=== PATIENT | female | born 1955 | race Caucasian/White ===

== ENCOUNTER 2018-03-23 06:20 | Inpatient (IN) | payer MEDICAID, SELFPAY ==
[2016-10-23 10:17] VITALS: BMI 33.8
--- NOTE | 2018-03-23 06:25 | RAD_ITS ---
STUDY: X-RAY CHEST REASON FOR EXAM: Female, 62 years old. Respiratory arrest. Endotracheal and orogastric tube placement. TECHNIQUE: Single AP portable view of the chest. COMPARISON: 10/20/2016 FINDINGS: Endotracheal tube is placed with the tip about 4.3 cm proximal to the jessie. Orogastric tube is seen extending below the diaphragm and off the [id number]. There is hyperinflation of the lungs consistent with chronic obstructive lung disease (COPD). There is perihilar mild chronic interstitial thickening/edema or infiltrates demonstrated. There is no demonstrated pleural abnormality. There is borderline cardiomegaly. Normal mediastinum and emily. Normal visualized pulmonary arteries. There is atherosclerotic calcification of the aortic arch. There is demineralization of the osseous structures. There is no acute abnormality of the visualized ribs, clavicles, and shoulders. There is no demonstrated abnormality of the visualized soft tissue structures of the upper abdomen. RAD/Chest 1 View IMPRESSION: Borderline cardiomegaly. Bilateral mild chronic interstitial thickening consistent with mild edema versus infiltrates. COPD changes. Endotracheal tube and OG tube appear in place. Electronically Signed: Tom Guardado MD at 7:04 EDT Tel , Service support ,
--- NOTE | 2018-03-23 08:10 | ECHOD_ITS ---
Reason For Study: AFIB/FLUTTER Procedure This was a 2D Doppler, Color Flow transthoracic echocardiogram. The study was technically difficult. The study was technically limited. PT was unable to lie still for exam due to difficulty breathing with venti mask and anxiety. Exam performed portable in ICU/CCU. Left Ventricle Normal LV size. Mild to moderate global left ventricular systolic dysfunction. The estimated ejection fraction is 40 %. Unable to assess diastolic dysfunction due to arrhythmia. No regional wall motion abnormalities noted. Right Ventricle Normal RV size. Normal systolic function. Atria The left atrium is mildly enlarged. Normal right atrium. Mitral Valve There is mild to moderate mitral annular calcification. Mild (1+) eccentric mitral valve insufficiency. Tricuspid Valve The tricuspid valve is not well visualized. Aortic Valve The aortic valve is not well visualized. Pulmonic Valve The pulmonic valve is not well visualized. Great Vessels Normal aortic root. The pulmonary artery is normal size. No collapse of the inferior vena cava. Pericardium/Pleural No pericardial effusion. MMode/2D Measurements & Calculations LVIDd: 5.3 cm IVSd: 0.93 cm Ao root diam: 2.3 cm LVIDs: 4.4 cm LVPWd: 0.97 cm RVDd: 2.8 cm FS: 17.3 % LAV(MOD-bp): 74.1 ml LA A4 area: 22.1 cm2 RA A4 area: 12.9 cm2 LAV(MOD-bp) Indexed: 37.5 ml/m2 LAV(MOD-sp2): 62.4 ml LAV(MOD-sp4): 77.1 ml Doppler Measurements & Calculations MV E max kadi: 111.8 cm/sec Ao V2 max: 115.8 cm/sec LV V1 max: 75.3 cm/sec Ao max P.4 mmHg LV V1 max P.3 mmHg PA V2 max: 67.8 cm/sec Interpretation Summary Normal LV size. Mild to moderate global left ventricular systolic dysfunction. The estimated ejection fraction is 40 %. Unable to assess diastolic dysfunction due to arrhythmia. There is mild to moderate mitral annular calcification. Mild (1+) eccentric mitral valve insufficiency. Ordering Physician: DO Suri Casey Referring Physician: Anastasiia Cordoba Performed By: Anaya Rayo, ABBY, RVT
--- NOTE | 2018-03-23 09:00 | DT_ITS ---
This patient was seen during an EMR downtime March 17, 2018 - March 24, 2018. This patient may have a combination of paper and electronic documentation or all paper documentation. All documentation is viewable within the e-chart portion of [facility] for each patient visit.
--- NOTE | 2018-03-23 09:15 | CT_ITS ---
STUDY: CTA CHEST REASON FOR EXAM: Female, 62 years old. Respiratory arrest RADIATION DOSAGE (If Supplied By Facility): CTDIvol = ( 19.47 ) mGy, DLP = ( 704.04 ) mGycm TECHNIQUE: The examination was performed with the intravenous administration of 100 ml of Isovue 370 contrast material. Post-processing of the angiographic images was performed, with multiplanar reformation and 3D reconstruction. Individualized dose optimization techniques were used for this CT. COMPARISON: None. FINDINGS: Endotracheal tube is visualized. Nasogastric tube is also seen traversing into the stomach. Cardiac size mildly enlarged. Coronary vascular calcifications. Pulmonary artery and its branches demonstrate no definite evidence for filling defects to suggest pulmonary embolus. Vascular calcifications of the thoracic aorta. Bibasilar consolidation seen. Intralobular septal thickening also seen. Patchy areas of nodular densities are also identified bilaterally. No pneumothorax. Degenerative changes in the thoracic spine. Pneumobilia seen not well characterized on this exam. CT/CTA Chest W/WO Contrast IMPRESSION: No evidence for pulmonary embolus. Bibasilar lung consolidation.. No pneumothorax. No pleural effusions Scattered nodular densities with intralobular septal thickening. Short-term follow-up imaging in 3-6 months is suggested. Pneumobilia is partially visualized Electronically Signed: Surinder Vargas, at 10:16 EDT Tel , Service support ,
[2018-03-23 11:24] LABS: Bacteria 0 SEEN /hpf (None Seen); Mucous, Urine 0 SEEN /hpf (<or=2+); Red Blood Cells-Urine 0 SEEN /hpf (0-5); Squamous Epithelial Cells - UA 0 SEEN /hpf (5-10); White Blood Cells 0 SEEN /hpf (0-5)
[2018-03-23 12:00] LABS: Color, Urine Straw (Yellow); Glucose, Dipstick 1000 mg/dl (Normal); Ketone-Dipstick Negative (Negative); Leukocyte Esterase-Dipstick Negative /ul (Negative); Nitrite-Dipstick Negative (Negative); Occult Blood-Urine Negative /ul (Negative); Protein-Dipstick Negative (Negative); Urine Bilirubin Dipstick Negative (Negative); Urine Clarity Clear (Clear); Urine Urobilinogen Normal (Normal)
[2018-03-23 12:20] LABS: M R Staph aureus DNA By PCR Negative (Negative); Probe Check PASS; Specimen Processing Control PASS
[2018-03-24] VITALS (26 sets, daily range): BP systolic 135–170; BP diastolic 65–88; PULSE 90–141; RESP 12–31; TEMP 37–37.6; O2SAT 87–96
[2018-03-24] MEDS: Insulin Lispro 100 UNIT/ML INSULN.PEN SC ×4 (00:15→18:31)
[2018-03-24] MEDS: Propofol 10MG/Ml 1,000 MG/100 ML Bottle 2.64 MG CONT INF (00:30)
[2018-03-24] MEDS: Ipratropium/Albuterol Sulfate 3 ML AMPUL.NEB INHALATION ×6 (02:15→23:05)
[2018-03-24 03:59] LABS: Hematocrit 43.2 % (37-47); Hemoglobin 14.7 g/dl (12.0-15.0); Mean Corpuscular Hgb 28.9 pg (27.0-32.0); Mean Corpuscular Volume 84.9 fL (81-99); Mean Platelet Vol. 10.7 fl (6.2-12.0); Platelet Count 157 K/mm3 (150-450); RBC Distribution Width CV 14.2 % (11.6-14.6); Red Blood Count 5.09 M/mm3 (4.2-5.4); White Blood Count 12.6 K/mm3 (4.4-11.0)
[2018-03-24 04:00] LABS: Scan Indicated on CBC? Y/N NO
--- NOTE | 2018-03-24 05:00 | EKG12_ITS ---
Test Reason : AM EKG Blood Pressure : / mmHG Vent. Rate : 078 BPM Atrial Rate : 078 BPM P-R Int : 142 ms QRS Dur : 084 ms QT Int : 364 ms P-R-T Axes : 074 -20 125 degrees QTc Int : 414 ms Normal sinus rhythm with sinus arrhythmia Low voltage QRS Borderline ECG When compared with ECG of 23-MAR-2018 17:00, MANUAL COMPARISON REQUIRED, DATA IS UNCONFIRMED Confirmed by SCOTTIE ROSE, LOLIS ([id number]), news editor JESS OCAMPO ([id number]) on 03/27/2018 4:42:44 PM Referred By: CEASAR Confirmed By:LOLIS RUBIN MD
[2018-03-24 06:09] LABS: ALB/GLOB Ratio 0.9 RATIO (0.9-2.4); AST(SGOT) 129 U/L (15-37); Alanine Aminotransfer ALT/SGPT 42 U/L (13-56); Albumin, Serum 2.8 g/dL (3.2-5.0); Alkaline Phosphatase 112 U/L (45-117); Anion Gap 10 (5-15); BUN 16 mg/dL (7-18); BUN/Creat Ratio 17.8 RATIO (10-20); Chloride 110 mmol/L (98-107); Cholesterol 130 mg/dL (200); EST Glomerular Filtration Rate 68 mL/min (>60); Est Glom Filt Rate - Afr Amer 82 mL/min (>60); Estimated Creatinine Clearance 61.45 ml/min; Glucose 321 mg/dL (74-106); High Density Lipoprotein 31 mg/dL; Magnesium 1.3 mg/dL (1.6-2.6); Phosphorus 3.6 mg/dL (2.5-4.9); Potassium 4.1 mmol/L (3.5-5.1); Protein, Total 5.8 g/dL (6.4-8.2); Sodium Level 143 mmol/L (136-145); Triglycerides 227 mg/dL; Very Low Density Lipoprotein 45 mg/dL (5-40)
[2018-03-24] MEDS: 0.9% Normal Saline 1,000 ML 100 ML IV ×2 (08:00→16:00)
--- NOTE | 2018-03-24 10:15 | CASEMGMT ---
SW on bi-pap after being extubated this morning. Pt able to respond to SW questions by nodding and shaking head, so conversation kept brief. Pt confirms she lives home alone, was independent with ADL's prior to this admission. Pt does not use any DME, and is not on home oxygen. SW explained to pt that SW will be following along for any needs at discharge, and we will talk further when pt is able to speak and off the bi-pap. Pt nodded in understanding. SW will continue to follow. JACQUE Kebede, [employer]
--- NOTE | 2018-03-24 10:47 | PCM.PN.HOSP ---
Patient Problems: Active and Suspected Problems Acute respiratory failure with hypoxia and hypercapnia (Acute) Pneumococcal pneumonia (Acute) Acute exacerbation of COPD with asthma (Acute) NSTEMI (non-ST elevated myocardial infarction) (Acute) Subjective: extubated this AM. Tolerating BiPAP. Vitals/I&O's: Vital Signs Pulse Resp Pulse Ox 97 16 95 03/24/18 10:35 03/24/18 10:35 03/24/18 10:35 Oxygen Flow Rate (L/min) 12 Oxygen Delivery Method Venturi Mask Weight: 88 kg General: Alert, Cooperative, No apparent distress, - - on BiPAP. HEENT: Atraumatic Neck: No Nodes, Thyroid Normal Size and Texture Lungs: Diminished, - - coarse breath sounds bilaterally. Cardiovascular: Regular rate, Regular Rhythm, Normal S1, Normal S2, No murmurs Abdomen: Bowel Sounds Present, Soft, Non Tender, Non-Distended, No Hepato-splenomegaly Extremities: No edema, No Calf Tenderness Skin: No rashes, No breakdown Musculoskeletal: No Tenderness to Palpation of Joints or Extremities, No Muscle Wasting Neurological: Neuro grossly intact, Sensory exam intact to light touch and pain Psych/Mental Status: Normal Affect, Appropriate Microbiology Past 72 Hours 03/23/18 11:18 Urine, Clean Catch Urine Culture - Preliminary Culture exhibits no growth. 03/23/18 11:18 Urine, Clean Catch Legionella Antigen - Final 03/23/18 11:18 Urine, Clean Catch Streptococcus pneumoniae Antigen (M - Final 03/23/18 11:18 Sputum, Induced/Lukens Gram Stain - Final 03/23/18 09:52 Mucosa - Nasopharyngeal Respiratory Panel (PCR) - Final Laboratory Results 03/23/18 10:30: Urine Color Straw, Urine Clarity Clear, Urine pH 6.0, Ur Specific [place] 1.010, Urine Protein Negative, Urine Glucose (UA) 1000 H, Urine Ketones Negative, Urine Occult Blood Negative, Urine Nitrite Negative, Urine Bilirubin Negative, Urine Urobilinogen Normal, Ur Leukocyte Esterase Negative, Urine RBC 0 SEEN, Urine WBC 0 SEEN, Ur Squamous Epith Cells 0 SEEN, Urine Bacteria 0 SEEN, Urine Mucus 0 SEEN 03/23/18 11:18: MRSA (PCR) Negative 03/24/18 03:45: WBC 12.6 H, RBC 5.09, Hgb 14.7, Hct 43.2, MCV 84.9, MCH 28.9, MCHC 34.0, RDW 14.2, RDW Differential 44.0 H, Plt Count 157, MPV 10.7 03/24/18 03:45: Sodium 143, Potassium 4.1, Chloride 110 H, Carbon Dioxide 23.0, Anion Gap 10, BUN 16, Creatinine 0.90, Estim Creat Clear Calc 61.45, Est GFR (MDRD) Af Amer 82, Est GFR (MDRD) Non-Af 68, BUN/Creatinine Ratio 17.8, Glucose 321 H, Calcium 7.0 L, Phosphorus 3.6, Magnesium 1.3 L, Total Bilirubin 0.40, AST 129 H, ALT 42, Alkaline Phosphatase 112, Total Protein 5.8 L, Albumin 2.8 L, Globulin 3.0, Albumin/Globulin Ratio 0.9, Triglycerides 227 H, Cholesterol 130, LDL Cholesterol 54, VLDL Cholesterol 45 H, HDL Cholesterol 31 L Current Medications Albuterol Sulfate (Ventolin Aerosols) 2.5 mg INHALATION Q2H PRN PRN PRN Reason: DYSPNEA Albuterol/Ipratropium (Duoneb) 3 ml INHALATION Q4H.RT OMARI Last Admin: 03/24/18 10:34 Dose: 3 ml Aspirin (Aspirin, Baby) 81 mg PO DAILY@0800 [facility] Chlorhexidine Gluconate () 1 each TOPICAL DAILY [facility] Enoxaparin Sodium (Lovenox) 90 mg SC BID [facility] Famotidine (Pepcid) 20 mg GT DAILY [facility] Sodium Chloride () 1,000 mls @ 100 mls/hr IV .Q10H [facility] Vancomycin HCl 750 mg/ Sodium (Chloride) 265 mls @ 265 mls/hr IV Q12H [facility] Meropenem 500 mg/ Sodium (Chloride) 60 mls @ 100 mls/hr IV Q6 [facility] Diltiazem HCl 125 mg/ Dextrose 125 mls @ 5 mls/hr CONT INF .Q25H [facility] PRN Reason: 5 MG/HR Insulin Human Lispro (Humalog Kwikpen (Bkc)) 0 unit SC Q6 [facility] PRN Reason: Protocol Methylprednisolone (Solu-Medrol) 40 mg IV Q8 [facility] Sodium Chloride () 5 - 30 ml IV UD PRN PRN Reason: SALINE FLUSH Medical Necessity - Tobacco Use Smoking Status: Current every day smoker Assessment/Plan All Active Problems Acute respiratory failure with hypoxia and hypercapnia (Acute) Pneumococcal pneumonia (Acute) Acute exacerbation of COPD with asthma (Acute) NSTEMI, initial episode of care (Acute) NSTEMI (non-ST elevated myocardial infarction) (Acute) Acute non-ST elevation myocardial infarction (NSTEMI) (Acute) SVT (supraventricular tachycardia) (Acute) CAD (coronary artery disease) (Acute) 1. Acute hypoxic and hypercapnic respiratory failure Secondary to COPD exacerbation as well as pneumonia Extubated this morning and currently tolerating BiPAP. Wean BiPAP as tolerated. Critical care medicine following. 2. Suspicion of COPD Improving Continue with bronchodilators as well as Solu-Medrol 3. Suspected pneumococcal pneumonia No recent hospitalizations since 2017 Will de-escalate antibiotics to Rocephin and azithromycin and discontinue meropenem and vancomycin. Pulmonary toilet Urinary antigens for Streptococcus and Legionella are negative Respiratory panel negative 4. Non-STEMI Troponin went as high as 6.43. That lab work is not currently in the computer system but is in the paper chart. May be a type II event but will have cardiology evaluate and provide further assistance. Resume Plavix and metoprolol Patient has been started on weight-based dosing of Lovenox Cardiology consult 5. Atrial fibrillation with RVR Currently a low-grade sinus tachycardia of around 104 bpm. On a diltiazem drip 6. Diabetes mellitus type II uncontrolled Metformin on hold in light of the patient's CT angiogram that she had on the . That could be resumed on the Glimepiride currently on hold until patient is able to take an oral. Just continue with sliding scale insulin for now. 7. DVT prophylaxis with anticoagulation. Code Visit Inpatient E&M: [id number] [place] [id number]
--- NOTE | 2018-03-24 10:57 | PN_ITS ---
Patient Problems: Active and Suspected Problems Acute respiratory failure with hypoxia and hypercapnia (Acute) Pneumococcal pneumonia (Acute) Acute exacerbation of COPD with asthma (Acute) NSTEMI (non-ST elevated myocardial infarction) (Acute) Subjective: extubated this AM. Tolerating BiPAP. Vitals/I&O's: Vital Signs Pulse Resp Pulse Ox 97 16 95 03/24/18 10:35 03/24/18 10:35 03/24/18 10:35 Oxygen Flow Rate (L/min) 12 Oxygen Delivery Method Venturi Mask Weight: 88 kg General: Alert, Cooperative, No apparent distress, - - on BiPAP. HEENT: Atraumatic Neck: No Nodes, Thyroid Normal Size and Texture Lungs: Diminished, - - coarse breath sounds bilaterally. Cardiovascular: Regular rate, Regular Rhythm, Normal S1, Normal S2, No murmurs Abdomen: Bowel Sounds Present, Soft, Non Tender, Non-Distended, No Hepato- splenomegaly Extremities: No edema, No Calf Tenderness Skin: No rashes, No breakdown Musculoskeletal: No Tenderness to Palpation of Joints or Extremities, No Muscle Wasting Neurological: Neuro grossly intact, Sensory exam intact to light touch and pain Psych/Mental Status: Normal Affect, Appropriate Microbiology Past 72 Hours 03/23/18 11:18 Urine, Clean Catch Urine Culture - Preliminary Culture exhibits no growth. 03/23/18 11:18 Urine, Clean Catch Legionella Antigen - Final 03/23/18 11:18 Urine, Clean Catch Streptococcus pneumoniae Antigen (M - Final 03/23/18 11:18 Sputum, Induced/Lukens Gram Stain - Final 03/23/18 09:52 Mucosa - Nasopharyngeal Respiratory Panel (PCR) - Final Laboratory Results 03/23/18 10:30: Urine Color Straw, Urine Clarity Clear, Urine pH 6.0, Ur Specific [place] 1.010, Urine Protein Negative, Urine Glucose (UA) 1000 H, Urine Ketones Negative, Urine Occult Blood Negative, Urine Nitrite Negative, Urine Bilirubin Negative, Urine Urobilinogen Normal, Ur Leukocyte Esterase Negative, Urine RBC 0 SEEN, Urine WBC 0 SEEN, Ur Squamous Epith Cells 0 SEEN, Urine Bacteria 0 SEEN, Urine Mucus 0 SEEN 03/23/18 11:18: MRSA (PCR) Negative 03/24/18 03:45: WBC 12.6 H, RBC 5.09, Hgb 14.7, Hct 43.2, MCV 84.9, MCH 28.9, MCHC 34.0, RDW 14.2, RDW Differential 44.0 H, Plt Count 157, MPV 10.7 03/24/18 03:45: Sodium 143, Potassium 4.1, Chloride 110 H, Carbon Dioxide 23.0, Anion Gap 10, BUN 16, Creatinine 0.90, Estim Creat Clear Calc 61.45, Est GFR ( MDRD) Af Amer 82, Est GFR (MDRD) Non-Af 68, BUN/Creatinine Ratio 17.8, Glucose 321 H, Calcium 7.0 L, Phosphorus 3.6, Magnesium 1.3 L, Total Bilirubin 0.40, AST 129 H, ALT 42, Alkaline Phosphatase 112, Total Protein 5.8 L, Albumin 2.8 L , Globulin 3.0, Albumin/Globulin Ratio 0.9, Triglycerides 227 H, Cholesterol 130 , LDL Cholesterol 54, VLDL Cholesterol 45 H, HDL Cholesterol 31 L Current Medications Albuterol Sulfate (Ventolin Aerosols) 2.5 mg INHALATION Q2H PRN PRN PRN Reason: DYSPNEA Albuterol/Ipratropium (Duoneb) 3 ml INHALATION Q4H.RT OMARI Last Admin: 03/24/18 10:34 Dose: 3 ml Aspirin (Aspirin, Baby) 81 mg PO DAILY@0800 [facility] Chlorhexidine Gluconate () 1 each TOPICAL DAILY [facility] Enoxaparin Sodium (Lovenox) 90 mg SC BID [facility] Famotidine (Pepcid) 20 mg GT DAILY [facility] Sodium Chloride () 1,000 mls @ 100 mls/hr IV .Q10H [facility] Vancomycin HCl 750 mg/ Sodium (Chloride) 265 mls @ 265 mls/hr IV Q12H [facility] Meropenem 500 mg/ Sodium (Chloride) 60 mls @ 100 mls/hr IV Q6 [facility] Diltiazem HCl 125 mg/ Dextrose 125 mls @ 5 mls/hr CONT INF .Q25H [facility] PRN Reason: 5 MG/HR Insulin Human Lispro (Humalog Kwikpen (Bkc)) 0 unit SC Q6 [facility] PRN Reason: Protocol Methylprednisolone (Solu-Medrol) 40 mg IV Q8 [facility] Sodium Chloride () 5 - 30 ml IV UD PRN PRN Reason: SALINE FLUSH Medical Necessity - Tobacco Use Smoking Status: Current every day smoker Assessment/Plan All Active Problems Acute respiratory failure with hypoxia and hypercapnia (Acute) Pneumococcal pneumonia (Acute) Acute exacerbation of COPD with asthma (Acute) NSTEMI, initial episode of care (Acute) NSTEMI (non-ST elevated myocardial infarction) (Acute) Acute non-ST elevation myocardial infarction (NSTEMI) (Acute) SVT (supraventricular tachycardia) (Acute) CAD (coronary artery disease) (Acute) 1. Acute hypoxic and hypercapnic respiratory failure * Secondary to COPD exacerbation as well as pneumonia * Extubated this morning and currently tolerating BiPAP. Wean BiPAP as tolerated. * Critical care medicine following. 2. Suspicion of COPD * Improving * Continue with bronchodilators as well as Solu-Medrol 3. Suspected pneumococcal pneumonia * No recent hospitalizations since 2017 * Will de-escalate antibiotics to Rocephin and azithromycin and discontinue meropenem and vancomycin. * Pulmonary toilet * Urinary antigens for Streptococcus and Legionella are negative * Respiratory panel negative 4. Non-STEMI * Troponin went as high as 6.43. That lab work is not currently in the computer system but is in the paper chart. * May be a type II event but will have cardiology evaluate and provide further assistance. * Resume Plavix and metoprolol * Patient has been started on weight-based dosing of Lovenox * Cardiology consult 5. Atrial fibrillation with RVR * Currently a low-grade sinus tachycardia of around 104 bpm. * On a diltiazem drip 6. Diabetes mellitus type II * uncontrolled * Metformin on hold in light of the patient's CT angiogram that she had on the . That could be resumed on the * Glimepiride currently on hold until patient is able to take an oral. * Just continue with sliding scale insulin for now. 7. DVT prophylaxis with anticoagulation. Code Visit Inpatient E&M: [id number] [facility] L3
[2018-03-24] MEDS: Enoxaparin 100 MG/ML Syringe 90 MG SC ×2 (10:59→21:01)
[2018-03-24] MEDS: 0.9% NaCl Peripheral Flush Adult/Peds IV ×3 (11:05→22:37)
[2018-03-24] MEDS: Ceftriaxone 1 GM/50 ML BAG IV (12:27)
[2018-03-24 12:46] LABS: Bedside Glucose 375 mg/dL (70-110)
[2018-03-24] MEDS: Haloperidol Lactate 5 MG/ML Vial 2 MG IV ×3 (13:30→22:36)
--- NOTE | 2018-03-24 13:50 | NURSING ---
Addendum entered by Susan Mazariegos 03/24/18 15:17: @1500: tolerated 8 minute break off Bipap with 50% Venti mask. Friends at bedside. Pt reporting mild anxiety. Original Note: 1000: 2-3 minute break off Bipap. Titrated Oxygen up to 6L nasal canula. Pt hypoxic at 88%. Bipap reapplied. Dr Velazquez informed. 1200: Break off Bipap for oral care. Pt became hypoxic on 6L again. Bipap reapplied. 1300: Break off Bipap to change mask to a larger size per RT. Venti mask 50% applied. Total break approximately 3 minutes. 1320 Pt anxious, pull off bipap, trying to get out of bed. Alternative strategies attempted to help pt deal with anxious feelings which were not effective. Dr. Velazquez informed. Haldol given ( see mar for details).
[2018-03-24] MEDS: Metoprolol Tartrate 5 MG/5 ML Vial IV ×2 (15:00→19:32)
[2018-03-24 16:30] LABS: Base Excess -8 mmol/L (-2 to +2); Bicarbonate 20.3 mmol/L (22-26); Blood Gas Specimen Type ART; FI02 70; Mode A-C; O2 Delivery Device Vent; PEEP 10; PO2 60 mmHG (75-100); RR 16; SITE L Radial; SO2 84 % (95-99); Time Given 1040; Total Carbon Dioxide 22 mmol/L; Vt 450; pCO2 53.1 mmHg (35-45); pH 7.19 (7.35-7.45)
[2018-03-24 16:30] LABS: Allen Test POS; Base Excess -7 mmol/L (-2 to +2); Blood Gas Specimen Type ART; FI02 40; Mode CPAP PS; O2 Delivery Device Vent; PEEP 5; PO2 57 mmHG (75-100); PS 5; SITE L Radial; SO2 88 % (95-99); Time Given 555; Total Carbon Dioxide 20 mmol/L; pCO2 34.7 mmHg (35-45); pH 7.35 (7.35-7.45)
[2018-03-24 17:11] LABS: Allen Test POS; Base Excess -7 mmol/L (-2 to +2); Bicarbonate 20.7 mmol/L (22-26); Blood Gas Specimen Type ART; FI02 100; Mode A-C; O2 Delivery Device Vent; PEEP 5; PO2 86 mmHG (75-100); RR 16; SITE R Radial; SO2 94 % (95-99); Time Given 656; Total Carbon Dioxide 22 mmol/L; Vt 450; pCO2 50.4 mmHg (35-45); pH 7.22 (7.35-7.45)
[2018-03-24] MEDS: CLARIFY ORDER NOTE (18:38)
--- NOTE | 2018-03-24 18:58 | PCM.CONS.C ---
Reason for Consult Date of Consultation: 03/24/18 Reason for Consultation: Abnormal cardiac enzymes History of Present Illness: The patient is a 62 year old F who presented to the emergency room after calling the emergency medical squad because she was getting progressively short of breath. She does have a history of obstructive lung disease and also previous coronary artery stents. She denied any chest pain no paroxysmal nocturnal dyspnea no pedal edema no neck arm or jaw discomfort suggest angina no dizziness no diaphoresis no near syncope or syncope. She was brought to the emergency room was immediately intubated due to a very marginal oxygen saturation and was extubated today. Cardiac enzymes were noted to be abnormal and an echocardiogram also demonstrated globally reduced left ventricular systolic function. She has just been extubated and at this time appears to be doing well though she is tachycardic. [] Past Medical History Allergies/Adverse Reactions: Allergies ampicillin Allergy (Verified 10/20/16 10:31) Hives doxycycline Allergy (Verified 03/24/18 12:43) Unknown hydrochlorothiazide Allergy (Verified 03/24/18 12:43) Unknown iodine Allergy (Verified 10/20/16 10:31) Unknown Penicillins [PCN] Allergy (Verified 03/24/18 12:43) Unknown shellfish derived Allergy (Verified 10/20/16 10:31) Hives venom-honey bee [bee venom (honey bee)] Allergy (Verified 10/20/16 10:31) Hives diphenhydramine [From Benadryl] Adverse Reaction (Verified 10/20/16 20:48) Hives Home Medications: Ambulatory Orders Medication Instructions Recorded Amlodipine [Norvasc] 10 mg PO DAILY 10/20/16 Cholecalciferol (Vitamin D3) 50,000 unit PO QWEEK 10/20/16 [Vitamin D3] Clopidogrel Bisulfate [Clopidogrel] 1 tab PO DAILY 10/20/16 Diazepam 1 tab PO BID PRN PRN 10/20/16 Folic Acid 1 tab PO DAILY 10/20/16 Glimepiride 2 tab PO DAILY 10/20/16 Hydrocodone/Acetaminophen 1 tab PO BID PRN 10/20/16 [Hydrocodone-Acetamin 7.5-325] Levothyroxine [Synthroid] 25 mcg PO MOWEFR 10/20/16 Levothyroxine [Synthroid] 175 mcg PO DAILY 10/20/16 Lisinopril 1 tab PO DAILY 10/20/16 Metformin HCl [Glucophage] 1,000 mg PO DAILY 10/20/16 Montelukast [Singulair] 1 tab PO DAILY 10/20/16 Potassium Chloride [K-Dur] 1 tab PO DAILY 10/20/16 Metoprolol Tartrate [Lopressor 50 mg PO BID #30 tablet 10/23/16 (beta jackie)] Atorvastatin Calcium 1 tab PO DAILY 03/24/18 Past Medical History (Chronic Problems): Chronic Problems Diabetes mellitus (Chronic) HLD (hyperlipidemia) (Chronic) S/P PTCA (percutaneous transluminal coronary angioplasty) (Chronic) Essential hypertension (Chronic) Surgical History: no surgical history - *Family History Paternal History Items: No pertinent history Smoking Status: Current every day smoker Alcohol: None Drugs: None Review of Systems - Review of Systems General: Denies: Fever, Night Sweats, Fatigue Cardiovascular: Denies: Chest Discomfort, Shortness of Breath, Orthopnea, PND, Peripheral Edema, Palpitations, Lightheadedness, Dizziness, Near Syncope, Syncope Respiratory: Denies: Cough, Sputum Production, Hemoptysis Gastrointestinal: Denies: Hematemesis, Hematochezia, Melena Genitourinary: Denies: Dysuria, Hematuria Skin: Denies: Rash Objective: Vital Signs Temp Pulse Resp BP Pulse Ox 99.5 F H 123 H 24 H 149/76 H 94 03/24/18 18:00 03/24/18 18:00 03/24/18 18:00 03/24/18 18:00 03/24/18 18:00 Oxygen Flow Rate (L/min) 55 Oxygen Delivery Method Bi-pap Weight: 194 lb 0.108 oz Intake and Output for Last 24 Hours 03/22/18 03/23/18 03/24/18 23:59 23:59 23:59 Intake Total 2774.3 / 2774.3 Output Total 500 / 500 Balance 2274.3 / 2274.3 General: Awake, Alert, Oriented x 3, Ill Appearing HEENT: PERRL, EOMI, Sclera Non Icteric Neck: Supple, Good ROM, No Lymph Node Enlargement Lungs: Clear to auscultation Cardiovascular: Regular Rhythm, Normal S1, Normal S2, No Murmurs, No Rubs, No Gallops Vascular: No Carotid Bruits, Normal Femoral Pulses, Normal Radial Pulses, Normal Dorsalis Pedal Pulse, Normal Posterior Tibial Pulses Abdomen: Bowel Sounds Present, Soft, Non Tender, No HSM, No Organomegaly Extremities: No Cyanosis, No Clubbing, No edema Neurological: No Focal Motor or Sensory Deficit 03/23/18 10:40: pH 7.19 L*, Bicarbonate Actual 20.3 L, POC Total CO2 22, Base Excess -8 L, O2 Saturation 84 L, ABG pCO2 53.1 H, ABG pO2 60 L, Tamir Test NA 03/24/18 03:45: WBC 12.6 H, RBC 5.09, Hgb 14.7, Hct 43.2, MCV 84.9, MCH 28.9, MCHC 34.0, RDW 14.2, RDW Differential 44.0 H, Plt Count 157, MPV 10.7 03/24/18 03:45: Sodium 143, Potassium 4.1, Chloride 110 H, Carbon Dioxide 23.0, Anion Gap 10, BUN 16, Creatinine 0.90, Est GFR (MDRD) Af Amer 82, Est GFR (MDRD) Non-Af 68, BUN/Creatinine Ratio 17.8, Glucose 321 H, Calcium 7.0 L, Phosphorus 3.6, Magnesium 1.3 L, Total Bilirubin 0.40, Triglycerides 227 H, Cholesterol 130, LDL Cholesterol 54, VLDL Cholesterol 45 H, HDL Cholesterol 31 L 03/24/18 06:21: pH 7.35, Bicarbonate Actual 19.0 L, POC Total CO2 20, Base Excess -7 L, O2 Saturation 88 L, ABG pCO2 34.7 L, ABG pO2 57 L, Tamir Test POS Rhythm: EKG: Normal sinus rhythm with no acute changes ECHO: Globally reduced left ventricular ejection fraction estimated at 40% Assessment/Plan 1. Non-STEMI Troponin went as high as 6.43. That lab work is not currently in the computer system but is in the paper chart. May be a type II event but will have cardiology evaluate and provide further assistance. Resume Plavix and metoprolol Patient has been started on weight-based dosing of Lovenox After the patient has been stabilized from the pulmonary standpoint she would need to undergo a left heart catheterization. This has been discussed with her and she agrees to proceed. 2. Atrial fibrillation with RVR Currently a low-grade sinus tachycardia of around 104 bpm. I do not see any evidence of atrial fibrillation previously. EKG was noted to be in sinus rhythm. We will continue to monitor. No need for anticoagulation at this particular time. 3. Cardiomyopathy. Unclear the duration of the cardiomyopathy and whether this is related to previous coronary artery disease or secondary to nonischemic causes. This will be further evaluated with the cardiac catheterization. Thank you for allowing me to participate in the care of your patient. Please don't hesitate to call if any issues arise
--- NOTE | 2018-03-24 19:05 | CON.PCM_ITS ---
Reason for Consult Date of Consultation: 03/24/18 Reason for Consultation: Abnormal cardiac enzymes History of Present Illness: The patient is a 62 year old F who presented to the emergency room after calling the emergency medical squad because she was getting progressively short of breath. She does have a history of obstructive lung disease and also previous coronary artery stents. She denied any chest pain no paroxysmal nocturnal dyspnea no pedal edema no neck arm or jaw discomfort suggest angina no dizziness no diaphoresis no near syncope or syncope. She was brought to the emergency room was immediately intubated due to a very marginal oxygen saturation and was extubated today. Cardiac enzymes were noted to be abnormal and an echocardiogram also demonstrated globally reduced left ventricular systolic function. She has just been extubated and at this time appears to be doing well though she is tachycardic. [] Past Medical History Allergies/Adverse Reactions: Allergies ampicillin Allergy (Verified 10/20/16 10:31) Hives doxycycline Allergy (Verified 03/24/18 12:43) Unknown hydrochlorothiazide Allergy (Verified 03/24/18 12:43) Unknown iodine Allergy (Verified 10/20/16 10:31) Unknown Penicillins [PCN] Allergy (Verified 03/24/18 12:43) Unknown shellfish derived Allergy (Verified 10/20/16 10:31) Hives venom-honey bee [bee venom (honey bee)] Allergy (Verified 10/20/16 10:31) Hives diphenhydramine [From Benadryl] Adverse Reaction (Verified 10/20/16 20:48) Hives Home Medications: Ambulatory Orders Medication Instructions Recorded Amlodipine [Norvasc] 10 mg PO DAILY 10/20/16 Cholecalciferol (Vitamin D3) 50,000 unit PO QWEEK 10/20/16 [Vitamin D3] Clopidogrel Bisulfate [Clopidogrel] 1 tab PO DAILY 10/20/16 Diazepam 1 tab PO BID PRN PRN 10/20/16 Folic Acid 1 tab PO DAILY 10/20/16 Glimepiride 2 tab PO DAILY 10/20/16 Hydrocodone/Acetaminophen 1 tab PO BID PRN 10/20/16 [Hydrocodone-Acetamin 7.5-325] Levothyroxine [Synthroid] 25 mcg PO MOWEFR 10/20/16 Levothyroxine [Synthroid] 175 mcg PO DAILY 10/20/16 Lisinopril 1 tab PO DAILY 10/20/16 Metformin HCl [Glucophage] 1,000 mg PO DAILY 10/20/16 Montelukast [Singulair] 1 tab PO DAILY 10/20/16 Potassium Chloride [K-Dur] 1 tab PO DAILY 10/20/16 Metoprolol Tartrate [Lopressor 50 mg PO BID #30 tablet 10/23/16 (beta jackie)] Atorvastatin Calcium 1 tab PO DAILY 03/24/18 Past Medical History (Chronic Problems): Chronic Problems Diabetes mellitus (Chronic) HLD (hyperlipidemia) (Chronic) S/P PTCA (percutaneous transluminal coronary angioplasty) (Chronic) Essential hypertension (Chronic) Surgical History: no surgical history - *Family History Paternal History Items: No pertinent history Smoking Status: Current every day smoker Alcohol: None Drugs: None Review of Systems - Review of Systems General: Denies: Fever, Night Sweats, Fatigue Cardiovascular: Denies: Chest Discomfort, Shortness of Breath, Orthopnea, PND, Peripheral Edema, Palpitations, Lightheadedness, Dizziness, Near Syncope, Syncope Respiratory: Denies: Cough, Sputum Production, Hemoptysis Gastrointestinal: Denies: Hematemesis, Hematochezia, Melena Genitourinary: Denies: Dysuria, Hematuria Skin: Denies: Rash Objective: Vital Signs Temp Pulse Resp BP Pulse Ox 99.5 F H 123 H 24 H 149/76 H 94 03/24/18 18:00 03/24/18 18:00 03/24/18 18:00 03/24/18 18:00 03/24/18 18:00 Oxygen Flow Rate (L/min) 55 Oxygen Delivery Method Bi-pap Weight: 194 lb 0.108 oz Intake and Output for Last 24 Hours 03/22/18 03/23/18 03/24/18 23:59 23:59 23:59 Intake Total 2774.3 / 2774.3 Output Total 500 / 500 Balance 2274.3 / 2274.3 General: Awake, Alert, Oriented x 3, Ill Appearing HEENT: PERRL, EOMI, Sclera Non Icteric Neck: Supple, Good ROM, No Lymph Node Enlargement Lungs: Clear to auscultation Cardiovascular: Regular Rhythm, Normal S1, Normal S2, No Murmurs, No Rubs, No Gallops Vascular: No Carotid Bruits, Normal Femoral Pulses, Normal Radial Pulses, Normal Dorsalis Pedal Pulse, Normal Posterior Tibial Pulses Abdomen: Bowel Sounds Present, Soft, Non Tender, No HSM, No Organomegaly Extremities: No Cyanosis, No Clubbing, No edema Neurological: No Focal Motor or Sensory Deficit 03/23/18 10:40: pH 7.19 L*, Bicarbonate Actual 20.3 L, POC Total CO2 22, Base Excess -8 L, O2 Saturation 84 L, ABG pCO2 53.1 H, ABG pO2 60 L, Tamir Test NA 03/24/18 03:45: WBC 12.6 H, RBC 5.09, Hgb 14.7, Hct 43.2, MCV 84.9, MCH 28.9, MCHC 34.0, RDW 14.2, RDW Differential 44.0 H, Plt Count 157, MPV 10.7 03/24/18 03:45: Sodium 143, Potassium 4.1, Chloride 110 H, Carbon Dioxide 23.0, Anion Gap 10, BUN 16, Creatinine 0.90, Est GFR (MDRD) Af Amer 82, Est GFR (MDRD ) Non-Af 68, BUN/Creatinine Ratio 17.8, Glucose 321 H, Calcium 7.0 L, Phosphorus 3.6, Magnesium 1.3 L, Total Bilirubin 0.40, Triglycerides 227 H, Cholesterol 130, LDL Cholesterol 54, VLDL Cholesterol 45 H, HDL Cholesterol 31 L 03/24/18 06:21: pH 7.35, Bicarbonate Actual 19.0 L, POC Total CO2 20, Base Excess -7 L, O2 Saturation 88 L, ABG pCO2 34.7 L, ABG pO2 57 L, Tamir Test POS Rhythm: EKG: Normal sinus rhythm with no acute changes ECHO: Globally reduced left ventricular ejection fraction estimated at 40% Assessment/Plan 1. Non-STEMI * Troponin went as high as 6.43. That lab work is not currently in the computer system but is in the paper chart. * May be a type II event but will have cardiology evaluate and provide further assistance. * Resume Plavix and metoprolol * Patient has been started on weight-based dosing of Lovenox * After the patient has been stabilized from the pulmonary standpoint she would need to undergo a left heart catheterization. This has been discussed with her and she agrees to proceed. 2. Atrial fibrillation with RVR * Currently a low-grade sinus tachycardia of around 104 bpm. * I do not see any evidence of atrial fibrillation previously. EKG was noted to be in sinus rhythm. We will continue to monitor. No need for anticoagulation at this particular time. 3. Cardiomyopathy. Unclear the duration of the cardiomyopathy and whether this is related to previous coronary artery disease or secondary to nonischemic causes. This will be further evaluated with the cardiac catheterization. Thank you for allowing me to participate in the care of your patient. Please don't hesitate to call if any issues arise
[2018-03-24 19:16] LABS: Bedside Glucose 322 mg/dL (70-110)
--- NOTE | 2018-03-24 21:26 | NURSING ---
Tried a break on 50% VM. Pt. lasted ~9minutes while O2 sats gradually decreased down to 80%. Placed pt. back on bipap. Sats increased back up to 90% within a few minutes.
[2018-03-25] VITALS (73 sets, daily range): BP systolic 62–178; BP diastolic 33–90; PULSE 69–136; RESP 11–29; TEMP 36.4–38.2; O2SAT 88–99
[2018-03-25] MEDS: Insulin Lispro 100 UNIT/ML INSULN.PEN SC ×5 (00:08→23:59)
[2018-03-25] MEDS: Metoprolol Tartrate 5 MG/5 ML Vial IV ×2 (00:10→05:35)
[2018-03-25] MEDS: 0.9% NaCl Peripheral Flush Adult/Peds IV ×8 (00:13→21:15)
[2018-03-25 00:20] LABS: Bedside Glucose 305 mg/dL (70-110)
[2018-03-25] MEDS: 0.9% Normal Saline 1,000 ML 100 ML IV (01:55)
[2018-03-25] MEDS: Haloperidol Lactate 5 MG/ML Vial 2 MG IV (02:28)
[2018-03-25] MEDS: Ipratropium/Albuterol Sulfate 3 ML AMPUL.NEB INHALATION ×6 (03:07→22:38)
[2018-03-25 04:36] LABS: Allen Test POS; Base Excess -7 mmol/L (-2 to +2); Bicarbonate 21.2 mmol/L (22-26); Blood Gas Specimen Type ART; EPAP 8; FI02 65; IPAP 15; PO2 68 mmHG (75-100); RR 12; SITE L Radial; SO2 89 % (95-99); Total Carbon Dioxide 23 mmol/L; pCO2 53.5 mmHg (35-45); pH 7.21 (7.35-7.45)
[2018-03-25 04:38] LABS: Absolute Neutrophil Count 20.8 X10^3/uL (2.0-7.7); Basophil# 0.01 X10^3/uL; Hematocrit 45.8 % (37-47); Hemoglobin 16.2 g/dl (12.0-15.0); Lymphocyte % 3.5 % (19-41); Mean Corp Hgb Conc 35.4 g/gl (32-36); Mean Corpuscular Hgb 30.2 pg (27.0-32.0); Mean Corpuscular Volume 85.4 fL (81-99); Mean Platelet Vol. 10.9 fl (6.2-12.0); Monocyte# 0.94 X10^3/uL; Monocyte% 4.1 % (0-10); Neutrophil % 91.9 % (47-70); Platelet Count 181 K/mm3 (150-450); RBC Distribution Width CV 14.9 % (11.6-14.6); RBC Distribution Width SD 46.7 fl (35.1-43.9); Red Blood Count 5.36 M/mm3 (4.2-5.4); White Blood Count 22.7 K/mm3 (4.4-11.0)
[2018-03-25] MEDS: Furosemide 40 MG/4 ML Vial IV ×3 (04:40→21:02)
[2018-03-25 04:41] LABS: Anion Gap 6 (5-15); BUN 20 mg/dL (7-18); BUN/Creat Ratio 27.4 RATIO (10-20); Calcium,Total 7.4 mg/dL (8.5-10.1); Chloride 113 mmol/L (98-107); Creatinine, Serum 0.73 mg/dL (0.55-1.02); EST Glomerular Filtration Rate 86 mL/min (>60); Est Glom Filt Rate - Afr Amer 104 mL/min (>60); Estimated Creatinine Clearance 75.76 ml/min; Glucose 303 mg/dL (74-106); Potassium 4.2 mmol/L (3.5-5.1); Sodium Level 145 mmol/L (136-145)
[2018-03-25 04:42] LABS: Differential Indicated SCAN CRITERIA MET; POSITIVE COUNT NO; POSITIVE DIFFERENTIAL YES; POSITIVE MORPHOLOGY NO
--- NOTE | 2018-03-25 04:45 | CPS ---
increased ipap to [address] franklin
[2018-03-25 05:14] LABS: Differential Comment SCANNED
[2018-03-25 05:35] LABS: Bedside Glucose 297 mg/dL (70-110)
--- NOTE | 2018-03-25 06:43 | RAD_ITS ---
STUDY: X-RAY CHEST REASON FOR EXAM: Female, 62 years old. SOB TECHNIQUE: Single frontal view of the chest. COMPARISON: 03/23/2018 FINDINGS: Interval extubation and removal of enteric tube. 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 Left basilar atelectasis. There is no demonstrated pleural abnormality. Normal size heart. Normal mediastinum and emily. Normal visualized pulmonary arteries. Normal visualized aortic arch and descending thoracic aorta. Normal visualized thoracic spine. Normal visualized ribs, clavicles, and shoulders. There is no demonstrated abnormality of the visualized soft tissue structures of the upper abdomen. 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 Left basilar atelectasis. Electronically Signed: Jose Garcia MD at 7:23 EDT Tel , Service support ,
--- NOTE | 2018-03-25 08:01 | PCM.PN.INT ---
Subjective: Patient was extubated yesterday, but continued to have difficulties with hypoxemia. Patient tolerated very infrequent breaks off BiPAP for 10 minutes at most. Overnight, patient reportedly had significant difficulty with anxiety. Patient was attempted to be treated with Haldol, which nursing reported good response initially. However, this morning at approximately 4 AM, patient started to have increased work of breathing and hypoxemia. An ABG was obtained showing CO2 retention. BiPAP settings were increased and patient was given Lasix therapy with production of approximately 400 cc of urine. Patient appears much more comfortable after increase in BiPAP settings. Objective: Chest x-ray ordered this morning showed increased cephalization. Echocardiogram did show a mild decrease in ejection fraction at 40%, but imaging was reportedly poor. General: Alert, Oriented x3, Cooperative, No apparent distress, - - Good BiPAP synchrony noted. No accessory muscle use noted. HEENT: Atraumatic, PERRLA, EOMI, Normocephalic, - - Slight scleral injection without icterus Oral: No Gingival or Mucosal Lesions/ Ulcerations, Dry Mucosa Neck: Supple, No Nodes, Trachea Midline, JVD, Right Lungs: No rhonchi, Diminished, Wheezes, - - No dullness to percussion. Cardiovascular: Normal S1, Normal S2, No murmurs, No rub noted, No Gallop, Tachycardic Abdomen: Bowel Sounds Present, Soft, Non Tender, Non-Distended, Obese Extremities: No clubbing, No cyanosis, No edema, Capillary Refill Less than 3 Seconds Skin: No rashes, No breakdown Musculoskeletal: No Tenderness to Palpation of Joints or Extremities, No Muscle Wasting Lymphatic: No Cervical, Supraclavicular, or Inguinal Adenopathy Neurological: Cranial nerves II-XII grossly intact, Neuro grossly intact, Motor Exam 5/5 strength throughout Psych/Mental Status: Anxious, Flat Affect Vital Signs Temp Pulse Resp BP Pulse Ox 36.7 C 101 H 15 135/78 H 93 03/25/18 06:00 03/25/18 06:00 03/25/18 06:00 03/25/18 06:00 03/25/18 06:00 Oxygen Flow Rate (L/min) 55 Oxygen Delivery Method Bi-pap Weight: 90.7 kg Intake and Output for Last 24 Hours 03/23/18 03/24/18 03/25/18 23:59 23:59 23:59 Intake Total 3259.3 / 3259.3 507 / 507 Output Total 750 / 750 450 / 450 Balance 2509.3 / 2509.3 57 / 57 Labs (Last 48 Hours) 03/23/18 03/23/18 03/23/18 10:30 10:40 11:18 WBC RBC Hgb Hct MCV MCH MCHC RDW RDW Differential Plt Count MPV Immature Gran % (Auto) Neut % (Auto) Lymph % (Auto) [place] % (Auto) Eos % (Auto) Baso % (Auto) Absolute Neuts (auto) Absolute Lymphs (auto) Total Counted Differential Comment Specimen Type ART Sample Site L Radial pH 7.19 L* Bicarbonate Actual 20.3 L POC Total CO2 22 Base Excess -8 L O2 Saturation 84 L O2 % 70 ABG pCO2 53.1 H ABG pO2 60 L Tamir Test NA Respiration Rate 16 O2 Delivery Device Vent Vent Mode A-C Tidal Volume 450 POC PEEP 10 POC Pressure Suppt EPAP IPAP Blood Gas Notified Whom ICU Blood Gas Notified Time 1040 Sodium Potassium Chloride Carbon Dioxide Anion Gap BUN Creatinine Estim Creat Clear Calc Est GFR (MDRD) Af Amer Est GFR (MDRD) Non-Af BUN/Creatinine Ratio Glucose Calcium Phosphorus Magnesium Total Bilirubin AST ALT Alkaline Phosphatase Total Protein Albumin Globulin Albumin/Globulin Ratio Triglycerides Cholesterol LDL Cholesterol VLDL Cholesterol HDL Cholesterol Urine Color Straw Urine Clarity Clear Urine pH 6.0 Ur Specific [place] 1.010 Urine Protein Negative Urine Glucose (UA) 1000 H Urine Ketones Negative Urine Occult Blood Negative Urine Nitrite Negative Urine Bilirubin Negative Urine Urobilinogen Normal Ur Leukocyte Esterase Negative Urine RBC 0 SEEN Urine WBC 0 SEEN Ur Squamous Epith Cells 0 SEEN Urine Bacteria 0 SEEN Urine Mucus 0 SEEN MRSA (PCR) Negative POC Glucose 03/24/18 03/24/18 03/24/18 03:45 03:45 06:21 WBC 12.6 H RBC 5.09 Hgb 14.7 Hct 43.2 MCV 84.9 MCH 28.9 MCHC 34.0 RDW 14.2 RDW Differential 44.0 H Plt Count 157 MPV 10.7 Immature Gran % (Auto) Neut % (Auto) Lymph % (Auto) [place] % (Auto) Eos % (Auto) Baso % (Auto) Absolute Neuts (auto) Absolute Lymphs (auto) Total Counted Differential Comment Specimen Type ART Sample Site L Radial pH 7.35 Bicarbonate Actual 19.0 L POC Total CO2 20 Base Excess -7 L O2 Saturation 88 L O2 % 40 ABG pCO2 34.7 L ABG pO2 57 L Tamir Test POS Respiration Rate O2 Delivery Device Vent Vent Mode CPAP PS Tidal Volume POC PEEP 5 POC Pressure Suppt 5 EPAP IPAP Blood Gas Notified Whom ICU MD Blood Gas Notified Time 555 Sodium 143 Potassium 4.1 Chloride 110 H Carbon Dioxide 23.0 Anion Gap 10 BUN 16 Creatinine 0.90 Estim Creat Clear Calc 61.45 Est GFR (MDRD) Af Amer 82 Est GFR (MDRD) Non-Af 68 BUN/Creatinine Ratio 17.8 Glucose 321 H Calcium 7.0 L Phosphorus 3.6 Magnesium 1.3 L Total Bilirubin 0.40 AST 129 H ALT 42 Alkaline Phosphatase 112 Total Protein 5.8 L Albumin 2.8 L Globulin 3.0 Albumin/Globulin Ratio 0.9 Triglycerides 227 H Cholesterol 130 LDL Cholesterol 54 VLDL Cholesterol 45 H HDL Cholesterol 31 L Urine Color Urine Clarity Urine pH Ur Specific [place] Urine Protein Urine Glucose (UA) Urine Ketones Urine Occult Blood Urine Nitrite Urine Bilirubin Urine Urobilinogen Ur Leukocyte Esterase Urine RBC Urine WBC Ur Squamous Epith Cells Urine Bacteria Urine Mucus MRSA (PCR) POC Glucose 03/24/18 03/24/18 03/25/18 12:36 18:26 00:00 WBC RBC Hgb Hct MCV MCH MCHC RDW RDW Differential Plt Count MPV Immature Gran % (Auto) Neut % (Auto) Lymph % (Auto) [place] % (Auto) Eos % (Auto) Baso % (Auto) Absolute Neuts (auto) Absolute Lymphs (auto) Total Counted Differential Comment Specimen Type Sample Site pH Bicarbonate Actual POC Total CO2 Base Excess O2 Saturation O2 % ABG pCO2 ABG pO2 Tamir Test Respiration Rate O2 Delivery Device Vent Mode Tidal Volume POC PEEP POC Pressure Suppt EPAP IPAP Blood Gas Notified Whom Blood Gas Notified Time Sodium Potassium Chloride Carbon Dioxide Anion Gap BUN Creatinine Estim Creat Clear Calc Est GFR (MDRD) Af Amer Est GFR (MDRD) Non-Af BUN/Creatinine Ratio Glucose Calcium Phosphorus Magnesium Total Bilirubin AST ALT Alkaline Phosphatase Total Protein Albumin Globulin Albumin/Globulin Ratio Triglycerides Cholesterol LDL Cholesterol VLDL Cholesterol HDL Cholesterol Urine Color Urine Clarity Urine pH Ur Specific [place] Urine Protein Urine Glucose (UA) Urine Ketones Urine Occult Blood Urine Nitrite Urine Bilirubin Urine Urobilinogen Ur Leukocyte Esterase Urine RBC Urine WBC Ur Squamous Epith Cells Urine Bacteria Urine Mucus MRSA (PCR) POC Glucose 375 H 322 H 305 H 03/25/18 03/25/18 03/25/18 04:20 04:20 04:31 WBC 22.7 H RBC 5.36 Hgb 16.2 H Hct 45.8 MCV 85.4 MCH 30.2 MCHC 35.4 RDW 14.9 H RDW Differential 46.7 H Plt Count 181 MPV 10.9 Immature Gran % (Auto) 0.500 Neut % (Auto) 91.9 H Lymph % (Auto) 3.5 L [place] % (Auto) 4.1 Eos % (Auto) 0.0 Baso % (Auto) 0.0 Absolute Neuts (auto) 20.8 H Absolute Lymphs (auto) 0.80 L Total Counted Not Reportable Differential Comment SCANNED Specimen Type ART Sample Site L Radial pH 7.21 L Bicarbonate Actual 21.2 L POC Total CO2 23 Base Excess -7 L O2 Saturation 89 L O2 % 65 ABG pCO2 53.5 H ABG pO2 68 L Tamir Test POS Respiration Rate 12 O2 Delivery Device Bi / C PAP Vent Mode Tidal Volume POC PEEP POC Pressure Suppt EPAP 8 IPAP 15 Blood Gas Notified Whom HOSP Blood Gas Notified Time Sodium 145 Potassium 4.2 Chloride 113 H Carbon Dioxide 26.0 Anion Gap 6 BUN 20 H Creatinine 0.73 Estim Creat Clear Calc 75.76 Est GFR (MDRD) Af Amer 104 Est GFR (MDRD) Non-Af 86 BUN/Creatinine Ratio 27.4 H Glucose 303 H Calcium 7.4 L Phosphorus Magnesium Total Bilirubin AST ALT Alkaline Phosphatase Total Protein Albumin Globulin Albumin/Globulin Ratio Triglycerides Cholesterol LDL Cholesterol VLDL Cholesterol HDL Cholesterol Urine Color Urine Clarity Urine pH Ur Specific [place] Urine Protein Urine Glucose (UA) Urine Ketones Urine Occult Blood Urine Nitrite Urine Bilirubin Urine Urobilinogen Ur Leukocyte Esterase Urine RBC Urine WBC Ur Squamous Epith Cells Urine Bacteria Urine Mucus MRSA (PCR) POC Glucose 03/25/18 05:31 WBC RBC Hgb Hct MCV MCH MCHC RDW RDW Differential Plt Count MPV Immature Gran % (Auto) Neut % (Auto) Lymph % (Auto) [place] % (Auto) Eos % (Auto) Baso % (Auto) Absolute Neuts (auto) Absolute Lymphs (auto) Total Counted Differential Comment Specimen Type Sample Site pH Bicarbonate Actual POC Total CO2 Base Excess O2 Saturation O2 % ABG pCO2 ABG pO2 Tamir Test Respiration Rate O2 Delivery Device Vent Mode Tidal Volume POC PEEP POC Pressure Suppt EPAP IPAP Blood Gas Notified Whom Blood Gas Notified Time Sodium Potassium Chloride Carbon Dioxide Anion Gap BUN Creatinine Estim Creat Clear Calc Est GFR (MDRD) Af Amer Est GFR (MDRD) Non-Af BUN/Creatinine Ratio Glucose Calcium Phosphorus Magnesium Total Bilirubin AST ALT Alkaline Phosphatase Total Protein Albumin Globulin Albumin/Globulin Ratio Triglycerides Cholesterol LDL Cholesterol VLDL Cholesterol HDL Cholesterol Urine Color Urine Clarity Urine pH Ur Specific [place] Urine Protein Urine Glucose (UA) Urine Ketones Urine Occult Blood Urine Nitrite Urine Bilirubin Urine Urobilinogen Ur Leukocyte Esterase Urine RBC Urine WBC Ur Squamous Epith Cells Urine Bacteria Urine Mucus MRSA (PCR) POC Glucose 297 H Microbiology 03/23/18 11:18 Urine, Clean Catch Urine Culture - Preliminary Culture exhibits no growth. 03/23/18 11:18 Urine, Clean Catch Legionella Antigen - Final 03/23/18 11:18 Urine, Clean Catch Streptococcus pneumoniae Antigen (M - Final 03/23/18 11:18 Sputum, Induced/Lukens Gram Stain - Final 03/23/18 09:52 Mucosa - Nasopharyngeal Respiratory Panel (PCR) - Final Clinical Impression(s) from Imaging Studies Chest CTA 03/23/18 09:15 IMPRESSION: No evidence for pulmonary embolus. Bibasilar lung consolidation.. No pneumothorax. No pleural effusions Scattered nodular densities with intralobular septal thickening. Short-term follow-up imaging in 3-6 months is suggested. Pneumobilia is partially visualized Electronically Signed: Surinder Vargas at 10:16 EDT Tel , Service support , Chest X-Ray 03/25/18 06:43 IMPRESSION: Evolving right basilar and bilateral perihilar alveolar disease. Left basilar atelectasis. Electronically Signed: Jose Garcia MD at 7:23 EDT Tel , Service support , Medical Necessity - Tobacco Use Smoking Status: Current every day smoker Assessment/Plan All Active Problems NSTEMI (non-ST elevated myocardial infarction) (Acute) NSTEMI, initial episode of care (Acute) Acute exacerbation of COPD with asthma (Acute) Pneumococcal pneumonia (Acute) Acute respiratory failure with hypoxia and hypercapnia (Acute) Acute non-ST elevation myocardial infarction (NSTEMI) (Acute) SVT (supraventricular tachycardia) (Acute) CAD (coronary artery disease) (Acute) RECOMMENDATIONS: 1. Obtain repeat ABG 2. Consider initiation of diuretic therapy 3. Obtain BNP 4. Wean oxygen as tolerated 5. Continue steroid and bronchodilator therapy at current dosing IMPRESSIONS: 1. Acute combined respiratory failure Unclear etiology at this time. Patient is receiving therapy for a possible COPD exacerbation with antibiotics, bronchodilators and steroids. Chest x-ray this morning appears to be more consistent with pulmonary edema. Patient has had increased BiPAP settings and desaturates with removal of positive pressure. Will obtain a BNP. Cardiology is consulted. Would recommend a trial of diuresis. A repeat ABG has been ordered. Cannot exclude the need for intubation later today for stabilization of respiratory status. Unclear if patient has an element of cor pulmonale secondary to chronic hypoxemia. Patient's hemoglobin is up to 16 despite increased fluid. 2. Non-ST elevation DC/SVT Echocardiogram was of poor quality. Previous echocardiogram did show apical wall motion abnormalities. Ejection fraction is decreased compared to previous. No ability to assess diastolic dysfunction. Patient has been placed on Lopressor yesterday. May need to titrate up given patient's elevated heart rate. Patient currently on full anticoagulation and antiplatelet therapy. 3. Diabetes mellitus type 2 Patient currently with marginal control of blood sugars with sliding scale insulin. Will increase patient's sliding scale. Patient may require basal insulin if intubated and initiated on tube feeds. 4. Anxiety/hypertension/hyperlipidemia/hypothyroidism Complicates care, management, recovery and prognosis. Blood pressure has been controlled when patient's anxiety is controlled at this time. Patient is on baseline blood pressure medications, but these have not been able to be given given BiPAP dependency. Addendum 10 AM: Patient with continued accessory muscle use this morning despite BiPAP 20/8 with 65% FiO2. Discussed with the patient about her respiratory status. After review of the risks, benefits and alternatives, patient was agreeable to reintubation. Patient was given 20 mg of etomidate after she was placed in appropriate position. Vocal cords were visualized using a 4 oh Mac blade and a 7.5 endotracheal tube was advanced to 22 cm at the lips with a grade 1 view. Bilateral breath sounds were noted. OG was placed. Vent orders were given. Chest x-ray showed appropriate support device placement and increased infiltrates. Patient will be placed on tube feeds and Levemir therapy will be added given elevated blood sugars. TIME: 85 minutes critical care time spent addressing patient's acute combined respiratory failure, non-ST elevation DC, diabetes mellitus, review of all data and collaboration with care team (5:30 AM to 8 AM, 9 AM to 10 AM) Code Visit Procedures: 09402 Critial Care Addl 30 Min 9xxxx: [id number] Critical care first hour
[2018-03-25 08:26] LABS: Allen Test POS; Base Excess -7 mmol/L (-2 to +2); Blood Gas Specimen Type ART; EPAP 8; FI02 65; IPAP 20; PO2 71 mmHG (75-100); SITE R Radial; SO2 92 % (95-99); Time Given 821; Total Carbon Dioxide 21 mmol/L; pCO2 42.6 mmHg (35-45); pH 7.28 (7.35-7.45)
[2018-03-25 08:54] LABS: BNP,B-Type NATRIURETIC PEPTIDE 791.7 pg/mL (0-100)
[2018-03-25 09:04] LABS: ALB/GLOB Ratio 0.9 RATIO (0.9-2.4); AST(SGOT) 27 U/L (15-37); Alanine Aminotransfer ALT/SGPT 32 U/L (13-56); Albumin, Serum 3.6 g/dL (3.2-5.0); Alkaline Phosphatase 175 U/L (45-117); BUN 14 mg/dL (7-18); Calcium,Total 8.5 mg/dL (8.5-10.1); Creatinine, Serum 1.08 mg/dL (0.55-1.02); EST Glomerular Filtration Rate 55 mL/min (>60); Est Glom Filt Rate - Afr Amer 67 mL/min (>60); Estimated Creatinine Clearance 51.21 ml/min; Globulin 3.8 g/dL (2.2-4.2); Glucose 450 mg/dL (74-106); Lactic Acid 5.9 mmol/L (0.4-2.0); Protein, Total 7.4 g/dL (6.4-8.2)
[2018-03-25 09:05] LABS: Anion Gap 12 (5-15); Chloride 100 mmol/L (98-107); Potassium 3.7 mmol/L (3.5-5.1); Sodium Level 138 mmol/L (136-145)
[2018-03-25 09:05] LABS: Amphetamine Urine VISTA NEGATIVE (<1000 ng/mL); Barbiturate Urine VISTA NEGATIVE (< 200 ng/mL); Benzodiazepine Urine VISTA NEGATIVE (< 200 ng/mL); Cocaine Urine VISTA NEGATIVE (< 300 ng/mL); Ecstacy Urine VISTA NEGATIVE (< 500 ng/mL); Methadone Urine VISTA NEGATIVE (< 300 ng/mL); PCP Urine VISTA NEGATIVE (< 25 ng/mL); THC Urine VISTA POSITIVE (< 50 ng/mL); Vista UDS pH Range 5
--- NOTE | 2018-03-25 09:37 | NURSING ---
0935-DR LOPEZ AT HEAD OF BED TO INTUBATE. 0937-20MG IV ETOMIDATE GIVEN BY HANG DIOR. 0938- #7.5 ETT, 22CM LIP, B/L BREATH SOUNDS, (+) COLOR CHANGE. HR 133, SATS 88%, 178/84.
[2018-03-25] MEDS: Propofol 10MG/Ml 1,000 MG/100 ML Bottle 2.64 MG CONT INF (09:40)
--- NOTE | 2018-03-25 09:42 | NURSING ---
OGT INSERTED BY HANG ABDALLA.
--- NOTE | 2018-03-25 09:50 | RAD_ITS ---
STUDY: X-RAY CHEST REASON FOR EXAM: Female, 62 years old. Respiratory distress TECHNIQUE: Single AP portable view of the chest. COMPARISON: 03/25/2018 FINDINGS: There is an endotracheal tube with the tip in the mid trachea. An enteric tube courses into the stomach with the distal tip not included in the inferior field of view. There is multifocal airspace disease, similar to the prior study. There is no demonstrated pleural abnormality. Normal size heart. Coronary artery stents are present. Normal mediastinum and emily. Normal visualized pulmonary arteries. There is mild calcification of the aortic arch. Normal visualized thoracic spine. Normal visualized ribs, clavicles, and shoulders. There is no demonstrated abnormality of the visualized soft tissue structures of the upper abdomen. RAD/Chest 1 View (Portable) IMPRESSION: Life support tubes and catheters, as detailed above. Multifocal airspace disease, unchanged from the study performed earlier this morning. Electronically Signed: Heri Zheng DO at 11:03 EDT Tel , Service support ,
--- NOTE | 2018-03-25 09:59 | NURSING ---
CXR OBTAINED. DR LOPEZ AT BEDSIDE & VERIFIED PLACEMENT OF ETT & OGT.
--- NOTE | 2018-03-25 10:25 | NURSING ---
pt's son, Ulises, notified that pt was re-intubated this AM. updated on pt's condition.
--- NOTE | 2018-03-25 10:49 | PN_ITS ---
Patient Problems: Active and Suspected Problems NSTEMI (non-ST elevated myocardial infarction) (Acute) Acute exacerbation of COPD with asthma (Acute) Pneumococcal pneumonia (Acute) Acute respiratory failure with hypoxia and hypercapnia (Acute) Subjective: CC: Respiratory distress. Objective: This is a 62-year-old female who presented with difficulty breathing, she was found to have acute respiratory failure with hypoxia requiring endotracheal intubation, she was extubated yesterday, but continued to have difficulties with hypoxemia despite being on BiPAP , she was therefore later reintubated this morning. Vitals/I&O's: Vital Signs Temp Pulse Resp BP Pulse Ox 98.7 F 127 H 21 H 155/80 H 93 03/25/18 08:00 03/25/18 10:00 03/25/18 10:00 03/25/18 08:00 03/25/18 10:00 Oxygen Flow Rate (L/min) 55 Oxygen Delivery Method Mechanical Ventilator Weight: 90.7 kg Intake and Output for Last 24 Hours 03/23/18 03/24/18 03/25/18 23:59 23:59 23:59 Intake Total 3259.3 / 3259.3 507 / 507 Output Total 750 / 750 450 / 450 Balance 2509.3 / 2509.3 57 / 57 Microbiology Past 72 Hours 03/23/18 11:18 Urine, Clean Catch Urine Culture - Final Culture exhibits no growth. 03/23/18 11:18 Urine, Clean Catch Legionella Antigen - Final 03/23/18 11:18 Urine, Clean Catch Streptococcus pneumoniae Antigen (M - Final 03/23/18 11:18 Sputum, Induced/Lukens Gram Stain - Final 03/23/18 11:18 Sputum, Induced/Lukens Respiratory Culture - Preliminary Gram negative cocco bacillus 03/23/18 09:52 Mucosa - Nasopharyngeal Respiratory Panel (PCR) - Final Laboratory Results 03/23/18 10:40: Specimen Type ART, Sample Site L Radial, pH 7.19 L*, Bicarbonate Actual 20.3 L, POC Total CO2 22, Base Excess -8 L, O2 Saturation 84 L, O2 % 70, ABG pCO2 53.1 H, ABG pO2 60 L, Tamir Test NA, Respiration Rate 16, O2 Delivery Device Vent, Vent Mode A-C, Tidal Volume 450, POC PEEP 10, Blood Gas Notified Whom ICU , Blood Gas Notified Time 1040 03/23/18 11:10: Urine Opiates Screen NEGATIVE, Urine Methadone Screen NEGATIVE, Ur Barbiturates Screen NEGATIVE, Ur Phencyclidine Scrn NEGATIVE, Ur Amphetamines Screen NEGATIVE, U Methamphetamin-MDMA NEGATIVE, U Benzodiazepines Scrn NEGATIVE, Urine Cocaine Screen NEGATIVE, U Cannabinoids Screen POSITIVE H, Ur Drug Screen Comment 03/23/18 : Lactic Acid 5.9 H* 03/23/18 : Sodium 138, Potassium 3.7, Chloride 100, Carbon Dioxide 26.0, Anion Gap 12, BUN 14, Creatinine 1.08 H, Estim Creat Clear Calc 51.21, Est GFR (MDRD) Af Amer 67, Est GFR (MDRD) Non-Af 55 L, BUN/Creatinine Ratio 13.0, Glucose 450 H , Calcium 8.5, Total Bilirubin 0.50, AST 27, ALT 32, Alkaline Phosphatase 175 H , Troponin I < 0.015, Total Protein 7.4, Albumin 3.6, Globulin 3.8, Albumin/ Globulin Ratio 0.9 03/24/18 06:21: Specimen Type ART, Sample Site L Radial, pH 7.35, Bicarbonate Actual 19.0 L, POC Total CO2 20, Base Excess -7 L, O2 Saturation 88 L, O2 % 40, ABG pCO2 34.7 L, ABG pO2 57 L, Tamir Test POS, O2 Delivery Device Vent, Vent Mode CPAP PS, POC PEEP 5, POC Pressure Suppt 5, Blood Gas Notified Whom ICU MD, Blood Gas Notified Time 555 03/24/18 12:36: POC Glucose 375 H 03/24/18 18:26: POC Glucose 322 H 03/25/18 00:00: POC Glucose 305 H 03/25/18 04:20: WBC 22.7 H, RBC 5.36, Hgb 16.2 H, Hct 45.8, MCV 85.4, MCH 30.2, MCHC 35.4, RDW 14.9 H, RDW Differential 46.7 H, Plt Count 181, MPV 10.9, Immature Gran % (Auto) 0.500, Neut % (Auto) 91.9 H, Lymph % (Auto) 3.5 L, [place] % (Auto) 4.1, Eos % (Auto) 0.0, Baso % (Auto) 0.0, Absolute Neuts (auto) 20.8 H , Absolute Lymphs (auto) 0.80 L, Total Counted Not Reportable, Differential Comment SCANNED 03/25/18 04:20: Sodium 145, Potassium 4.2, Chloride 113 H, Carbon Dioxide 26.0, Anion Gap 6, BUN 20 H, Creatinine 0.73, Estim Creat Clear Calc 75.76, Est GFR ( MDRD) Af Amer 104, Est GFR (MDRD) Non-Af 86, BUN/Creatinine Ratio 27.4 H, Glucose 303 H, Calcium 7.4 L 03/25/18 04:20: B-Natriuretic Peptide 791.7 H 03/25/18 04:31: Specimen Type ART, Sample Site L Radial, pH 7.21 L, Bicarbonate Actual 21.2 L, POC Total CO2 23, Base Excess -7 L, O2 Saturation 89 L, O2 % 65, ABG pCO2 53.5 H, ABG pO2 68 L, Tamir Test POS, Respiration Rate 12, O2 Delivery Device Bi / C PAP, EPAP 8, IPAP 15, Blood Gas Notified Whom HOSP 03/25/18 05:31: POC Glucose 297 H 03/25/18 08:19: Specimen Type ART, Sample Site R Radial, pH 7.28 L, Bicarbonate Actual 20.0 L, POC Total CO2 21, Base Excess -7 L, O2 Saturation 92 L, O2 % 65, ABG pCO2 42.6, ABG pO2 71 L, Tamir Test POS, O2 Delivery Device Bi / C PAP, EPAP 8, IPAP 20, Blood Gas Notified Whom ICU MD, Blood Gas Notified Time 821 Current Medications Albuterol Sulfate (Ventolin Aerosols) 2.5 mg INHALATION Q2H PRN PRN PRN Reason: DYSPNEA Albuterol/Ipratropium (Duoneb) 3 ml INHALATION Q4H.RT [facility] Last Admin: 03/25/18 06:40 Dose: 3 ml Aspirin (Aspirin, Baby) 81 mg PO DAILY@0800 [facility] Last Admin: 03/24/18 10:57 Dose: Not Given Atorvastatin Calcium (Lipitor) 20 mg PO QHS [facility] Last Admin: 03/24/18 21:11 Dose: Not Given Chlorhexidine Gluconate () 1 each TOPICAL DAILY [facility] Last Admin: 03/24/18 18:38 Dose: Not Given Chlorhexidine Gluconate () 15 ml PO BID [facility] Clopidogrel Bisulfate (Plavix) 75 mg PO DAILY [facility] Diazepam (Valium) 5 mg PO BID PRN PRN PRN Reason: ANXIETY Enoxaparin Sodium (Lovenox) 90 mg SC BID [facility] Last Admin: 03/24/18 21:01 Dose: 90 mg Ergocalciferol (Vitamin D) 50,000 unit PO Sa [facility] Famotidine (Pepcid) 20 mg GT BID [facility] Furosemide (Lasix) 40 mg IV Q8 [facility] Haloperidol Lactate (Haldol) 2 mg IV Q3H PRN PRN Reason: ANXIETY/AGITATION Last Admin: 03/25/18 02:28 Dose: 2 mg Azithromycin 500 mg/ Dextrose 255 mls @ 250 mls/hr IV Q24 [facility] Ceftriaxone Sodium (Rocephin) 1 gm in 50 mls @ 100 mls/hr IV Q24 [facility] Fentanyl () 100 mls @ 5 mls/hr IV .Q20H [facility] Propofol (Diprivan) 1,000 mg in 100 mls @ 2.64 mls/hr CONT INF .Q12H [facility]; 5 MCG /KG/MIN PRN Reason: Protocol Insulin Detemir (Levemir (Bkc)) 10 units SC BID [facility] Insulin Human Lispro (Humalog Kwikpen (Bkc)) 0 unit SC Q6 [facility] PRN Reason: Protocol Levothyroxine Sodium (Synthroid) 25 mcg PO MoWeFr@0600 [facility] Levothyroxine Sodium (Synthroid) 175 mcg PO DAILY@0600 [facility] Last Admin: 03/25/18 05:41 Dose: Not Given Lisinopril (Zestril) 40 mg PO DAILY [facility] Methylprednisolone (Solu-Medrol) 40 mg IV Q8 [facility] Last Admin: 03/25/18 05:35 Dose: 40 mg Metoprolol Tartrate (Lopressor (Beta Mu)) 5 mg IV Q6 [facility] Last Admin: 03/25/18 05:35 Dose: 5 mg Montelukast Sodium (Singulair) 10 mg PO DAILY [facility] Potassium Chloride (K-Dur) 10 meq PO DAILY [facility] Sodium Chloride () 5 - 30 ml IV UD PRN PRN Reason: SALINE FLUSH Last Admin: 03/25/18 05:39 Dose: 20 ml Medical Necessity - Tobacco Use Smoking Status: Current every day smoker Assessment/Plan All Active Problems NSTEMI (non-ST elevated myocardial infarction) (Acute) NSTEMI, initial episode of care (Acute) Acute exacerbation of COPD with asthma (Acute) Pneumococcal pneumonia (Acute) Acute respiratory failure with hypoxia and hypercapnia (Acute) Acute non-ST elevation myocardial infarction (NSTEMI) (Acute) SVT (supraventricular tachycardia) (Acute) CAD (coronary artery disease) (Acute) 1. Acute respiratory failure with hypoxia; the patient is currently intubated on mechanical ventilator. PCCM for vent management. 2. Elevated troponin consistent with an NSTEMI; cardiology consulted and patient would undergo left heart catheterization whenever her pulmonary status improves. We will continue on cardioprotective medications as ordered.. 3. Diabetes type 2; she is on Levemir and regular insulin sliding scale. 4.hypothyroidism; would continue her Synthroid. 5. Hypertension; continue lisinopril and metoprolol. 6. acute CHF; SK showed multifocal airspace disease which most likely represents pulmonary edema, the patient is receiving IV Lasix. 7. Prophylaxis with Lovenox and SCDs. Code Visit Inpatient E&M: 64729 Subs Hosp L3
[2018-03-25 11:05] LABS: Allen Test POS; Base Excess -4 mmol/L (-2 to +2); Bicarbonate 21.9 mmol/L (22-26); Blood Gas Specimen Type ART; Mode A-C; O2 Delivery Device Vent; PEEP 5; PO2 60 mmHG (75-100); RR 12; SITE L Radial; SO2 88 % (95-99); Time Given 1106; Total Carbon Dioxide 23 mmol/L; Vt 450; pCO2 44.4 mmHg (35-45)
[2018-03-25] MEDS: Aspirin 81 MG TAB.CHEW PO (11:28)
[2018-03-25] MEDS: Chlorhexidine 15 ML PO ×2 (11:29→21:01)
[2018-03-25] MEDS: Enoxaparin 100 MG/ML Syringe 90 MG SC ×2 (11:30→21:02)
[2018-03-25] MEDS: Clopidogrel Bisulfate 75 MG Tablet PO (11:30)
[2018-03-25] MEDS: Famotidine 20 MG Tablet GT ×2 (11:30→21:01)
[2018-03-25] MEDS: Montelukast 10 MG Tablet PO (11:31)
[2018-03-25] MEDS: Ceftriaxone 1 GM/50 ML BAG IV (11:32)
[2018-03-25 11:36] LABS: T4 Total, Thyroxin 12.3 ug/dL (4.8-13.9); Thyroid Stim Hormone (TSH) 1.93 uIU/mL (0.358-3.74)
[2018-03-25 11:39] LABS: Lactic Acid 2.4 mmol/L (0.4-2.0)
[2018-03-25 11:45] LABS: Bedside Glucose 328 mg/dL (70-110)
[2018-03-25 11:48] LABS: FI02 80
[2018-03-25 12:01] LABS: Hematocrit 51.5 % (37-47); Mean Corpuscular Hgb 29.7 pg (27.0-32.0); Mean Corpuscular Volume 84.8 fL (81-99); Platelet Count 223 K/mm3 (150-450); RBC Distribution Width CV 14.2 % (11.6-14.6); RBC Distribution Width SD 44.1 fl (35.1-43.9); Red Blood Count 6.07 M/mm3 (4.2-5.4); White Blood Count 18.6 K/mm3 (4.4-11.0)
[2018-03-25 12:02] LABS: Absolute Lymphocyte Count 7.52 X10^3/ul (0.83-4.51); Absolute Neutrophil Count 9.1 X10^3/uL (2.0-7.7); Basophil# 0.11 X10^3/uL; Basophil% 0.6 % (0-1); Differential Indicated SCAN CRITERIA MET; Eosinophil# 0.51 X10^3/uL; Eosinophils% 2.7 % (0-5); Lymphocyte # 7.52 X10^3/ul (4.0); Lymphocyte % 40.4 % (19-41); Mean Platelet Vol. 11.6 fl (6.2-12.0); Monocyte# 1.34 X10^3/uL; Monocyte% 7.2 % (0-10); Neutrophil # 9.07 X10^3/uL (2.7-7.7); Neutrophil % 48.7 % (47-70); POSITIVE COUNT NO; POSITIVE DIFFERENTIAL YES; POSITIVE MORPHOLOGY YES
[2018-03-25 12:03] LABS: Reactive Lymphocyte 1+; Red Cell Morphology NORM C+C NORMAL (NORM C&C)
[2018-03-25 12:04] LABS: International Normalized Ratio 1.1
[2018-03-25] MEDS: CHLORHEXIDINE GLUC 2% CLOTH 1 EACH TOWELETTE TOPICAL (14:26)
[2018-03-25 15:10] LABS: CPK Total, Creatine Kinase 259 U/L (26-192); Triglycerides 179 mg/dL
[2018-03-25] MEDS: LORazepam 2 MG/ML Syringe IV (16:08)
[2018-03-25 18:51] LABS: Bedside Glucose 265 mg/dL (70-110)
[2018-03-25] MEDS: Atorvastatin Calcium 20 MG Tablet GT (21:02)
[2018-03-25 21:36] LABS: Bedside Glucose 246 mg/dL (70-110)
[2018-03-25] MEDS: Vital AF 1.2 Cal Liquid 1,000 ML 60 ML GT (22:47)
--- NOTE | 2018-03-25 22:50 | NURSING ---
Pt started on TF at 20ml/hr at this time.
[2018-03-26] VITALS (43 sets, daily range): BP systolic 104–161; BP diastolic 67–91; PULSE 63–102; RESP 10–27; TEMP 37.4–38.8; O2SAT 87–96
[2018-03-26 00:06] LABS: Bedside Glucose 257 mg/dL (70-110)
[2018-03-26] MEDS: Ipratropium/Albuterol Sulfate 3 ML AMPUL.NEB INHALATION ×6 (02:20→22:35)
[2018-03-26 04:30] LABS: Hematocrit 42.9 % (37-47); Hemoglobin 14.8 g/dl (12.0-15.0); Mean Corp Hgb Conc 34.5 g/gl (32-36); Mean Corpuscular Hgb 29.7 pg (27.0-32.0); Mean Platelet Vol. 11.9 fl (6.2-12.0); Platelet Count 144 K/mm3 (150-450); RBC Distribution Width CV 14.9 % (11.6-14.6); RBC Distribution Width SD 46.9 fl (35.1-43.9); Red Blood Count 4.99 M/mm3 (4.2-5.4); White Blood Count 12.9 K/mm3 (4.4-11.0)
[2018-03-26 04:33] LABS: Anion Gap 8 (5-15); BUN 30 mg/dL (7-18); BUN/Creat Ratio 36.7 RATIO (10-20); Calcium,Total 7.7 mg/dL (8.5-10.1); Chloride 111 mmol/L (98-107); Creatinine, Serum 0.82 mg/dL (0.55-1.02); EST Glomerular Filtration Rate 76 mL/min (>60); Est Glom Filt Rate - Afr Amer 91 mL/min (>60); Estimated Creatinine Clearance 67.45 ml/min; Glucose 291 mg/dL (74-106); Magnesium 1.6 mg/dL (1.6-2.6); Phosphorus 2.1 mg/dL (2.5-4.9); Potassium 4.4 mmol/L (3.5-5.1); Sodium Level 143 mmol/L (136-145)
[2018-03-26 04:49] LABS: Scan Indicated on CBC? Y/N NO
[2018-03-26] MEDS: Levothyroxine 25 MCG TABLET GT (05:20)
[2018-03-26] MEDS: Furosemide 40 MG/4 ML Vial IV ×3 (05:20→21:05)
[2018-03-26] MEDS: Levothyroxine 175 MCG Tablet GT (05:20)
[2018-03-26] MEDS: 0.9% NaCl Peripheral Flush Adult/Peds IV ×5 (05:21→21:05)
[2018-03-26] MEDS: CHLORHEXIDINE GLUC 2% CLOTH 1 EACH TOWELETTE TOPICAL (05:48)
[2018-03-26] MEDS: Insulin Lispro 100 UNIT/ML INSULN.PEN SC ×3 (05:49→19:29)
[2018-03-26 06:21] LABS: Bedside Glucose 294 mg/dL (70-110)
--- NOTE | 2018-03-26 07:22 | PN_ITS ---
Subjective: Yesterday's events were reviewed. Patient currently intubated. Patient was significant issues with hypotension related to propofol therapy. Patient was transition to Precedex and reportedly tolerated this much better overnight. Patient has remained on 70% FiO2 to maintain acceptable saturations. Patient has tolerated tube feeds well. General: - - RASS +1. Good ventilator synchrony. No accessory muscle use. Follows most commands. Obese. HEENT: Atraumatic, PERRLA, EOMI, Normocephalic, - - No scleral icterus or injection noted. Oral: Moist Mucosa, No Gingival or Mucosal Lesions/ Ulcerations Neck: Supple, No Nodes, Trachea Midline, JVD, Right Lungs: No rhonchi, No wheeze, No rales, Diminished, - - Symmetric expansion. No dullness to percussion. Cardiovascular: Regular rate, Regular Rhythm, Normal S1, Normal S2, No murmurs, No rub noted, No Gallop Abdomen: Bowel Sounds Present, Soft, Non Tender, Non-Distended, Obese Extremities: No clubbing, No cyanosis, No edema, Capillary Refill Less than 3 Seconds Skin: No rashes, No breakdown Musculoskeletal: No Tenderness to Palpation of Joints or Extremities, No Muscle Wasting Lymphatic: No Cervical, Supraclavicular, or Inguinal Adenopathy Neurological: Cranial nerves II-XII grossly intact, Neuro grossly intact, Motor Exam 5/5 strength throughout Psych/Mental Status: Appropriate, Anxious Vital Signs Temp Pulse Resp BP Pulse Ox 37.4 C H 72 11 L 144/82 H 93 03/26/18 07:00 03/26/18 07:00 03/26/18 07:00 03/26/18 07:00 03/26/18 07:00 Oxygen Flow Rate (L/min) 55 Oxygen Delivery Method Mechanical Ventilator Weight: 90.5 kg Intake and Output for Last 24 Hours 03/24/18 03/25/18 03/26/18 23:59 23:59 23:59 Intake Total 3259.3 / 3259.3 1196.3 / 1196.3 573.7 / 573.7 Output Total 750 / 750 2049 / 2049 250 / 250 Balance 2509.3 / 2509.3 -853.7 / -853.7 323.7 / 323.7 Labs (Last 48 Hours) 03/23/18 03/23/18 03/23/18 10:15 10:15 10:30 WBC RBC Hgb Hct MCV MCH MCHC RDW RDW Differential Plt Count MPV Immature Gran % (Auto) Neut % (Auto) Lymph % (Auto) [place] % (Auto) Eos % (Auto) Baso % (Auto) Absolute Neuts (auto) Absolute Lymphs (auto) Total Counted Differential Comment Diff Path Review Reactive Lymphocytes RBC Morphology PT INR Specimen Type Sample Site pH Bicarbonate Actual POC Total CO2 Base Excess O2 Saturation O2 % ABG pCO2 ABG pO2 Tamir Test Respiration Rate O2 Delivery Device Vent Mode Tidal Volume POC PEEP POC Pressure Suppt EPAP IPAP Blood Gas Notified Whom Blood Gas Notified Time Sodium Potassium Chloride Carbon Dioxide Anion Gap BUN Creatinine Estim Creat Clear Calc Est GFR (MDRD) Af Amer Est GFR (MDRD) Non-Af BUN/Creatinine Ratio Glucose Lactic Acid 2.4 H Calcium Phosphorus Magnesium Total Bilirubin AST ALT Alkaline Phosphatase Total Creatine Kinase Troponin I 0.742 H* B-Natriuretic Peptide Total Protein Albumin Globulin Albumin/Globulin Ratio Triglycerides TSH 1.93 Thyroxine (T4) 12.3 Urine Color Straw Urine Clarity Clear Urine pH 6.0 Ur Specific [place] 1.010 Urine Protein Negative Urine Glucose (UA) 1000 H Urine Ketones Negative Urine Occult Blood Negative Urine Nitrite Negative Urine Bilirubin Negative Urine Urobilinogen Normal Ur Leukocyte Esterase Negative Urine RBC 0 SEEN Urine WBC 0 SEEN Ur Squamous Epith Cells 0 SEEN Urine Bacteria 0 SEEN Urine Mucus 0 SEEN Urine Opiates Screen Urine Methadone Screen Ur Barbiturates Screen Ur Phencyclidine Scrn Ur Amphetamines Screen U Methamphetamin-MDMA U Benzodiazepines Scrn Urine Cocaine Screen U Cannabinoids Screen Ur Drug Screen Comment POC Glucose 03/23/18 03/23/18 03/23/18 10:40 11:10 13:25 WBC RBC Hgb Hct MCV MCH MCHC RDW RDW Differential Plt Count MPV Immature Gran % (Auto) Neut % (Auto) Lymph % (Auto) [place] % (Auto) Eos % (Auto) Baso % (Auto) Absolute Neuts (auto) Absolute Lymphs (auto) Total Counted Differential Comment Diff Path Review Reactive Lymphocytes RBC Morphology PT INR Specimen Type ART Sample Site L Radial pH 7.19 L* Bicarbonate Actual 20.3 L POC Total CO2 22 Base Excess -8 L O2 Saturation 84 L O2 % 70 ABG pCO2 53.1 H ABG pO2 60 L Tamir Test NA Respiration Rate 16 O2 Delivery Device Vent Vent Mode A-C Tidal Volume 450 POC PEEP 10 POC Pressure Suppt EPAP IPAP Blood Gas Notified Whom ICU Blood Gas Notified Time 1040 Sodium Potassium Chloride Carbon Dioxide Anion Gap BUN Creatinine Estim Creat Clear Calc Est GFR (MDRD) Af Amer Est GFR (MDRD) Non-Af BUN/Creatinine Ratio Glucose Lactic Acid Calcium Phosphorus Magnesium Total Bilirubin AST ALT Alkaline Phosphatase Total Creatine Kinase Troponin I 6.430 H* B-Natriuretic Peptide Total Protein Albumin Globulin Albumin/Globulin Ratio Triglycerides TSH Thyroxine (T4) Urine Color Urine Clarity Urine pH Ur Specific [place] Urine Protein Urine Glucose (UA) Urine Ketones Urine Occult Blood Urine Nitrite Urine Bilirubin Urine Urobilinogen Ur Leukocyte Esterase Urine RBC Urine WBC Ur Squamous Epith Cells Urine Bacteria Urine Mucus Urine Opiates Screen NEGATIVE Urine Methadone Screen NEGATIVE Ur Barbiturates Screen NEGATIVE Ur Phencyclidine Scrn NEGATIVE Ur Amphetamines Screen NEGATIVE U Methamphetamin-MDMA NEGATIVE U Benzodiazepines Scrn NEGATIVE Urine Cocaine Screen NEGATIVE U Cannabinoids Screen POSITIVE H Ur Drug Screen Comment POC Glucose 03/23/18 03/23/18 03/23/18 Unknown Unknown Unknown WBC 18.6 H RBC 6.07 H Hgb 18.0 H* Hct 51.5 H MCV 84.8 MCH 29.7 MCHC 35.0 RDW 14.2 RDW Differential 44.1 H Plt Count 223 MPV 11.6 Immature Gran % (Auto) 0.400 Neut % (Auto) 48.7 Lymph % (Auto) 40.4 [place] % (Auto) 7.2 Eos % (Auto) 2.7 Baso % (Auto) 0.6 Absolute Neuts (auto) 9.1 H Absolute Lymphs (auto) 7.52 H Total Counted Not Reportable Differential Comment Diff Path Review May foll Reactive Lymphocytes 1+ RBC Morphology NORM C+C PT INR Specimen Type Sample Site pH Bicarbonate Actual POC Total CO2 Base Excess O2 Saturation O2 % ABG pCO2 ABG pO2 Tamir Test Respiration Rate O2 Delivery Device Vent Mode Tidal Volume POC PEEP POC Pressure Suppt EPAP IPAP Blood Gas Notified Whom Blood Gas Notified Time Sodium 138 Potassium 3.7 Chloride 100 Carbon Dioxide 26.0 Anion Gap 12 BUN 14 Creatinine 1.08 H Estim Creat Clear Calc 51.21 Est GFR (MDRD) Af Amer 67 Est GFR (MDRD) Non-Af 55 L BUN/Creatinine Ratio 13.0 Glucose 450 H Lactic Acid 5.9 H* Calcium 8.5 Phosphorus Magnesium Total Bilirubin 0.50 AST 27 ALT 32 Alkaline Phosphatase 175 H Total Creatine Kinase Troponin I < 0.015 B-Natriuretic Peptide Total Protein 7.4 Albumin 3.6 Globulin 3.8 Albumin/Globulin Ratio 0.9 Triglycerides TSH Thyroxine (T4) Urine Color Urine Clarity Urine pH Ur Specific [place] Urine Protein Urine Glucose (UA) Urine Ketones Urine Occult Blood Urine Nitrite Urine Bilirubin Urine Urobilinogen Ur Leukocyte Esterase Urine RBC Urine WBC Ur Squamous Epith Cells Urine Bacteria Urine Mucus Urine Opiates Screen Urine Methadone Screen Ur Barbiturates Screen Ur Phencyclidine Scrn Ur Amphetamines Screen U Methamphetamin-MDMA U Benzodiazepines Scrn Urine Cocaine Screen U Cannabinoids Screen Ur Drug Screen Comment POC Glucose 03/23/18 03/24/18 03/24/18 Unknown 06:21 12:36 WBC RBC Hgb Hct MCV MCH MCHC RDW RDW Differential Plt Count MPV Immature Gran % (Auto) Neut % (Auto) Lymph % (Auto) [place] % (Auto) Eos % (Auto) Baso % (Auto) Absolute Neuts (auto) Absolute Lymphs (auto) Total Counted Differential Comment Diff Path Review Reactive Lymphocytes RBC Morphology PT 14.0 INR 1.1 Specimen Type ART Sample Site L Radial pH 7.35 Bicarbonate Actual 19.0 L POC Total CO2 20 Base Excess -7 L O2 Saturation 88 L O2 % 40 ABG pCO2 34.7 L ABG pO2 57 L Tamir Test POS Respiration Rate O2 Delivery Device Vent Vent Mode CPAP PS Tidal Volume POC PEEP 5 POC Pressure Suppt 5 EPAP IPAP Blood Gas Notified Whom ICU Blood Gas Notified Time 555 Sodium Potassium Chloride Carbon Dioxide Anion Gap BUN Creatinine Estim Creat Clear Calc Est GFR (MDRD) Af Amer Est GFR (MDRD) Non-Af BUN/Creatinine Ratio Glucose Lactic Acid Calcium Phosphorus Magnesium Total Bilirubin AST ALT Alkaline Phosphatase Total Creatine Kinase Troponin I B-Natriuretic Peptide Total Protein Albumin Globulin Albumin/Globulin Ratio Triglycerides TSH Thyroxine (T4) Urine Color Urine Clarity Urine pH Ur Specific [place] Urine Protein Urine Glucose (UA) Urine Ketones Urine Occult Blood Urine Nitrite Urine Bilirubin Urine Urobilinogen Ur Leukocyte Esterase Urine RBC Urine WBC Ur Squamous Epith Cells Urine Bacteria Urine Mucus Urine Opiates Screen Urine Methadone Screen Ur Barbiturates Screen Ur Phencyclidine Scrn Ur Amphetamines Screen U Methamphetamin-MDMA U Benzodiazepines Scrn Urine Cocaine Screen U Cannabinoids Screen Ur Drug Screen Comment POC Glucose 375 H 03/24/18 03/25/18 03/25/18 18:26 00:00 04:20 WBC 22.7 H RBC 5.36 Hgb 16.2 H Hct 45.8 MCV 85.4 MCH 30.2 MCHC 35.4 RDW 14.9 H RDW Differential 46.7 H Plt Count 181 MPV 10.9 Immature Gran % (Auto) 0.500 Neut % (Auto) 91.9 H Lymph % (Auto) 3.5 L [place] % (Auto) 4.1 Eos % (Auto) 0.0 Baso % (Auto) 0.0 Absolute Neuts (auto) 20.8 H Absolute Lymphs (auto) 0.80 L Total Counted Not Reportable Differential Comment SCANNED Diff Path Review Reactive Lymphocytes RBC Morphology PT INR Specimen Type Sample Site pH Bicarbonate Actual POC Total CO2 Base Excess O2 Saturation O2 % ABG pCO2 ABG pO2 Tamir Test Respiration Rate O2 Delivery Device Vent Mode Tidal Volume POC PEEP POC Pressure Suppt EPAP IPAP Blood Gas Notified Whom Blood Gas Notified Time Sodium Potassium Chloride Carbon Dioxide Anion Gap BUN Creatinine Estim Creat Clear Calc Est GFR (MDRD) Af Amer Est GFR (MDRD) Non-Af BUN/Creatinine Ratio Glucose Lactic Acid Calcium Phosphorus Magnesium Total Bilirubin AST ALT Alkaline Phosphatase Total Creatine Kinase Troponin I B-Natriuretic Peptide Total Protein Albumin Globulin Albumin/Globulin Ratio Triglycerides TSH Thyroxine (T4) Urine Color Urine Clarity Urine pH Ur Specific [place] Urine Protein Urine Glucose (UA) Urine Ketones Urine Occult Blood Urine Nitrite Urine Bilirubin Urine Urobilinogen Ur Leukocyte Esterase Urine RBC Urine WBC Ur Squamous Epith Cells Urine Bacteria Urine Mucus Urine Opiates Screen Urine Methadone Screen Ur Barbiturates Screen Ur Phencyclidine Scrn Ur Amphetamines Screen U Methamphetamin-MDMA U Benzodiazepines Scrn Urine Cocaine Screen U Cannabinoids Screen Ur Drug Screen Comment POC Glucose 322 H 305 H 03/25/18 03/25/18 03/25/18 04:20 04:20 04:20 WBC RBC Hgb Hct MCV MCH MCHC RDW RDW Differential Plt Count MPV Immature Gran % (Auto) Neut % (Auto) Lymph % (Auto) [place] % (Auto) Eos % (Auto) Baso % (Auto) Absolute Neuts (auto) Absolute Lymphs (auto) Total Counted Differential Comment Diff Path Review Reactive Lymphocytes RBC Morphology PT INR Specimen Type Sample Site pH Bicarbonate Actual POC Total CO2 Base Excess O2 Saturation O2 % ABG pCO2 ABG pO2 Atmir Test Respiration Rate O2 Delivery Device Vent Mode Tidal Volume POC PEEP POC Pressure Suppt EPAP IPAP Blood Gas Notified Whom Blood Gas Notified Time Sodium 145 Potassium 4.2 Chloride 113 H Carbon Dioxide 26.0 Anion Gap 6 BUN 20 H Creatinine 0.73 Estim Creat Clear Calc 75.76 Est GFR (MDRD) Af Amer 104 Est GFR (MDRD) Non-Af 86 BUN/Creatinine Ratio 27.4 H Glucose 303 H Lactic Acid Calcium 7.4 L Phosphorus Magnesium Total Bilirubin AST ALT Alkaline Phosphatase Total Creatine Kinase 259 H Troponin I B-Natriuretic Peptide 791.7 H Total Protein Albumin Globulin Albumin/Globulin Ratio Triglycerides 179 TSH Thyroxine (T4) Urine Color Urine Clarity Urine pH Ur Specific [place] Urine Protein Urine Glucose (UA) Urine Ketones Urine Occult Blood Urine Nitrite Urine Bilirubin Urine Urobilinogen Ur Leukocyte Esterase Urine RBC Urine WBC Ur Squamous Epith Cells Urine Bacteria Urine Mucus Urine Opiates Screen Urine Methadone Screen Ur Barbiturates Screen Ur Phencyclidine Scrn Ur Amphetamines Screen U Methamphetamin-MDMA U Benzodiazepines Scrn Urine Cocaine Screen U Cannabinoids Screen Ur Drug Screen Comment POC Glucose 03/25/18 03/25/18 03/25/18 04:31 05:31 08:19 WBC RBC Hgb Hct MCV MCH MCHC RDW RDW Differential Plt Count MPV Immature Gran % (Auto) Neut % (Auto) Lymph % (Auto) [place] % (Auto) Eos % (Auto) Baso % (Auto) Absolute Neuts (auto) Absolute Lymphs (auto) Total Counted Differential Comment Diff Path Review Reactive Lymphocytes RBC Morphology PT INR Specimen Type ART ART Sample Site L Radial R Radial pH 7.21 L 7.28 L Bicarbonate Actual 21.2 L 20.0 L POC Total CO2 23 21 Base Excess -7 L -7 L O2 Saturation 89 L 92 L O2 % 65 65 ABG pCO2 53.5 H 42.6 ABG pO2 68 L 71 L Tamir Test POS POS Respiration Rate 12 O2 Delivery Device Bi / C PAP Bi / C PAP Vent Mode Tidal Volume POC PEEP POC Pressure Suppt EPAP 8 8 IPAP 15 20 Blood Gas Notified Whom HOSP ICU Blood Gas Notified Time 821 Sodium Potassium Chloride Carbon Dioxide Anion Gap BUN Creatinine Estim Creat Clear Calc Est GFR (MDRD) Af Amer Est GFR (MDRD) Non-Af BUN/Creatinine Ratio Glucose Lactic Acid Calcium Phosphorus Magnesium Total Bilirubin AST ALT Alkaline Phosphatase Total Creatine Kinase Troponin I B-Natriuretic Peptide Total Protein Albumin Globulin Albumin/Globulin Ratio Triglycerides TSH Thyroxine (T4) Urine Color Urine Clarity Urine pH Ur Specific [place] Urine Protein Urine Glucose (UA) Urine Ketones Urine Occult Blood Urine Nitrite Urine Bilirubin Urine Urobilinogen Ur Leukocyte Esterase Urine RBC Urine WBC Ur Squamous Epith Cells Urine Bacteria Urine Mucus Urine Opiates Screen Urine Methadone Screen Ur Barbiturates Screen Ur Phencyclidine Scrn Ur Amphetamines Screen U Methamphetamin-MDMA U Benzodiazepines Scrn Urine Cocaine Screen U Cannabinoids Screen Ur Drug Screen Comment POC Glucose 297 H 03/25/18 03/25/18 03/25/18 11:03 11:35 18:46 WBC RBC Hgb Hct MCV MCH MCHC RDW RDW Differential Plt Count MPV Immature Gran % (Auto) Neut % (Auto) Lymph % (Auto) [place] % (Auto) Eos % (Auto) Baso % (Auto) Absolute Neuts (auto) Absolute Lymphs (auto) Total Counted Differential Comment Diff Path Review Reactive Lymphocytes RBC Morphology PT INR Specimen Type ART Sample Site L Radial pH 7.30 L Bicarbonate Actual 21.9 L POC Total CO2 23 Base Excess -4 L O2 Saturation 88 L O2 % 80 ABG pCO2 44.4 ABG pO2 60 L Tamir Test POS Respiration Rate 12 O2 Delivery Device Vent Vent Mode A-C Tidal Volume 450 POC PEEP 5 POC Pressure Suppt EPAP IPAP Blood Gas Notified Whom ICU Blood Gas Notified Time 1106 Sodium Potassium Chloride Carbon Dioxide Anion Gap BUN Creatinine Estim Creat Clear Calc Est GFR (MDRD) Af Amer Est GFR (MDRD) Non-Af BUN/Creatinine Ratio Glucose Lactic Acid Calcium Phosphorus Magnesium Total Bilirubin AST ALT Alkaline Phosphatase Total Creatine Kinase Troponin I B-Natriuretic Peptide Total Protein Albumin Globulin Albumin/Globulin Ratio Triglycerides TSH Thyroxine (T4) Urine Color Urine Clarity Urine pH Ur Specific [place] Urine Protein Urine Glucose (UA) Urine Ketones Urine Occult Blood Urine Nitrite Urine Bilirubin Urine Urobilinogen Ur Leukocyte Esterase Urine RBC Urine WBC Ur Squamous Epith Cells Urine Bacteria Urine Mucus Urine Opiates Screen Urine Methadone Screen Ur Barbiturates Screen Ur Phencyclidine Scrn Ur Amphetamines Screen U Methamphetamin-MDMA U Benzodiazepines Scrn Urine Cocaine Screen U Cannabinoids Screen Ur Drug Screen Comment POC Glucose 328 H 265 H 0603/25/18 03/26/18 21:09 23:58 04:10 WBC 12.9 H RBC 4.99 Hgb 14.8 Hct 42.9 MCV 86.0 MCH 29.7 MCHC 34.5 RDW 14.9 H RDW Differential 46.9 H Plt Count 144 L MPV 11.9 Immature Gran % (Auto) Neut % (Auto) Lymph % (Auto) [place] % (Auto) Eos % (Auto) Baso % (Auto) Absolute Neuts (auto) Absolute Lymphs (auto) Total Counted Differential Comment Diff Path Review Reactive Lymphocytes RBC Morphology PT INR Specimen Type Sample Site pH Bicarbonate Actual POC Total CO2 Base Excess O2 Saturation O2 % ABG pCO2 ABG pO2 Tamir Test Respiration Rate O2 Delivery Device Vent Mode Tidal Volume POC PEEP POC Pressure Suppt EPAP IPAP Blood Gas Notified Whom Blood Gas Notified Time Sodium Potassium Chloride Carbon Dioxide Anion Gap BUN Creatinine Estim Creat Clear Calc Est GFR (MDRD) Af Amer Est GFR (MDRD) Non-Af BUN/Creatinine Ratio Glucose Lactic Acid Calcium Phosphorus Magnesium Total Bilirubin AST ALT Alkaline Phosphatase Total Creatine Kinase Troponin I B-Natriuretic Peptide Total Protein Albumin Globulin Albumin/Globulin Ratio Triglycerides TSH Thyroxine (T4) Urine Color Urine Clarity Urine pH Ur Specific [place] Urine Protein Urine Glucose (UA) Urine Ketones Urine Occult Blood Urine Nitrite Urine Bilirubin Urine Urobilinogen Ur Leukocyte Esterase Urine RBC Urine WBC Ur Squamous Epith Cells Urine Bacteria Urine Mucus Urine Opiates Screen Urine Methadone Screen Ur Barbiturates Screen Ur Phencyclidine Scrn Ur Amphetamines Screen U Methamphetamin-MDMA U Benzodiazepines Scrn Urine Cocaine Screen U Cannabinoids Screen Ur Drug Screen Comment POC Glucose 246 H 257 H 03/26/18 03/26/18 04:10 05:48 WBC RBC Hgb Hct MCV MCH MCHC RDW RDW Differential Plt Count MPV Immature Gran % (Auto) Neut % (Auto) Lymph % (Auto) [place] % (Auto) Eos % (Auto) Baso % (Auto) Absolute Neuts (auto) Absolute Lymphs (auto) Total Counted Differential Comment Diff Path Review Reactive Lymphocytes RBC Morphology PT INR Specimen Type Sample Site pH Bicarbonate Actual POC Total CO2 Base Excess O2 Saturation O2 % ABG pCO2 ABG pO2 Tamir Test Respiration Rate O2 Delivery Device Vent Mode Tidal Volume POC PEEP POC Pressure Suppt EPAP IPAP Blood Gas Notified Whom Blood Gas Notified Time Sodium 143 Potassium 4.4 Chloride 111 H Carbon Dioxide 24.0 Anion Gap 8 BUN 30 H Creatinine 0.82 Estim Creat Clear Calc 67.45 Est GFR (MDRD) Af Amer 91 Est GFR (MDRD) Non-Af 76 BUN/Creatinine Ratio 36.7 H Glucose 291 H Lactic Acid Calcium 7.7 L Phosphorus 2.1 L Magnesium 1.6 Total Bilirubin AST ALT Alkaline Phosphatase Total Creatine Kinase Troponin I B-Natriuretic Peptide Total Protein Albumin Globulin Albumin/Globulin Ratio Triglycerides TSH Thyroxine (T4) Urine Color Urine Clarity Urine pH Ur Specific [place] Urine Protein Urine Glucose (UA) Urine Ketones Urine Occult Blood Urine Nitrite Urine Bilirubin Urine Urobilinogen Ur Leukocyte Esterase Urine RBC Urine WBC Ur Squamous Epith Cells Urine Bacteria Urine Mucus Urine Opiates Screen Urine Methadone Screen Ur Barbiturates Screen Ur Phencyclidine Scrn Ur Amphetamines Screen U Methamphetamin-MDMA U Benzodiazepines Scrn Urine Cocaine Screen U Cannabinoids Screen Ur Drug Screen Comment POC Glucose 294 H Microbiology 03/23/18 11:18 Urine, Clean Catch Urine Culture - Final Culture exhibits no growth. 03/23/18 11:18 Urine, Clean Catch Legionella Antigen - Final 03/23/18 11:18 Urine, Clean Catch Streptococcus pneumoniae Antigen (M - Final 03/23/18 11:18 Sputum, Induced/Lukens Gram Stain - Final 03/23/18 11:18 Sputum, Induced/Lukens Respiratory Culture - Preliminary Haemophilus influenzae Clinical Impression(s) from Imaging Studies Chest X-Ray 03/23/18 06:25 IMPRESSION: Borderline cardiomegaly. Bilateral mild chronic interstitial thickening consistent with mild edema versus infiltrates. COPD changes. Endotracheal tube and OG tube appear in place. Electronically Signed: Tom Guardado MD at 7:04 EDT Tel , Service support , Chest X-Ray 03/25/18 06:43 IMPRESSION: Evolving right basilar and bilateral perihilar alveolar disease. Left basilar atelectasis. Electronically Signed: Jose Garcia MD at 7:23 EDT Tel , Service support , Chest X-Ray 03/25/18 09:50 IMPRESSION: Life support tubes and catheters, as detailed above. Multifocal airspace disease, unchanged from the study performed earlier this morning. Electronically Signed: Heri DO Norm at 11:03 EDT Tel , Service support , Medical Necessity - Tobacco Use Smoking Status: Current every day smoker Assessment/Plan All Active Problems NSTEMI (non-ST elevated myocardial infarction) (Acute) NSTEMI, initial episode of care (Acute) Acute exacerbation of COPD with asthma (Acute) Pneumococcal pneumonia (Acute) Acute respiratory failure with hypoxia and hypercapnia (Acute) Acute non-ST elevation myocardial infarction (NSTEMI) (Acute) SVT (supraventricular tachycardia) (Acute) CAD (coronary artery disease) (Acute) RECOMMENDATIONS: 1. Increase PEEP to facilitate FiO2 weaning 2. Diuresis with a goal of -500-1000 mL 3. Continue with current antibiotics until sensitivities are known 4. Wean oxygen as tolerated 5. Continue steroid and bronchodilator therapy at current dosing IMPRESSIONS: 1. Acute combined respiratory failure secondary to suspected acute on chronic combined CHF/H. influenzae pneumonia Clinical suspicion for multifactorial combined respiratory failure. Patient does have a history of COPD of unknown severity and has tested positive for H influenza by sputum culture on presentation. Patient also has an elevated BNP and was placed on diuretic therapy yesterday. Attempting to diurese 500-1000 mL's per day. Renal function appears to be tolerating well. Patient was unable to tolerate propofol sedation, so has been switched to Precedex therapy. Patient appears to be tolerating this much better. 2. Non-ST elevation IA/SVT Echocardiogram was of poor quality. Previous echocardiogram did show apical wall motion abnormalities. Ejection fraction is decreased compared to previous. No ability to assess diastolic dysfunction. Patient has been placed on Lopressor yesterday. Cardiology is currently following. Patient currently on full anticoagulation and antiplatelet therapy. 3. Diabetes mellitus type 2 Patient currently with marginal control of blood sugars with sliding scale insulin. Will increase patient's basal insulin given elevated blood sugars on tube feeds. 4. Anxiety/hypertension/hyperlipidemia/hypothyroidism Complicates care, management, recovery and prognosis. Blood pressure has been controlled when patient's anxiety is controlled at this time. Patient is on baseline blood pressure medications, but these have been held at this time. TIME: 34 minutes critical care time spent addressing patient's acute combined respiratory failure, non-ST elevation IA, diabetes mellitus, review of all data and collaboration with care team (5:30 AM to 6:30 AM) Code Visit 9xxxx: [id number] Critical care first hour
[2018-03-26] MEDS: Aspirin 81 MG TAB.CHEW GT (09:53)
[2018-03-26] MEDS: Montelukast 10 MG Tablet GT (09:53)
[2018-03-26] MEDS: Clopidogrel Bisulfate 75 MG Tablet GT (09:54)
[2018-03-26] MEDS: Lisinopril 40 MG Tablet GT (09:54)
[2018-03-26] MEDS: Famotidine 20 MG Tablet GT ×2 (09:54→21:04)
[2018-03-26] MEDS: Metoprolol Tartrate 50 MG Tablet PO ×2 (09:54→21:04)
[2018-03-26] MEDS: Enoxaparin 100 MG/ML Syringe 90 MG SC ×2 (09:55→21:04)
[2018-03-26] MEDS: Chlorhexidine 15 ML PO ×2 (10:00→21:08)
--- NOTE | 2018-03-26 13:09 | NURSING ---
Gabrielle Busch NP arrived at [address] a central line. HANG [place] and respiratory present in room. Central line insertion was at 1259. Complete at 1304. Chest X-Ray ordered. Vitals 1300 HR-78, Spo2-92%, BP-142/85, RR-15 1305 HR-80, SPo2-92%, BP 149/87, RR-16 1310 HR-82, SPO2 92%, BP-155/81, RR-16 1315 HR- 80, SPO2 92%, BP-159/83, RR-18
--- NOTE | 2018-03-26 13:14 | PCM.OP.BLANK ---
Operative Report Date of Procedure: 03/26/18 - Triple-lumen catheter Central line placement procedure note Indication: IV access/hemodynamic instability/vasoactive medications Procedure: A time-out was completed to verify correct patient, indication, medication allergies, procedure, coagulation studies, informed consent signed, and equipment needed. The patient was placed in the supine position for a central line placement to the rt IJ vein. The patients rt neck was prepped using chlorhexidine and a full body sterile drape was applied. 1% lidocaine was used to anesthetize the surrounding skin. A 7fr 16 cm blue guard triple lumen catheter introduced into the internal jugular vein using the modified Seldinger technique with the assistance of ultrasound. The catheter was threaded smoothly over the guidewire, the guidewire was removed easily, nonpulsatile blood returned. All ports were aspirated of air and flushed with sterile saline. The catheter was sutured in place and covered with an occlusive dressing impregnated with chlorhexidine. Post-procedure: The patient tolerated the procedure well. Vital signs remained stable. EBL 3 cc. No complications. Chest X Ray ordered to confirm tip placement and the absence of pneumothorax. Code Visit Procedures: 40034 Insert Non-tunnel CV Cath
--- NOTE | 2018-03-26 13:22 | RAD_ITS ---
STUDY: X-RAY CHEST REASON FOR EXAM: Female, 62 years old. Central line placement TECHNIQUE: Single AP portable view of the chest. COMPARISON: 03/25/2018 FINDINGS: There is an endotracheal tube with the tip above the jessie. An enteric tube is seen coursing into the upper abdomen with the distal tip not visualized. There is a new right internal jugular central venous catheter with the tip in the SVC. Cardiac monitoring leads overlie the chest. There is a hazy opacity in the perihilar region, which may represent atypical pneumonia or edema. There is no demonstrated pleural abnormality. There is mild cardiac enlargement. Normal mediastinum and emily. The pulmonary arteries are slightly prominent. Normal visualized aortic arch and descending thoracic aorta. Normal visualized thoracic spine. Normal visualized ribs, clavicles, and shoulders. There is no demonstrated abnormality of the visualized soft tissue structures of the upper abdomen. RAD/CXR for Line Placement IMPRESSION: New central venous catheter with the tip in the SVC. Findings suggesting pulmonary edema. Electronically Signed: eHri Zheng DO at 14:13 EDT Tel , Service support ,
[2018-03-26] MEDS: Acetaminophen 650 MG/20 ML UDC GT ×2 (13:36→21:09)
[2018-03-26] MEDS: 0.9% NaCl IVPB Med Flush (250 mL) 15 ML IV (13:40)
[2018-03-26] MEDS: Ceftriaxone 1 GM/50 ML BAG IV (13:48)
[2018-03-26 13:53] LABS: Pathologist Review Reviewed
[2018-03-26 14:11] LABS: Bedside Glucose > 500 mg/dL (70-110)
[2018-03-26 15:01] LABS: Bedside Glucose 460 mg/dL (70-110)
[2018-03-26 16:21] LABS: Bedside Glucose 459 mg/dL (70-110)
[2018-03-26] MEDS: Insulin Lispro 100 UNIT/ML INSULN.PEN 20 UNIT SC (16:25)
--- NOTE | 2018-03-26 17:14 | PCM.PN.HOSP ---
Patient Problems: Active and Suspected Problems NSTEMI (non-ST elevated myocardial infarction) (Acute) Acute exacerbation of COPD with asthma (Acute) Pneumococcal pneumonia (Acute) Acute respiratory failure with hypoxia and hypercapnia (Acute) Subjective: CC; acute hypoxic respiratory failure Objective: The patient remains submitted to mechanical ventilation. Vitals/I&O's: Vital Signs Temp Pulse Resp BP Pulse Ox 100.5 F H 82 15 148/84 H 94 03/26/18 14:00 03/26/18 16:10 03/26/18 15:45 03/26/18 14:00 03/26/18 16:10 Oxygen Flow Rate (L/min) 55 Oxygen Delivery Method Mechanical Ventilator Weight: 90.5 kg Intake and Output for Last 24 Hours 03/24/18 03/25/18 03/26/18 23:59 23:59 23:59 Intake Total 3259.3 / 3259.3 1196.3 / 1196.3 573.7 / 573.7 Output Total 750 / 750 2049 / 2049 250 / 250 Balance 2509.3 / 2509.3 -853.7 / -853.7 323.7 / 323.7 General: Alert, Oriented x3 Oral: Moist Mucosa Neck: Supple, No JVD Lungs: Rales Cardiovascular: Regular rate, Normal S1, Normal S2 Abdomen: Bowel Sounds Present, Soft, Non Tender Extremities: No clubbing Lymphatic: No Cervical, Supraclavicular, or Inguinal Adenopathy Neurological: Cranial nerves II-XII grossly intact, Motor Exam 5/5 strength throughout Microbiology Past 72 Hours 03/23/18 11:18 Urine, Clean Catch Urine Culture - Final Culture exhibits no growth. 03/23/18 11:18 Urine, Clean Catch Legionella Antigen - Final 03/23/18 11:18 Urine, Clean Catch Streptococcus pneumoniae Antigen (M - Final 03/23/18 11:18 Blood Culture (Wb) - Left Wrist Blood Culture - Preliminary No growth in 48 hours. 03/23/18 10:35 Blood Culture (Wb) - Anticubital Right Blood Culture - Preliminary No growth in 48 hours. 03/23/18 11:18 Sputum, Induced/Lukens Gram Stain - Final 03/23/18 11:18 Sputum, Induced/[place]ukens Respiratory Culture - Preliminary Haemophilus influenzae Streptococcus pneumoniae 03/23/18 09:52 Mucosa - Nasopharyngeal Respiratory Panel (PCR) - Final Laboratory Results 03/23/18 10:30: Urine Color Straw, Urine Clarity Clear, Urine pH 6.0, Ur Specific [place] 1.010, Urine Protein Negative, Urine Glucose (UA) 1000 H, Urine Ketones Negative, Urine Occult Blood Negative, Urine Nitrite Negative, Urine Bilirubin Negative, Urine Urobilinogen Normal, Ur Leukocyte Esterase Negative, Urine RBC 0 SEEN, Urine WBC 0 SEEN, Ur Squamous Epith Cells 0 SEEN, Urine Bacteria 0 SEEN, Urine Mucus 0 SEEN 03/23/18 : Diff Path Review Reviewed 03/25/18 18:46: POC Glucose 265 H 03/25/18 21:09: POC Glucose 246 H 03/25/18 23:58: POC Glucose 257 H 03/26/18 04:10: WBC 12.9 H, RBC 4.99, Hgb 14.8, Hct 42.9, MCV 86.0, MCH 29.7, MCHC 34.5, RDW 14.9 H, RDW Differential 46.9 H, Plt Count 144 L, MPV 11.9 03/26/18 04:10: Sodium 143, Potassium 4.4, Chloride 111 H, Carbon Dioxide 24.0, Anion Gap 8, BUN 30 H, Creatinine 0.82, Estim Creat Clear Calc 67.45, Est GFR (MDRD) Af Amer 91, Est GFR (MDRD) Non-Af 76, BUN/Creatinine Ratio 36.7 H, Glucose 291 H, Calcium 7.7 L, Phosphorus 2.1 L, Magnesium 1.6 03/26/18 05:48: POC Glucose 294 H 03/26/18 14:05: POC Glucose > 500 H* 03/26/18 14:56: POC Glucose 460 H* 03/26/18 16:15: POC Glucose 459 H* Current Medications Acetaminophen (Tylenol Liquid) 650 mg GT Q6H PRN PRN PRN Reason: Fever 100.4 Last Admin: 03/26/18 13:36 Dose: 650 mg Albuterol Sulfate (Ventolin Aerosols) 2.5 mg INHALATION Q2H PRN PRN PRN Reason: DYSPNEA Albuterol/Ipratropium (Duoneb) 3 ml INHALATION Q4H.RT OMARI Last Admin: 03/26/18 15:23 Dose: 3 ml Aspirin (Aspirin, Baby) 81 mg GT DAILY@0800 [facility] Last Admin: 03/26/18 09:53 Dose: 81 mg Atorvastatin Calcium (Lipitor) 20 mg GT QHS [facility] Last Admin: 03/25/18 21:02 Dose: 20 mg Chlorhexidine Gluconate () 1 each TOPICAL DAILY [facility] Last Admin: 03/26/18 05:48 Dose: 1 each Chlorhexidine Gluconate () 15 ml PO BID [facility] Last Admin: 03/26/18 10:00 Dose: 15 ml Clopidogrel Bisulfate (Plavix) 75 mg GT DAILY [facility] Last Admin: 03/26/18 09:54 Dose: 75 mg Enoxaparin Sodium (Lovenox) 90 mg SC BID [facility] Last Admin: 03/26/18 09:55 Dose: 90 mg Ergocalciferol (Vitamin D) 50,000 unit PO [facility] Famotidine (Pepcid) 20 mg GT BID [facility] Last Admin: 03/26/18 09:54 Dose: 20 mg Furosemide (Lasix) 40 mg IV Q8 [facility] Last Admin: 03/26/18 14:48 Dose: 40 mg Azithromycin 500 mg/ Dextrose 255 mls @ 250 mls/hr IV Q24 [facility] Last Admin: 03/26/18 10:01 Dose: 250 mls/hr Ceftriaxone Sodium (Rocephin) 1 gm in 50 mls @ 100 mls/hr IV Q24 [facility] Last Admin: 03/26/18 13:48 Dose: 100 mls/hr Fentanyl () 100 mls @ 5 mls/hr IV .Q20H [facility] Last Admin: 03/26/18 12:00 Dose: 5 mls/hr Enteral Nutritional Formula (Vital Af 1.2 Arvin Liquid) 1,000 mls @ 60 mls/hr GT .[id number] [facility] Last Admin: 03/26/18 05:18 Dose: Not Given Dexmedetomidine HCl 400 mcg/ (Sodium Chloride) 100 mls @ 0 mls/hr IV .Q0M [facility]; 0.5 MCG/KG/HR PRN Reason: Protocol Last Admin: 03/26/18 13:40 Dose: 22.7 mls/hr Sodium Chloride () 250 mls @ 15 mls/hr IV .[id number] PRN PRN Reason: SALINE FLUSH Insulin Detemir (Levemir (Bkc)) 30 units SC BID [facility] Insulin Human Lispro (Humalog Kwikpen ([facility])) 0 unit SC Q6 [facility] PRN Reason: Protocol Last Admin: 03/26/18 14:08 Dose: 20 u Levothyroxine Sodium (Synthroid) 25 mcg GT MoWeFr@0600 [facility] Last Admin: 03/26/18 05:20 Dose: 25 mcg Levothyroxine Sodium (Synthroid) 175 mcg GT DAILY@0600 [facility] Last Admin: 03/26/18 05:20 Dose: 175 mcg Lisinopril (Zestril) 40 mg GT DAILY [facility] Last Admin: 03/26/18 09:54 Dose: 40 mg Lorazepam (Ativan) 1 mg IV Q4H PRN PRN PRN Reason: ANXIETY/AGITATION Methylprednisolone (Solu-Medrol) 40 mg IV Q8 [facility] Last Admin: 03/26/18 15:00 Dose: 40 mg Metoprolol Tartrate (Lopressor (Beta Mu)) 50 mg PO BID [facility] Last Admin: 03/26/18 09:54 Dose: 50 mg Montelukast Sodium (Singulair) 10 mg GT DAILY [facility] Last Admin: 03/26/18 09:53 Dose: 10 mg Potassium Bicarb/Potassium Chloride (Potassium Chl 25 Meq Eff (For Liquid)) 25 meq GT DAILYCM [facility] Last Admin: 03/26/18 09:54 Dose: 25 meq Sodium Chloride () 5 - 30 ml IV UD PRN PRN Reason: SALINE FLUSH Last Admin: 03/26/18 14:48 Dose: 20 ml Medical Necessity - Tobacco Use Smoking Status: Current every day smoker Assessment/Plan All Active Problems NSTEMI (non-ST elevated myocardial infarction) (Acute) NSTEMI, initial episode of care (Acute) Acute exacerbation of COPD with asthma (Acute) Pneumococcal pneumonia (Acute) Acute respiratory failure with hypoxia and hypercapnia (Acute) Acute non-ST elevation myocardial infarction (NSTEMI) (Acute) SVT (supraventricular tachycardia) (Acute) CAD (coronary artery disease) (Acute) 1. Acute respiratory failure with hypoxia; the patient is currently intubated on mechanical ventilator. [facility] for vent management. 2. Community-acquired pneumonia; sputum culture grew H. influenzae/strep pneumo , patient is on IV Rocephin and Zithromax. 3. Elevated troponin consistent with an NSTEMI; cardiology consulted and patient would undergo left heart catheterization whenever her pulmonary status improves. We will continue on cardioprotective medications as ordered.. 3. Diabetes type 2; she is on Levemir and regular insulin sliding scale, adjust insulin dose to optimize glycemic control. 4.hypothyroidism; would continue her Synthroid. 5. Hypertension; she is lisinopril and metoprolol. 6. acute CHF; she is receiving IV Lasix. 7. Prophylaxis with Lovenox and SCDs. Code Visit Inpatient E&M: 60543 Subs Hosp L3
[2018-03-26 19:40] LABS: Bedside Glucose 401 mg/dL (70-110)
[2018-03-26] MEDS: Vital AF 1.2 Cal Liquid 1,000 ML 60 ML GT (21:00)
[2018-03-26] MEDS: Atorvastatin Calcium 20 MG Tablet GT (21:04)
[2018-03-26 21:40] LABS: Bedside Glucose 339 mg/dL (70-110)
[2018-03-27] VITALS (43 sets, daily range): BP systolic 110–166; BP diastolic 60–84; PULSE 58–88; RESP 10–28; TEMP 38.1–38.7; O2SAT 88–100
[2018-03-27] MEDS: Insulin Lispro 100 UNIT/ML INSULN.PEN SC ×6 (00:09→23:43)
[2018-03-27 00:15] LABS: Bedside Glucose 342 mg/dL (70-110)
[2018-03-27] MEDS: Ipratropium/Albuterol Sulfate 3 ML AMPUL.NEB INHALATION ×6 (02:35→22:47)
[2018-03-27 04:24] LABS: Absolute Lymphocyte Count 1.15 X10^3/ul (0.83-4.51); Absolute Neutrophil Count 11.4 X10^3/uL (2.0-7.7); Basophil# 0.01 X10^3/uL; Basophil% 0.1 % (0-1); Hematocrit 44.5 % (37-47); Hemoglobin 15.5 g/dl (12.0-15.0); Lymphocyte # 1.15 X10^3/ul (4.0); Lymphocyte % 8.6 % (19-41); Mean Corp Hgb Conc 34.8 g/gl (32-36); Mean Corpuscular Hgb 29.2 pg (27.0-32.0); Mean Platelet Vol. 11.8 fl (6.2-12.0); Monocyte# 0.76 X10^3/uL; Monocyte% 5.7 % (0-10); Neutrophil # 11.38 X10^3/uL (2.7-7.7); Neutrophil % 85.2 % (47-70); Platelet Count 178 K/mm3 (150-450); RBC Distribution Width CV 14.8 % (11.6-14.6); RBC Distribution Width SD 45.1 fl (35.1-43.9); White Blood Count 13.4 K/mm3 (4.4-11.0)
[2018-03-27 04:30] LABS: POSITIVE COUNT NO; POSITIVE DIFFERENTIAL NO; POSITIVE MORPHOLOGY NO
[2018-03-27 04:37] LABS: Anion Gap 9 (5-15); BUN 44 mg/dL (7-18); BUN/Creat Ratio 48.6 RATIO (10-20); Calcium,Total 7.8 mg/dL (8.5-10.1); Chloride 108 mmol/L (98-107); EST Glomerular Filtration Rate 67 mL/min (>60); Est Glom Filt Rate - Afr Amer 81 mL/min (>60); Estimated Creatinine Clearance 61.45 ml/min; Glucose 326 mg/dL (74-106); Potassium 3.9 mmol/L (3.5-5.1); Sodium Level 145 mmol/L (136-145)
[2018-03-27] MEDS: 0.9% NaCl Peripheral Flush Adult/Peds IV ×3 (05:16→21:25)
[2018-03-27] MEDS: Furosemide 40 MG/4 ML Vial IV (05:17)
[2018-03-27] MEDS: Levothyroxine 175 MCG Tablet GT (05:17)
[2018-03-27 05:31] LABS: Bedside Glucose 341 mg/dL (70-110)
[2018-03-27] MEDS: Insulin Lispro 100 UNIT/ML INSULN.PEN 10 UNIT SC ×2 (06:21→16:55)
[2018-03-27 06:56] LABS: Allen Test POS; Base Excess 1 mmol/L (-2 to +2); Bicarbonate 23.7 mmol/L (22-26); Blood Gas Specimen Type ART; FI02 45; Mode CPAP PS; O2 Delivery Device Vent; PEEP 5; PO2 48 mmHG (75-100); PS 5; SITE L Brachial; SO2 88 % (95-99); Time Given 640; Total Carbon Dioxide 25 mmol/L; pH 7.52 (7.35-7.45)
[2018-03-27] MEDS: Acetaminophen 650 MG/20 ML UDC GT ×2 (07:06→14:10)
--- NOTE | 2018-03-27 07:14 | PN_ITS ---
Subjective: Patient did okay overnight. Patient continues to have persistent fevers and issues with sedation. Patient is responding to Precedex therapy. PEEP was as high as 10 yesterday, but was able to be weaned to 5 this morning. However, following a 1 hour spontaneous breathing trial, patient's oxygenation was still marginal and 45%. Therefore she was left intubated. Patient does follow simple commands, but becomes agitated quickly. Patient tolerating tube feeds. Patient has received multiple doses of insulin over the last 24 hours in addition to sliding scale secondary to hyperglycemia. General: - - Intubated and sedated. RASS -2. Good ventilator synchrony noted. Obese. HEENT: Atraumatic, PERRLA, EOMI, Normocephalic, - Oral: Moist Mucosa, No Gingival or Mucosal Lesions/ Ulcerations Neck: Supple, No JVD, No Nodes, Trachea Midline Lungs: No rhonchi, No wheeze, No rales, Diminished, - - Symmetric expansion. No dullness to percussion. Cardiovascular: Regular rate, Regular Rhythm, Normal S1, Normal S2, No murmurs, No rub noted, No Gallop Abdomen: Bowel Sounds Present, Soft, Non Tender, Non-Distended, Obese Extremities: No clubbing, No cyanosis, No edema, Capillary Refill Less than 3 Seconds Skin: - - No significant change compared to previous Musculoskeletal: No Tenderness to Palpation of Joints or Extremities, No Muscle Wasting Lymphatic: No Cervical, Supraclavicular, or Inguinal Adenopathy Neurological: Cranial nerves II-XII grossly intact, Neuro grossly intact, Motor Exam 5/5 strength throughout Psych/Mental Status: Flat Affect Vital Signs Temp Pulse Resp BP Pulse Ox 38.1 C H 75 18 157/78 H 91 03/27/18 06:00 03/27/18 06:28 03/27/18 06:28 03/27/18 06:00 03/27/18 06:28 Oxygen Flow Rate (L/min) 55 Oxygen Delivery Method Mechanical Ventilator Weight: 88.7 kg Intake and Output for Last 24 Hours 03/25/18 03/26/18 03/27/18 23:59 23:59 23:59 Intake Total 1196.3 / 1196.3 3043.9 / 3043.9 860 / 860 Output Total 2049 / 2049 3150 / 3150 550 / 550 Balance -853.7 / -853.7 -106.1 / -106.1 310 / 310 Labs (Last 48 Hours) 03/23/18 03/23/18 03/23/18 10:15 10:15 10:30 WBC RBC Hgb Hct MCV MCH MCHC RDW RDW Differential Plt Count MPV Immature Gran % (Auto) Neut % (Auto) Lymph % (Auto) [place] % (Auto) Eos % (Auto) Baso % (Auto) Absolute Neuts (auto) Absolute Lymphs (auto) Total Counted Diff Path Review Reactive Lymphocytes RBC Morphology PT INR Specimen Type Sample Site pH Bicarbonate Actual POC Total CO2 Base Excess O2 Saturation O2 % ABG pCO2 ABG pO2 Tamir Test Respiration Rate O2 Delivery Device Vent Mode Tidal Volume POC PEEP POC Pressure Suppt EPAP IPAP Blood Gas Notified Whom Blood Gas Notified Time Sodium Potassium Chloride Carbon Dioxide Anion Gap BUN Creatinine Estim Creat Clear Calc Est GFR (MDRD) Af Amer Est GFR (MDRD) Non-Af BUN/Creatinine Ratio Glucose Lactic Acid 2.4 H Calcium Phosphorus Magnesium Total Bilirubin AST ALT Alkaline Phosphatase Total Creatine Kinase Troponin I 0.742 H* B-Natriuretic Peptide Total Protein Albumin Globulin Albumin/Globulin Ratio Triglycerides TSH 1.93 Thyroxine (T4) 12.3 Urine Color Straw Urine Clarity Clear Urine pH 6.0 Ur Specific [place] 1.010 Urine Protein Negative Urine Glucose (UA) 1000 H Urine Ketones Negative Urine Occult Blood Negative Urine Nitrite Negative Urine Bilirubin Negative Urine Urobilinogen Normal Ur Leukocyte Esterase Negative Urine RBC 0 SEEN Urine WBC 0 SEEN Ur Squamous Epith Cells 0 SEEN Urine Bacteria 0 SEEN Urine Mucus 0 SEEN Urine Opiates Screen Urine Methadone Screen Ur Barbiturates Screen Ur Phencyclidine Scrn Ur Amphetamines Screen U Methamphetamin-MDMA U Benzodiazepines Scrn Urine Cocaine Screen U Cannabinoids Screen Ur Drug Screen Comment POC Glucose 03/23/18 03/23/18 03/23/18 11:10 13:25 Unknown WBC RBC Hgb Hct MCV MCH MCHC RDW RDW Differential Plt Count MPV Immature Gran % (Auto) Neut % (Auto) Lymph % (Auto) [place] % (Auto) Eos % (Auto) Baso % (Auto) Absolute Neuts (auto) Absolute Lymphs (auto) Total Counted Diff Path Review Reactive Lymphocytes RBC Morphology PT INR Specimen Type Sample Site pH Bicarbonate Actual POC Total CO2 Base Excess O2 Saturation O2 % ABG pCO2 ABG pO2 Tamir Test Respiration Rate O2 Delivery Device Vent Mode Tidal Volume POC PEEP POC Pressure Suppt EPAP IPAP Blood Gas Notified Whom Blood Gas Notified Time Sodium Potassium Chloride Carbon Dioxide Anion Gap BUN Creatinine Estim Creat Clear Calc Est GFR (MDRD) Af Amer Est GFR (MDRD) Non-Af BUN/Creatinine Ratio Glucose Lactic Acid 5.9 H* Calcium Phosphorus Magnesium Total Bilirubin AST ALT Alkaline Phosphatase Total Creatine Kinase Troponin I 6.430 H* B-Natriuretic Peptide Total Protein Albumin Globulin Albumin/Globulin Ratio Triglycerides TSH Thyroxine (T4) Urine Color Urine Clarity Urine pH Ur Specific [place] Urine Protein Urine Glucose (UA) Urine Ketones Urine Occult Blood Urine Nitrite Urine Bilirubin Urine Urobilinogen Ur Leukocyte Esterase Urine RBC Urine WBC Ur Squamous Epith Cells Urine Bacteria Urine Mucus Urine Opiates Screen NEGATIVE Urine Methadone Screen NEGATIVE Ur Barbiturates Screen NEGATIVE Ur Phencyclidine Scrn NEGATIVE Ur Amphetamines Screen NEGATIVE U Methamphetamin-MDMA NEGATIVE U Benzodiazepines Scrn NEGATIVE Urine Cocaine Screen NEGATIVE U Cannabinoids Screen POSITIVE H Ur Drug Screen Comment POC Glucose 03/23/18 03/23/18 03/23/18 Unknown Unknown Unknown WBC 18.6 H RBC 6.07 H Hgb 18.0 H* Hct 51.5 H MCV 84.8 MCH 29.7 MCHC 35.0 RDW 14.2 RDW Differential 44.1 H Plt Count 223 MPV 11.6 Immature Gran % (Auto) 0.400 Neut % (Auto) 48.7 Lymph % (Auto) 40.4 [place] % (Auto) 7.2 Eos % (Auto) 2.7 Baso % (Auto) 0.6 Absolute Neuts (auto) 9.1 H Absolute Lymphs (auto) 7.52 H Total Counted Not Reportable Diff Path Review Reviewed Reactive Lymphocytes 1+ RBC Morphology NORM C+C PT 14.0 INR 1.1 Specimen Type Sample Site pH Bicarbonate Actual POC Total CO2 Base Excess O2 Saturation O2 % ABG pCO2 ABG pO2 Tamir Test Respiration Rate O2 Delivery Device Vent Mode Tidal Volume POC PEEP POC Pressure Suppt EPAP IPAP Blood Gas Notified Whom Blood Gas Notified Time Sodium 138 Potassium 3.7 Chloride 100 Carbon Dioxide 26.0 Anion Gap 12 BUN 14 Creatinine 1.08 H Estim Creat Clear Calc 51.21 Est GFR (MDRD) Af Amer 67 Est GFR (MDRD) Non-Af 55 L BUN/Creatinine Ratio 13.0 Glucose 450 H Lactic Acid Calcium 8.5 Phosphorus Magnesium Total Bilirubin 0.50 AST 27 ALT 32 Alkaline Phosphatase 175 H Total Creatine Kinase Troponin I < 0.015 B-Natriuretic Peptide Total Protein 7.4 Albumin 3.6 Globulin 3.8 Albumin/Globulin Ratio 0.9 Triglycerides TSH Thyroxine (T4) Urine Color Urine Clarity Urine pH Ur Specific [place] Urine Protein Urine Glucose (UA) Urine Ketones Urine Occult Blood Urine Nitrite Urine Bilirubin Urine Urobilinogen Ur Leukocyte Esterase Urine RBC Urine WBC Ur Squamous Epith Cells Urine Bacteria Urine Mucus Urine Opiates Screen Urine Methadone Screen Ur Barbiturates Screen Ur Phencyclidine Scrn Ur Amphetamines Screen U Methamphetamin-MDMA U Benzodiazepines Scrn Urine Cocaine Screen U Cannabinoids Screen Ur Drug Screen Comment POC Glucose 03/25/18 03/25/18 03/25/18 04:20 04:20 08:19 WBC RBC Hgb Hct MCV MCH MCHC RDW RDW Differential Plt Count MPV Immature Gran % (Auto) Neut % (Auto) Lymph % (Auto) [place] % (Auto) Eos % (Auto) Baso % (Auto) Absolute Neuts (auto) Absolute Lymphs (auto) Total Counted Diff Path Review Reactive Lymphocytes RBC Morphology PT INR Specimen Type ART Sample Site R Radial pH 7.28 L Bicarbonate Actual 20.0 L POC Total CO2 21 Base Excess -7 L O2 Saturation 92 L O2 % 65 ABG pCO2 42.6 ABG pO2 71 L Tamir Test POS Respiration Rate O2 Delivery Device Bi / C PAP Vent Mode Tidal Volume POC PEEP POC Pressure Suppt EPAP 8 IPAP 20 Blood Gas Notified Whom ICU Blood Gas Notified Time 821 Sodium Potassium Chloride Carbon Dioxide Anion Gap BUN Creatinine Estim Creat Clear Calc Est GFR (MDRD) Af Amer Est GFR (MDRD) Non-Af BUN/Creatinine Ratio Glucose Lactic Acid Calcium Phosphorus Magnesium Total Bilirubin AST ALT Alkaline Phosphatase Total Creatine Kinase 259 H Troponin I B-Natriuretic Peptide 791.7 H Total Protein Albumin Globulin Albumin/Globulin Ratio Triglycerides 179 TSH Thyroxine (T4) Urine Color Urine Clarity Urine pH Ur Specific [place] Urine Protein Urine Glucose (UA) Urine Ketones Urine Occult Blood Urine Nitrite Urine Bilirubin Urine Urobilinogen Ur Leukocyte Esterase Urine RBC Urine WBC Ur Squamous Epith Cells Urine Bacteria Urine Mucus Urine Opiates Screen Urine Methadone Screen Ur Barbiturates Screen Ur Phencyclidine Scrn Ur Amphetamines Screen U Methamphetamin-MDMA U Benzodiazepines Scrn Urine Cocaine Screen U Cannabinoids Screen Ur Drug Screen Comment POC Glucose 03/25/18 03/25/18 03/25/18 11:03 11:35 18:46 WBC RBC Hgb Hct MCV MCH MCHC RDW RDW Differential Plt Count MPV Immature Gran % (Auto) Neut % (Auto) Lymph % (Auto) [place] % (Auto) Eos % (Auto) Baso % (Auto) Absolute Neuts (auto) Absolute Lymphs (auto) Total Counted Diff Path Review Reactive Lymphocytes RBC Morphology PT INR Specimen Type ART Sample Site L Radial pH 7.30 L Bicarbonate Actual 21.9 L POC Total CO2 23 Base Excess -4 L O2 Saturation 88 L O2 % 80 ABG pCO2 44.4 ABG pO2 60 L Tamir Test POS Respiration Rate 12 O2 Delivery Device Vent Vent Mode A-C Tidal Volume 450 POC PEEP 5 POC Pressure Suppt EPAP IPAP Blood Gas Notified Whom ICU Blood Gas Notified Time 1106 Sodium Potassium Chloride Carbon Dioxide Anion Gap BUN Creatinine Estim Creat Clear Calc Est GFR (MDRD) Af Amer Est GFR (MDRD) Non-Af BUN/Creatinine Ratio Glucose Lactic Acid Calcium Phosphorus Magnesium Total Bilirubin AST ALT Alkaline Phosphatase Total Creatine Kinase Troponin I B-Natriuretic Peptide Total Protein Albumin Globulin Albumin/Globulin Ratio Triglycerides TSH Thyroxine (T4) Urine Color Urine Clarity Urine pH Ur Specific [place] Urine Protein Urine Glucose (UA) Urine Ketones Urine Occult Blood Urine Nitrite Urine Bilirubin Urine Urobilinogen Ur Leukocyte Esterase Urine RBC Urine WBC Ur Squamous Epith Cells Urine Bacteria Urine Mucus Urine Opiates Screen Urine Methadone Screen Ur Barbiturates Screen Ur Phencyclidine Scrn Ur Amphetamines Screen U Methamphetamin-MDMA U Benzodiazepines Scrn Urine Cocaine Screen U Cannabinoids Screen Ur Drug Screen Comment POC Glucose 328 H 265 H 03/25/18 03/25/18 03/26/18 21:09 23:58 04:10 WBC 12.9 H RBC 4.99 Hgb 14.8 Hct 42.9 MCV 86.0 MCH 29.7 MCHC 34.5 RDW 14.9 H RDW Differential 46.9 H Plt Count 144 L MPV 11.9 Immature Gran % (Auto) Neut % (Auto) Lymph % (Auto) [place] % (Auto) Eos % (Auto) Baso % (Auto) Absolute Neuts (auto) Absolute Lymphs (auto) Total Counted Diff Path Review Reactive Lymphocytes RBC Morphology PT INR Specimen Type Sample Site pH Bicarbonate Actual POC Total CO2 Base Excess O2 Saturation O2 % ABG pCO2 ABG pO2 Tamir Test Respiration Rate O2 Delivery Device Vent Mode Tidal Volume POC PEEP POC Pressure Suppt EPAP IPAP Blood Gas Notified Whom Blood Gas Notified Time Sodium Potassium Chloride Carbon Dioxide Anion Gap BUN Creatinine Estim Creat Clear Calc Est GFR (MDRD) Af Amer Est GFR (MDRD) Non-Af BUN/Creatinine Ratio Glucose Lactic Acid Calcium Phosphorus Magnesium Total Bilirubin AST ALT Alkaline Phosphatase Total Creatine Kinase Troponin I B-Natriuretic Peptide Total Protein Albumin Globulin Albumin/Globulin Ratio Triglycerides TSH Thyroxine (T4) Urine Color Urine Clarity Urine pH Ur Specific [place] Urine Protein Urine Glucose (UA) Urine Ketones Urine Occult Blood Urine Nitrite Urine Bilirubin Urine Urobilinogen Ur Leukocyte Esterase Urine RBC Urine WBC Ur Squamous Epith Cells Urine Bacteria Urine Mucus Urine Opiates Screen Urine Methadone Screen Ur Barbiturates Screen Ur Phencyclidine Scrn Ur Amphetamines Screen U Methamphetamin-MDMA U Benzodiazepines Scrn Urine Cocaine Screen U Cannabinoids Screen Ur Drug Screen Comment POC Glucose 246 H 257 H 03/26/18 03/26/18 03/26/18 04:10 05:48 14:05 WBC RBC Hgb Hct MCV MCH MCHC RDW RDW Differential Plt Count MPV Immature Gran % (Auto) Neut % (Auto) Lymph % (Auto) [place] % (Auto) Eos % (Auto) Baso % (Auto) Absolute Neuts (auto) Absolute Lymphs (auto) Total Counted Diff Path Review Reactive Lymphocytes RBC Morphology PT INR Specimen Type Sample Site pH Bicarbonate Actual POC Total CO2 Base Excess O2 Saturation O2 % ABG pCO2 ABG pO2 Tamir Test Respiration Rate O2 Delivery Device Vent Mode Tidal Volume POC PEEP POC Pressure Suppt EPAP IPAP Blood Gas Notified Whom Blood Gas Notified Time Sodium 143 Potassium 4.4 Chloride 111 H Carbon Dioxide 24.0 Anion Gap 8 BUN 30 H Creatinine 0.82 Estim Creat Clear Calc 67.45 Est GFR (MDRD) Af Amer 91 Est GFR (MDRD) Non-Af 76 BUN/Creatinine Ratio 36.7 H Glucose 291 H Lactic Acid Calcium 7.7 L Phosphorus 2.1 L Magnesium 1.6 Total Bilirubin AST ALT Alkaline Phosphatase Total Creatine Kinase Troponin I B-Natriuretic Peptide Total Protein Albumin Globulin Albumin/Globulin Ratio Triglycerides TSH Thyroxine (T4) Urine Color Urine Clarity Urine pH Ur Specific [place] Urine Protein Urine Glucose (UA) Urine Ketones Urine Occult Blood Urine Nitrite Urine Bilirubin Urine Urobilinogen Ur Leukocyte Esterase Urine RBC Urine WBC Ur Squamous Epith Cells Urine Bacteria Urine Mucus Urine Opiates Screen Urine Methadone Screen Ur Barbiturates Screen Ur Phencyclidine Scrn Ur Amphetamines Screen U Methamphetamin-MDMA U Benzodiazepines Scrn Urine Cocaine Screen U Cannabinoids Screen Ur Drug Screen Comment POC Glucose 294 H > 500 H* 03/26/18 03/26/18 03/26/18 14:56 16:15 19:23 WBC RBC Hgb Hct MCV MCH MCHC RDW RDW Differential Plt Count MPV Immature Gran % (Auto) Neut % (Auto) Lymph % (Auto) [place] % (Auto) Eos % (Auto) Baso % (Auto) Absolute Neuts (auto) Absolute Lymphs (auto) Total Counted Diff Path Review Reactive Lymphocytes RBC Morphology PT INR Specimen Type Sample Site pH Bicarbonate Actual POC Total CO2 Base Excess O2 Saturation O2 % ABG pCO2 ABG pO2 Tamir Test Respiration Rate O2 Delivery Device Vent Mode Tidal Volume POC PEEP POC Pressure Suppt EPAP IPAP Blood Gas Notified Whom Blood Gas Notified Time Sodium Potassium Chloride Carbon Dioxide Anion Gap BUN Creatinine Estim Creat Clear Calc Est GFR (MDRD) Af Amer Est GFR (MDRD) Non-Af BUN/Creatinine Ratio Glucose Lactic Acid Calcium Phosphorus Magnesium Total Bilirubin AST ALT Alkaline Phosphatase Total Creatine Kinase Troponin I B-Natriuretic Peptide Total Protein Albumin Globulin Albumin/Globulin Ratio Triglycerides TSH Thyroxine (T4) Urine Color Urine Clarity Urine pH Ur Specific [place] Urine Protein Urine Glucose (UA) Urine Ketones Urine Occult Blood Urine Nitrite Urine Bilirubin Urine Urobilinogen Ur Leukocyte Esterase Urine RBC Urine WBC Ur Squamous Epith Cells Urine Bacteria Urine Mucus Urine Opiates Screen Urine Methadone Screen Ur Barbiturates Screen Ur Phencyclidine Scrn Ur Amphetamines Screen U Methamphetamin-MDMA U Benzodiazepines Scrn Urine Cocaine Screen U Cannabinoids Screen Ur Drug Screen Comment POC Glucose 460 H* 459 H* 401 H 03/26/18 03/27/18 03/27/18 21:24 00:08 04:12 WBC 13.4 H RBC 5.30 Hgb 15.5 H Hct 44.5 MCV 84.0 MCH 29.2 MCHC 34.8 RDW 14.8 H RDW Differential 45.1 H Plt Count 178 MPV 11.8 Immature Gran % (Auto) 0.400 Neut % (Auto) 85.2 H Lymph % (Auto) 8.6 L [place] % (Auto) 5.7 Eos % (Auto) 0.0 Baso % (Auto) 0.1 Absolute Neuts (auto) 11.4 H Absolute Lymphs (auto) 1.15 Total Counted Not Reportable Diff Path Review Reactive Lymphocytes RBC Morphology PT INR Specimen Type Sample Site pH Bicarbonate Actual POC Total CO2 Base Excess O2 Saturation O2 % ABG pCO2 ABG pO2 Tamir Test Respiration Rate O2 Delivery Device Vent Mode Tidal Volume POC PEEP POC Pressure Suppt EPAP IPAP Blood Gas Notified Whom Blood Gas Notified Time Sodium Potassium Chloride Carbon Dioxide Anion Gap BUN Creatinine Estim Creat Clear Calc Est GFR (MDRD) Af Amer Est GFR (MDRD) Non-Af BUN/Creatinine Ratio Glucose Lactic Acid Calcium Phosphorus Magnesium Total Bilirubin AST ALT Alkaline Phosphatase Total Creatine Kinase Troponin I B-Natriuretic Peptide Total Protein Albumin Globulin Albumin/Globulin Ratio Triglycerides TSH Thyroxine (T4) Urine Color Urine Clarity Urine pH Ur Specific [place] Urine Protein Urine Glucose (UA) Urine Ketones Urine Occult Blood Urine Nitrite Urine Bilirubin Urine Urobilinogen Ur Leukocyte Esterase Urine RBC Urine WBC Ur Squamous Epith Cells Urine Bacteria Urine Mucus Urine Opiates Screen Urine Methadone Screen Ur Barbiturates Screen Ur Phencyclidine Scrn Ur Amphetamines Screen U Methamphetamin-MDMA U Benzodiazepines Scrn Urine Cocaine Screen U Cannabinoids Screen Ur Drug Screen Comment POC Glucose 339 H 342 H 03/27/18 03/27/18 03/27/18 04:12 05:15 06:49 WBC RBC Hgb Hct MCV MCH MCHC RDW RDW Differential Plt Count MPV Immature Gran % (Auto) Neut % (Auto) Lymph % (Auto) [place] % (Auto) Eos % (Auto) Baso % (Auto) Absolute Neuts (auto) Absolute Lymphs (auto) Total Counted Diff Path Review Reactive Lymphocytes RBC Morphology PT INR Specimen Type ART Sample Site L Brachial pH 7.52 H Bicarbonate Actual 23.7 POC Total CO2 25 Base Excess 1 O2 Saturation 88 L O2 % 45 ABG pCO2 29.0 L ABG pO2 48 L Tamir Test POS Respiration Rate O2 Delivery Device Vent Vent Mode CPAP PS Tidal Volume POC PEEP 5 POC Pressure Suppt 5 EPAP IPAP Blood Gas Notified Whom ICU MD Blood Gas Notified Time 640 Sodium 145 Potassium 3.9 Chloride 108 H Carbon Dioxide 28.0 Anion Gap 9 BUN 44 H Creatinine 0.90 Estim Creat Clear Calc 61.45 Est GFR (MDRD) Af Amer 81 Est GFR (MDRD) Non-Af 67 BUN/Creatinine Ratio 48.6 H Glucose 326 H Lactic Acid Calcium 7.8 L Phosphorus Magnesium Total Bilirubin AST ALT Alkaline Phosphatase Total Creatine Kinase Troponin I B-Natriuretic Peptide Total Protein Albumin Globulin Albumin/Globulin Ratio Triglycerides TSH Thyroxine (T4) Urine Color Urine Clarity Urine pH Ur Specific [place] Urine Protein Urine Glucose (UA) Urine Ketones Urine Occult Blood Urine Nitrite Urine Bilirubin Urine Urobilinogen Ur Leukocyte Esterase Urine RBC Urine WBC Ur Squamous Epith Cells Urine Bacteria Urine Mucus Urine Opiates Screen Urine Methadone Screen Ur Barbiturates Screen Ur Phencyclidine Scrn Ur Amphetamines Screen U Methamphetamin-MDMA U Benzodiazepines Scrn Urine Cocaine Screen U Cannabinoids Screen Ur Drug Screen Comment POC Glucose 341 H Microbiology 03/23/18 11:18 Urine, Clean Catch Urine Culture - Final Culture exhibits no growth. 03/23/18 11:18 Urine, Clean Catch Legionella Antigen - Final 03/23/18 11:18 Urine, Clean Catch Streptococcus pneumoniae Antigen (M - Final 03/23/18 11:18 Blood Culture (Wb) - Left Wrist Blood Culture - Preliminary No growth in 48 hours. 03/23/18 10:35 Blood Culture (Wb) - Anticubital Right Blood Culture - Preliminary No growth in 48 hours. 03/23/18 11:18 Sputum, Induced/Lukens Gram Stain - Final 03/23/18 11:18 Sputum, Induced/[place]ukens Respiratory Culture - Preliminary Haemophilus influenzae Streptococcus pneumoniae Clinical Impression(s) from Imaging Studies Chest X-Ray 03/26/18 13:22 IMPRESSION: New central venous catheter with the tip in the SVC. Findings suggesting pulmonary edema. Electronically Signed: Heri Zheng DO at 14:13 EDT Tel , Service support , Medical Necessity - Tobacco Use Smoking Status: Current every day smoker Assessment/Plan All Active Problems NSTEMI (non-ST elevated myocardial infarction) (Acute) NSTEMI, initial episode of care (Acute) Acute exacerbation of COPD with asthma (Acute) Pneumococcal pneumonia (Acute) Acute respiratory failure with hypoxia and hypercapnia (Acute) Acute non-ST elevation myocardial infarction (NSTEMI) (Acute) SVT (supraventricular tachycardia) (Acute) CAD (coronary artery disease) (Acute) RECOMMENDATIONS: 1. Okay to leave on spontaneous breathing mode 2. Diuresis with a goal of -500-1000 mL 3. Continue with current antibiotics until sensitivities are known 4. Wean oxygen as tolerated 5. Wean steroid and continue bronchodilator therapy at current dosing IMPRESSIONS: 1. Acute combined respiratory failure secondary to suspected acute on chronic combined CHF/H. influenzae pneumonia Clinical suspicion for multifactorial combined respiratory failure. Patient does have a history of COPD of unknown severity and has tested positive for H influenza and pneumococcus by sputum culture on presentation. Patient also has an elevated BNP and was placed on diuretic therapy. Unfortunately, given tube feeds, patient was not effectively diuresed over the last 24 hours. Attempting to diurese 500-1000 mL's per day. Renal function appears to be tolerating well. Patient was unable to tolerate propofol sedation, so has been switched to Precedex therapy. Patient appears to be tolerating this much better. 2. Non-ST elevation DC/SVT Echocardiogram was of poor quality. Previous echocardiogram did show apical wall motion abnormalities. Ejection fraction is decreased compared to previous. No ability to assess diastolic dysfunction. Cardiology is currently following. Patient currently on full anticoagulation and antiplatelet therapy. Patient may require invasive investigation later in the hospitalization. Will increase Lasix therapy and attempt to reach diuretic goals. 3. Diabetes mellitus type 2 Patient's blood sugars are highly uncontrolled at this time. This is likely a function of steroid therapy in the setting of diabetes mellitus. Basal insulin has been increased gradually over the course of the hospitalization, in addition to multiple as needed doses. Will attempt to decrease steroid dosing given lack of wheezing on physical exam. 4. Anxiety/hypertension/hyperlipidemia/hypothyroidism Complicates care, management, recovery and prognosis. Blood pressure has been controlled when patient's anxiety is controlled at this time. Patient is on baseline blood pressure medications, but these have been held at this time. TIME: 38 minutes critical care time spent addressing patient's acute combined respiratory failure, non-ST elevation DC, diabetes mellitus, review of all data and collaboration with care team (6 AM to 7 AM) Code Visit [id number]: [id number] Critical care first hour
[2018-03-27] MEDS: Clopidogrel Bisulfate 75 MG Tablet GT (09:40)
[2018-03-27] MEDS: Chlorhexidine 15 ML PO ×2 (09:40→21:26)
[2018-03-27] MEDS: CHLORHEXIDINE GLUC 2% CLOTH 1 EACH TOWELETTE TOPICAL (09:40)
[2018-03-27] MEDS: Aspirin 81 MG TAB.CHEW GT (09:40)
[2018-03-27] MEDS: Metoprolol Tartrate 50 MG Tablet PO ×2 (09:41→21:26)
[2018-03-27] MEDS: Enoxaparin 100 MG/ML Syringe 90 MG SC ×2 (09:41→21:27)
[2018-03-27] MEDS: Lisinopril 40 MG Tablet GT (09:42)
[2018-03-27] MEDS: Famotidine 20 MG Tablet GT ×2 (09:42→21:26)
[2018-03-27] MEDS: Montelukast 10 MG Tablet GT (09:42)
[2018-03-27] MEDS: Ceftriaxone 1 GM/50 ML BAG IV (09:46)
--- NOTE | 2018-03-27 09:50 | CASEMGMT ---
SW participated in ICU rounds this morning, pt remains intubated at this time, no family present. SW let RN know if family comes in to call this SW and SW will come speak w/family. SW/CM will continue to follow for discharge planning needs. JACQUE Kebede, [employer]
[2018-03-27 12:36] LABS: Bedside Glucose 394 mg/dL (70-110)
[2018-03-27] MEDS: Furosemide 100 MG/10 ML Vial 60 MG IV ×2 (14:10→21:26)
[2018-03-27] MEDS: Vital AF 1.2 Cal Liquid 1,000 ML 60 ML GT (14:13)
--- NOTE | 2018-03-27 14:45 | PCM.PN.HOSP ---
Patient Problems: Active and Suspected Problems NSTEMI (non-ST elevated myocardial infarction) (Acute) Acute exacerbation of COPD with asthma (Acute) Pneumococcal pneumonia (Acute) Acute respiratory failure with hypoxia and hypercapnia (Acute) Subjective: CC: Acute respiratory failure Objective: She remains intubated on mechanical ventilator, she became agitated with weaning trials today. Vitals/I&O's: Vital Signs Temp Pulse Resp BP Pulse Ox 101 F H 62 17 147/74 H 98 03/27/18 14:00 03/27/18 14:39 03/27/18 14:39 03/27/18 14:00 03/27/18 14:39 Oxygen Flow Rate (L/min) 55 Oxygen Delivery Method Mechanical Ventilator Weight: 88.7 kg Intake and Output for Last 24 Hours 03/25/18 03/26/18 03/27/18 23:59 23:59 23:59 Intake Total 1196.3 / 1196.3 3043.9 / 3043.9 1990 Output Total 2049 / 2049 3150 / 3150 2350 / 2350 Balance -853.7 / -853.7 -106.1 / -106.1 -359 / -359 HEENT: Atraumatic Oral: Moist Mucosa Neck: Supple, No JVD Lungs: No wheeze, No rales Cardiovascular: Regular rate, Normal S1, Normal S2 Abdomen: Bowel Sounds Present, Soft, Non Tender Extremities: No edema Neurological: Cranial nerves II-XII grossly intact, Motor Exam 5/5 strength throughout Microbiology Past 72 Hours 03/23/18 11:18 Sputum, Induced/Lukens Gram Stain - Final 03/23/18 11:18 Sputum, Induced/Lukens Respiratory Culture - Preliminary Haemophilus influenzae Streptococcus pneumoniae 03/23/18 11:18 Urine, Clean Catch Urine Culture - Final Culture exhibits no growth. 03/23/18 11:18 Urine, Clean Catch Legionella Antigen - Final 03/23/18 11:18 Urine, Clean Catch Streptococcus pneumoniae Antigen (M - Final 03/23/18 11:18 Blood Culture (Wb) - Left Wrist Blood Culture - Preliminary No growth in 48 hours. 03/23/18 10:35 Blood Culture (Wb) - Anticubital Right Blood Culture - Preliminary No growth in 48 hours. Laboratory Results 03/26/18 14:56: POC Glucose 460 H* 03/26/18 16:15: POC Glucose 459 H* 03/26/18 19:23: POC Glucose 401 H 03/26/18 21:24: POC Glucose 339 H 03/27/18 00:08: POC Glucose 342 H 03/27/18 04:12: WBC 13.4 H, RBC 5.30, Hgb 15.5 H, Hct 44.5, MCV 84.0, MCH 29.2, MCHC 34.8, RDW 14.8 H, RDW Differential 45.1 H, Plt Count 178, MPV 11.8, Immature Gran % (Auto) 0.400, Neut % (Auto) 85.2 H, Lymph % (Auto) 8.6 L, [place] % (Auto) 5.7, Eos % (Auto) 0.0, Baso % (Auto) 0.1, Absolute Neuts (auto) 11.4 H, Absolute Lymphs (auto) 1.15, Total Counted Not Reportable 03/27/18 04:12: Sodium 145, Potassium 3.9, Chloride 108 H, Carbon Dioxide 28.0, Anion Gap 9, BUN 44 H, Creatinine 0.90, Estim Creat Clear Calc 61.45, Est GFR (MDRD) Af Amer 81, Est GFR (MDRD) Non-Af 67, BUN/Creatinine Ratio 48.6 H, Glucose 326 H, Calcium 7.8 L 03/27/18 05:15: POC Glucose 341 H 03/27/18 06:49: Specimen Type ART, Sample Site L Brachial, pH 7.52 H, Bicarbonate Actual 23.7, POC Total CO2 25, Base Excess 1, O2 Saturation 88 L, O2 % 45, ABG pCO2 29.0 L, ABG pO2 48 L, Tamir Test POS, O2 Delivery Device Vent, Vent Mode CPAP PS, POC PEEP 5, POC Pressure Suppt 5, Blood Gas Notified Whom ICU MD, Blood Gas Notified Time 640 03/27/18 12:28: POC Glucose 394 H 03/27/18 14:00: Sodium Pending, Potassium Pending, Chloride Pending, Carbon Dioxide Pending, Anion Gap Pending, BUN Pending, Creatinine Pending, Est GFR (MDRD) Af Amer Pending, Est GFR (MDRD) Non-Af Pending, BUN/Creatinine Ratio Pending, Glucose Pending, Calcium Pending, Phosphorus Pending, Magnesium Pending Current Medications Acetaminophen (Tylenol Liquid) 650 mg GT Q6H PRN PRN PRN Reason: Fever 100.4 Last Admin: 03/27/18 14:10 Dose: 650 mg Albuterol Sulfate (Ventolin Aerosols) 2.5 mg INHALATION Q2H PRN PRN PRN Reason: DYSPNEA Albuterol/Ipratropium (Duoneb) 3 ml INHALATION Q4H.RT [facility] Last Admin: 03/27/18 14:39 Dose: 3 ml Aspirin (Aspirin, Baby) 81 mg GT DAILY@0800 [facility] Last Admin: 03/27/18 09:40 Dose: 81 mg Atorvastatin Calcium (Lipitor) 20 mg GT QHS [facility] Last Admin: 03/26/18 21:04 Dose: 20 mg Chlorhexidine Gluconate () 1 each TOPICAL DAILY [facility] Last Admin: 03/27/18 09:40 Dose: 1 each Chlorhexidine Gluconate () 15 ml PO BID [facility] Last Admin: 03/27/18 09:40 Dose: 15 ml Clopidogrel Bisulfate (Plavix) 75 mg GT DAILY [facility] Last Admin: 03/27/18 09:40 Dose: 75 mg Enoxaparin Sodium (Lovenox) 90 mg SC BID [facility] Last Admin: 03/27/18 09:41 Dose: 90 mg Ergocalciferol (Vitamin D) 50,000 unit PO Sa [facility] Famotidine (Pepcid) 20 mg GT BID [facility] Last Admin: 03/27/18 09:42 Dose: 20 mg Furosemide (Lasix) 60 mg IV Q8 [facility] Last Admin: 03/27/18 14:10 Dose: 60 mg Azithromycin 500 mg/ Dextrose 255 mls @ 250 mls/hr IV Q24 [facility] Last Admin: 03/27/18 09:46 Dose: 250 mls/hr Ceftriaxone Sodium (Rocephin) 1 gm in 50 mls @ 100 mls/hr IV Q24 [facility] Last Admin: 03/27/18 09:46 Dose: 100 mls/hr Fentanyl () 100 mls @ 5 mls/hr IV .Q20H [facility] Last Admin: 03/26/18 21:07 Dose: 5 mls/hr Enteral Nutritional Formula (Vital Af 1.2 Arvin Liquid) 1,000 mls @ 60 mls/hr GT .[id number] [facility] Last Admin: 03/27/18 14:13 Dose: 60 mls/hr Dexmedetomidine HCl 400 mcg/ (Sodium Chloride) 100 mls @ 0 mls/hr IV .Q0M OMARI; 0.5 MCG/KG/HR PRN Reason: Protocol Last Admin: 03/26/18 21:06 Dose: 27.2 mls/hr Sodium Chloride () 250 mls @ 15 mls/hr IV .[id number] PRN PRN Reason: SALINE FLUSH Last Admin: 03/26/18 13:40 Dose: 15 mls/hr Dexmedetomidine HCl 1,000 mcg/ (Sodium Chloride) 250 mls @ 11.31 mls/hr IV .[id number] OMARI PRN Reason: 0.5 MCG/KG/HR Last Admin: 03/27/18 12:29 Dose: 11.31 mls/hr Insulin Detemir (Levemir (Bkc)) 40 units SC BID [facility] Last Admin: 03/27/18 09:42 Dose: 40 u Insulin Human Lispro (Humalog Kwikpen (Bkc)) 0 unit SC Q6 [facility] PRN Reason: Protocol Last Admin: 03/27/18 12:29 Dose: 10 u Levothyroxine Sodium (Synthroid) 25 mcg GT MoWeFr@0600 [facility] Last Admin: 03/26/18 05:20 Dose: 25 mcg Levothyroxine Sodium (Synthroid) 175 mcg GT DAILY@0600 [facility] Last Admin: 03/27/18 05:17 Dose: 175 mcg Lisinopril (Zestril) 40 mg GT DAILY [facility] Last Admin: 03/27/18 09:42 Dose: 40 mg Lorazepam (Ativan) 1 mg IV Q4H PRN PRN PRN Reason: ANXIETY/AGITATION Methylprednisolone (Solu-Medrol) 40 mg IV Q12 [facility] Metoprolol Tartrate (Lopressor (Beta Mu)) 50 mg PO BID [facility] Last Admin: 03/27/18 09:41 Dose: 50 mg Montelukast Sodium (Singulair) 10 mg GT DAILY [facility] Last Admin: 03/27/18 09:42 Dose: 10 mg Potassium Bicarb/Potassium Chloride (Potassium Chl 25 Meq Eff (For Liquid)) [facility] Last Admin: 03/27/18 09:40 Dose: 25 meq Sodium Chloride () 5 - 30 ml IV UD PRN PRN Reason: SALINE FLUSH Last Admin: 03/27/18 14:11 Dose: 20 ml Medical Necessity - Tobacco Use Smoking Status: Current every day smoker Assessment/Plan All Active Problems NSTEMI (non-ST elevated myocardial infarction) (Acute) NSTEMI, initial episode of care (Acute) Acute exacerbation of COPD with asthma (Acute) Pneumococcal pneumonia (Acute) Acute respiratory failure with hypoxia and hypercapnia (Acute) Acute non-ST elevation myocardial infarction (NSTEMI) (Acute) SVT (supraventricular tachycardia) (Acute) CAD (coronary artery disease) (Acute) 1. Acute respiratory failure with hypoxia; she remains intubated on mechanical ventilator. PCCM for vent management. 2. Community-acquired pneumonia; sputum culture grew H. influenzae/strep pneumo , she is on IV Rocephin and Zithromax. 3. Elevated troponin consistent with an NSTEMI; cardiology consulted and she would undergo left heart catheterization whenever her pulmonary status improves. We will continue on cardioprotective medications as ordered.. 3. Diabetes type 2; she is on Levemir and regular insulin sliding scale, we will adjust insulin dose to optimize glycemic control. 4.SVT; she is on a beta-mu. 5. hypothyroidism; would continue her Synthroid. 6. acute CHF; she is receiving IV Lasix. 7. Nutrition; she is receiving feeds per NG tube. 8. Prophylaxis with Lovenox and SCDs. Code Visit Inpatient E&M: [id number] [place] [id number]
--- NOTE | 2018-03-27 14:48 | PN_ITS ---
Patient Problems: Active and Suspected Problems NSTEMI (non-ST elevated myocardial infarction) (Acute) Acute exacerbation of COPD with asthma (Acute) Pneumococcal pneumonia (Acute) Acute respiratory failure with hypoxia and hypercapnia (Acute) Subjective: CC: Acute respiratory failure Objective: She remains intubated on mechanical ventilator, she became agitated with weaning trials today. Vitals/I&O's: Vital Signs Temp Pulse Resp BP Pulse Ox 101 F H 62 17 147/74 H 98 03/27/18 14:00 03/27/18 14:39 03/27/18 14:39 03/27/18 14:00 03/27/18 14:39 Oxygen Flow Rate (L/min) 55 Oxygen Delivery Method Mechanical Ventilator Weight: 88.7 kg Intake and Output for Last 24 Hours 03/25/18 03/26/18 03/27/18 23:59 23:59 23:59 Intake Total 1196.3 / 1196.3 3043.9 / 3043.9 1990 Output Total 2049 / 2049 3150 / 3150 2350 / 2350 Balance -853.7 / -853.7 -106.1 / -106.1 -359 / -359 HEENT: Atraumatic Oral: Moist Mucosa Neck: Supple, No JVD Lungs: No wheeze, No rales Cardiovascular: Regular rate, Normal S1, Normal S2 Abdomen: Bowel Sounds Present, Soft, Non Tender Extremities: No edema Neurological: Cranial nerves II-XII grossly intact, Motor Exam 5/5 strength throughout Microbiology Past 72 Hours 03/23/18 11:18 Sputum, Induced/Lukens Gram Stain - Final 03/23/18 11:18 Sputum, Induced/Lukens Respiratory Culture - Preliminary Haemophilus influenzae Streptococcus pneumoniae 03/23/18 11:18 Urine, Clean Catch Urine Culture - Final Culture exhibits no growth. 03/23/18 11:18 Urine, Clean Catch Legionella Antigen - Final 03/23/18 11:18 Urine, Clean Catch Streptococcus pneumoniae Antigen (M - Final 03/23/18 11:18 Blood Culture (Wb) - Left Wrist Blood Culture - Preliminary No growth in 48 hours. 03/23/18 10:35 Blood Culture (Wb) - Anticubital Right Blood Culture - Preliminary No growth in 48 hours. Laboratory Results 03/26/18 14:56: POC Glucose 460 H* 03/26/18 16:15: POC Glucose 459 H* 03/26/18 19:23: POC Glucose 401 H 03/26/18 21:24: POC Glucose 339 H 03/27/18 00:08: POC Glucose 342 H 03/27/18 04:12: WBC 13.4 H, RBC 5.30, Hgb 15.5 H, Hct 44.5, MCV 84.0, MCH 29.2, MCHC 34.8, RDW 14.8 H, RDW Differential 45.1 H, Plt Count 178, MPV 11.8, Immature Gran % (Auto) 0.400, Neut % (Auto) 85.2 H, Lymph % (Auto) 8.6 L, [place] % (Auto) 5.7, Eos % (Auto) 0.0, Baso % (Auto) 0.1, Absolute Neuts (auto) 11.4 H , Absolute Lymphs (auto) 1.15, Total Counted Not Reportable 03/27/18 04:12: Sodium 145, Potassium 3.9, Chloride 108 H, Carbon Dioxide 28.0, Anion Gap 9, BUN 44 H, Creatinine 0.90, Estim Creat Clear Calc 61.45, Est GFR ( MDRD) Af Amer 81, Est GFR (MDRD) Non-Af 67, BUN/Creatinine Ratio 48.6 H, Glucose 326 H, Calcium 7.8 L 03/27/18 05:15: POC Glucose 341 H 03/27/18 06:49: Specimen Type ART, Sample Site L Brachial, pH 7.52 H, Bicarbonate Actual 23.7, POC Total CO2 25, Base Excess 1, O2 Saturation 88 L, O2 % 45, ABG pCO2 29.0 L, ABG pO2 48 L, Tamir Test POS, O2 Delivery Device Vent , Vent Mode CPAP PS, POC PEEP 5, POC Pressure Suppt 5, Blood Gas Notified Whom ICU MD, Blood Gas Notified Time 640 03/27/18 12:28: POC Glucose 394 H 03/27/18 14:00: Sodium Pending, Potassium Pending, Chloride Pending, Carbon Dioxide Pending, Anion Gap Pending, BUN Pending, Creatinine Pending, Est GFR ( MDRD) Af Amer Pending, Est GFR (MDRD) Non-Af Pending, BUN/Creatinine Ratio Pending, Glucose Pending, Calcium Pending, Phosphorus Pending, Magnesium Pending Current Medications Acetaminophen (Tylenol Liquid) 650 mg GT Q6H PRN PRN PRN Reason: Fever 100.4 Last Admin: 03/27/18 14:10 Dose: 650 mg Albuterol Sulfate (Ventolin Aerosols) 2.5 mg INHALATION Q2H PRN PRN PRN Reason: DYSPNEA Albuterol/Ipratropium (Duoneb) 3 ml INHALATION Q4H.RT [facility] Last Admin: 03/27/18 14:39 Dose: 3 ml Aspirin (Aspirin, Baby) 81 mg GT DAILY@0800 [facility] Last Admin: 03/27/18 09:40 Dose: 81 mg Atorvastatin Calcium (Lipitor) 20 mg GT QHS [facility] Last Admin: 03/26/18 21:04 Dose: 20 mg Chlorhexidine Gluconate () 1 each TOPICAL DAILY [facility] Last Admin: 03/27/18 09:40 Dose: 1 each Chlorhexidine Gluconate () 15 ml PO BID [facility] Last Admin: 03/27/18 09:40 Dose: 15 ml Clopidogrel Bisulfate (Plavix) 75 mg GT DAILY [facility] Last Admin: 03/27/18 09:40 Dose: 75 mg Enoxaparin Sodium (Lovenox) 90 mg SC BID [facility] Last Admin: 03/27/18 09:41 Dose: 90 mg Ergocalciferol (Vitamin D) 50,000 unit PO Sa [facility] Famotidine (Pepcid) 20 mg GT BID [facility] Last Admin: 03/27/18 09:42 Dose: 20 mg Furosemide (Lasix) 60 mg IV Q8 [facility] Last Admin: 03/27/18 14:10 Dose: 60 mg Azithromycin 500 mg/ Dextrose 255 mls @ 250 mls/hr IV Q24 [facility] Last Admin: 03/27/18 09:46 Dose: 250 mls/hr Ceftriaxone Sodium (Rocephin) 1 gm in 50 mls @ 100 mls/hr IV Q24 [facility] Last Admin: 03/27/18 09:46 Dose: 100 mls/hr Fentanyl () 100 mls @ 5 mls/hr IV .Q20H [facility] Last Admin: 03/26/18 21:07 Dose: 5 mls/hr Enteral Nutritional Formula (Vital Af 1.2 Arvin Liquid) 1,000 mls @ 60 mls/hr GT .[id number] [facility] Last Admin: 03/27/18 14:13 Dose: 60 mls/hr Dexmedetomidine HCl 400 mcg/ (Sodium Chloride) 100 mls @ 0 mls/hr IV .Q0M OMARI; 0.5 MCG/KG/HR PRN Reason: Protocol Last Admin: 03/26/18 21:06 Dose: 27.2 mls/hr Sodium Chloride () 250 mls @ 15 mls/hr IV .[id number] PRN PRN Reason: SALINE FLUSH Last Admin: 03/26/18 13:40 Dose: 15 mls/hr Dexmedetomidine HCl 1,000 mcg/ (Sodium Chloride) 250 mls @ 11.31 mls/hr IV .[id number] OMARI PRN Reason: 0.5 MCG/KG/HR Last Admin: 03/27/18 12:29 Dose: 11.31 mls/hr Insulin Detemir (Levemir (Bkc)) 40 units SC BID [facility] Last Admin: 03/27/18 09:42 Dose: 40 u Insulin Human Lispro (Humalog Kwikpen (Bkc)) 0 unit SC Q6 [facility] PRN Reason: Protocol Last Admin: 03/27/18 12:29 Dose: 10 u Levothyroxine Sodium (Synthroid) 25 mcg GT MoWeFr@0600 [facility] Last Admin: 03/26/18 05:20 Dose: 25 mcg Levothyroxine Sodium (Synthroid) 175 mcg GT DAILY@0600 [facility] Last Admin: 03/27/18 05:17 Dose: 175 mcg Lisinopril (Zestril) 40 mg GT DAILY [facility] Last Admin: 03/27/18 09:42 Dose: 40 mg Lorazepam (Ativan) 1 mg IV Q4H PRN PRN PRN Reason: ANXIETY/AGITATION Methylprednisolone (Solu-Medrol) 40 mg IV Q12 [facility] Metoprolol Tartrate (Lopressor (Beta Mu)) 50 mg PO BID [facility] Last Admin: 03/27/18 09:41 Dose: 50 mg Montelukast Sodium (Singulair) 10 mg GT DAILY [facility] Last Admin: 03/27/18 09:42 Dose: 10 mg Potassium Bicarb/Potassium Chloride (Potassium Chl 25 Meq Eff (For Liquid)) [facility] Last Admin: 03/27/18 09:40 Dose: 25 meq Sodium Chloride () 5 - 30 ml IV UD PRN PRN Reason: SALINE FLUSH Last Admin: 03/27/18 14:11 Dose: 20 ml Medical Necessity - Tobacco Use Smoking Status: Current every day smoker Assessment/Plan All Active Problems NSTEMI (non-ST elevated myocardial infarction) (Acute) NSTEMI, initial episode of care (Acute) Acute exacerbation of COPD with asthma (Acute) Pneumococcal pneumonia (Acute) Acute respiratory failure with hypoxia and hypercapnia (Acute) Acute non-ST elevation myocardial infarction (NSTEMI) (Acute) SVT (supraventricular tachycardia) (Acute) CAD (coronary artery disease) (Acute) 1. Acute respiratory failure with hypoxia; she remains intubated on mechanical ventilator. PCCM for vent management. 2. Community-acquired pneumonia; sputum culture grew H. influenzae/strep pneumo , she is on IV Rocephin and Zithromax. 3. Elevated troponin consistent with an NSTEMI; cardiology consulted and she would undergo left heart catheterization whenever her pulmonary status improves. We will continue on cardioprotective medications as ordered.. 3. Diabetes type 2; she is on Levemir and regular insulin sliding scale, we will adjust insulin dose to optimize glycemic control. 4.SVT; she is on a beta-mu. 5. hypothyroidism; would continue her Synthroid. 6. acute CHF; she is receiving IV Lasix. 7. Nutrition; she is receiving feeds per NG tube. 8. Prophylaxis with Lovenox and SCDs. Code Visit Inpatient E&M: [id number] [place] [id number]
[2018-03-27 14:50] LABS: Anion Gap 6 (5-15); BUN 40 mg/dL (7-18); BUN/Creat Ratio 50.1 RATIO (10-20); Calcium,Total 7.9 mg/dL (8.5-10.1); Chloride 107 mmol/L (98-107); EST Glomerular Filtration Rate 78 mL/min (>60); Est Glom Filt Rate - Afr Amer 94 mL/min (>60); Estimated Creatinine Clearance 69.13 ml/min; Glucose 378 mg/dL (74-106); Magnesium 1.7 mg/dL (1.6-2.6); Phosphorus 2.6 mg/dL (2.5-4.9); Sodium Level 144 mmol/L (136-145)
[2018-03-27 16:00] LABS: Bedside Glucose 382 mg/dL (70-110)
[2018-03-27 20:00] LABS: Bedside Glucose 415 mg/dL (70-110)
[2018-03-27] MEDS: Atorvastatin Calcium 20 MG Tablet GT (21:27)
[2018-03-27 21:45] LABS: Bedside Glucose 400 mg/dL (70-110)
[2018-03-28] VITALS (52 sets, daily range): BP systolic 77–143; BP diastolic 24–96; PULSE 59–150; RESP 11–21; TEMP 37.8–38.7; O2SAT 93–100
[2018-03-28 00:11] LABS: Bedside Glucose 344 mg/dL (70-110)
[2018-03-28] MEDS: Ipratropium/Albuterol Sulfate 3 ML AMPUL.NEB INHALATION ×5 (02:21→23:01)
[2018-03-28] MEDS: Acetaminophen 650 MG/20 ML UDC GT (03:51)
[2018-03-28] MEDS: Insulin Lispro 100 UNIT/ML INSULN.PEN SC ×3 (03:51→12:32)
[2018-03-28 04:01] LABS: Bedside Glucose 370 mg/dL (70-110)
[2018-03-28 04:16] LABS: Absolute Neutrophil Count 9.5 X10^3/uL (2.0-7.7); Basophil# 0.01 X10^3/uL; Basophil% 0.1 % (0-1); Hematocrit 41.9 % (37-47); Hemoglobin 14.5 g/dl (12.0-15.0); Lymphocyte % 9.7 % (19-41); Mean Corp Hgb Conc 34.6 g/gl (32-36); Mean Corpuscular Hgb 29.4 pg (27.0-32.0); Mean Platelet Vol. 11.5 fl (6.2-12.0); Monocyte% 6.2 % (0-10); Neutrophil % 83.5 % (47-70); Platelet Count 154 K/mm3 (150-450); RBC Distribution Width CV 14.7 % (11.6-14.6); RBC Distribution Width SD 45.1 fl (35.1-43.9); Red Blood Count 4.93 M/mm3 (4.2-5.4); White Blood Count 11.4 K/mm3 (4.4-11.0)
[2018-03-28 04:17] LABS: POSITIVE COUNT NO; POSITIVE DIFFERENTIAL NO; POSITIVE MORPHOLOGY NO
[2018-03-28 04:43] LABS: Anion Gap 8 (5-15); BUN 39 mg/dL (7-18); BUN/Creat Ratio 50.1 RATIO (10-20); Chloride 103 mmol/L (98-107); Creatinine, Serum 0.78 mg/dL (0.55-1.02); EST Glomerular Filtration Rate 80 mL/min (>60); Est Glom Filt Rate - Afr Amer 97 mL/min (>60); Glucose 373 mg/dL (74-106); Potassium 3.8 mmol/L (3.5-5.1); Sodium Level 145 mmol/L (136-145)
[2018-03-28] MEDS: Levothyroxine 175 MCG Tablet GT (05:01)
[2018-03-28] MEDS: Furosemide 100 MG/10 ML Vial 60 MG IV (05:01)
[2018-03-28] MEDS: Levothyroxine 25 MCG TABLET GT (05:01)
[2018-03-28 06:11] LABS: Allen Test POS; Base Excess 10 mmol/L (-2 to +2); Bicarbonate 32.4 mmol/L (22-26); Blood Gas Specimen Type ART; FI02 30; Mode CPAP PS; O2 Delivery Device Vent; PEEP 5; PO2 65 mmHG (75-100); PS 5; SITE L Radial; SO2 95 % (95-99); Time Given 558; Total Carbon Dioxide 34 mmol/L; pH 7.54 (7.35-7.45)
--- NOTE | 2018-03-28 07:16 | PN_ITS ---
Subjective: Patient did well overnight. No acute issues were reported. Patient has persisted and fever throughout the last 24 hours. That being said, patient has had good diuresis and qualify for a spontaneous breathing trial this morning. Patient was able to tolerate 1 hour and was successfully extubated under my direct supervision. Patient reports feeling slightly dizzy, but still has Precedex in her system. Patient denies any chest pain or dyspnea. General: Alert, Cooperative, No apparent distress, Confused, - - Speaking in full sentences. Baseline hoarseness noted. HEENT: Atraumatic, PERRLA, EOMI, Normocephalic, - - No scleral icterus or injection noted. Oral: Moist Mucosa, No Gingival or Mucosal Lesions/ Ulcerations Neck: Supple, No JVD, No Nodes, Trachea Midline, - - Right IJ is clean, dry and intact. Lungs: No wheeze, No rales, Diminished, Rhonchi - Scattered, - - Symmetric expansion. No dullness to percussion. Cardiovascular: Regular rate, Regular Rhythm, Normal S1, Normal S2, No murmurs, No rub noted, No Gallop Abdomen: Bowel Sounds Present, Soft, Non Tender, Non-Distended, Obese Extremities: No clubbing, No cyanosis, Edema Skin: No rashes, No breakdown Musculoskeletal: No Tenderness to Palpation of Joints or Extremities, No Muscle Wasting Lymphatic: No Cervical, Supraclavicular, or Inguinal Adenopathy Neurological: Cranial nerves II-XII grossly intact, Neuro grossly intact, Motor Exam 5/5 strength throughout Psych/Mental Status: Anxious, Flat Affect Vital Signs Temp Pulse Resp BP Pulse Ox 38.3 C H 61 14 130/69 H 98 03/28/18 06:00 03/28/18 06:49 03/28/18 06:49 03/28/18 06:00 03/28/18 06:49 Oxygen Flow Rate (L/min) 3 Oxygen Delivery Method Nasal Cannula Weight: 84.3 kg Intake and Output for Last 24 Hours 03/26/18 03/27/18 03/28/18 23:59 23:59 23:59 Intake Total 3043.9 / 3043.9 3690.3 / 3690.3 595.3 / 595.3 Output Total 3150 / 3150 5475 / 5475 975 / 975 Balance -106.1 / -106.1 -1784.7 / -1784.7 -379.7 / -379.7 Labs (Last 48 Hours) 03/23/18 03/23/18 03/26/18 10:30 Unknown 14:05 WBC RBC Hgb Hct MCV MCH MCHC RDW RDW Differential Plt Count MPV Immature Gran % (Auto) Neut % (Auto) Lymph % (Auto) [place] % (Auto) Eos % (Auto) Baso % (Auto) Absolute Neuts (auto) Absolute Lymphs (auto) Total Counted Diff Path Review Reviewed Specimen Type Sample Site pH Bicarbonate Actual POC Total CO2 Base Excess O2 Saturation O2 % ABG pCO2 ABG pO2 Tamir Test O2 Delivery Device Vent Mode POC PEEP POC Pressure Suppt Blood Gas Notified Whom Blood Gas Notified Time Sodium Potassium Chloride Carbon Dioxide Anion Gap BUN Creatinine Estim Creat Clear Calc Est GFR (MDRD) Af Amer Est GFR (MDRD) Non-Af BUN/Creatinine Ratio Glucose Calcium Phosphorus Magnesium Urine Color Straw Urine Clarity Clear Urine pH 6.0 Ur Specific [place] 1.010 Urine Protein Negative Urine Glucose (UA) 1000 H Urine Ketones Negative Urine Occult Blood Negative Urine Nitrite Negative Urine Bilirubin Negative Urine Urobilinogen Normal Ur Leukocyte Esterase Negative Urine RBC 0 SEEN Urine WBC 0 SEEN Ur Squamous Epith Cells 0 SEEN Urine Bacteria 0 SEEN Urine Mucus 0 SEEN POC Glucose > 500 H* 03/26/18 03/26/18 03/26/18 14:56 16:15 19:23 WBC RBC Hgb Hct MCV MCH MCHC RDW RDW Differential Plt Count MPV Immature Gran % (Auto) Neut % (Auto) Lymph % (Auto) [place] % (Auto) Eos % (Auto) Baso % (Auto) Absolute Neuts (auto) Absolute Lymphs (auto) Total Counted Diff Path Review Specimen Type Sample Site pH Bicarbonate Actual POC Total CO2 Base Excess O2 Saturation O2 % ABG pCO2 ABG pO2 Tamir Test O2 Delivery Device Vent Mode POC PEEP POC Pressure Suppt Blood Gas Notified Whom Blood Gas Notified Time Sodium Potassium Chloride Carbon Dioxide Anion Gap BUN Creatinine Estim Creat Clear Calc Est GFR (MDRD) Af Amer Est GFR (MDRD) Non-Af BUN/Creatinine Ratio Glucose Calcium Phosphorus Magnesium Urine Color Urine Clarity Urine pH Ur Specific [place] Urine Protein Urine Glucose (UA) Urine Ketones Urine Occult Blood Urine Nitrite Urine Bilirubin Urine Urobilinogen Ur Leukocyte Esterase Urine RBC Urine WBC Ur Squamous Epith Cells Urine Bacteria Urine Mucus POC Glucose 460 H* 459 H* 401 H 03/26/18 03/27/18 03/27/18 21:24 00:08 04:12 WBC 13.4 H RBC 5.30 Hgb 15.5 H Hct 44.5 MCV 84.0 MCH 29.2 MCHC 34.8 RDW 14.8 H RDW Differential 45.1 H Plt Count 178 MPV 11.8 Immature Gran % (Auto) 0.400 Neut % (Auto) 85.2 H Lymph % (Auto) 8.6 L [place] % (Auto) 5.7 Eos % (Auto) 0.0 Baso % (Auto) 0.1 Absolute Neuts (auto) 11.4 H Absolute Lymphs (auto) 1.15 Total Counted Not Reportable Diff Path Review Specimen Type Sample Site pH Bicarbonate Actual POC Total CO2 Base Excess O2 Saturation O2 % ABG pCO2 ABG pO2 Tamir Test O2 Delivery Device Vent Mode POC PEEP POC Pressure Suppt Blood Gas Notified Whom Blood Gas Notified Time Sodium Potassium Chloride Carbon Dioxide Anion Gap BUN Creatinine Estim Creat Clear Calc Est GFR (MDRD) Af Amer Est GFR (MDRD) Non-Af BUN/Creatinine Ratio Glucose Calcium Phosphorus Magnesium Urine Color Urine Clarity Urine pH Ur Specific [place] Urine Protein Urine Glucose (UA) Urine Ketones Urine Occult Blood Urine Nitrite Urine Bilirubin Urine Urobilinogen Ur Leukocyte Esterase Urine RBC Urine WBC Ur Squamous Epith Cells Urine Bacteria Urine Mucus POC Glucose 339 H 342 H 03/27/18 03/27/18 03/27/18 04:12 05:15 06:49 WBC RBC Hgb Hct MCV MCH MCHC RDW RDW Differential Plt Count MPV Immature Gran % (Auto) Neut % (Auto) Lymph % (Auto) [place] % (Auto) Eos % (Auto) Baso % (Auto) Absolute Neuts (auto) Absolute Lymphs (auto) Total Counted Diff Path Review Specimen Type ART Sample Site L Brachial pH 7.52 H Bicarbonate Actual 23.7 POC Total CO2 25 Base Excess 1 O2 Saturation 88 L O2 % 45 ABG pCO2 29.0 L ABG pO2 48 L Tamir Test POS O2 Delivery Device Vent Vent Mode CPAP PS POC PEEP 5 POC Pressure Suppt 5 Blood Gas Notified Whom ICU MD Blood Gas Notified Time 640 Sodium 145 Potassium 3.9 Chloride 108 H Carbon Dioxide 28.0 Anion Gap 9 BUN 44 H Creatinine 0.90 Estim Creat Clear Calc 61.45 Est GFR (MDRD) Af Amer 81 Est GFR (MDRD) Non-Af 67 BUN/Creatinine Ratio 48.6 H Glucose 326 H Calcium 7.8 L Phosphorus Magnesium Urine Color Urine Clarity Urine pH Ur Specific [place] Urine Protein Urine Glucose (UA) Urine Ketones Urine Occult Blood Urine Nitrite Urine Bilirubin Urine Urobilinogen Ur Leukocyte Esterase Urine RBC Urine WBC Ur Squamous Epith Cells Urine Bacteria Urine Mucus POC Glucose 341 H 03/27/18 03/27/18 03/27/18 12:28 14:00 15:57 WBC RBC Hgb Hct MCV MCH MCHC RDW RDW Differential Plt Count MPV Immature Gran % (Auto) Neut % (Auto) Lymph % (Auto) [place] % (Auto) Eos % (Auto) Baso % (Auto) Absolute Neuts (auto) Absolute Lymphs (auto) Total Counted Diff Path Review Specimen Type Sample Site pH Bicarbonate Actual POC Total CO2 Base Excess O2 Saturation O2 % ABG pCO2 ABG pO2 Tamir Test O2 Delivery Device Vent Mode POC PEEP POC Pressure Suppt Blood Gas Notified Whom Blood Gas Notified Time Sodium 144 Potassium 4.0 Chloride 107 Carbon Dioxide 31.0 Anion Gap 6 BUN 40 H Creatinine 0.80 Estim Creat Clear Calc 69.13 Est GFR (MDRD) Af Amer 94 Est GFR (MDRD) Non-Af 78 BUN/Creatinine Ratio 50.1 H Glucose 378 H Calcium 7.9 L Phosphorus 2.6 Magnesium 1.7 Urine Color Urine Clarity Urine pH Ur Specific [place] Urine Protein Urine Glucose (UA) Urine Ketones Urine Occult Blood Urine Nitrite Urine Bilirubin Urine Urobilinogen Ur Leukocyte Esterase Urine RBC Urine WBC Ur Squamous Epith Cells Urine Bacteria Urine Mucus POC Glucose 394 H 382 H 03/27/18 03/27/18 03/27/18 19:53 21:32 23:43 WBC RBC Hgb Hct MCV MCH MCHC RDW RDW Differential Plt Count MPV Immature Gran % (Auto) Neut % (Auto) Lymph % (Auto) [place] % (Auto) Eos % (Auto) Baso % (Auto) Absolute Neuts (auto) Absolute Lymphs (auto) Total Counted Diff Path Review Specimen Type Sample Site pH Bicarbonate Actual POC Total CO2 Base Excess O2 Saturation O2 % ABG pCO2 ABG pO2 Tamir Test O2 Delivery Device Vent Mode POC PEEP POC Pressure Suppt Blood Gas Notified Whom Blood Gas Notified Time Sodium Potassium Chloride Carbon Dioxide Anion Gap BUN Creatinine Estim Creat Clear Calc Est GFR (MDRD) Af Amer Est GFR (MDRD) Non-Af BUN/Creatinine Ratio Glucose Calcium Phosphorus Magnesium Urine Color Urine Clarity Urine pH Ur Specific [place] Urine Protein Urine Glucose (UA) Urine Ketones Urine Occult Blood Urine Nitrite Urine Bilirubin Urine Urobilinogen Ur Leukocyte Esterase Urine RBC Urine WBC Ur Squamous Epith Cells Urine Bacteria Urine Mucus POC Glucose 415 H 400 H 344 H 03/28/18 03/28/18 03/28/18 03:49 04:00 04:00 WBC 11.4 H RBC 4.93 Hgb 14.5 Hct 41.9 MCV 85.0 MCH 29.4 MCHC 34.6 RDW 14.7 H RDW Differential 45.1 H Plt Count 154 MPV 11.5 Immature Gran % (Auto) 0.500 Neut % (Auto) 83.5 H Lymph % (Auto) 9.7 L [place] % (Auto) 6.2 Eos % (Auto) 0.0 Baso % (Auto) 0.1 Absolute Neuts (auto) 9.5 H Absolute Lymphs (auto) 1.10 Total Counted Not Reportable Diff Path Review Specimen Type Sample Site pH Bicarbonate Actual POC Total CO2 Base Excess O2 Saturation O2 % ABG pCO2 ABG pO2 Tamir Test O2 Delivery Device Vent Mode POC PEEP POC Pressure Suppt Blood Gas Notified Whom Blood Gas Notified Time Sodium 145 Potassium 3.8 Chloride 103 Carbon Dioxide 34.0 H Anion Gap 8 BUN 39 H Creatinine 0.78 Estim Creat Clear Calc 70.90 Est GFR (MDRD) Af Amer 97 Est GFR (MDRD) Non-Af 80 BUN/Creatinine Ratio 50.1 H Glucose 373 H Calcium 8.0 L Phosphorus Magnesium Urine Color Urine Clarity Urine pH Ur Specific [place] Urine Protein Urine Glucose (UA) Urine Ketones Urine Occult Blood Urine Nitrite Urine Bilirubin Urine Urobilinogen Ur Leukocyte Esterase Urine RBC Urine WBC Ur Squamous Epith Cells Urine Bacteria Urine Mucus POC Glucose 370 H 03/28/18 06:06 WBC RBC Hgb Hct MCV MCH MCHC RDW RDW Differential Plt Count MPV Immature Gran % (Auto) Neut % (Auto) Lymph % (Auto) [place] % (Auto) Eos % (Auto) Baso % (Auto) Absolute Neuts (auto) Absolute Lymphs (auto) Total Counted Diff Path Review Specimen Type ART Sample Site L Radial pH 7.54 H Bicarbonate Actual 32.4 H POC Total CO2 34 Base Excess 10 H O2 Saturation 95 O2 % 30 ABG pCO2 38.0 ABG pO2 65 L Tamir Test POS O2 Delivery Device Vent Vent Mode CPAP PS POC PEEP 5 POC Pressure Suppt 5 Blood Gas Notified Whom ICU MD Blood Gas Notified Time 558 Sodium Potassium Chloride Carbon Dioxide Anion Gap BUN Creatinine Estim Creat Clear Calc Est GFR (MDRD) Af Amer Est GFR (MDRD) Non-Af BUN/Creatinine Ratio Glucose Calcium Phosphorus Magnesium Urine Color Urine Clarity Urine pH Ur Specific [place] Urine Protein Urine Glucose (UA) Urine Ketones Urine Occult Blood Urine Nitrite Urine Bilirubin Urine Urobilinogen Ur Leukocyte Esterase Urine RBC Urine WBC Ur Squamous Epith Cells Urine Bacteria Urine Mucus POC Glucose Microbiology 03/23/18 11:18 Sputum, Induced/Lukens Gram Stain - Final 03/23/18 11:18 Sputum, Induced/Lukens Respiratory Culture - Preliminary Haemophilus influenzae Streptococcus pneumoniae 03/23/18 11:18 Urine, Clean Catch Urine Culture - Final Culture exhibits no growth. 03/23/18 11:18 Urine, Clean Catch Legionella Antigen - Final 03/23/18 11:18 Urine, Clean Catch Streptococcus pneumoniae Antigen (M - Final 03/23/18 11:18 Blood Culture (Wb) - Left Wrist Blood Culture - Preliminary No growth in 48 hours. 03/23/18 10:35 Blood Culture (Wb) - Anticubital Right Blood Culture - Preliminary No growth in 48 hours. Medical Necessity - Tobacco Use Smoking Status: Current every day smoker Assessment/Plan All Active Problems NSTEMI (non-ST elevated myocardial infarction) (Acute) NSTEMI, initial episode of care (Acute) Acute exacerbation of COPD with asthma (Acute) Pneumococcal pneumonia (Acute) Acute respiratory failure with hypoxia and hypercapnia (Acute) Acute non-ST elevation myocardial infarction (NSTEMI) (Acute) SVT (supraventricular tachycardia) (Acute) CAD (coronary artery disease) (Acute) RECOMMENDATIONS: 1. Wean oxygen as tolerated 2. Continue diuresis with a goal of -500-1000 mL 3. Complete a 10 day course of IV antibiotics 4. Wean oxygen as tolerated 5. Continue steroid and bronchodilator therapy at current dosing 6. Bedside swallow evaluation with initiation of p.o. diet if possible IMPRESSIONS: 1. Acute combined respiratory failure secondary to suspected acute on chronic combined CHF/H. influenzae pneumonia Clinical suspicion for multifactorial combined respiratory failure. Patient does have a history of COPD of unknown severity and has tested positive for H influenza and pneumococcus by sputum culture on presentation. Patient also has an elevated BNP and was placed on diuretic therapy. Unfortunately, given tube feeds, patient was not effectively diuresed over the last 24 hours. Attempting to diurese 500-1000 mL's per day. Renal function appears to be tolerating well. Patient was unable to tolerate propofol sedation, so has been switched to Precedex therapy. Patient appears to be tolerating this much better. 2. Non-ST elevation [place]/SVT Echocardiogram was of poor quality. Previous echocardiogram did show apical wall motion abnormalities. Ejection fraction is decreased compared to previous. No ability to assess diastolic dysfunction. Cardiology is currently following. Patient currently on full anticoagulation and antiplatelet therapy. Patient may require invasive investigation later in the hospitalization. Will decrease Lasix therapy and attempt to reach diuretic goals. 3. Diabetes mellitus type 2 Patient's blood sugars are highly uncontrolled at this time. This is likely a function of steroid therapy in the setting of diabetes mellitus. Basal insulin has been increased gradually over the course of the hospitalization, in addition to multiple as needed doses. Keep steroids at current dosing. Will need to watch blood sugars closely now that tube feeds have been discontinued. 4. Anxiety/hypertension/hyperlipidemia/hypothyroidism Complicates care, management, recovery and prognosis. Blood pressure has been controlled when patient's anxiety is controlled at this time. Patient is on baseline blood pressure medications, but these have been held at this time. 5. Fever She does have positive cultures with relatively sensitive pathogens in her sputum. Clinical suspicion for possible drug fever related to Precedex therapy. Precedex has been discontinued. We will continue to monitor fever curve. No hemodynamic instability has been noted. Addendum 4:40 PM At approximately 850 this morning, patient developed a flutter with RVR. Patient was attempted with a Cardizem bolus in addition to a Cardizem drip without improvement. After discussion with Dr. Del Cid, it was chosen the patient should undergo elective cardioversion. Consent was obtained. The patient was given 40 mg of propofol with appropriate sedation and was cardioverted with 1 shock of 200 J. Since that time, patient has remained in normal sinus rhythm. No complications were noted. TIME: 35 minutes critical care time spent addressing patient's acute combined respiratory failure, non-ST elevation [place], diabetes mellitus, review of all data and collaboration with care team (6 AM to 7:20 AM) Code Visit [id number]: [id number] Critical care first hour
--- NOTE | 2018-03-28 07:29 | PN.CARD_ITS ---
Subjectve: Patient seen and evaluated and appears to be improving somewhat but still has fevers. Objective: Vital Signs Temp Pulse Resp BP Pulse Ox 100.5 F H 59 L 17 125/55 H 98 03/28/18 07:00 03/28/18 07:00 03/28/18 07:00 03/28/18 07:00 03/28/18 07:00 Oxygen Flow Rate (L/min) 4 Oxygen Delivery Method Nasal Cannula Weight: 185 lb 13.595 oz Intake and Output for Last 24 Hours 03/26/18 03/27/18 03/28/18 23:59 23:59 23:59 Intake Total 3043.9 / 3043.9 3690.3 / 3690.3 595.3 / 595.3 Output Total 3150 / 3150 5475 / 5475 975 / 975 Balance -106.1 / -106.1 -1784.7 / -1784.7 -379.7 / -379.7 General: Awake, Alert, Oriented x 3, Ill Appearing HEENT: PERRL, EOMI, Sclera Non Icteric Neck: Supple, Good ROM, No Lymph Node Enlargement Lungs: Diminished [place] Bases Cardiovascular: Regular Rhythm, Normal S1, Normal S2, No Murmurs, No Rubs, No Gallops Vascular: No Carotid Bruits, Normal Femoral Pulses, Normal Radial Pulses, Normal Dorsalis Pedal Pulse, Normal Posterior Tibial Pulses Abdomen: Bowel Sounds Present, Soft, Non Tender, No HSM, No Organomegaly Extremities: No Cyanosis, No Clubbing, No edema Neurological: No Focal Motor or Sensory Deficit 03/27/18 14:00: Sodium 144, Potassium 4.0, Chloride 107, Carbon Dioxide 31.0, Anion Gap 6, BUN 40 H, Creatinine 0.80, Est GFR (MDRD) Af Amer 94, Est GFR (MDRD ) Non-Af 78, BUN/Creatinine Ratio 50.1 H, Glucose 378 H, Calcium 7.9 L, Phosphorus 2.6, Magnesium 1.7 03/28/18 04:00: WBC 11.4 H, RBC 4.93, Hgb 14.5, Hct 41.9, MCV 85.0, MCH 29.4, MCHC 34.6, RDW 14.7 H, RDW Differential 45.1 H, Plt Count 154, MPV 11.5, Immature Gran % (Auto) 0.500, Neut % (Auto) 83.5 H, Lymph % (Auto) 9.7 L, [place] % (Auto) 6.2, Eos % (Auto) 0.0, Baso % (Auto) 0.1, Absolute Neuts (auto) 9.5 H, Total Counted Not Reportable 03/28/18 04:00: Sodium 145, Potassium 3.8, Chloride 103, Carbon Dioxide 34.0 H, Anion Gap 8, BUN 39 H, Creatinine 0.78, Est GFR (MDRD) Af Amer 97, Est GFR (MDRD ) Non-Af 80, BUN/Creatinine Ratio 50.1 H, Glucose 373 H, Calcium 8.0 L 03/28/18 06:06: pH 7.54 H, Bicarbonate Actual 32.4 H, POC Total CO2 34, Base Excess 10 H, O2 Saturation 95, ABG pCO2 38.0, ABG pO2 65 L, Tamir Test POS Rhythm: EKG: ECHO: Stress Test: Cardiac Cath: PCI: CT Surgery: Holter monitor: EPS: PPM: CXR: Chest CT Scan: Medical Necessity - Tobacco Use Smoking Status: Current every day smoker Assessment/Plan 1. Non-STEMI * Troponin went as high as 6.43. * May be a type II event . * Resume Plavix and metoprolol * Patient has been started on weight-based dosing of Lovenox * After the patient has been stabilized from the pulmonary standpoint she would need to undergo a left heart catheterization. This has been discussed with her and she agrees to proceed. 2. Atrial fibrillation with RVR * Currently a low-grade sinus tachycardia of around 104 bpm. * I do not see any evidence of atrial fibrillation previously. EKG was noted to be in sinus rhythm. We will continue to monitor. No need for anticoagulation at this particular time. 3. Cardiomyopathy. Unclear the duration of the cardiomyopathy and whether this is related to previous coronary artery disease or secondary to nonischemic causes. This will be further evaluated with the cardiac catheterization. The above will be postponed until patient is noted to be stable and is free of any febrile episodes. The above has been discussed with the product safety coordinator. Thank you for allowing me to participate in the care of your patient. Please don't hesitate to call if any issues arise
[2018-03-28 08:31] LABS: Bedside Glucose 304 mg/dL (70-110)
[2018-03-28] MEDS: dilTIAZem 25 MG/5 ML Vial IV BOLUS (09:00)
--- NOTE | 2018-03-28 09:09 | EKG12_ITS ---
Test Reason : POST CARDIOVERSION Blood Pressure : / mmHG Vent. Rate : 063 BPM Atrial Rate : 063 BPM P-R Int : 124 ms QRS Dur : 080 ms QT Int : 450 ms P-R-T Axes : 087 031 153 degrees QTc Int : 460 ms Sinus rhythm with sinus arrhythmia with Premature ventricular complexes or Fusion complexes ST & T wave abnormality, consider anterolateral ischemia Abnormal ECG When compared with ECG of 28-MAR-2018 08:50, MANUAL COMPARISON REQUIRED, DATA IS UNCONFIRMED Confirmed by SCOTTIE ROSE, LOLIS ([id number]), make up editor JESS OCAMPO ([id number]) on 04/03/2018 9:40:44 AM Referred By: JESSICA Confirmed By:LOLIS RUBIN MD
--- NOTE | 2018-03-28 09:26 | CASEMGMT ---
HANG OBRIEN Note: per interdisciplinary rounds, pt will remain in ICU today. PT OT able to do ROM in bed. Pt lives in apartment. Son is listed at same address. Attempted call to son, no answer. Requested to staff if family comes to see pt to let HANG OBRIEN know. DC Planning deferred as pt continues to need medical care in ICU and will wait for PT/OT recommendations when pt is ambulatory. Dylan PARNELLN HANG ACM
[2018-03-28] MEDS: Ceftriaxone 1 GM/50 ML BAG IV (10:00)
[2018-03-28] MEDS: 0.9% NaCl Peripheral Flush Adult/Peds IV ×3 (10:02→21:38)
[2018-03-28] MEDS: Enoxaparin 100 MG/ML Syringe 90 MG SC ×2 (10:02→21:35)
[2018-03-28] MEDS: Clopidogrel Bisulfate 75 MG Tablet GT (10:41)
[2018-03-28] MEDS: Aspirin 81 MG TAB.CHEW GT (10:41)
[2018-03-28] MEDS: Lisinopril 40 MG Tablet GT (10:41)
[2018-03-28] MEDS: Famotidine 20 MG Tablet GT (10:41)
[2018-03-28] MEDS: Montelukast 10 MG Tablet GT (10:41)
[2018-03-28] MEDS: CHLORHEXIDINE GLUC 2% CLOTH 1 EACH TOWELETTE TOPICAL (11:02)
[2018-03-28 12:40] LABS: Bedside Glucose 153 mg/dL (70-110)
[2018-03-28] MEDS: Propofol 200 MG/20 ML Vial 40 MG IV BOLUS (13:29)
--- NOTE | 2018-03-28 13:30 | NURSING ---
Consent obtained for cardioversion. Dr. Del Cid and Dr. Velazquez at bedside. Medicated w/ propofol for sedation. 200J shock delivered at 1330 for return to NSR HR 60s. VSS. CPS to complete EKG.
--- NOTE | 2018-03-28 13:39 | EKG12_ITS ---
Test Reason : RHYTHM CHANGE Blood Pressure : / mmHG Vent. Rate : 157 BPM Atrial Rate : 374 BPM P-R Int : 000 ms QRS Dur : 078 ms QT Int : 276 ms P-R-T Axes : 084 005 207 degrees QTc Int : 446 ms Atrial flutter with variable A-V block [place] Septal infarct , age undetermined Nonspecific ST and T wave abnormality Abnormal ECG Confirmed by CHRISTIANO ROSE, GIANCARLO ([id number]), editor book JESS OCAMPO ([id number] on 04/03/2018 11:36:46 AM Referred By: Confirmed By:GIANCARLO ALVARADO MD
[2018-03-28] MEDS: Metoprolol Tartrate 50 MG Tablet PO ×2 (15:24→21:35)
[2018-03-28] MEDS: Furosemide 40 MG/4 ML Vial IV ×2 (15:25→21:34)
--- NOTE | 2018-03-28 16:59 | PCM.PN.HOSP ---
Patient Problems: Active and Suspected Problems NSTEMI (non-ST elevated myocardial infarction) (Acute) Acute exacerbation of COPD with asthma (Acute) Pneumococcal pneumonia (Acute) Acute respiratory failure with hypoxia and hypercapnia (Acute) Subjective: CC: Shortness of breath Objective: Patient is extubated and is doing well clinically. She continues to spike fever despite being on antibiotic therapy Vitals/I&O's: Vital Signs Temp Pulse Resp BP Pulse Ox 100.1 F H 65 17 113/46 L 95 03/28/18 16:00 03/28/18 16:00 03/28/18 16:00 03/28/18 16:00 03/28/18 16:00 Oxygen Flow Rate (L/min) 2 Oxygen Delivery Method Nasal Cannula Weight: 84.3 kg Intake and Output for Last 24 Hours 03/26/18 03/27/18 03/28/18 23:59 23:59 23:59 Intake Total 3043.9 / 3043.9 3690.3 / 3690.3 897.3 / 897.3 Output Total 3150 / 3150 5475 / 5475 2300 / 2300 Balance -106.1 / -106.1 -1784.7 / -1784.7 -1402.7 / -1402.7 General: Alert, Oriented x3 Oral: Moist Mucosa Neck: Supple Lungs: Clear to auscultation Cardiovascular: Regular rate, Normal S1, Normal S2 Abdomen: Bowel Sounds Present Extremities: No clubbing Musculoskeletal: No Tenderness to Palpation of Joints or Extremities Neurological: Cranial nerves II-XII grossly intact, Motor Exam 5/5 strength throughout Microbiology Past 72 Hours 03/23/18 11:18 Blood Culture (Wb) - Left Wrist Blood Culture - Final No growth in 5 days. 03/23/18 10:35 Blood Culture (Wb) - Anticubital Right Blood Culture - Final No growth in 5 days. 03/23/18 11:18 Sputum, Induced/Lukens Gram Stain - Final 03/23/18 11:18 Sputum, Induced/Lukens Respiratory Culture - Final Haemophilus influenzae Streptococcus pneumoniae 03/23/18 11:18 Urine, Clean Catch Urine Culture - Final Culture exhibits no growth. 03/23/18 11:18 Urine, Clean Catch Legionella Antigen - Final 03/23/18 11:18 Urine, Clean Catch Streptococcus pneumoniae Antigen (M - Final Laboratory Results 03/27/18 19:53: POC Glucose 415 H 03/27/18 21:32: POC Glucose 400 H 03/27/18 23:43: POC Glucose 344 H 03/28/18 03:49: POC Glucose 370 H 03/28/18 04:00: WBC 11.4 H, RBC 4.93, Hgb 14.5, Hct 41.9, MCV 85.0, MCH 29.4, MCHC 34.6, RDW 14.7 H, RDW Differential 45.1 H, Plt Count 154, MPV 11.5, Immature Gran % (Auto) 0.500, Neut % (Auto) 83.5 H, Lymph % (Auto) 9.7 L, [place] % (Auto) 6.2, Eos % (Auto) 0.0, Baso % (Auto) 0.1, Absolute Neuts (auto) 9.5 H, Absolute Lymphs (auto) 1.10, Total Counted Not Reportable 03/28/18 04:00: Sodium 145, Potassium 3.8, Chloride 103, Carbon Dioxide 34.0 H, Anion Gap 8, BUN 39 H, Creatinine 0.78, Estim Creat Clear Calc 70.90, Est GFR (MDRD) Af Amer 97, Est GFR (MDRD) Non-Af 80, BUN/Creatinine Ratio 50.1 H, Glucose 373 H, Calcium 8.0 L 03/28/18 06:06: Specimen Type ART, Sample Site L Radial, pH 7.54 H, Bicarbonate Actual 32.4 H, POC Total CO2 34, Base Excess 10 H, O2 Saturation 95, O2 % 30, ABG pCO2 38.0, ABG pO2 65 L, Tamir Test POS, O2 Delivery Device Vent, Vent Mode CPAP PS, POC PEEP 5, POC Pressure Suppt 5, Blood Gas Notified Whom ICU MD, Blood Gas Notified Time 558 03/28/18 07:58: POC Glucose 304 H 03/28/18 12:30: POC Glucose 153 H Current Medications Acetaminophen (Tylenol Liquid) 650 mg PO Q6H PRN PRN PRN Reason: Fever 100.4 Albuterol Sulfate (Ventolin Aerosols) 2.5 mg INHALATION Q2H PRN PRN PRN Reason: DYSPNEA Albuterol/Ipratropium (Duoneb) 3 ml INHALATION Q4H.RT OMARI Last Admin: 03/28/18 15:17 Dose: 3 ml Aspirin (Aspirin, Baby) 81 mg PO DAILY@0800 [facility] Atorvastatin Calcium (Lipitor) 20 mg PO QHS [facility] Chlorhexidine Gluconate () 1 each TOPICAL DAILY [facility] Last Admin: 03/28/18 11:02 Dose: 1 each Clopidogrel Bisulfate (Plavix) 75 mg PO DAILY [facility] Enoxaparin Sodium (Lovenox) 90 mg SC BID [facility] Last Admin: 03/28/18 10:02 Dose: 90 mg Ergocalciferol (Vitamin D) 50,000 unit PO Sa [facility] Famotidine (Pepcid) 20 mg PO BID [facility] Furosemide (Lasix) 40 mg IV Q8 [facility] Last Admin: 03/28/18 15:25 Dose: 40 mg Azithromycin 500 mg/ Dextrose 255 mls @ 250 mls/hr IV Q24 [facility] Last Admin: 03/28/18 10:00 Dose: 250 mls/hr Ceftriaxone Sodium (Rocephin) 1 gm in 50 mls @ 100 mls/hr IV Q24 [facility] Last Admin: 03/28/18 10:00 Dose: 100 mls/hr Sodium Chloride () 250 mls @ 15 mls/hr IV .[id number] PRN PRN Reason: SALINE FLUSH Last Admin: 03/26/18 13:40 Dose: 15 mls/hr Diltiazem HCl 125 mg/ Dextrose 125 mls @ 10 mls/hr CONT INF .[id number] [facility] PRN Reason: 10 MG/HR Last Admin: 03/28/18 10:48 Dose: 10 mls/hr Insulin Detemir (Levemir (Bkc)) 20 units SC BID [facility] Insulin Human Lispro (Humalog Kwikpen (Bk)) 0 unit SC ACHS [facility] PRN Reason: Protocol Levothyroxine Sodium (Synthroid) 25 mcg PO MoWeFr@0600 [facility] Levothyroxine Sodium (Synthroid) 175 mcg PO DAILY@0600 [facility] Lisinopril (Zestril) 40 mg PO DAILY [facility] Lorazepam (Ativan) 1 mg IV Q4H PRN PRN PRN Reason: ANXIETY/AGITATION Methylprednisolone (Solu-Medrol) 40 mg IV Q12 [facility] Last Admin: 03/28/18 10:00 Dose: 40 mg Metoprolol Tartrate (Lopressor (Beta Mu)) 50 mg PO BID OMARI Last Admin: 03/28/18 15:24 Dose: 50 mg Montelukast Sodium (Singulair) 10 mg PO DAILY OMARI Potassium Bicarb/Potassium Chloride (Potassium Chl 25 Meq Eff (For Liquid)) 25 meq PO DAILYCM OMARI Sodium Chloride () 5 - 30 ml IV UD PRN PRN Reason: SALINE FLUSH Last Admin: 03/28/18 15:24 Dose: 10 ml Medical Necessity - Tobacco Use Smoking Status: Current every day smoker Assessment/Plan All Active Problems NSTEMI (non-ST elevated myocardial infarction) (Acute) NSTEMI, initial episode of care (Acute) Acute exacerbation of COPD with asthma (Acute) Pneumococcal pneumonia (Acute) Acute respiratory failure with hypoxia and hypercapnia (Acute) Acute non-ST elevation myocardial infarction (NSTEMI) (Acute) SVT (supraventricular tachycardia) (Acute) CAD (coronary artery disease) (Acute) 1. Acute respiratory failure with hypoxia; she has been successfully extubated remains on oxygen per nasal cannula. 2. Community-acquired pneumonia; sputum culture grew H. influenzae/strep pneumo , she is on IV Rocephin and Zithromax. 3. Elevated troponin consistent with an NSTEMI; cardiology consulted and she would undergo left heart catheterization whenever her pulmonary status is stabilized. 3. Diabetes type 2; she is on Levemir and regular insulin sliding scale, we will adjust insulin dose to optimize glycemic control. 4. SVT; she is on a beta-mu. 5. hypothyroidism; would continue her Synthroid. 6. acute CHF; she is receiving IV Lasix. 7. Fever of unclear etiology; possibly drug related, Precedex was discontinued. 8. Prophylaxis with Lovenox and SCDs. Code Visit Inpatient E&M: 03295 Subs Hosp L2
--- NOTE | 2018-03-28 17:18 | PCM.OP.BLANK ---
Operative Report Date of Procedure: 03/28/18 DC cardioversion. Recent onset atrial fibrillation. 62-year-old lady with a re-history of recent onset atrial fibrillation. The patient has been on anticoagulation with Lovenox. The patient was seen in consultation by Dr. Velazquez of the critical care division. After informed consent was obtained anterior posterior pads were applied. 200 J of synchronized DC cardioversion energy were applied after the patient had been administered 40 mg of intravenous propofol. Patient successfully converted back to sinus rhythm. The above was confirmed in the EKG. Patient tolerated procedure well. Conclusion 1 successful DC cardioversion to sinus rhythm. Plan continue beta-jackie Wean off calcium channel jackie.
[2018-03-28 17:56] LABS: Bedside Glucose 88 mg/dL (70-110)
[2018-03-28 17:57] LABS: Bedside Glucose 362 mg/dL (70-110)
[2018-03-28 18:00] LABS: Bedside Glucose 320 mg/dL (70-110)
[2018-03-28 18:02] LABS: Bedside Glucose 330 mg/dL (70-110)
[2018-03-28] MEDS: Atorvastatin Calcium 20 MG Tablet PO (21:35)
[2018-03-28] MEDS: Famotidine 20 MG Tablet PO (21:36)
[2018-03-28 21:56] LABS: Bedside Glucose 106 mg/dL (70-110)
[2018-03-29] VITALS (35 sets, daily range): BP systolic 98–150; BP diastolic 46–99; PULSE 60–102; RESP 12–22; TEMP 37.6–38.2; O2SAT 94–98
[2018-03-29 04:41] LABS: Bedside Glucose 89 mg/dL (70-110)
[2018-03-29] MEDS: Levothyroxine 175 MCG Tablet PO (05:44)
[2018-03-29] MEDS: Furosemide 40 MG/4 ML Vial IV ×3 (05:45→23:11)
[2018-03-29] MEDS: 0.9% NaCl Peripheral Flush Adult/Peds IV ×2 (05:45→11:02)
--- NOTE | 2018-03-29 06:14 | VDUE_ITS ---
Reason For Study: Swelling LUE Left Proximal Left jugular vein is spontaneous, widely patent, phasic, with no intraluminal echogenicity noted. Left subclavian vein is spontaneous, widely patent, phasic, with no intraluminal echogenicity noted. Left Arm Left axillary vein is spontaneous, patent, phasic, competent, compressible and demonstrates augmentation. Lt Brachial V not well visualized due to mass in upper arm/swelling. Left cephalic vein is compressible. Lt Basilic V not visualized due to mass in upper arm/swelling. Left Lower Arm Left radial vein is compressible. Lt Radial V prox/mid not visualized due to swelling. Left ulnar vein is compressible. Lt Ulnar V prox/mid not visualized due to swelling. < Patient Safety Lt Subclavian A, Axillary A, and Brachial A all demonstrate to and fro flow, Distal Radial A and Ulnar A are biphasic. Limited and technically difficult study due to mass in upper arm, swelling, and suboptimal patient positioning. Hypoechoic, non vascular structure noted Lt Bicep measuring 3.8cm x 4.8cm Prelim given to Benji MAURICIO. Interpretation Summary Deep veins of the left upper extremity are patent and compressible segmentally. There is no evidence of deep vein thrombosis. However, the left brachial vein was not well visualized, and the left proximal/mid-radial vein and proximal/mid-ulnat vein were not visualized. Of the superficial veins in the left upper extremity, the left cephalic vein is patent and compressible. The left basilic vein was not visualized. A large mass or mass-effect is noted in the left bicep region, measuring 3.8 cm x 4.8 cm. Bidirectional flow is noted in the left subclavian artery, axillary artery, and brachial artery. Clinical correlation is advised. Ordering Physician: Nicho Velazquez Referring Physician: Anastasiia Cordoba Performed By: Lindsay Can, ABBY, RVT ??? Reason For Study: Swelling LUE < Interpretation Summary Ordering Physician: Nicho Velazquez Referring Physician: Anastasiia Cordoba Performed By: Lindsay Can, ABBY, RVT
[2018-03-29 06:21] LABS: Absolute Lymphocyte Count 2.49 X10^3/ul (0.83-4.51); Absolute Neutrophil Count 20.4 X10^3/uL (2.0-7.7); Basophil# 0.04 X10^3/uL; Basophil% 0.2 % (0-1); Hematocrit 36.3 % (37-47); Hemoglobin 12.4 g/dl (12.0-15.0); Lymphocyte # 2.49 X10^3/ul (4.0); Lymphocyte % 10.1 % (19-41); Mean Corp Hgb Conc 34.2 g/gl (32-36); Mean Corpuscular Hgb 29.7 pg (27.0-32.0); Mean Corpuscular Volume 86.8 fL (81-99); Mean Platelet Vol. 11.5 fl (6.2-12.0); Monocyte# 1.44 X10^3/uL; Monocyte% 5.8 % (0-10); Neutrophil # 20.44 X10^3/uL (2.7-7.7); Platelet Count 245 K/mm3 (150-450); RBC Distribution Width CV 14.4 % (11.6-14.6); RBC Distribution Width SD 44.9 fl (35.1-43.9); Red Blood Count 4.18 M/mm3 (4.2-5.4); White Blood Count 24.6 K/mm3 (4.4-11.0)
[2018-03-29 06:22] LABS: Differential Indicated SCAN CRITERIA MET; POSITIVE COUNT NO; POSITIVE DIFFERENTIAL YES; POSITIVE MORPHOLOGY NO
[2018-03-29 07:06] LABS: Anion Gap 7 (5-15); BUN 47 mg/dL (7-18); BUN/Creat Ratio 51.9 RATIO (10-20); Chloride 100 mmol/L (98-107); EST Glomerular Filtration Rate 67 mL/min (>60); Est Glom Filt Rate - Afr Amer 81 mL/min (>60); Estimated Creatinine Clearance 61.45 ml/min; Glucose 126 mg/dL (74-106); Magnesium 1.5 mg/dL (1.6-2.6); Phosphorus 6.1 mg/dL (2.5-4.9); Potassium 3.5 mmol/L (3.5-5.1); Sodium Level 144 mmol/L (136-145)
[2018-03-29] MEDS: Ipratropium/Albuterol Sulfate 3 ML AMPUL.NEB INHALATION ×5 (07:31→22:27)
--- NOTE | 2018-03-29 07:44 | PCM.PN.INT ---
Subjective: Patient did okay overnight. Patient has remained on nasal cannula oxygen without complications. Patient did have a fever overnight, but overall fever curve is improved compared to previous. Patient reports some numbness of the left upper extremity, but otherwise has been doing well. General: Alert, Oriented x3, Cooperative, No apparent distress, - - Obese. Speaking in full sentences. HEENT: Atraumatic, PERRLA, EOMI, Normocephalic, - - No scleral icterus or injection noted. Oral: Moist Mucosa, No Gingival or Mucosal Lesions/ Ulcerations Neck: Supple, No JVD, No Nodes, Trachea Midline, - - IJ is clean, dry and intact. Lungs: No rhonchi, No wheeze, No rales, Diminished, - - Symmetric expansion. No dullness to percussion. Cardiovascular: Regular rate, Regular Rhythm, Normal S1, Normal S2, No murmurs, No rub noted, No Gallop, - Abdomen: Bowel Sounds Present, Soft, Non Tender, Non-Distended, Obese Extremities: Edema - Development of significant left upper extremity edema compared to yesterday. Diminished radial pulse is palpable Skin: No rashes, No breakdown, - - Ecchymotic area noted in the left antecubital. Musculoskeletal: No Muscle Wasting Lymphatic: No Cervical, Supraclavicular, or Inguinal Adenopathy Neurological: Cranial nerves II-XII grossly intact, Neuro grossly intact Psych/Mental Status: Alert and oriented to time, place, person, mood and affect Vital Signs Temp Pulse Resp BP Pulse Ox 37.9 C H 77 16 141/57 H 97 03/29/18 05:00 03/29/18 05:00 03/29/18 05:00 03/29/18 05:00 03/29/18 05:00 Oxygen Flow Rate (L/min) 2 Oxygen Delivery Method Nasal Cannula Weight: 84.3 kg Intake and Output for Last 24 Hours 03/27/18 03/28/18 03/29/18 23:59 23:59 23:59 Intake Total 3690.3 / 3690.3 1662.3 / 1662.3 240 / 240 Output Total 5475 / 5475 2925 / 2925 325 / 325 Balance -1784.7 / -1784.7 -1262.7 / -1262.7 -85 / -85 Labs (Last 48 Hours) 03/23/18 03/24/18 03/24/18 18:31 00:18 05:11 WBC RBC Hgb Hct MCV MCH MCHC RDW RDW Differential Plt Count MPV Immature Gran % (Auto) Neut % (Auto) Lymph % (Auto) [place] % (Auto) Eos % (Auto) Baso % (Auto) Absolute Neuts (auto) Absolute Lymphs (auto) Total Counted Differential Comment Specimen Type Sample Site pH Bicarbonate Actual POC Total CO2 Base Excess O2 Saturation O2 % ABG pCO2 ABG pO2 Tamir Test O2 Delivery Device Vent Mode POC PEEP POC Pressure Suppt Blood Gas Notified Whom Blood Gas Notified Time Sodium Potassium Chloride Carbon Dioxide Anion Gap BUN Creatinine Estim Creat Clear Calc Est GFR (MDRD) Af Amer Est GFR (MDRD) Non-Af BUN/Creatinine Ratio Glucose Calcium Phosphorus Magnesium POC Glucose 362 H 320 H 330 H 03/27/18 03/27/18 03/27/18 12:28 14:00 15:57 WBC RBC Hgb Hct MCV MCH MCHC RDW RDW Differential Plt Count MPV Immature Gran % (Auto) Neut % (Auto) Lymph % (Auto) [place] % (Auto) Eos % (Auto) Baso % (Auto) Absolute Neuts (auto) Absolute Lymphs (auto) Total Counted Differential Comment Specimen Type Sample Site pH Bicarbonate Actual POC Total CO2 Base Excess O2 Saturation O2 % ABG pCO2 ABG pO2 Tamir Test O2 Delivery Device Vent Mode POC PEEP POC Pressure Suppt Blood Gas Notified Whom Blood Gas Notified Time Sodium 144 Potassium 4.0 Chloride 107 Carbon Dioxide 31.0 Anion Gap 6 BUN 40 H Creatinine 0.80 Estim Creat Clear Calc 69.13 Est GFR (MDRD) Af Amer 94 Est GFR (MDRD) Non-Af 78 BUN/Creatinine Ratio 50.1 H Glucose 378 H Calcium 7.9 L Phosphorus 2.6 Magnesium 1.7 POC Glucose 394 H 382 H 03/27/18 03/27/18 03/27/18 19:53 21:32 23:43 WBC RBC Hgb Hct MCV MCH MCHC RDW RDW Differential Plt Count MPV Immature Gran % (Auto) Neut % (Auto) Lymph % (Auto) [place] % (Auto) Eos % (Auto) Baso % (Auto) Absolute Neuts (auto) Absolute Lymphs (auto) Total Counted Differential Comment Specimen Type Sample Site pH Bicarbonate Actual POC Total CO2 Base Excess O2 Saturation O2 % ABG pCO2 ABG pO2 Tamir Test O2 Delivery Device Vent Mode POC PEEP POC Pressure Suppt Blood Gas Notified Whom Blood Gas Notified Time Sodium Potassium Chloride Carbon Dioxide Anion Gap BUN Creatinine Estim Creat Clear Calc Est GFR (MDRD) Af Amer Est GFR (MDRD) Non-Af BUN/Creatinine Ratio Glucose Calcium Phosphorus Magnesium POC Glucose 415 H 400 H 344 H 03/28/18 03/28/18 03/28/18 03:49 04:00 04:00 WBC 11.4 H RBC 4.93 Hgb 14.5 Hct 41.9 MCV 85.0 MCH 29.4 MCHC 34.6 RDW 14.7 H RDW Differential 45.1 H Plt Count 154 MPV 11.5 Immature Gran % (Auto) 0.500 Neut % (Auto) 83.5 H Lymph % (Auto) 9.7 L [place] % (Auto) 6.2 Eos % (Auto) 0.0 Baso % (Auto) 0.1 Absolute Neuts (auto) 9.5 H Absolute Lymphs (auto) 1.10 Total Counted Not Reportable Differential Comment Specimen Type Sample Site pH Bicarbonate Actual POC Total CO2 Base Excess O2 Saturation O2 % ABG pCO2 ABG pO2 Tamir Test O2 Delivery Device Vent Mode POC PEEP POC Pressure Suppt Blood Gas Notified Whom Blood Gas Notified Time Sodium 145 Potassium 3.8 Chloride 103 Carbon Dioxide 34.0 H Anion Gap 8 BUN 39 H Creatinine 0.78 Estim Creat Clear Calc 70.90 Est GFR (MDRD) Af Amer 97 Est GFR (MDRD) Non-Af 80 BUN/Creatinine Ratio 50.1 H Glucose 373 H Calcium 8.0 L Phosphorus Magnesium POC Glucose 370 H 03/28/18 03/28/18 03/28/18 06:06 07:58 12:30 WBC RBC Hgb Hct MCV MCH MCHC RDW RDW Differential Plt Count MPV Immature Gran % (Auto) Neut % (Auto) Lymph % (Auto) [place] % (Auto) Eos % (Auto) Baso % (Auto) Absolute Neuts (auto) Absolute Lymphs (auto) Total Counted Differential Comment Specimen Type ART Sample Site L Radial pH 7.54 H Bicarbonate Actual 32.4 H POC Total CO2 34 Base Excess 10 H O2 Saturation 95 O2 % 30 ABG pCO2 38.0 ABG pO2 65 L Tamir Test POS O2 Delivery Device Vent Vent Mode CPAP PS POC PEEP 5 POC Pressure Suppt 5 Blood Gas Notified Whom ICU MD Blood Gas Notified Time 558 Sodium Potassium Chloride Carbon Dioxide Anion Gap BUN Creatinine Estim Creat Clear Calc Est GFR (MDRD) Af Amer Est GFR (MDRD) Non-Af BUN/Creatinine Ratio Glucose Calcium Phosphorus Magnesium POC Glucose 304 H 153 H 03/28/18 03/28/18 03/29/18 17:47 21:30 04:27 WBC RBC Hgb Hct MCV MCH MCHC RDW RDW Differential Plt Count MPV Immature Gran % (Auto) Neut % (Auto) Lymph % (Auto) [place] % (Auto) Eos % (Auto) Baso % (Auto) Absolute Neuts (auto) Absolute Lymphs (auto) Total Counted Differential Comment Specimen Type Sample Site pH Bicarbonate Actual POC Total CO2 Base Excess O2 Saturation O2 % ABG pCO2 ABG pO2 Tamir Test O2 Delivery Device Vent Mode POC PEEP POC Pressure Suppt Blood Gas Notified Whom Blood Gas Notified Time Sodium Potassium Chloride Carbon Dioxide Anion Gap BUN Creatinine Estim Creat Clear Calc Est GFR (MDRD) Af Amer Est GFR (MDRD) Non-Af BUN/Creatinine Ratio Glucose Calcium Phosphorus Magnesium POC Glucose 88 106 89 03/29/18 03/29/18 05:50 05:50 WBC 24.6 H RBC 4.18 L Hgb 12.4 Hct 36.3 L MCV 86.8 MCH 29.7 MCHC 34.2 RDW 14.4 RDW Differential 44.9 H Plt Count 245 MPV 11.5 Immature Gran % (Auto) 0.900 Neut % (Auto) 83.0 H Lymph % (Auto) 10.1 L [place] % (Auto) 5.8 Eos % (Auto) 0.0 Baso % (Auto) 0.2 Absolute Neuts (auto) 20.4 H Absolute Lymphs (auto) 2.49 Total Counted Not Reportable Differential Comment Specimen Type Sample Site pH Bicarbonate Actual POC Total CO2 Base Excess O2 Saturation O2 % ABG pCO2 ABG pO2 Tamir Test O2 Delivery Device Vent Mode POC PEEP POC Pressure Suppt Blood Gas Notified Whom Blood Gas Notified Time Sodium 144 Potassium 3.5 Chloride 100 Carbon Dioxide 37.0 H Anion Gap 7 BUN 47 H Creatinine 0.90 Estim Creat Clear Calc 61.45 Est GFR (MDRD) Af Amer 81 Est GFR (MDRD) Non-Af 67 BUN/Creatinine Ratio 51.9 H Glucose 126 H Calcium 8.0 L Phosphorus 6.1 H Magnesium 1.5 L POC Glucose Microbiology 03/23/18 11:18 Blood Culture (Wb) - Left Wrist Blood Culture - Final No growth in 5 days. 03/23/18 10:35 Blood Culture (Wb) - Anticubital Right Blood Culture - Final No growth in 5 days. 03/23/18 11:18 Sputum, Induced/Lukens Gram Stain - Final 03/23/18 11:18 Sputum, Induced/Lukens Respiratory Culture - Final Haemophilus influenzae Streptococcus pneumoniae Medical Necessity - Tobacco Use Smoking Status: Current every day smoker Assessment/Plan All Active Problems NSTEMI (non-ST elevated myocardial infarction) (Acute) NSTEMI, initial episode of care (Acute) Acute exacerbation of COPD with asthma (Acute) Pneumococcal pneumonia (Acute) Acute respiratory failure with hypoxia and hypercapnia (Acute) Acute non-ST elevation myocardial infarction (NSTEMI) (Acute) SVT (supraventricular tachycardia) (Acute) CAD (coronary artery disease) (Acute) RECOMMENDATIONS: 1. Wean oxygen as tolerated 2. Continue diuresis with a goal of -500-1000 mL 3. Complete a 10 day course of IV antibiotics 4. Wean oxygen as tolerated 5. Transition to prednisone therapy and keep bronchodilator therapy at current dosing 6. Bedside swallow evaluation with initiation of p.o. diet if possible IMPRESSIONS: 1. Acute combined respiratory failure secondary to suspected acute on chronic combined CHF/H. influenzae pneumonia Clinical suspicion for multifactorial combined respiratory failure. Patient does have a history of COPD of unknown severity and has tested positive for H influenza and pneumococcus by sputum culture on presentation. Patient also has an elevated BNP and was placed on diuretic therapy. Patient has tolerated extubation well. Will transition to prednisone therapy. Will continue to diuresis as tolerated. 2. Non-ST elevation [place]/SVT Echocardiogram was of poor quality. Previous echocardiogram did show apical wall motion abnormalities. Ejection fraction is decreased compared to previous. No ability to assess diastolic dysfunction. Cardiology is currently following. Patient currently on full anticoagulation and antiplatelet therapy. Patient may require invasive investigation later in the hospitalization. 3. Diabetes mellitus type 2 Since blood sugars are much better controlled compared to previous after cessation of tube feeds. Patient will be transitioned to prednisone therapy. Will decrease Levemir therapy. May need to be discontinued, but patient still has steroids on board. Encourage p.o. diet. 4. Anxiety/hypertension/hyperlipidemia/hypothyroidism Complicates care, management, recovery and prognosis. Blood pressure has been controlled when patient's anxiety is controlled at this time. Patient is on baseline blood pressure medications, but these have been held at this time. These may need to be restarted as patient recovers from acute condition. 5. Fever She does have positive cultures with relatively sensitive pathogens in her sputum. Clinical suspicion for possible drug fever related to Precedex therapy. Precedex has been discontinued. We will continue to monitor fever curve. No hemodynamic instability has been noted. Since fever curve appears to be improving. 6. Left upper extremity swelling Patient with significant swelling of the left upper extremity. Patient has been on full anticoagulation secondary to NSTEMI. There are no signs of ecchymosis or bleeding complications at this time. Will obtain a Doppler study of the upper extremity. Patient has had some decrease in blood counts over the last 24 hours, but is not reporting any significant pain in the axilla. Patient has not had any interventions in the left subclavian or axillary region. Conservative measures with elevation Code Visit Inpatient E&M: [id number] [facility] Hosp L3
--- NOTE | 2018-03-29 07:45 | NURSING ---
Both areas marked for tape. LT Upper arm circumference= 46cm LT Mid forearm circumference= 32cm
[2018-03-29] MEDS: Aspirin 81 MG TAB.CHEW PO (08:56)
[2018-03-29 09:11] LABS: Bedside Glucose 125 mg/dL (70-110)
--- NOTE | 2018-03-29 09:40 | PCM.PN.CARD ---
Subjectve: The patient is without ongoing chest discomfort or worsening shortness of breath or dyspnea. She does have as the appearance of edema and ecchymoses of the left upper extremity. Objective: Vital Signs Temp Pulse Resp BP Pulse Ox 99.9 F H 95 16 131/53 H 94 03/29/18 09:00 03/29/18 09:00 03/29/18 09:00 03/29/18 09:00 03/29/18 09:00 Oxygen Flow Rate (L/min) 2 Oxygen Delivery Method Nasal Cannula Weight: 185 lb 13.595 oz Intake and Output for Last 24 Hours 03/27/18 03/28/18 03/29/18 23:59 23:59 23:59 Intake Total 3690.3 / 3690.3 1662.3 / 1662.3 240 / 240 Output Total 5475 / 5475 2925 / 2925 325 / 325 Balance -1784.7 / -1784.7 -1262.7 / -1262.7 -85 / -85 General: Awake, Cooperative, No Acute Distress Neck: Supple, Good ROM Lungs: - - Diminished inspiratory effort Cardiovascular: Regular Rhythm, Premature Ectopic Beats, Normal S1, Normal S2 Abdomen: Bowel Sounds Present, Soft, Non Tender Extremities: - - Left upper extremity edema and ecchymoses 03/29/18 05:50: WBC 24.6 H, RBC 4.18 L, Hgb 12.4, Hct 36.3 L, MCV 86.8, MCH 29.7, MCHC 34.2, RDW 14.4, RDW Differential 44.9 H, Plt Count 245, MPV 11.5, Immature Gran % (Auto) 0.900, Neut % (Auto) 83.0 H, Lymph % (Auto) 10.1 L, [place] % (Auto) 5.8, Eos % (Auto) 0.0, Baso % (Auto) 0.2, Absolute Neuts (auto) 20.4 H, Total Counted Not Reportable 03/29/18 05:50: Sodium 144, Potassium 3.5, Chloride 100, Carbon Dioxide 37.0 H, Anion Gap 7, BUN 47 H, Creatinine 0.90, Est GFR (MDRD) Af Amer 81, Est GFR (MDRD) Non-Af 67, BUN/Creatinine Ratio 51.9 H, Glucose 126 H, Calcium 8.0 L, Phosphorus 6.1 H, Magnesium 1.5 L Rhythm: Sinus rhythm Medical Necessity - Tobacco Use Smoking Status: Current every day smoker Assessment/Plan 1. Non-ST segment elevation [place] The etiology remains unclear as to whether this is a type I event or a type II event. The patient has been followed by cardiology and treated medically. It appears that she has been recommended for further cardiovascular evaluation with diagnostic cardiac catheterization once her non-cardiovascular issues are stabilized. In the interim she will continue medical management. 2. Cardiomyopathy The patient does have an echocardiogram suggesting diminished LV systolic function. Again it is unclear whether this is related to CAD or non-CAD process. At the present time she is continuing medical management. Hopefully in the future she will be able to undergo evaluation with diagnostic cardiac catheterization to further define her coronary artery status and assist in her diagnosis with respect to her ongoing issues, etc. In the interim she will continue medical management. 3. Atrial fibrillation The patient remains in sinus rhythm at this time. She will remain on medical management at this time. 4. Left upper extremity edema The etiology is unclear. There is concern that this may be related to an underlying venous thrombosis process or hematoma process. The patient is going to be evaluated with a venous duplex study. She also may need a chest/upper extremity CT scan to assist in diagnosis and subsequent care. Comment: The above was discussed with Dr. Velazquez and the [facility] ICU staff. This note was generated with [employer] software. It may contain incorrect words, spelling, and punctuation that were not noted in checking the note before signing.
--- NOTE | 2018-03-29 09:47 | PN.CARD_ITS ---
Subjectve: The patient is without ongoing chest discomfort or worsening shortness of breath or dyspnea. She does have as the appearance of edema and ecchymoses of the left upper extremity. Objective: Vital Signs Temp Pulse Resp BP Pulse Ox 99.9 F H 95 16 131/53 H 94 03/29/18 09:00 03/29/18 09:00 03/29/18 09:00 03/29/18 09:00 03/29/18 09:00 Oxygen Flow Rate (L/min) 2 Oxygen Delivery Method Nasal Cannula Weight: 185 lb 13.595 oz Intake and Output for Last 24 Hours 03/27/18 03/28/18 03/29/18 23:59 23:59 23:59 Intake Total 3690.3 / 3690.3 1662.3 / 1662.3 240 / 240 Output Total 5475 / 5475 2925 / 2925 325 / 325 Balance -1784.7 / -1784.7 -1262.7 / -1262.7 -85 / -85 General: Awake, Cooperative, No Acute Distress Neck: Supple, Good ROM Lungs: - - Diminished inspiratory effort Cardiovascular: Regular Rhythm, Premature Ectopic Beats, Normal S1, Normal S2 Abdomen: Bowel Sounds Present, Soft, Non Tender Extremities: - - Left upper extremity edema and ecchymoses 03/29/18 05:50: WBC 24.6 H, RBC 4.18 L, Hgb 12.4, Hct 36.3 L, MCV 86.8, MCH 29.7 , MCHC 34.2, RDW 14.4, RDW Differential 44.9 H, Plt Count 245, MPV 11.5, Immature Gran % (Auto) 0.900, Neut % (Auto) 83.0 H, Lymph % (Auto) 10.1 L, [place] % (Auto) 5.8, Eos % (Auto) 0.0, Baso % (Auto) 0.2, Absolute Neuts (auto) 20.4 H , Total Counted Not Reportable 03/29/18 05:50: Sodium 144, Potassium 3.5, Chloride 100, Carbon Dioxide 37.0 H, Anion Gap 7, BUN 47 H, Creatinine 0.90, Est GFR (MDRD) Af Amer 81, Est GFR (MDRD ) Non-Af 67, BUN/Creatinine Ratio 51.9 H, Glucose 126 H, Calcium 8.0 L, Phosphorus 6.1 H, Magnesium 1.5 L Rhythm: Sinus rhythm Medical Necessity - Tobacco Use Smoking Status: Current every day smoker Assessment/Plan 1. Non-ST segment elevation [place] The etiology remains unclear as to whether this is a type I event or a type II event. The patient has been followed by cardiology and treated medically. It appears that she has been recommended for further cardiovascular evaluation with diagnostic cardiac catheterization once her non-cardiovascular issues are stabilized. In the interim she will continue medical management. 2. Cardiomyopathy The patient does have an echocardiogram suggesting diminished LV systolic function. Again it is unclear whether this is related to CAD or non-CAD process. At the present time she is continuing medical management. Hopefully in the future she will be able to undergo evaluation with diagnostic cardiac catheterization to further define her coronary artery status and assist in her diagnosis with respect to her ongoing issues, etc. In the interim she will continue medical management. 3. Atrial fibrillation The patient remains in sinus rhythm at this time. She will remain on medical management at this time. 4. Left upper extremity edema The etiology is unclear. There is concern that this may be related to an underlying venous thrombosis process or hematoma process. The patient is going to be evaluated with a venous duplex study. She also may need a chest/upper extremity CT scan to assist in diagnosis and subsequent care. Comment: The above was discussed with Dr. Velazquez and the [facility] ICU staff. This note was generated with [employer] software. It may contain incorrect words, spelling, and punctuation that were not noted in checking the note before signing.
--- NOTE | 2018-03-29 10:00 | NURSING ---
Both areas marked for tape. LT Upper arm circumference= 49cm LT Mid forearm circumference= 33cm
[2018-03-29] MEDS: CHLORHEXIDINE GLUC 2% CLOTH 1 EACH TOWELETTE TOPICAL (10:31)
[2018-03-29] MEDS: predniSONE 20 MG Tablet 40 MG PO (10:31)
[2018-03-29] MEDS: Famotidine 20 MG Tablet PO ×2 (10:32→23:12)
[2018-03-29] MEDS: Metoprolol Tartrate 50 MG Tablet PO ×2 (10:32→23:13)
[2018-03-29] MEDS: Clopidogrel Bisulfate 75 MG Tablet PO (10:32)
[2018-03-29] MEDS: Lisinopril 40 MG Tablet PO (10:33)
[2018-03-29] MEDS: Montelukast 10 MG Tablet PO (10:33)
[2018-03-29] MEDS: 0.9% NaCl IVPB Med Flush (250 mL) 15 ML IV (11:01)
[2018-03-29] MEDS: Ceftriaxone 1 GM/50 ML BAG IV (11:02)
--- NOTE | 2018-03-29 12:00 | NURSING ---
Both areas marked for tape. LT Upper arm circumference= 49cm LT Mid forearm circumference= 33cm
--- NOTE | 2018-03-29 12:11 | CT_ITS ---
STUDY: CTA CHEST REASON FOR EXAM: Female, 62 years old. Left arm swelling. Evaluate for pulmonary embolus. RADIATION DOSAGE (If Supplied By Facility): CTDIvol = ( 16.09 ) mGy, DLP = ( 721.53 ) mGycm TECHNIQUE: The examination was performed with the intravenous administration of 100 ml of Isovue 370 contrast material. Post-processing of the angiographic images was performed, with multiplanar reformation and 3D reconstruction. Multiple images are limited by patient motion. Individualized dose optimization techniques were used for this CT. COMPARISON: CTA of the chest dated October 20, 2016. FINDINGS: Cardiac monitoring leads are present. Right-sided central line is present in the internal jugular vein and the tip the catheter is in the superior vena cava. Normal enhancement of the main pulmonary artery and right and left pulmonary arteries. Normal enhancement of the bilateral peripheral pulmonary arteries. There is no demonstrated pulmonary embolism. There is atherosclerotic calcification of the aortic arch with tortuosity. There is no demonstrated aortic dissection. Normal heart and pericardium. There are calcifications of the coronary arteries. There are visualized mediastinal lymph nodes, which are within normal size limits, and with normal morphology. Normal hilar regions. Normal visualized trachea and bronchi. The lungs are well expanded. There is bilateral lower lobe airspace consolidation and atelectasis. There is wedge-shaped opacity in the right upper lobe that may represent subsegmental atelectasis. There are bilateral pleural effusions. Normal chest wall structures. There is diffuse soft tissue edema left arm is enlargement of the muscles of the left arm. Normal osseous structures. There is pneumobilia. CT/CTA Chest W/WO Contrast IMPRESSION: 1. No CTA demonstrated pulmonary embolism or arterial dissection. 2. Diffuse severe swelling on the left upper extremity. 3. Bilateral basilar airspace consolidation, atelectasis and pleural effusions. 4. Pneumobilia. Electronically Signed: Erika Worthington MD at 15:51 EDT , Service support ,
[2018-03-29] MEDS: DiphenhydrAMINE 25 MG Capsule PO (13:12)
[2018-03-29] MEDS: Insulin Lispro 100 UNIT/ML INSULN.PEN SC ×3 (13:15→23:10)
[2018-03-29 13:36] LABS: Bedside Glucose 265 mg/dL (70-110)
--- NOTE | 2018-03-29 14:00 | NURSING ---
Both areas marked for tape. LT Upper arm circumference= 49cm LT Mid forearm circumference= 33cm
--- NOTE | 2018-03-29 14:52 | CT_ITS ---
STUDY: CT RIGHT SHOULDER REASON FOR EXAM: Female, 62 years old. Severe left arm swelling without known etiology. RADIATION DOSAGE (If Supplied By Facility): CTDIvol = ( 39.32 ) mGy, DLP = ( 1987.68 ) mGycm TECHNIQUE: The patient was scanned in a multi detector CT scanner. High resolution transaxial imaging was performed without the administration of intravenous contrast material. Sagittal and coronal images were reconstructed. Individualized dose optimization techniques were used for this CT. COMPARISON: None. FINDINGS: There is mild osteoarthritis of the glenohumeral articulation, with mild articular joint space narrowing and mild osteoarthritic spurring. Normal glenoid rim, neck and visualized scapula. Normal humeral head, neck and tuberosities. Normal coracoid process. Normal visualized lateral clavicle. There is mild osteoarthritis with articular joint space narrowing. There is a Type II morphology (curved). There is a severe soft tissue edema of the left arm. The associated muscles of the left arm are also enlarged. There is focal decreased attenuation within the medial aspect of the triceps muscle suggesting possible focal pyomyositis. There is limited enhancement of the vascular structures. There is left basilar airspace consolidation and atelectasis. There is a left-sided pleural effusion. CT/Extremity Upper WITH Contrast IMPRESSION: 1. Severe soft tissue edema left arm with enlargement of the muscles and suggestion for pyomyositis involving the medial triceps muscle. 2. Left-sided basilar airspace disease, atelectasis and pleural effusion. Electronically Signed: Erika Worthington MD at 15:16 EDT , Service support ,
--- NOTE | 2018-03-29 15:11 | PCM.PN.HOSP ---
Patient Problems: Active and Suspected Problems NSTEMI (non-ST elevated myocardial infarction) (Acute) Acute exacerbation of COPD with asthma (Acute) Pneumococcal pneumonia (Acute) Acute respiratory failure with hypoxia and hypercapnia (Acute) Subjective: CC: Shortness of breath and cough Objective: Patient is noted to have left upper extremity swelling, she is noted to have worsening leukocytosis, she denies any fever chills or was noted dyspnea. Vitals/I&O's: Vital Signs Temp Pulse Resp BP Pulse Ox 100.2 F H 70 16 141/65 H 96 03/29/18 13:00 03/29/18 13:00 03/29/18 13:00 03/29/18 13:00 03/29/18 13:00 Oxygen Flow Rate (L/min) 2 Oxygen Delivery Method Room Air Weight: 84.3 kg Intake and Output for Last 24 Hours 03/27/18 03/28/18 03/29/18 23:59 23:59 23:59 Intake Total 3690.3 / 3690.3 1662.3 / 1662.3 776 / 776 Output Total 5475 / 5475 2925 / 2925 475 / 475 Balance -1784.7 / -1784.7 -1262.7 / -1262.7 301 / 301 General: Alert, Oriented x3 HEENT: Atraumatic Oral: Moist Mucosa Neck: Supple Lungs: Clear to auscultation Cardiovascular: Regular rate, Normal S1, Normal S2 Abdomen: Bowel Sounds Present, Soft, Non Tender Extremities: No edema Musculoskeletal: - - Left upper extremity swelling Neurological: Motor Exam 5/5 strength throughout Microbiology Past 72 Hours 03/23/18 11:18 Blood Culture (Wb) - Left Wrist Blood Culture - Final No growth in 5 days. 03/23/18 10:35 Blood Culture (Wb) - Anticubital Right Blood Culture - Final No growth in 5 days. 03/23/18 11:18 Sputum, Induced/Lukens Gram Stain - Final 03/23/18 11:18 Sputum, Induced/Lukens Respiratory Culture - Final Haemophilus influenzae Streptococcus pneumoniae Laboratory Results 03/23/18 18:31: POC Glucose 362 H 03/24/18 00:18: POC Glucose 320 H 03/24/18 05:11: POC Glucose 330 H 03/28/18 17:47: POC Glucose 88 03/28/18 21:30: POC Glucose 106 03/29/18 04:27: POC Glucose 89 03/29/18 05:50: WBC 24.6 H, RBC 4.18 L, Hgb 12.4, Hct 36.3 L, MCV 86.8, MCH 29.7, MCHC 34.2, RDW 14.4, RDW Differential 44.9 H, Plt Count 245, MPV 11.5, Immature Gran % (Auto) 0.900, Neut % (Auto) 83.0 H, Lymph % (Auto) 10.1 L, [place] % (Auto) 5.8, Eos % (Auto) 0.0, Baso % (Auto) 0.2, Absolute Neuts (auto) 20.4 H, Absolute Lymphs (auto) 2.49, Total Counted Not Reportable, Differential Comment 03/29/18 05:50: Sodium 144, Potassium 3.5, Chloride 100, Carbon Dioxide 37.0 H, Anion Gap 7, BUN 47 H, Creatinine 0.90, Estim Creat Clear Calc 61.45, Est GFR (MDRD) Af Amer 81, Est GFR (MDRD) Non-Af 67, BUN/Creatinine Ratio 51.9 H, Glucose 126 H, Calcium 8.0 L, Phosphorus 6.1 H, Magnesium 1.5 L 03/29/18 08:50: POC Glucose 125 H 03/29/18 13:13: POC Glucose 265 H Current Medications Acetaminophen (Tylenol) 650 mg PO Q6H PRN PRN PRN Reason: MILD-MOD PAIN (1-5/10) Albuterol Sulfate (Ventolin Aerosols) 2.5 mg INHALATION Q2H PRN PRN PRN Reason: DYSPNEA Albuterol/Ipratropium (Duoneb) 3 ml INHALATION Q4H.RT [facility] Last Admin: 03/29/18 11:55 Dose: 3 ml Aspirin (Aspirin, Baby) 81 mg PO DAILY@0800 [facility] Last Admin: 03/29/18 08:56 Dose: 81 mg Atorvastatin Calcium (Lipitor) 20 mg PO QHS [facility] Last Admin: 03/28/18 21:35 Dose: 20 mg Chlorhexidine Gluconate () 1 each TOPICAL DAILY [facility] Last Admin: 03/29/18 10:31 Dose: 1 each Clopidogrel Bisulfate (Plavix) 75 mg PO DAILY [facility] Last Admin: 03/29/18 10:32 Dose: 75 mg Enoxaparin Sodium (Lovenox) 90 mg SC BID [facility] Last Admin: 03/28/18 21:35 Dose: 90 mg Ergocalciferol (Vitamin D) 50,000 unit PO Sa [facility] Last Admin: 03/29/18 10:33 Dose: 50,000 unit Famotidine (Pepcid) 20 mg PO BID [facility] Last Admin: 03/29/18 10:32 Dose: 20 mg Furosemide (Lasix) 40 mg IV Q8 [facility] Last Admin: 03/29/18 13:15 Dose: 40 mg Azithromycin 500 mg/ Dextrose 255 mls @ 250 mls/hr IV Q24 [facility] Last Admin: 03/29/18 11:01 Dose: 250 mls/hr Ceftriaxone Sodium (Rocephin) 1 gm in 50 mls @ 100 mls/hr IV Q24 [facility] Last Admin: 03/29/18 11:02 Dose: 100 mls/hr Sodium Chloride () 250 mls @ 15 mls/hr IV .[id number] PRN PRN Reason: SALINE FLUSH Last Admin: 03/29/18 11:01 Dose: 15 mls/hr Insulin Detemir (Levemir (Bkc)) 10 units SC BID [facility] Last Admin: 03/29/18 13:14 Dose: 10 u Insulin Human Lispro (Humalog Kwikpen (Bkc)) 0 unit SC ACHS [facility] PRN Reason: Protocol Last Admin: 03/29/18 13:15 Dose: 6 u Levothyroxine Sodium (Synthroid) 25 mcg PO MoWeFr@0600 [facility] Levothyroxine Sodium (Synthroid) 175 mcg PO DAILY@0600 [facility] Last Admin: 03/29/18 05:44 Dose: 175 mcg Lisinopril (Zestril) 40 mg PO DAILY [facility] Last Admin: 03/29/18 10:33 Dose: 40 mg Lorazepam (Ativan) 1 mg IV Q4H PRN PRN PRN Reason: ANXIETY/AGITATION Metoprolol Tartrate (Lopressor (Beta Mu)) 50 mg PO BID [facility] Last Admin: 03/29/18 10:32 Dose: 50 mg Montelukast Sodium (Singulair) 10 mg PO DAILY [facility] Last Admin: 03/29/18 10:33 Dose: 10 mg Potassium Bicarb/Potassium Chloride (Potassium Chl 25 Meq Eff (For Liquid)) 25 meq PO DAILYCM [facility] Last Admin: 03/29/18 08:56 Dose: 25 meq Prednisone () 40 mg PO DAILY@0800 [facility] Last Admin: 03/29/18 10:31 Dose: 40 mg Sodium Chloride () 5 - 30 ml IV UD PRN PRN Reason: SALINE FLUSH Last Admin: 03/29/18 11:02 Dose: 30 ml Medical Necessity - Tobacco Use Smoking Status: Current every day smoker Assessment/Plan All Active Problems NSTEMI (non-ST elevated myocardial infarction) (Acute) NSTEMI, initial episode of care (Acute) Acute exacerbation of COPD with asthma (Acute) Pneumococcal pneumonia (Acute) Acute respiratory failure with hypoxia and hypercapnia (Acute) Acute non-ST elevation myocardial infarction (NSTEMI) (Acute) SVT (supraventricular tachycardia) (Acute) CAD (coronary artery disease) (Acute) 1. Acute respiratory failure with hypoxia; we will continue on supplemental oxygen per nasal cannula. 2. Community-acquired pneumonia; sputum culture grew H. influenzae/strep pneumo , she is on IV Rocephin and Zithromax. 3. Elevated troponin consistent with an NSTEMI; cardiology consulted and she would undergo left heart catheterization whenever her pulmonary status is stabilized. 3. Diabetes type 2; she is on Levemir and regular insulin sliding scale, we will adjust insulin dose to optimize glycemic control. 4. SVT; she is on a beta-mu. 5. hypothyroidism; would continue her Synthroid. 6. acute CHF; she is receiving IV Lasix. 7. Worsening leukocytosis; will repeat CBC in a.m. 8. Left upper extremity swelling Doppler ultrasound to rule out DVT 9. Prophylaxis with Lovenox and SCDs.
--- NOTE | 2018-03-29 15:15 | PN_ITS ---
Patient Problems: Active and Suspected Problems NSTEMI (non-ST elevated myocardial infarction) (Acute) Acute exacerbation of COPD with asthma (Acute) Pneumococcal pneumonia (Acute) Acute respiratory failure with hypoxia and hypercapnia (Acute) Subjective: CC: Shortness of breath and cough Objective: Patient is noted to have left upper extremity swelling, she is noted to have worsening leukocytosis, she denies any fever chills or was noted dyspnea. Vitals/I&O's: Vital Signs Temp Pulse Resp BP Pulse Ox 100.2 F H 70 16 141/65 H 96 03/29/18 13:00 03/29/18 13:00 03/29/18 13:00 03/29/18 13:00 03/29/18 13:00 Oxygen Flow Rate (L/min) 2 Oxygen Delivery Method Room Air Weight: 84.3 kg Intake and Output for Last 24 Hours 03/27/18 03/28/18 03/29/18 23:59 23:59 23:59 Intake Total 3690.3 / 3690.3 1662.3 / 1662.3 776 / 776 Output Total 5475 / 5475 2925 / 2925 475 / 475 Balance -1784.7 / -1784.7 -1262.7 / -1262.7 301 / 301 General: Alert, Oriented x3 HEENT: Atraumatic Oral: Moist Mucosa Neck: Supple Lungs: Clear to auscultation Cardiovascular: Regular rate, Normal S1, Normal S2 Abdomen: Bowel Sounds Present, Soft, Non Tender Extremities: No edema Musculoskeletal: - - Left upper extremity swelling Neurological: Motor Exam 5/5 strength throughout Microbiology Past 72 Hours 03/23/18 11:18 Blood Culture (Wb) - Left Wrist Blood Culture - Final No growth in 5 days. 03/23/18 10:35 Blood Culture (Wb) - Anticubital Right Blood Culture - Final No growth in 5 days. 03/23/18 11:18 Sputum, Induced/Lukens Gram Stain - Final 03/23/18 11:18 Sputum, Induced/Lukens Respiratory Culture - Final Haemophilus influenzae Streptococcus pneumoniae Laboratory Results 03/23/18 18:31: POC Glucose 362 H 03/24/18 00:18: POC Glucose 320 H 03/24/18 05:11: POC Glucose 330 H 03/28/18 17:47: POC Glucose 88 03/28/18 21:30: POC Glucose 106 03/29/18 04:27: POC Glucose 89 03/29/18 05:50: WBC 24.6 H, RBC 4.18 L, Hgb 12.4, Hct 36.3 L, MCV 86.8, MCH 29.7 , MCHC 34.2, RDW 14.4, RDW Differential 44.9 H, Plt Count 245, MPV 11.5, Immature Gran % (Auto) 0.900, Neut % (Auto) 83.0 H, Lymph % (Auto) 10.1 L, [place] % (Auto) 5.8, Eos % (Auto) 0.0, Baso % (Auto) 0.2, Absolute Neuts (auto) 20.4 H , Absolute Lymphs (auto) 2.49, Total Counted Not Reportable, Differential Comment 03/29/18 05:50: Sodium 144, Potassium 3.5, Chloride 100, Carbon Dioxide 37.0 H, Anion Gap 7, BUN 47 H, Creatinine 0.90, Estim Creat Clear Calc 61.45, Est GFR ( MDRD) Af Amer 81, Est GFR (MDRD) Non-Af 67, BUN/Creatinine Ratio 51.9 H, Glucose 126 H, Calcium 8.0 L, Phosphorus 6.1 H, Magnesium 1.5 L 03/29/18 08:50: POC Glucose 125 H 03/29/18 13:13: POC Glucose 265 H Current Medications Acetaminophen (Tylenol) 650 mg PO Q6H PRN PRN PRN Reason: MILD-MOD PAIN (1-5/10) Albuterol Sulfate (Ventolin Aerosols) 2.5 mg INHALATION Q2H PRN PRN PRN Reason: DYSPNEA Albuterol/Ipratropium (Duoneb) 3 ml INHALATION Q4H.RT [facility] Last Admin: 03/29/18 11:55 Dose: 3 ml Aspirin (Aspirin, Baby) 81 mg PO DAILY@0800 [facility] Last Admin: 03/29/18 08:56 Dose: 81 mg Atorvastatin Calcium (Lipitor) 20 mg PO QHS [facility] Last Admin: 03/28/18 21:35 Dose: 20 mg Chlorhexidine Gluconate () 1 each TOPICAL DAILY [facility] Last Admin: 03/29/18 10:31 Dose: 1 each Clopidogrel Bisulfate (Plavix) 75 mg PO DAILY [facility] Last Admin: 03/29/18 10:32 Dose: 75 mg Enoxaparin Sodium (Lovenox) 90 mg SC BID [facility] Last Admin: 03/28/18 21:35 Dose: 90 mg Ergocalciferol (Vitamin D) 50,000 unit PO Sa [facility] Last Admin: 03/29/18 10:33 Dose: 50,000 unit Famotidine (Pepcid) 20 mg PO BID [facility] Last Admin: 03/29/18 10:32 Dose: 20 mg Furosemide (Lasix) 40 mg IV Q8 [facility] Last Admin: 03/29/18 13:15 Dose: 40 mg Azithromycin 500 mg/ Dextrose 255 mls @ 250 mls/hr IV Q24 [facility] Last Admin: 03/29/18 11:01 Dose: 250 mls/hr Ceftriaxone Sodium (Rocephin) 1 gm in 50 mls @ 100 mls/hr IV Q24 [facility] Last Admin: 03/29/18 11:02 Dose: 100 mls/hr Sodium Chloride () 250 mls @ 15 mls/hr IV .[id number] PRN PRN Reason: SALINE FLUSH Last Admin: 03/29/18 11:01 Dose: 15 mls/hr Insulin Detemir (Levemir (Bkc)) 10 units SC BID [facility] Last Admin: 03/29/18 13:14 Dose: 10 u Insulin Human Lispro (Humalog Kwikpen (Bkc)) 0 unit SC ACHS [facility] PRN Reason: Protocol Last Admin: 03/29/18 13:15 Dose: 6 u Levothyroxine Sodium (Synthroid) 25 mcg PO MoWeFr@0600 [facility] Levothyroxine Sodium (Synthroid) 175 mcg PO DAILY@0600 [facility] Last Admin: 03/29/18 05:44 Dose: 175 mcg Lisinopril (Zestril) 40 mg PO DAILY [facility] Last Admin: 03/29/18 10:33 Dose: 40 mg Lorazepam (Ativan) 1 mg IV Q4H PRN PRN PRN Reason: ANXIETY/AGITATION Metoprolol Tartrate (Lopressor (Beta Mu)) 50 mg PO BID [facility] Last Admin: 03/29/18 10:32 Dose: 50 mg Montelukast Sodium (Singulair) 10 mg PO DAILY [facility] Last Admin: 03/29/18 10:33 Dose: 10 mg Potassium Bicarb/Potassium Chloride (Potassium Chl 25 Meq Eff (For Liquid)) 25 meq PO DAILYCM [facility] Last Admin: 03/29/18 08:56 Dose: 25 meq Prednisone () 40 mg PO DAILY@0800 [facility] Last Admin: 03/29/18 10:31 Dose: 40 mg Sodium Chloride () 5 - 30 ml IV UD PRN PRN Reason: SALINE FLUSH Last Admin: 03/29/18 11:02 Dose: 30 ml Medical Necessity - Tobacco Use Smoking Status: Current every day smoker Assessment/Plan All Active Problems NSTEMI (non-ST elevated myocardial infarction) (Acute) NSTEMI, initial episode of care (Acute) Acute exacerbation of COPD with asthma (Acute) Pneumococcal pneumonia (Acute) Acute respiratory failure with hypoxia and hypercapnia (Acute) Acute non-ST elevation myocardial infarction (NSTEMI) (Acute) SVT (supraventricular tachycardia) (Acute) CAD (coronary artery disease) (Acute) 1. Acute respiratory failure with hypoxia; we will continue on supplemental oxygen per nasal cannula. 2. Community-acquired pneumonia; sputum culture grew H. influenzae/strep pneumo , she is on IV Rocephin and Zithromax. 3. Elevated troponin consistent with an NSTEMI; cardiology consulted and she would undergo left heart catheterization whenever her pulmonary status is stabilized. 3. Diabetes type 2; she is on Levemir and regular insulin sliding scale, we will adjust insulin dose to optimize glycemic control. 4. SVT; she is on a beta-mu. 5. hypothyroidism; would continue her Synthroid. 6. acute CHF; she is receiving IV Lasix. 7. Worsening leukocytosis; will repeat CBC in a.m. 8. Left upper extremity swelling Doppler ultrasound to rule out DVT 9. Prophylaxis with Lovenox and SCDs.
--- NOTE | 2018-03-29 16:00 | NURSING ---
Both areas marked for tape. LT Upper arm circumference= 49cm LT Mid forearm circumference= 33cm
--- NOTE | 2018-03-29 17:00 | NURSING ---
Both areas marked for tape. LT Upper arm circumference= 49cm LT Mid forearm circumference= 33cm
--- NOTE | 2018-03-29 17:55 | PCM.DC.SUM ---
Discharge Date and Diagnosis - Problem List Patient Problems: Active and Suspected Problems NSTEMI (non-ST elevated myocardial infarction) (Acute) Acute exacerbation of COPD with asthma (Acute) Pneumococcal pneumonia (Acute) Acute respiratory failure with hypoxia and hypercapnia (Acute) Date of Admission: 10/20/16 Date of Discharge: 03/29/18 - Primary Discharge Diagnosis Active and Suspected Problems NSTEMI (non-ST elevated myocardial infarction) (Acute) Acute exacerbation of COPD with asthma (Acute) Pneumococcal pneumonia (Acute) Acute respiratory failure with hypoxia and hypercapnia (Acute) - Secondary Discharge Diagnosis Chronic Problems Diabetes mellitus (Chronic) HLD (hyperlipidemia) (Chronic) S/P PTCA (percutaneous transluminal coronary angioplasty) (Chronic) Essential hypertension (Chronic) Hospital Course and Treatment Imaging Results: 03/29/18 12:11 CTA Chest W/WO Contrast [CT] Stat 03/29/18 14:52 Extremity Upper WITH Contrast [CT] Stat Operations: None Summary of Care Provided: This is a 62-year-old female who presented with difficulty breathing, she was found to have acute respiratory failure with hypoxia requiring endotracheal intubation, she was extubated yesterday, but continued to have difficulties with hypoxemia despite being on BiPAP , she was therefore later reintubated . Has pneumonia she grew strep pneumo and Haemophilus influenzae from his sputum she was treated with IV Rocephin and Zithromax She developed left upper extremity swelling and a CT scan upper extremity revealed severe soft tissue edema left arm with enlargement of the muscles and suggestion for pyomyositis involving the medial triceps muscle. orthopedics surgery and surgery were both consulted to evaluate her left upper extremity and they both recommended transfer to tertiary care. 1. Left upper extremity swelling ; CT scan showed severe soft tissue edema with enlargement of the muscles and suggestion of pyomyositis. Patient may require emergent surgery and therefore we are transferring to tertiary care. Currently receiving IV vancomycin and Zosyn 2. Acute respiratory failure with hypoxia due to pneumonia, this has improved, we will continue on supplemental oxygen per nasal cannula. 3. Community-acquired pneumonia; sputum culture grew H. influenzae/strep pneumo , IV Zithromax and Rocephin stopped. 3. Elevated troponin consistent with an NSTEMI; cardiology consulted and she was to undergo left heart catheterization whenever her pulmonary status is stabilized. 3. Diabetes type 2; she is on Levemir and regular insulin sliding scale 4. SVT; she is on a beta-blockers. 5. hypothyroidism; would continue her Synthroid. 6. acute CHF; she is receiving IV Lasix. 7. Worsening leukocytosis; due to #1, continue on antibiotic therapy patient will require emergent intervention general surgery ( DR ALBERTS) and orthopedic surgeon (DR SINHA)consulted and they BOTH recommended transfer to tertiary care. physical exam at the time of discharge 141/65, 90, 97% on 2 L of oxygen, 16, 100.2, He was alert and oriented to time place and person. He did not appear to be any form of distress. S1 and S2 heard no murmur or gallop Lung exam was clear to auscultation with no adventitious sounds. Abdomen was soft nontender with normal bowel sounds. Neurologic exam was grossly intact. extremities; left upper extremity shows significant swelling and discoloration. Discharge Diet: No Restrictions Home Medications: Medications to take at Discharge Amlodipine [Norvasc] 10 mg PO DAILY 10/20/16 Cholecalciferol (Vitamin D3) [Vitamin D3] 50,000 unit PO QWEEK 10/20/16 Clopidogrel Bisulfate [Clopidogrel] 1 tab PO DAILY 10/20/16 Diazepam 1 tab PO BID PRN PRN 10/20/16 Folic Acid 1 tab PO DAILY 10/20/16 Glimepiride 2 tab PO DAILY 10/20/16 Hydrocodone/Acetaminophen [Hydrocodone-Acetamin 7.5-325] 1 tab PO BID PRN 10/20/16 Levothyroxine [Synthroid] 25 mcg PO MOWEFR 10/20/16 Levothyroxine [Synthroid] 175 mcg PO DAILY 10/20/16 Lisinopril 1 tab PO DAILY 10/20/16 Metformin HCl [Glucophage] 1,000 mg PO DAILY 10/20/16 Montelukast [Singulair] 1 tab PO DAILY 10/20/16 Potassium Chloride [K-Dur] 1 tab PO DAILY 10/20/16 Metoprolol Tartrate [Lopressor (beta jackie)] 50 mg PO BID #30 tablet 10/23/16 Atorvastatin Calcium 1 tab PO DAILY 03/24/18 Primary Care Physician: Anastasiia Cordoba MD [Primary Care Provider] - Meaningful Use Info Meaningful Use Diagnoses (Choose all that apply): None applicable Code Visit Inpatient E&M: 96799 Disch Hosp
--- NOTE | 2018-03-29 18:00 | NURSING ---
Both areas marked for tape. LT Upper arm circumference= 49cm LT Mid forearm circumference= 33cm
--- NOTE | 2018-03-29 19:00 | NURSING ---
Both areas marked for tape. LT Upper arm circumference= 49cm LT Mid forearm circumference= 33cm
[2018-03-29 19:01] LABS: Bedside Glucose 245 mg/dL (70-110)
[2018-03-29] MEDS: Piperacil/Tazobactam 3.375 GM/50 ML ML IV ×2 (19:40→23:13)
[2018-03-29 20:14] LABS: Anion Gap 7 (5-15); BUN 54 mg/dL (7-18); BUN/Creat Ratio 47.8 RATIO (10-20); CPK Total, Creatine Kinase 166 U/L (26-192); Calcium,Total 7.9 mg/dL (8.5-10.1); Chloride 96 mmol/L (98-107); Creatinine, Serum 1.13 mg/dL (0.55-1.02); EST Glomerular Filtration Rate 52 mL/min (>60); Est Glom Filt Rate - Afr Amer 63 mL/min (>60); Estimated Creatinine Clearance 48.94 ml/min; Glucose 255 mg/dL (74-106); Potassium 3.6 mmol/L (3.5-5.1); Sodium Level 137 mmol/L (136-145)
--- NOTE | 2018-03-29 20:24 | NURSING ---
Left arm radial pulse check positive with doppler. No worsening to left upper extremity swelling, upper arm measured to be 49cm in circumference, forearm measured to be 33cm in circ. Findings were confirmed with Benji Claros RN from previous shift. No pain with PROM to left sided digits.
--- NOTE | 2018-03-29 21:01 | NURSING ---
Both areas marked for tape. Pulse present L radial with doppler. No pain with PROM to left upper ext digits. LT Upper arm circumference= 49cm LT Mid forearm circumference= 33cm
[2018-03-29] MEDS: Atorvastatin Calcium 20 MG Tablet PO (23:12)
[2018-03-29 23:36] LABS: Bedside Glucose 239 mg/dL (70-110)
[2018-03-30] VITALS (21 sets, daily range): BP systolic 109–152; BP diastolic 35–73; PULSE 66–90; RESP 10–23; TEMP 37.2–37.6; O2SAT 93–98
--- NOTE | 2018-03-30 02:05 | NURSING ---
Both areas marked for tape. Pulse present L radial with doppler. No pain with PROM to left upper ext digits. LT Upper arm circumference= 48.5cm LT Mid forearm circumference= 33cm
[2018-03-30] MEDS: Ipratropium/Albuterol Sulfate 3 ML AMPUL.NEB INHALATION ×2 (02:40→07:21)
--- NOTE | 2018-03-30 03:00 | NURSING ---
Both areas marked for tape. Pulse present L radial with doppler. No pain with PROM to left upper ext digits. LT Upper arm circumference= 48cm LT Mid forearm circumference= 33cm
--- NOTE | 2018-03-30 04:00 | NURSING ---
Both areas marked for tape. Pulse present L radial with doppler. No pain with PROM to left upper ext digits. LT Upper arm circumference= 47.5cm LT Mid forearm circumference= 33cm
[2018-03-30 04:30] LABS: Hematocrit 29.8 % (37-47); Hemoglobin 10.1 g/dl (12.0-15.0); Mean Corp Hgb Conc 33.9 g/gl (32-36); Mean Corpuscular Hgb 29.2 pg (27.0-32.0); Mean Corpuscular Volume 86.1 fL (81-99); Mean Platelet Vol. 11.1 fl (6.2-12.0); Platelet Count 209 K/mm3 (150-450); RBC Distribution Width CV 14.6 % (11.6-14.6); RBC Distribution Width SD 45.1 fl (35.1-43.9); Red Blood Count 3.46 M/mm3 (4.2-5.4); White Blood Count 22.4 K/mm3 (4.4-11.0)
[2018-03-30 04:37] LABS: Anion Gap 8 (5-15); BUN 52 mg/dL (7-18); BUN/Creat Ratio 48.1 RATIO (10-20); CPK Total, Creatine Kinase 594 U/L (26-192); Calcium,Total 7.8 mg/dL (8.5-10.1); Chloride 99 mmol/L (98-107); Creatinine, Serum 1.08 mg/dL (0.55-1.02); EST Glomerular Filtration Rate 55 mL/min (>60); Est Glom Filt Rate - Afr Amer 66 mL/min (>60); Estimated Creatinine Clearance 51.21 ml/min; Glucose 129 mg/dL (74-106); Potassium 3.1 mmol/L (3.5-5.1); Sodium Level 143 mmol/L (136-145)
[2018-03-30 04:44] LABS: Scan Indicated on CBC? Y/N NO
--- NOTE | 2018-03-30 05:10 | NURSING ---
Both areas marked for tape. Pulse present L radial with doppler. No pain with PROM to left upper ext digits. LT Upper arm circumference= 46.5cm LT Mid forearm circumference= 33cm
[2018-03-30] MEDS: Piperacil/Tazobactam 3.375 GM/50 ML ML IV ×2 (05:11→13:25)
[2018-03-30] MEDS: Furosemide 40 MG/4 ML Vial IV (05:11)
[2018-03-30] MEDS: Levothyroxine 175 MCG Tablet PO (05:11)
[2018-03-30] MEDS: 0.9% NaCl Peripheral Flush Adult/Peds IV ×3 (05:11→13:25)
--- NOTE | 2018-03-30 06:23 | PCM.PN.INT ---
Subjective: Yesterday's events were reviewed in detail. Several phone conversations overnight with nursing. Did discuss with orthopedics by phone overnight. Patient's left arm swelling appears to have stabilized. Patient continues to have no pain with passive or active movement of the hand. Patient asking for p.o. diet. Patient continues to tolerate room air. General: Alert, Oriented x3, Cooperative, No apparent distress, Well developed, Well nourished, - - Speaking in full sentences. HEENT: Atraumatic, PERRLA, EOMI, Normocephalic, - - No scleral icterus or injection noted. Oral: Moist Mucosa, No Gingival or Mucosal Lesions/ Ulcerations, - - Fair dentition. Neck: Supple, No JVD, No Nodes, Trachea Midline Lungs: Clear to auscultation, No rhonchi, No wheeze, No rales, Diminished Cardiovascular: Regular rate, Regular Rhythm, Normal S1, Normal S2, No murmurs, - - Intermittent PVCs. No a flutter noted on telemetry. Abdomen: Bowel Sounds Present, Soft, Non Tender, Non-Distended, Obese Extremities: No clubbing, No cyanosis, - - Left arm continues to have significant swelling, but hand swelling appears to have improved. No worsening of ecchymosis noted. Skin: - - Some weeping noted from left upper extremity Lymphatic: No Cervical, Supraclavicular, or Inguinal Adenopathy Neurological: Cranial nerves II-XII grossly intact, - - Decreased fine touch sensation noted of the left upper extremity. Still has full motor movement. Psych/Mental Status: Alert and oriented to time, place, person, mood and affect Vital Signs Temp Pulse Resp BP Pulse Ox 37.2 C 77 17 113/73 96 03/30/18 06:00 03/30/18 06:00 03/30/18 06:00 03/30/18 06:00 03/30/18 06:00 Oxygen Flow Rate (L/min) 2 Oxygen Delivery Method Room Air Weight: 85 kg Intake and Output for Last 24 Hours 03/28/18 03/29/18 03/30/18 23:59 23:59 23:59 Intake Total 1662.3 / 1662.3 1434 / 1434 76 / 76 Output Total 2925 / 2925 1425 / 1425 500 / 500 Balance -1262.7 / -1262.7 9 / 9 -424 / -424 Labs (Last 48 Hours) 03/23/18 03/24/18 03/24/18 18:31 00:18 05:11 WBC RBC Hgb Hct MCV MCH MCHC RDW RDW Differential Plt Count MPV Immature Gran % (Auto) Neut % (Auto) Lymph % (Auto) [place] % (Auto) Eos % (Auto) Baso % (Auto) Absolute Neuts (auto) Absolute Lymphs (auto) Total Counted Differential Comment Sodium Potassium Chloride Carbon Dioxide Anion Gap BUN Creatinine Estim Creat Clear Calc Est GFR (MDRD) Af Amer Est GFR (MDRD) Non-Af BUN/Creatinine Ratio Glucose Calcium Phosphorus Magnesium Total Creatine Kinase POC Glucose 362 H 320 H 330 H 03/28/18 03/28/18 03/28/18 07:58 12:30 17:47 WBC RBC Hgb Hct MCV MCH MCHC RDW RDW Differential Plt Count MPV Immature Gran % (Auto) Neut % (Auto) Lymph % (Auto) [place] % (Auto) Eos % (Auto) Baso % (Auto) Absolute Neuts (auto) Absolute Lymphs (auto) Total Counted Differential Comment Sodium Potassium Chloride Carbon Dioxide Anion Gap BUN Creatinine Estim Creat Clear Calc Est GFR (MDRD) Af Amer Est GFR (MDRD) Non-Af BUN/Creatinine Ratio Glucose Calcium Phosphorus Magnesium Total Creatine Kinase POC Glucose 304 H 153 H 88 03/28/18 03/29/18 03/29/18 21:30 04:27 05:50 WBC 24.6 H RBC 4.18 L Hgb 12.4 Hct 36.3 L MCV 86.8 MCH 29.7 MCHC 34.2 RDW 14.4 RDW Differential 44.9 H Plt Count 245 MPV 11.5 Immature Gran % (Auto) 0.900 Neut % (Auto) 83.0 H Lymph % (Auto) 10.1 L [place] % (Auto) 5.8 Eos % (Auto) 0.0 Baso % (Auto) 0.2 Absolute Neuts (auto) 20.4 H Absolute Lymphs (auto) 2.49 Total Counted Not Reportable Differential Comment Sodium Potassium Chloride Carbon Dioxide Anion Gap BUN Creatinine Estim Creat Clear Calc Est GFR (MDRD) Af Amer Est GFR (MDRD) Non-Af BUN/Creatinine Ratio Glucose Calcium Phosphorus Magnesium Total Creatine Kinase POC Glucose 106 89 03/29/18 03/29/18 03/29/18 05:50 08:50 13:13 WBC RBC Hgb Hct MCV MCH MCHC RDW RDW Differential Plt Count MPV Immature Gran % (Auto) Neut % (Auto) Lymph % (Auto) [place] % (Auto) Eos % (Auto) Baso % (Auto) Absolute Neuts (auto) Absolute Lymphs (auto) Total Counted Differential Comment Sodium 144 Potassium 3.5 Chloride 100 Carbon Dioxide 37.0 H Anion Gap 7 BUN 47 H Creatinine 0.90 Estim Creat Clear Calc 61.45 Est GFR (MDRD) Af Amer 81 Est GFR (MDRD) Non-Af 67 BUN/Creatinine Ratio 51.9 H Glucose 126 H Calcium 8.0 L Phosphorus 6.1 H Magnesium 1.5 L Total Creatine Kinase POC Glucose 125 H 265 H 03/29/18 03/29/18 03/29/18 18:51 19:30 23:08 WBC RBC Hgb Hct MCV MCH MCHC RDW RDW Differential Plt Count MPV Immature Gran % (Auto) Neut % (Auto) Lymph % (Auto) [place] % (Auto) Eos % (Auto) Baso % (Auto) Absolute Neuts (auto) Absolute Lymphs (auto) Total Counted Differential Comment Sodium 137 Potassium 3.6 Chloride 96 L Carbon Dioxide 34.0 H Anion Gap 7 BUN 54 H Creatinine 1.13 H Estim Creat Clear Calc 48.94 Est GFR (MDRD) Af Amer 63 Est GFR (MDRD) Non-Af 52 L BUN/Creatinine Ratio 47.8 H Glucose 255 H Calcium 7.9 L Phosphorus Magnesium Total Creatine Kinase 166 POC Glucose 245 H 239 H 03/30/18 03/30/18 04:10 04:10 WBC 22.4 H RBC 3.46 L Hgb 10.1 L Hct 29.8 L MCV 86.1 MCH 29.2 MCHC 33.9 RDW 14.6 RDW Differential 45.1 H Plt Count 209 MPV 11.1 Immature Gran % (Auto) Neut % (Auto) Lymph % (Auto) [place] % (Auto) Eos % (Auto) Baso % (Auto) Absolute Neuts (auto) Absolute Lymphs (auto) Total Counted Differential Comment Sodium 143 Potassium 3.1 L Chloride 99 Carbon Dioxide 36.0 H Anion Gap 8 BUN 52 H Creatinine 1.08 H Estim Creat Clear Calc 51.21 Est GFR (MDRD) Af Amer 66 Est GFR (MDRD) Non-Af 55 L BUN/Creatinine Ratio 48.1 H Glucose 129 H Calcium 7.8 L Phosphorus Magnesium Total Creatine Kinase 594 H POC Glucose Microbiology 03/23/18 11:18 Blood Culture (Wb) - Left Wrist Blood Culture - Final No growth in 5 days. 03/23/18 10:35 Blood Culture (Wb) - Anticubital Right Blood Culture - Final No growth in 5 days. 03/23/18 11:18 Sputum, Induced/Lukens Gram Stain - Final 03/23/18 11:18 Sputum, Induced/Lukens Respiratory Culture - Final Haemophilus influenzae Streptococcus pneumoniae Clinical Impression(s) from Imaging Studies Chest CTA 03/29/18 12:11 IMPRESSION: 1. No CTA demonstrated pulmonary embolism or arterial dissection. 2. Diffuse severe swelling on the left upper extremity. 3. Bilateral basilar airspace consolidation, atelectasis and pleural effusions. 4. Pneumobilia. Electronically Signed: Erika Worthington MD at 15:51 EDT , Service support , Upper Extremity CT 03/29/18 14:52 IMPRESSION: 1. Severe soft tissue edema left arm with enlargement of the muscles and suggestion for pyomyositis involving the medial triceps muscle. 2. Left-sided basilar airspace disease, atelectasis and pleural effusion. Electronically Signed: Erika Worthington MD at 15:16 EDT , Service support , Medical Necessity - Tobacco Use Smoking Status: Current every day smoker Assessment/Plan All Active Problems NSTEMI (non-ST elevated myocardial infarction) (Acute) NSTEMI, initial episode of care (Acute) Acute exacerbation of COPD with asthma (Acute) Pneumococcal pneumonia (Acute) Acute respiratory failure with hypoxia and hypercapnia (Acute) Acute non-ST elevation myocardial infarction (NSTEMI) (Acute) SVT (supraventricular tachycardia) (Acute) CAD (coronary artery disease) (Acute) RECOMMENDATIONS: 1. Await orthopedic recommendations 2. Decrease diuresis 3. Continue antibiotics for now 4. Wean oxygen as tolerated 5. Transition to prednisone therapy and keep bronchodilator therapy at current dosing 6. Electrolyte repletion as ordered IMPRESSIONS: 1. Acute combined respiratory failure secondary to suspected acute on chronic combined CHF/H. influenzae pneumonia Clinical suspicion for multifactorial combined respiratory failure. Patient does have a history of COPD of unknown severity and has tested positive for H influenza and pneumococcus by sputum culture on presentation. Patient also has an elevated BNP and was placed on diuretic therapy. Patient has tolerated extubation well. Transition to prednisone therapy. Patient does have pleural effusions noted on CT scan of the chest with some compressive atelectasis. 2. Non-ST elevation [place]/new onset atrial flutter with RVR Echocardiogram was of poor quality. Previous echocardiogram did show apical wall motion abnormalities. Ejection fraction is decreased compared to previous. No ability to assess diastolic dysfunction. Cardiology is currently following. Will discontinue Lovenox therapy given left upper extremity findings. No recurrence of a flutter with RVR after cardioversion. 3. Diabetes mellitus type 2 Since blood sugars are much better controlled compared to previous after cessation of tube feeds. Patient will be transitioned to prednisone therapy. Will increase Levemir therapy slightly. Encourage p.o. diet. 4. Anxiety/hypertension/hyperlipidemia/hypothyroidism Complicates care, management, recovery and prognosis. Blood pressure has been controlled when patient's anxiety is controlled at this time. Patient is on baseline blood pressure medications, but these have been held at this time. These may need to be restarted as patient recovers from acute condition. 5. Fever She does have positive cultures with relatively sensitive pathogens in her sputum. Clinical suspicion for possible drug fever related to Precedex therapy. Precedex has been discontinued. We will continue to monitor fever curve. Patient does have findings of left upper extremity. Orthopedics has been consulted. Patient does not appear to be sick enough for necrotizing fasciitis. 6. Left upper extremity swelling/suspected pyomyositis Patient with significant swelling of the left upper extremity. Patient has been on full anticoagulation secondary to NSTEMI. There are no signs of ecchymosis or bleeding complications at this time. CT scan of the upper extremity shows pyomyositis of the triceps muscle. Exact etiology is unclear. Patient does not have any pain to passive motion to indicate compartment syndrome. There was discussion about transfer of the patient, but [facility] has refused. Orthopedics to see patient today. Await their recommendations. Circumference has improved. Patient did have a slight bump in CPK. Will reassess CPK later today. Code Visit Inpatient E&M: 59125 Subs Hosp L3
--- NOTE | 2018-03-30 07:00 | NURSING ---
Both areas marked for tape. Pulse present L radial with doppler. No pain with Passive ROM to left upper ext digits. LT Upper arm circumference= 47cm LT Mid forearm circumference= 33cm Measurements done w/off-going HANG Cochran.
[2018-03-30 07:16] LABS: Bedside Glucose 130 mg/dL (70-110)
--- NOTE | 2018-03-30 08:00 | NURSING ---
Both areas marked for tape. Pulse present L radial with doppler. No pain with Passive ROM to left upper ext digits. LT Upper arm circumference= 47cm LT Mid forearm circumference= 33cm
--- NOTE | 2018-03-30 10:12 | PCM.PN.CARD ---
Subjectve: The patient appears to be somewhat more awake and alert today. She denies ongoing chest discomfort or difficulty breathing. Her main concern has been her left upper extremity edema and tenderness. Objective: Vital Signs Temp Pulse Resp BP Pulse Ox 99.0 F 81 21 H 110/39 L 93 03/30/18 09:00 03/30/18 09:00 03/30/18 09:00 03/30/18 09:00 03/30/18 09:00 Oxygen Flow Rate (L/min) 2 Oxygen Delivery Method Room Air Weight: 187 lb 6.287 oz Intake and Output for Last 24 Hours 03/28/18 03/29/18 03/30/18 23:59 23:59 23:59 Intake Total 1662.3 / 1662.3 1434 / 1434 76 / 76 Output Total 2925 / 2925 1425 / 1425 500 / 500 Balance -1262.7 / -1262.7 9 -424 / -424 General: Awake, Alert, Oriented x 3, Cooperative, No Acute Distress Neck: Supple, Good ROM, No JVD Lungs: Clear to auscultation Cardiovascular: Regular Rhythm, Normal S1, Normal S2 Abdomen: Bowel Sounds Present, Soft, Non Tender Extremities: - - Left upper extremity: Edema and ecchymoses 03/29/18 19:30: Sodium 137, Potassium 3.6, Chloride 96 L, Carbon Dioxide 34.0 H, Anion Gap 7, BUN 54 H, Creatinine 1.13 H, Est GFR (MDRD) Af Amer 63, Est GFR (MDRD) Non-Af 52 L, BUN/Creatinine Ratio 47.8 H, Glucose 255 H, Calcium 7.9 L 03/30/18 04:10: WBC 22.4 H, RBC 3.46 L, Hgb 10.1 L, Hct 29.8 L, MCV 86.1, MCH 29.2, MCHC 33.9, RDW 14.6, RDW Differential 45.1 H, Plt Count 209, MPV 11.1 03/30/18 04:10: Sodium 143, Potassium 3.1 L, Chloride 99, Carbon Dioxide 36.0 H, Anion Gap 8, BUN 52 H, Creatinine 1.08 H, Est GFR (MDRD) Af Amer 66, Est GFR (MDRD) Non-Af 55 L, BUN/Creatinine Ratio 48.1 H, Glucose 129 H, Calcium 7.8 L Rhythm: Sinus rhythm/ectopic atrial rhythm Medical Necessity - Tobacco Use Smoking Status: Current every day smoker Assessment/Plan 1. Non-ST segment elevation CO The etiology remains unclear as to whether this is a type I event or a type II event. The patient has been followed by cardiology and treated medically. It appears that she has been recommended for further cardiovascular evaluation with diagnostic cardiac catheterization once her non-cardiovascular issues are stabilized. In the interim she will continue medical management. 2. Cardiomyopathy The patient does have an echocardiogram suggesting diminished LV systolic function. Again it is unclear whether this is related to CAD or non-CAD process. At the present time she is continuing medical management. Hopefully in the future she will be able to undergo evaluation with diagnostic cardiac catheterization to further define her coronary artery status and assist in her diagnosis with respect to her ongoing issues, etc. In the interim she will continue medical management. 3. Atrial fibrillation The patient remains in sinus rhythm/ectopic atrial rhythm at this time. She will remain on medical management at this time. She remains on antiplatelet therapy at this time with aspirin and clopidogrel/Plavix. She is without anticoagulant therapy at this time based on concerns of her left upper extremity. 4. Left upper extremity edema There is concern that she has a left upper extremity pyomyositis based upon her CT scan. The [facility] ICU staff has discussed her case with orthopedic surgery. The recommendation has been made for transfer to a tertiary care center for further evaluation and care. According to the [facility] ICU staff a call was placed to [facility]. They declined to accept the patient at their facility. A subsequent call has been placed to the [facility]. They have accepted the patient pending bed availability. In the interim the patient's left upper extremity is being monitored. She is continuing broad-spectrum IV antibiotic therapy. Comment: The above was discussed with the [facility] ICU staff. This note was generated with [employer] software. It may contain incorrect words, spelling, and punctuation that were not noted in checking the note before signing.
--- NOTE | 2018-03-30 10:15 | PN.CARD_ITS ---
Subjectve: The patient appears to be somewhat more awake and alert today. She denies ongoing chest discomfort or difficulty breathing. Her main concern has been her left upper extremity edema and tenderness. Objective: Vital Signs Temp Pulse Resp BP Pulse Ox 99.0 F 81 21 H 110/39 L 93 03/30/18 09:00 03/30/18 09:00 03/30/18 09:00 03/30/18 09:00 03/30/18 09:00 Oxygen Flow Rate (L/min) 2 Oxygen Delivery Method Room Air Weight: 187 lb 6.287 oz Intake and Output for Last 24 Hours 03/28/18 03/29/18 03/30/18 23:59 23:59 23:59 Intake Total 1662.3 / 1662.3 1434 / 1434 76 / 76 Output Total 2925 / 2925 1425 / 1425 500 / 500 Balance -1262.7 / -1262.7 9 -424 / -424 General: Awake, Alert, Oriented x 3, Cooperative, No Acute Distress Neck: Supple, Good ROM, No JVD Lungs: Clear to auscultation Cardiovascular: Regular Rhythm, Normal S1, Normal S2 Abdomen: Bowel Sounds Present, Soft, Non Tender Extremities: - - Left upper extremity: Edema and ecchymoses 03/29/18 19:30: Sodium 137, Potassium 3.6, Chloride 96 L, Carbon Dioxide 34.0 H , Anion Gap 7, BUN 54 H, Creatinine 1.13 H, Est GFR (MDRD) Af Amer 63, Est GFR ( MDRD) Non-Af 52 L, BUN/Creatinine Ratio 47.8 H, Glucose 255 H, Calcium 7.9 L 03/30/18 04:10: WBC 22.4 H, RBC 3.46 L, Hgb 10.1 L, Hct 29.8 L, MCV 86.1, MCH 29.2, MCHC 33.9, RDW 14.6, RDW Differential 45.1 H, Plt Count 209, MPV 11.1 03/30/18 04:10: Sodium 143, Potassium 3.1 L, Chloride 99, Carbon Dioxide 36.0 H , Anion Gap 8, BUN 52 H, Creatinine 1.08 H, Est GFR (MDRD) Af Amer 66, Est GFR ( MDRD) Non-Af 55 L, BUN/Creatinine Ratio 48.1 H, Glucose 129 H, Calcium 7.8 L Rhythm: Sinus rhythm/ectopic atrial rhythm Medical Necessity - Tobacco Use Smoking Status: Current every day smoker Assessment/Plan 1. Non-ST segment elevation [place] The etiology remains unclear as to whether this is a type I event or a type II event. The patient has been followed by cardiology and treated medically. It appears that she has been recommended for further cardiovascular evaluation with diagnostic cardiac catheterization once her non-cardiovascular issues are stabilized. In the interim she will continue medical management. 2. Cardiomyopathy The patient does have an echocardiogram suggesting diminished LV systolic function. Again it is unclear whether this is related to CAD or non-CAD process. At the present time she is continuing medical management. Hopefully in the future she will be able to undergo evaluation with diagnostic cardiac catheterization to further define her coronary artery status and assist in her diagnosis with respect to her ongoing issues, etc. In the interim she will continue medical management. 3. Atrial fibrillation The patient remains in sinus rhythm/ectopic atrial rhythm at this time. She will remain on medical management at this time. She remains on antiplatelet therapy at this time with aspirin and clopidogrel/ Plavix. She is without anticoagulant therapy at this time based on concerns of her left upper extremity. 4. Left upper extremity edema There is concern that she has a left upper extremity pyomyositis based upon her CT scan. The [facility] ICU staff has discussed her case with orthopedic surgery. The recommendation has been made for transfer to a tertiary care center for further evaluation and care. According to the [facility] ICU staff a call was placed to [facility]. They declined to accept the patient at their facility. A subsequent call has been placed to the [facility]. They have accepted the patient pending bed availability. In the interim the patient's left upper extremity is being monitored. She is continuing broad-spectrum IV antibiotic therapy. Comment: The above was discussed with the [facility] ICU staff. This note was generated with [employer] software. It may contain incorrect words, spelling, and punctuation that were not noted in checking the note before signing.
[2018-03-30] MEDS: predniSONE 20 MG Tablet 40 MG PO (11:42)
[2018-03-30] MEDS: Aspirin 81 MG TAB.CHEW PO (11:42)
[2018-03-30] MEDS: Famotidine 20 MG Tablet PO (11:43)
[2018-03-30] MEDS: Metoprolol Tartrate 50 MG Tablet PO (11:43)
[2018-03-30] MEDS: Lisinopril 40 MG Tablet PO (11:44)
[2018-03-30] MEDS: Montelukast 10 MG Tablet PO (11:44)
[2018-03-30] MEDS: Clopidogrel Bisulfate 75 MG Tablet PO (11:44)
[2018-03-30] MEDS: Insulin Lispro 100 UNIT/ML INSULN.PEN SC (11:53)
[2018-03-30 12:15] LABS: Bedside Glucose 224 mg/dL (70-110)
== END 2018-03-30 15:50 | disposition short-term general hospital (02) | DRG 475 ==
LOC: ED 10:54 → ICU 10:57
PROVIDERS: Internal Medicine Critical Care Medicine; Admitting Provider Internal Medicine; Emergency Provider Emergency Medicine; Family Provider Internal Medicine; PCP Internal Medicine; Visit Provider Internal Medicine
DX: J96.01 Acute respiratory failure with hypoxia (principal); I21.4 Non-ST elevation (NSTEMI) myocardial infarction; E11.65 Type 2 diabetes mellitus with hyperglycemia; J44.1 Chronic obstructive pulmonary disease with (acute) exacerbation; J44.0 Chronic obstructive pulmonary disease with (acute) lower respiratory infection; J13 Pneumonia due to Streptococcus pneumoniae; M60.009 Infective myositis, unspecified site; E86.0 Dehydration; J96.02 Acute respiratory failure with hypercapnia; Z79.84 Long term (current) use of oral hypoglycemic drugs; E78.5 Hyperlipidemia, unspecified; I10 Essential (primary) hypertension; Z95.5 Presence of coronary angioplasty implant and graft; E03.9 Hypothyroidism, unspecified; F17.200 Nicotine dependence, unspecified, uncomplicated
CPT/HCPCS: 31500; 31720; 36600; 71045; 71275; 73201; 80048; 80053; 80061; 80307; 81001; 82550; 82803; 82962; 83605; 83735; 83880; 84100; 84436; 84443; 84478; 84484; 85025; 85027; 85610; 87040; 87070; 87077; 87086; 87186; 87205; 87449; 87633; 87641; 93005; 93306; 93971; 94002; 94003; 94640; 94660; 95831; 97110; 97162; 97166; 97530; 97802; 99251; 99465; J2185; J7030; J7040; J7050; J7120; Q9967; A4216; C1751; G0463; J1940

== ENCOUNTER 2018-04-11 16:07 | Inpatient (IN) | payer MEDICAID, SELFPAY ==
[2016-10-23 10:17] VITALS: BMI 33.8
[2018-04-11] VITALS (19 sets, daily range): BP systolic 106–137; BP diastolic 68–105; PULSE 90–112; RESP 11–24; TEMP 36.2–36.4; O2SAT 91–99; BMI 35.9; BMI 32.6
--- NOTE | 2018-04-11 16:15 | EKG12_ITS ---
Test Reason : SOB Blood Pressure : / mmHG Vent. Rate : 103 BPM Atrial Rate : 103 BPM P-R Int : 166 ms QRS Dur : 076 ms QT Int : 344 ms P-R-T Axes : 052 168 140 degrees QTc Int : 450 ms Sinus tachycardia Low voltage QRS Borderline ECG Confirmed by LOLIS RUBIN MD ([id number]), desk editor JESS OCAMPO ([id number]) on 04/17/2018 3:33:05 PM Referred By: SAY Confirmed By:LOLIS RUBIN MD
--- NOTE | 2018-04-11 16:15 | RAD_ITS ---
STUDY: X-RAY CHEST REASON FOR EXAM: Female, 62 years old. Shortness of breath and cough TECHNIQUE: Single AP portable view of the chest. COMPARISON: 03/26/2018, CT chest 03/29/2018 FINDINGS: Cardiac monitoring leads overlie the chest. Since the previous CT, the right central venous catheter has been removed. There is interstitial edema. Bilateral lower lobe airspace disease is present, left greater than right. A small left pleural effusion is suspected. There is mild cardiac enlargement. There is a coronary artery stent. Normal mediastinum and emily. Normal visualized pulmonary arteries. There is mild calcification of the aortic arch. Normal visualized thoracic spine. Normal visualized ribs, clavicles, and shoulders. There is no demonstrated abnormality of the visualized soft tissue structures of the upper abdomen. RAD/Chest 1 View (Portable) IMPRESSION: Interstitial edema. Bilateral lower lobe airspace disease, left greater than right. Suspected small left pleural effusion. Electronically Signed: Heri Zheng DO at 16:36 EDT Tel , Service support ,
--- NOTE | 2018-04-11 16:21 | ED.DCSUM_ITS ---
- ER Visit Summary Date of Service: 04/11/18 Chief Complaint: Shortness of breath History of Present Illness: The patient is a 62 F presents to the emergency department shortness of breath. Patient has had a rather recent complex medical history. Patient was admitted to this facility on 23 March with respiratory failure. She had bilateral pneumonia. The patient had to be intubated. She had respiratory arrest by 2. She was kept on broad-spectrum antibiotics. While in the hospital, she had increasing swelling of her left upper extremity. There was concern for necrotizing fasciitis. The patient was transferred to [facility]. She underwent stenting of her upper extremity. She states that they are going to do some surgery, but have to wait until the blood supply is improved. The patient was actually just discharged 2 days ago. She states that they wanted to send her to rehab but she refused. She states since being home, she is unable to take care of herself. She has had increasing dyspnea. She is not on oxygen at home. She states that she has been on take her medications because she cannot get to them and is confused as what exactly she needs to take. She has had shortness of breath with some scant cough. She denies any more fever. Physical Examination: Vital signs reviewed General: Well-nourished, well-developed Head: Normocephalic, atraumatic Eyes: Pupils equal and reactive, extraocular muscles intact Neck, supple, no lymphadenopathy Heart: Regular rate and rhythm Respiratory: No distress, wheezing throughout all lung pace Abdomen: Soft, nontender, nondistended, no peritoneal signs Back: Nontender Extremities: Asymmetric edema of the left upper extremity. Mild cellulitis. Pulses are palpable. No crepitus. Skin: Normal color no rash Neuro: Alert and oriented, no focal or lateralizing deficits Test Results: [] Emergency Department Course and Treatment: The patient presents to the emergency department with shortness of breath. She again does have a complex medical history. Her EKG shows low voltage but no acute ischemic change. The patient was placed on BiPAP and had marked improvement of her aeration and mental status. I did obtain blood gas which was unremarkable. Her chest x-ray does show evidence of CHF and a left-sided effusion. Lactate is mildly elevated at 2.2. The patient does have elevated troponin of 1.8 and BNP of 2500. I did discuss the patient with Dr. Del Cid who is familiar with the patient 's prior presentation. I do for the patient's can require admission for diuresis and control of her oxygenation. She is started on IV Lasix. I also spoke with Dr. Velazquez who is comfortable with plan for admission to the ICU given her respiratory failure. At this time, we are going to hold on antibiotics. The patient has not had a productive cough. She is not having any fever. I do feel that this is more likely acute decompensated CHF rather than an infectious process. Patient was discussed with the hospitalist and will be admitted. Treatment Plan: [] Disposition: Admission Impression: 1. Acute respiratory failure 2. Decompensated congestive heart failure 3. Lactic acidosis 4. NSTEMI This note was generated with [employer] dictation software. It may contain incorrect words, spelling, and punctuation that were not noted in review of the chart prior to signing ED Disposition - Plan for ED Patient: Chief Complaint: Shortness of Breath
[2018-04-11] MEDS: 0.9% Normal Saline 1,000 ML 150 ML IV (16:36)
[2018-04-11] MEDS: MethylPREDNISolone 125 MG/2 ML Vial IV (16:36)
[2018-04-11 16:56] LABS: Allen Test POS; Base Excess -4 mmol/L (-2 to +2); Bicarbonate 21.8 mmol/L (22-26); Blood Gas Specimen Type ART; O2 Delivery Device Nasal Can; PO2 49 mmHG (75-100); SITE R Radial; SO2 82 % (95-99); Time Given 1700; Total Carbon Dioxide 23 mmol/L; pCO2 39.5 mmHg (35-45); pH 7.35 (7.35-7.45)
[2018-04-11] MEDS: Albuterol 2.5 MG/3 ML VIAL.NEB. INHALATION (17:06)
[2018-04-11] MEDS: Ipratropium/Albuterol Sulfate 3 ML AMPUL.NEB INHALATION (17:06)
[2018-04-11 17:07] LABS: Absolute Lymphocyte Count 1.45 X10^3/ul (0.83-4.51); Absolute Neutrophil Count 9.6 X10^3/uL (2.0-7.7); Basophil# 0.01 X10^3/uL; Basophil% 0.1 % (0-1); Eosinophil# 0.06 X10^3/uL; Eosinophils% 0.5 % (0-5); Hematocrit 35.9 % (37-47); Hemoglobin 11.8 g/dl (12.0-15.0); Lymphocyte # 1.45 X10^3/ul (4.0); Lymphocyte % 12.2 % (19-41); Mean Corp Hgb Conc 32.9 g/gl (32-36); Mean Corpuscular Hgb 30.2 pg (27.0-32.0); Mean Corpuscular Volume 91.8 fL (81-99); Monocyte% 5.9 % (0-10); Platelet Count 206 K/mm3 (150-450); RBC Distribution Width CV 18.5 % (11.6-14.6); RBC Distribution Width SD 57.7 fl (35.1-43.9); Red Blood Count 3.91 M/mm3 (4.2-5.4); White Blood Count 11.9 K/mm3 (4.4-11.0)
[2018-04-11 17:09] LABS: POSITIVE COUNT NO; POSITIVE DIFFERENTIAL NO; POSITIVE MORPHOLOGY NO
[2018-04-11 17:26] LABS: CPK Total, Creatine Kinase 116 U/L (26-192)
[2018-04-11 17:27] LABS: Lactic Acid 2.2 mmol/L (0.4-2.0)
[2018-04-11 17:30] LABS: Anion Gap 9 (5-15); BUN 38 mg/dL (7-18); BUN/Creat Ratio 29.7 RATIO (10-20); Calcium,Total 8.2 mg/dL (8.5-10.1); Chloride 101 mmol/L (98-107); Creatinine, Serum 1.28 mg/dL (0.55-1.02); EST Glomerular Filtration Rate 45 mL/min (>60); Est Glom Filt Rate - Afr Amer 54 mL/min (>60); Estimated Creatinine Clearance 43.21 ml/min; Glucose 332 mg/dL (74-106); Potassium 4.9 mmol/L (3.5-5.1); Sodium Level 135 mmol/L (136-145)
[2018-04-11 17:37] LABS: BNP,B-Type NATRIURETIC PEPTIDE 2532.5 pg/mL (0-100)
--- NOTE | 2018-04-11 17:43 | ED.RN ---
DR. SALEEM AWARE OF ELEVATED LACTIC ACID. AND TROPONIN .
[2018-04-11] MEDS: Aspirin 81 MG TAB.CHEW 324 MG PO (17:53)
[2018-04-11] MEDS: Furosemide 40 MG/4 ML Vial IV (19:17)
--- NOTE | 2018-04-11 19:25 | PCM.HP.STD ---
Problem List (1) NSTEMI (non-ST elevated myocardial infarction) Status: Chronic (2) Acute exacerbation of COPD with asthma Status: Chronic (3) Pneumococcal pneumonia Status: Chronic (4) Acute respiratory failure with hypoxia and hypercapnia Status: Chronic (5) Diabetes mellitus Status: Chronic (6) HLD (hyperlipidemia) Status: Chronic (7) S/P PTCA (percutaneous transluminal coronary angioplasty) Status: Chronic (8) SVT (supraventricular tachycardia) Status: Chronic (9) CAD (coronary artery disease) Status: Chronic (10) Essential hypertension Status: Chronic History of Present Illness Date of Admission: 04/11/18 Chief Complaint: shortness of breath and leg edema The patient is a 62 year old F with multiple medical problems including coronary artery disease status post angioplasty with stenting, diabetes type 2, essential hypertension who was recently admitted here about 2 weeks ago for acute respiratory failure , she was intubated and successfully extubated. She was found to have bilateral pneumonia and sputum culture grew influenza pneumoniae and pneumonia, was adequately treated with IV antibiotics, she was also found to have elevated troponin consistent with NSTEMI but she developed severe left upper extremity swelling that was worrisome for necrotizing fasciitis, she was transferred to the [facility] where according to her and she underwent stent placement to improve blood flow with surgery scheduled on a later date. She was only discharged home 2 days ago, he presented to the emergency room today complaining of shortness of breath and bilateral leg edema She was noted to have acute respiratory failure with hypoxia . She is found to have pulmonary edema and pleural effusions, her troponin is elevated, she denies chest pain, palpitations, fever, purulent cough or sputum production. In the ED she was started on IV Lasix and placed on BiPAP which she is tolerating very well. We are admitting her to the ICU for further management. Past Medical History Past Medical History (Chronic Problems): Chronic Problems NSTEMI (non-ST elevated myocardial infarction) (Chronic) Acute exacerbation of COPD with asthma (Chronic) Pneumococcal pneumonia (Chronic) Acute respiratory failure with hypoxia and hypercapnia (Chronic) Diabetes mellitus (Chronic) HLD (hyperlipidemia) (Chronic) S/P PTCA (percutaneous transluminal coronary angioplasty) (Chronic) SVT (supraventricular tachycardia) (Chronic) CAD (coronary artery disease) (Chronic) Essential hypertension (Chronic) Allergies ampicillin Allergy (Verified 10/20/16 10:31) Hives doxycycline Allergy (Verified 03/24/18 12:43) Unknown hydrochlorothiazide Allergy (Verified 03/24/18 12:43) Unknown iodine Allergy (Verified 10/20/16 10:31) Unknown Penicillins [PCN] Allergy (Verified 03/24/18 12:43) Unknown shellfish derived Allergy (Verified 10/20/16 10:31) Hives venom-honey bee [bee venom (honey bee)] Allergy (Verified 10/20/16 10:31) Hives diphenhydramine [From Benadryl] Adverse Reaction (Verified 10/20/16 20:48) Hives Home Medications: Ambulatory Orders Medication Instructions Recorded Cholecalciferol (Vitamin D3) 50,000 unit PO QWEEK 10/20/16 [Vitamin D3] Clopidogrel Bisulfate [Clopidogrel] 75 mg PO DAILY 10/20/16 Diazepam 5 mg PO BID PRN PRN 10/20/16 Levothyroxine [Synthroid] 25 mcg PO MOWEFR 10/20/16 Levothyroxine [Synthroid] 175 mcg PO DAILY 10/20/16 Montelukast [Singulair] 10 mg PO DAILY 10/20/16 Potassium Chloride [K-Dur] 10 meq PO DAILY 10/20/16 Aspirin [Adult Aspirin Regimen] 81 mg PO DAILY 04/11/18 Atorvastatin Calcium [Lipitor] 40 mg PO QHS 04/11/18 Glimepiride [Amaryl] 8 mg PO DAILY 04/11/18 Insulin Degludec [Tresiba 20 unit SQ DAILY 04/11/18 Flextouch U-200] Metformin HCl [Metformin HCl ER] 500 mg PO DAILY 04/11/18 Metoprolol Tartrate 25 mg PO Q8H 04/11/18 Naproxen Sodium 220 mg PO PRN PRN 04/11/18 Pantoprazole Sodium [Protonix] 40 mg PO DAILY 04/11/18 Surgical History: no surgical history Smoking Status: Former smoker Tobacco Use: Cigarettes - *Family History Paternal History Items: No pertinent history Review of Systems Comment: All Systems were reviewed with pertinent positives mentioned in the HPI above. VTE Information - Inpt Only VTE Present on Admission: No VTE Mechan Device Prophylaxis: SCD's VTE Pharm Prophylaxis ordered?: No - Physical Exam General: Alert, Oriented x3 Oral: Moist Mucosa Neck: Supple Lungs: Clear to auscultation Cardiovascular: Regular rate, Normal S1, Normal S2 Abdomen: Bowel Sounds Present, Non Tender Extremities: No edema Neurological: Cranial nerves II-XII grossly intact, Motor Exam 5/5 strength throughout Vital Signs Temp Pulse Resp BP Pulse Ox 97.6 F L 106 H 16 126/83 H 95 04/11/18 16:09 04/11/18 19:22 04/11/18 19:22 04/11/18 19:22 04/11/18 19:22 Oxygen Delivery Method Bi-pap Assessment/Plan All Active Problems NSTEMI, initial episode of care (Acute) Acute non-ST elevation myocardial infarction (NSTEMI) (Acute) 1. Acute systolic heart failure; she has been placed on intravenous Lasix, fluid restriction, we will continue to monitor Ins and Outs as well as daily weights. 2. Acute respiratory failure with hypoxia due to #1 ; she is tolerating BiPAP, she will be admitted to the ICU. 3. Troponin elevation consistent NSTEMI; during her recent admission about 2 weeks ago, he had elevated troponin and cardiology was consulted, she was to undergo left heart catheterization but she was later transferred to the [facility] for her left upper extremity problem. We will place her on guideline directed medical therapy and reconsult cardiology for left heart catheterization . 3. Diabetes type 2; we will continue her long-acting insulin and place her on regular insulin sliding scale, metformin and glyburide will be placed on hold for now. 4. History of SVT; we will maintain her on beta-blockers. 5. Left upper extremity swelling that was consistent with necrotizing fasciitis ; she was transferred to [facility], she stated that she had a stent placed to improve her blood flow and she is scheduled for some type of surgery. We will obtain discharge summary from [facility] to elucidate this further. 6. Acute kidney injury; will monitor her renal parameters closely while she is on Lasix. 7. COPD/asthma without acute exacerbation; we will maintain her on her on bronchodilators without change. 8. Mild lactic acidemia; most likely due to hypoxic state from above, this should resolve with treatment of her underlying pathology. Code Visit Inpatient E&M: 84626 Init Hosp L3
[2018-04-11 20:21] LABS: Allen Test POS; Base Excess -5 mmol/L (-2 to +2); Bicarbonate 20.8 mmol/L (22-26); Blood Gas Specimen Type ART; O2 Delivery Device Nasal Can; PO2 59 mmHG (75-100); SITE R Radial; SO2 90 % (95-99); Time Given 2010; Total Carbon Dioxide 22 mmol/L; pCO2 36.4 mmHg (35-45); pH 7.37 (7.35-7.45)
--- NOTE | 2018-04-11 20:36 | NURSING ---
Pt. states that she is no longer taking Norvasc and Lisinopril since being discharged from [facility] 2 days ago.
[2018-04-11 20:41] LABS: Reflex Lactate? Y
[2018-04-11 21:57] LABS: M R Staph aureus DNA By PCR Negative (Negative); Probe Check PASS; Specimen Processing Control PASS
[2018-04-11] MEDS: Enoxaparin 100 MG/ML Syringe SC (22:16)
[2018-04-11] MEDS: Metoprolol Tartrate 25 MG Tablet PO (22:16)
[2018-04-11] MEDS: Atorvastatin Calcium 40 MG Tablet PO (22:17)
[2018-04-11] MEDS: 0.9% NaCl Peripheral Flush Adult/Peds IV (22:17)
[2018-04-11] MEDS: Insulin Lispro 100 UNIT/ML INSULN.PEN SC (22:19)
[2018-04-11 22:21] LABS: Bedside Glucose 416 mg/dL (70-110)
[2018-04-11 23:09] LABS: Lactic Acid 1.7 mmol/L (0.4-2.0)
[2018-04-12] VITALS (26 sets, daily range): BP systolic 107–136; BP diastolic 68–90; PULSE 75–112; RESP 11–21; TEMP 36.1–36.7; O2SAT 91–97
[2018-04-12] MEDS: CHLORHEXIDINE GLUC 2% CLOTH 1 EACH TOWELETTE TOPICAL (01:30)
[2018-04-12] MEDS: Levothyroxine 175 MCG Tablet PO (05:18)
[2018-04-12] MEDS: Furosemide 40 MG/4 ML Vial IV ×3 (05:18→22:13)
[2018-04-12] MEDS: Metoprolol Tartrate 25 MG Tablet PO ×2 (05:18→22:07)
[2018-04-12] MEDS: 0.9% NaCl Peripheral Flush Adult/Peds IV ×2 (05:22→13:55)
[2018-04-12 05:40] LABS: Hematocrit 37.7 % (37-47); Hemoglobin 12.3 g/dl (12.0-15.0); Mean Corp Hgb Conc 32.6 g/gl (32-36); Mean Corpuscular Hgb 30.5 pg (27.0-32.0); Mean Corpuscular Volume 93.5 fL (81-99); Mean Platelet Vol. 10.5 fl (6.2-12.0); Platelet Count 179 K/mm3 (150-450); RBC Distribution Width CV 18.9 % (11.6-14.6); RBC Distribution Width SD 60.9 fl (35.1-43.9); Red Blood Count 4.03 M/mm3 (4.2-5.4); White Blood Count 7.6 K/mm3 (4.4-11.0)
[2018-04-12 05:41] LABS: Scan Indicated on CBC? Y/N NO
[2018-04-12 06:05] LABS: Anion Gap 14 (5-15); BUN 39 mg/dL (7-18); BUN/Creat Ratio 33.6 RATIO (10-20); Calcium,Total 7.8 mg/dL (8.5-10.1); Chloride 103 mmol/L (98-107); Creatinine, Serum 1.16 mg/dL (0.55-1.02); EST Glomerular Filtration Rate 50 mL/min (>60); Est Glom Filt Rate - Afr Amer 61 mL/min (>60); Estimated Creatinine Clearance 47.68 ml/min; Glucose 389 mg/dL (74-106); Potassium 5.3 mmol/L (3.5-5.1); Sodium Level 134 mmol/L (136-145)
--- NOTE | 2018-04-12 07:25 | PCM.CON.CC ---
Problem List (1) CHF (congestive heart failure) Status: Acute Qualifiers: Heart failure type: combined systolic and diastolic Heart failure chronicity: acute on chronic Qualified Code(s): I50.43 - Acute on chronic combined systolic (congestive) and diastolic (congestive) heart failure (2) NSTEMI (non-ST elevated myocardial infarction) Status: Chronic (3) Diabetes mellitus Status: Chronic Qualifiers: Diabetes mellitus type: type 2 Diabetes mellitus jail insulin use: with intermodal owner operator truck driver use Diabetes mellitus complication status: with circulatory complication Diabetes mellitus complication detail: with other circulatory complications Qualified Code(s): E11.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 transplanted heart: [place] heart Associated angina: without angina Qualified Code(s): I25.10 - Atherosclerotic heart disease of [place] coronary artery without angina pectoris (7) Essential hypertension Status: Chronic Reason for Consult Date of Consultation: 04/12/18 Reason for Consultation: Acute respiratory failure History of Present Illness: The patient is a 62 year old F, with past medical history listed below, who presented to [facility] on 04/11/2018 secondary to increasing shortness of breath. Patient is well-known to me from previous hospitalization earlier this month with respiratory failure. On presentation to the emergency room, patient reports that she had been discharged from [facility] approximately 2 days ago. Patient had been transferred to [facility] at her last hospitalization for concern for necrotizing fasciitis. Patient reportedly underwent a stent and was reportedly recommended to go to rehab. Patient states that she went home, but was unable to care for herself. Patient states that she was not able to take her medications as prescribed secondary to left upper extremity issues. She was not sent home on supplemental oxygen therapy. On presentation to the emergency room, patient was noted to be hypoxic. Patient was placed on BiPAP therapy with improvement. Troponins were noted to be elevated, so Dr. Del Cid was called. Patient was then transferred to the intensive care unit for further monitoring. Since being in the intensive care unit, patient has not required BiPAP therapy. Patient is diuresing well, but does not have a Polanco has had inaccurate I's and O's. Patient reports subjective improvement in overall condition. Patient reports that the extensive bruising found throughout her abdomen and arm are unchanged from previous and states this happened at [facility] because my blood was too thin. Patient is reporting that she had a stent placed for a 90% blockage in her heart, but records are not available for review at this time. Patient denies any constitutional symptoms such as fever, chills, nausea, vomiting or diarrhea. Past Medical History Past Medical History (Chronic Problems): Chronic Problems NSTEMI (non-ST elevated myocardial infarction) (Chronic) Acute exacerbation of COPD with asthma (Chronic) Pneumococcal pneumonia (Chronic) Acute respiratory failure with hypoxia and hypercapnia (Chronic) Diabetes mellitus (Chronic) HLD (hyperlipidemia) (Chronic) S/P PTCA (percutaneous transluminal coronary angioplasty) (Chronic) SVT (supraventricular tachycardia) (Chronic) CAD (coronary artery disease) (Chronic) Essential hypertension (Chronic) Allergies ampicillin Allergy (Verified 10/20/16 10:31) Hives doxycycline Allergy (Verified 03/24/18 12:43) Unknown hydrochlorothiazide Allergy (Verified 03/24/18 12:43) Unknown iodine Allergy (Verified 10/20/16 10:31) Unknown Penicillins [PCN] Allergy (Verified 03/24/18 12:43) Unknown shellfish derived Allergy (Verified 10/20/16 10:31) Hives venom-honey bee [bee venom (honey bee)] Allergy (Verified 10/20/16 10:31) Hives diphenhydramine [From Benadryl] Adverse Reaction (Verified 10/20/16 20:48) Hives Home Medications: Ambulatory Orders Medication Instructions Recorded Clopidogrel Bisulfate [Clopidogrel] 75 mg PO DAILY 10/20/16 Diazepam 5 mg PO BID PRN PRN 10/20/16 Levothyroxine [Synthroid] 25 mcg PO MOWEFR 10/20/16 Levothyroxine [Synthroid] 175 mcg PO DAILY 10/20/16 Montelukast [Singulair] 10 mg PO DAILY 10/20/16 Potassium Chloride [K-Dur] 10 meq PO DAILY 10/20/16 Aspirin [Adult Aspirin Regimen] 81 mg PO DAILY 04/11/18 Atorvastatin Calcium [Lipitor] 40 mg PO QHS 04/11/18 Ergocalciferol [Vitamin D] 50,000 unit PO Q7D 04/11/18 Glimepiride [Amaryl] 8 mg PO DAILY 04/11/18 Insulin Degludec [Tresiba 20 unit SQ DAILY 04/11/18 Flextouch U-200] Metformin HCl [Metformin HCl ER] 500 mg PO DAILY 04/11/18 Metoprolol Tartrate 25 mg PO Q8H 04/11/18 Naproxen Sodium 220 mg PO PRN PRN 04/11/18 Pantoprazole Sodium [Protonix] 40 mg PO DAILY 04/11/18 Surgical History: no surgical history Smoking Status: Former smoker Tobacco Use: Cigarettes - *Family History Paternal History Items: No pertinent history Review of Systems Comment: See HPI, otherwise negative ?10 systems Patient Problems: Active and Suspected Problems CHF (congestive heart failure) (Acute) Objective: Chest x-ray was personally reviewed and does show some interstitial edema with probable mild left pleural effusion versus atelectasis. - Physical Exam General: Alert, Oriented x3, Cooperative, No apparent distress, - - No conversational dyspnea. Appears older than stated age. Speaking in full sentences. HEENT: Atraumatic, PERRLA, EOMI, Normocephalic, - - No scleral icterus or injection noted. Oral: Moist Mucosa, No Gingival or Mucosal Lesions/ Ulcerations, - - Poor dentition Neck: Supple, No Nodes, Trachea Midline, JVD, Right Lungs: No rhonchi, No wheeze, Diminished, Rales, - - Symmetric expansion. No dullness to percussion. Cardiovascular: Regular rate, Regular Rhythm, Normal S1, Normal S2, No murmurs, No rub noted, No Gallop Abdomen: Bowel Sounds Present, Soft, Non Tender, Non-Distended Extremities: No clubbing, No cyanosis, Edema Skin: - - Extensive ecchymosis of the left upper extremities extended into the chest and abdomen. No breakdown is appreciated. Musculoskeletal: Tenderness Lymphatic: No Cervical, Supraclavicular, or Inguinal Adenopathy Neurological: Cranial nerves II-XII grossly intact, Neuro grossly intact, Motor Exam 5/5 strength throughout Psych/Mental Status: Alert and oriented to time, place, person, mood and affect Vital Signs Temp Pulse Resp BP Pulse Ox 36.5 C L 87 16 112/68 94 04/12/18 04:00 04/12/18 06:00 04/12/18 06:00 04/12/18 06:00 04/12/18 06:00 Oxygen Flow Rate (L/min) 6 Oxygen Delivery Method Nasal Cannula Weight: 91.2 kg Body Mass Index (BMI) 32.6 Intake and Output for Last 24 Hours 04/10/18 04/11/18 04/12/18 23:59 23:59 23:59 Intake Total 300 / 300 320 / 320 Output Total 250 / 250 300 / 300 Balance 50 / 50 20 / 20 Laboratory Tests Past 24 Hrs 04/11/18 04/11/18 04/11/18 19:50 20:15 20:25 WBC RBC Hgb Hct MCV MCH MCHC RDW RDW Differential Plt Count MPV Specimen Type ART Sample Site R Radial pH 7.37 Bicarbonate Actual 20.8 L POC Total CO2 22 Base Excess -5 L O2 Saturation 90 L ABG pCO2 36.4 ABG pO2 59 L Tamir Test POS O2 Delivery Device Nasal Can Liter Flow 6.0 Blood Gas Notified Whom ICU MD Blood Gas Notified Time 2009 Sodium Potassium Chloride Carbon Dioxide Anion Gap BUN Creatinine Estim Creat Clear Calc Est GFR (MDRD) Af Amer Est GFR (MDRD) Non-Af BUN/Creatinine Ratio Glucose Lactic Acid Calcium Troponin I 1.580 H* MRSA (PCR) Negative 04/11/18 04/11/18 04/12/18 22:35 22:35 05:32 WBC 7.6 RBC 4.03 L Hgb 12.3 Hct 37.7 MCV 93.5 MCH 30.5 MCHC 32.6 RDW 18.9 H RDW Differential 60.9 H Plt Count 179 MPV 10.5 Specimen Type Sample Site pH Bicarbonate Actual POC Total CO2 Base Excess O2 Saturation ABG pCO2 ABG pO2 Tamir Test O2 Delivery Device Liter Flow Blood Gas Notified Whom Blood Gas Notified Time Sodium Potassium Chloride Carbon Dioxide Anion Gap BUN Creatinine Estim Creat Clear Calc Est GFR (MDRD) Af Amer Est GFR (MDRD) Non-Af BUN/Creatinine Ratio Glucose Lactic Acid 1.7 Calcium Troponin I 1.330 H* MRSA (PCR) 04/12/18 05:32 WBC RBC Hgb Hct MCV MCH MCHC RDW RDW Differential Plt Count MPV Specimen Type Sample Site pH Bicarbonate Actual POC Total CO2 Base Excess O2 Saturation ABG pCO2 ABG pO2 Tamir Test O2 Delivery Device Liter Flow Blood Gas Notified Whom Blood Gas Notified Time Sodium 134 L Potassium 5.3 H Chloride 103 Carbon Dioxide 17.0 L Anion Gap 14 BUN 39 H Creatinine 1.16 H Estim Creat Clear Calc 47.68 Est GFR (MDRD) Af Amer 61 Est GFR (MDRD) Non-Af 50 L BUN/Creatinine Ratio 33.6 H Glucose 389 H Lactic Acid Calcium 7.8 L Troponin I MRSA (PCR) POC Glucose 04/11/18 22:13 POC Glucose 416 H Clinical Impression(s) from Imaging Studies Chest X-Ray 04/11/18 16:15 IMPRESSION: Interstitial edema. Bilateral lower lobe airspace disease, left greater than right. Suspected small left pleural effusion. Electronically Signed: Heri Zheng DO at 16:36 EDT Tel , Service support , Assessment/Plan Active and Suspected Problems CHF (congestive heart failure) (Acute) RECOMMENDATIONS: 1. Initiate Lantus 15 units twice daily 2. Wean oxygen as tolerated 3. Continue aggressive diuresis 4. No active reversal of hyperkalemia 5. Obtain records from [facility] 6. Okay to leave the intensive care unit from my perspective IMPRESSIONS: 1. Acute combined respiratory failure secondary to suspected acute on chronic combined CHF Patient is not reporting any constitutional symptoms to suggest an acute pneumonia at this time. Patient has been off of Lasix therapy and does have significant edema noted. Patient's last ejection fraction was noted to be 40%. It is unclear at this time if patient did have a heart catheterization or whether a stent was placed into her left upper extremity. Cardiology has been consulted. Would continue with Lasix therapy. 2. Non-ST elevation PA/history of atrial flutter with RVR Previous echocardiogram showed an ejection fraction of 40%. Need to clarify what happened at [facility] as patient is reporting a heart catheterization, not a left upper extremity intervention. Patient may be at risk for in-stent stenosis if she was noncompliant with Plavix therapy. Await cardiology recommendations. 3. Diabetes mellitus type 2/hyperkalemia Patient was difficult to control during last hospitalization. Patient will be placed on Lantus therapy twice daily as this was successful in controlling blood sugars previously. Patient's potassium will likely decrease with active diuresis and control of blood sugars. Would not recommend aggressive reversal of potassium as patient has no changes on telemetry. 4. Anxiety/hypertension/hyperlipidemia/hypothyroidism Complicates care, management, recovery and prognosis. Blood pressure has been controlled when patient's anxiety is controlled at this time. Patient is on baseline blood pressure medications, but these have been held at this time. These may need to be restarted as patient recovers from acute condition. 5. Left upper extremity swelling Patient was significant improvement in left upper extremity swelling, but does have extensive ecchymosis noted. It is reported that this is a complication of therapy at the [facility]. Patient does not have any significant breakdown or superinfection that I can tell. Patient does not have any leukocytosis to suggest ongoing pyomyositis. Patient will likely require rehab. PT/OT will be consulted Code Visit Inpatient E&M: 26761 Init Hosp L3
[2018-04-12] MEDS: Insulin Lispro 100 UNIT/ML INSULN.PEN SC ×4 (07:39→22:17)
[2018-04-12] MEDS: Aspirin E.C. 81 MG Tablet PO (07:43)
--- NOTE | 2018-04-12 07:43 | CON.PCM_ITS ---
Problem List (1) CHF (congestive heart failure) Status: Acute Qualifiers: Heart failure type: combined systolic and diastolic Heart failure chronicity: acute on chronic Qualified Code(s): I50.43 - Acute on chronic combined systolic (congestive) and diastolic (congestive) heart failure (2) NSTEMI (non-ST elevated myocardial infarction) Status: Chronic (3) Diabetes mellitus Status: Chronic Qualifiers: Diabetes mellitus type: type 2 Diabetes mellitus [facility] insulin use: with terminal superintendent use Diabetes mellitus complication status: with circulatory complication Diabetes mellitus complication detail: with other circulatory complications Qualified Code(s): E11.59 - Type 2 diabetes mellitus with other circulatory complications; Z79.4 - bed bug exterminator (current) use of insulin (4) HLD (hyperlipidemia) Status: Chronic Qualifiers: Hyperlipidemia type: pure hypercholesterolemia Qualified Code(s): E78.00 - Pure hypercholesterolemia, unspecified; E78.0 - Pure hypercholesterolemia (5) SVT (supraventricular tachycardia) Status: Chronic (6) CAD (coronary artery disease) Status: Chronic Qualifiers: Coronary Disease-Associated Artery/Lesion type: [place] artery [place] vs. transplanted heart: [place] heart Associated angina: without angina Qualified Code(s): I25.10 - Atherosclerotic heart disease of [place] coronary artery without angina pectoris (7) Essential hypertension Status: Chronic Reason for Consult Date of Consultation: 04/12/18 Reason for Consultation: Acute respiratory failure History of Present Illness: The patient is a 62 year old F, with past medical history listed below, who presented to [facility] on 04/11/2018 secondary to increasing shortness of breath. Patient is well-known to me from previous hospitalization earlier this month with respiratory failure. On presentation to the emergency room, patient reports that she had been discharged from [facility] approximately 2 days ago. Patient had been transferred to [facility] at her last hospitalization for concern for necrotizing fasciitis. Patient reportedly underwent a stent and was reportedly recommended to go to rehab. Patient states that she went home, but was unable to care for herself. Patient states that she was not able to take her medications as prescribed secondary to left upper extremity issues. She was not sent home on supplemental oxygen therapy. On presentation to the emergency room, patient was noted to be hypoxic. Patient was placed on BiPAP therapy with improvement. Troponins were noted to be elevated, so Dr. Del Cid was called. Patient was then transferred to the intensive care unit for further monitoring. Since being in the intensive care unit, patient has not required BiPAP therapy. Patient is diuresing well, but does not have a Polanco has had inaccurate I's and O's. Patient reports subjective improvement in overall condition. Patient reports that the extensive bruising found throughout her abdomen and arm are unchanged from previous and states this happened at [facility] because my blood was too thin. Patient is reporting that she had a stent placed for a 90% blockage in her heart, but records are not available for review at this time. Patient denies any constitutional symptoms such as fever, chills, nausea, vomiting or diarrhea. Past Medical History Past Medical History (Chronic Problems): Chronic Problems NSTEMI (non-ST elevated myocardial infarction) (Chronic) Acute exacerbation of COPD with asthma (Chronic) Pneumococcal pneumonia (Chronic) Acute respiratory failure with hypoxia and hypercapnia (Chronic) Diabetes mellitus (Chronic) HLD (hyperlipidemia) (Chronic) S/P PTCA (percutaneous transluminal coronary angioplasty) (Chronic) SVT (supraventricular tachycardia) (Chronic) CAD (coronary artery disease) (Chronic) Essential hypertension (Chronic) Allergies ampicillin Allergy (Verified 10/20/16 10:31) Hives doxycycline Allergy (Verified 03/24/18 12:43) Unknown hydrochlorothiazide Allergy (Verified 03/24/18 12:43) Unknown iodine Allergy (Verified 10/20/16 10:31) Unknown Penicillins [PCN] Allergy (Verified 03/24/18 12:43) Unknown shellfish derived Allergy (Verified 10/20/16 10:31) Hives venom-honey bee [bee venom (honey bee)] Allergy (Verified 10/20/16 10:31) Hives diphenhydramine [From Benadryl] Adverse Reaction (Verified 10/20/16 20:48) Hives Home Medications: Ambulatory Orders Medication Instructions Recorded Clopidogrel Bisulfate [Clopidogrel] 75 mg PO DAILY 10/20/16 Diazepam 5 mg PO BID PRN PRN 10/20/16 Levothyroxine [Synthroid] 25 mcg PO MOWEFR 10/20/16 Levothyroxine [Synthroid] 175 mcg PO DAILY 10/20/16 Montelukast [Singulair] 10 mg PO DAILY 10/20/16 Potassium Chloride [K-Dur] 10 meq PO DAILY 10/20/16 Aspirin [Adult Aspirin Regimen] 81 mg PO DAILY 04/11/18 Atorvastatin Calcium [Lipitor] 40 mg PO QHS 04/11/18 Ergocalciferol [Vitamin D] 50,000 unit PO Q7D 04/11/18 Glimepiride [Amaryl] 8 mg PO DAILY 04/11/18 Insulin Degludec [Tresiba 20 unit SQ DAILY 04/11/18 Flextouch U-200] Metformin HCl [Metformin HCl ER] 500 mg PO DAILY 04/11/18 Metoprolol Tartrate 25 mg PO Q8H 04/11/18 Naproxen Sodium 220 mg PO PRN PRN 04/11/18 Pantoprazole Sodium [Protonix] 40 mg PO DAILY 04/11/18 Surgical History: no surgical history Smoking Status: Former smoker Tobacco Use: Cigarettes - *Family History Paternal History Items: No pertinent history Review of Systems Comment: See HPI, otherwise negative ?10 systems Patient Problems: Active and Suspected Problems CHF (congestive heart failure) (Acute) Objective: Chest x-ray was personally reviewed and does show some interstitial edema with probable mild left pleural effusion versus atelectasis. - Physical Exam General: Alert, Oriented x3, Cooperative, No apparent distress, - - No conversational dyspnea. Appears older than stated age. Speaking in full sentences. HEENT: Atraumatic, PERRLA, EOMI, Normocephalic, - - No scleral icterus or injection noted. Oral: Moist Mucosa, No Gingival or Mucosal Lesions/ Ulcerations, - - Poor dentition Neck: Supple, No Nodes, Trachea Midline, JVD, Right Lungs: No rhonchi, No wheeze, Diminished, Rales, - - Symmetric expansion. No dullness to percussion. Cardiovascular: Regular rate, Regular Rhythm, Normal S1, Normal S2, No murmurs, No rub noted, No Gallop Abdomen: Bowel Sounds Present, Soft, Non Tender, Non-Distended Extremities: No clubbing, No cyanosis, Edema Skin: - - Extensive ecchymosis of the left upper extremities extended into the chest and abdomen. No breakdown is appreciated. Musculoskeletal: Tenderness Lymphatic: No Cervical, Supraclavicular, or Inguinal Adenopathy Neurological: Cranial nerves II-XII grossly intact, Neuro grossly intact, Motor Exam 5/5 strength throughout Psych/Mental Status: Alert and oriented to time, place, person, mood and affect Vital Signs Temp Pulse Resp BP Pulse Ox 36.5 C L 87 16 112/68 94 04/12/18 04:00 04/12/18 06:00 04/12/18 06:00 04/12/18 06:00 04/12/18 06:00 Oxygen Flow Rate (L/min) 6 Oxygen Delivery Method Nasal Cannula Weight: 91.2 kg Body Mass Index (BMI) 32.6 Intake and Output for Last 24 Hours 04/10/18 04/11/18 04/12/18 23:59 23:59 23:59 Intake Total 300 / 300 320 / 320 Output Total 250 / 250 300 / 300 Balance 50 / 50 20 / 20 Laboratory Tests Past 24 Hrs 04/11/18 04/11/18 04/11/18 19:50 20:15 20:25 WBC RBC Hgb Hct MCV MCH MCHC RDW RDW Differential Plt Count MPV Specimen Type ART Sample Site R Radial pH 7.37 Bicarbonate Actual 20.8 L POC Total CO2 22 Base Excess -5 L O2 Saturation 90 L ABG pCO2 36.4 ABG pO2 59 L Tamir Test POS O2 Delivery Device Nasal Can Liter Flow 6.0 Blood Gas Notified Whom ICU MD Blood Gas Notified Time 2009 Sodium Potassium Chloride Carbon Dioxide Anion Gap BUN Creatinine Estim Creat Clear Calc Est GFR (MDRD) Af Amer Est GFR (MDRD) Non-Af BUN/Creatinine Ratio Glucose Lactic Acid Calcium Troponin I 1.580 H* MRSA (PCR) Negative 04/11/18 04/11/18 04/12/18 22:35 22:35 05:32 WBC 7.6 RBC 4.03 L Hgb 12.3 Hct 37.7 MCV 93.5 MCH 30.5 MCHC 32.6 RDW 18.9 H RDW Differential 60.9 H Plt Count 179 MPV 10.5 Specimen Type Sample Site pH Bicarbonate Actual POC Total CO2 Base Excess O2 Saturation ABG pCO2 ABG pO2 Tamir Test O2 Delivery Device Liter Flow Blood Gas Notified Whom Blood Gas Notified Time Sodium Potassium Chloride Carbon Dioxide Anion Gap BUN Creatinine Estim Creat Clear Calc Est GFR (MDRD) Af Amer Est GFR (MDRD) Non-Af BUN/Creatinine Ratio Glucose Lactic Acid 1.7 Calcium Troponin I 1.330 H* MRSA (PCR) 04/12/18 05:32 WBC RBC Hgb Hct MCV MCH MCHC RDW RDW Differential Plt Count MPV Specimen Type Sample Site pH Bicarbonate Actual POC Total CO2 Base Excess O2 Saturation ABG pCO2 ABG pO2 Tamir Test O2 Delivery Device Liter Flow Blood Gas Notified Whom Blood Gas Notified Time Sodium 134 L Potassium 5.3 H Chloride 103 Carbon Dioxide 17.0 L Anion Gap 14 BUN 39 H Creatinine 1.16 H Estim Creat Clear Calc 47.68 Est GFR (MDRD) Af Amer 61 Est GFR (MDRD) Non-Af 50 L BUN/Creatinine Ratio 33.6 H Glucose 389 H Lactic Acid Calcium 7.8 L Troponin I MRSA (PCR) POC Glucose 04/11/18 22:13 POC Glucose 416 H Clinical Impression(s) from Imaging Studies Chest X-Ray 04/11/18 16:15 IMPRESSION: Interstitial edema. Bilateral lower lobe airspace disease, left greater than right. Suspected small left pleural effusion. Electronically Signed: Heri Zheng DO at 16:36 EDT Tel , Service support , Assessment/Plan Active and Suspected Problems CHF (congestive heart failure) (Acute) RECOMMENDATIONS: 1. Initiate Lantus 15 units twice daily 2. Wean oxygen as tolerated 3. Continue aggressive diuresis 4. No active reversal of hyperkalemia 5. Obtain records from [facility] 6. Okay to leave the intensive care unit from my perspective IMPRESSIONS: 1. Acute combined respiratory failure secondary to suspected acute on chronic combined CHF Patient is not reporting any constitutional symptoms to suggest an acute pneumonia at this time. Patient has been off of Lasix therapy and does have significant edema noted. Patient's last ejection fraction was noted to be 40%. It is unclear at this time if patient did have a heart catheterization or whether a stent was placed into her left upper extremity. Cardiology has been consulted. Would continue with Lasix therapy. 2. Non-ST elevation CO/history of atrial flutter with RVR Previous echocardiogram showed an ejection fraction of 40%. Need to clarify what happened at [facility] as patient is reporting a heart catheterization, not a left upper extremity intervention. Patient may be at risk for in-stent stenosis if she was noncompliant with Plavix therapy. Await cardiology recommendations. 3. Diabetes mellitus type 2/hyperkalemia Patient was difficult to control during last hospitalization. Patient will be placed on Lantus therapy twice daily as this was successful in controlling blood sugars previously. Patient's potassium will likely decrease with active diuresis and control of blood sugars. Would not recommend aggressive reversal of potassium as patient has no changes on telemetry. 4. Anxiety/hypertension/hyperlipidemia/hypothyroidism Complicates care, management, recovery and prognosis. Blood pressure has been controlled when patient's anxiety is controlled at this time. Patient is on baseline blood pressure medications, but these have been held at this time. These may need to be restarted as patient recovers from acute condition. 5. Left upper extremity swelling Patient was significant improvement in left upper extremity swelling, but does have extensive ecchymosis noted. It is reported that this is a complication of therapy at the [facility]. Patient does not have any significant breakdown or superinfection that I can tell. Patient does not have any leukocytosis to suggest ongoing pyomyositis. Patient will likely require rehab. PT/OT will be consulted Code Visit Inpatient E&M: 19530 Init Hosp L3
--- NOTE | 2018-04-12 07:49 | PN_ITS ---
Patient Problems: Active and Suspected Problems CHF (congestive heart failure) (Acute) Subjective: Patient was seen and examined. No new complains.She feels better since admission. Denies chest pain, dizziness, palpitations. On 4L oxygen . Vitals/I&O's: Vital Signs Temp Pulse Resp BP Pulse Ox 97.7 F L 95 20 H 133/87 H 93 04/12/18 04:00 04/12/18 07:00 04/12/18 07:00 04/12/18 07:00 04/12/18 07:00 Oxygen Flow Rate (L/min) 6 Oxygen Delivery Method Nasal Cannula Weight: 91.2 kg Body Mass Index (BMI) 32.6 Intake and Output for Last 24 Hours 04/10/18 04/11/18 04/12/18 23:59 23:59 23:59 Intake Total 300 / 300 320 / 320 Output Total 250 / 250 300 / 300 Balance 50 / 50 20 / 20 General: Alert, Oriented x3, Cooperative, No apparent distress, - - on 4L oxygen , appear comfortable HEENT: Atraumatic, PERRLA, EOMI, Normocephalic Oral: Moist Mucosa Neck: Supple Lungs: Clear to auscultation, Normal air movement, Diminished, Rales - bilaterally Cardiovascular: Regular rate, Regular Rhythm, Normal S1, Normal S2, No murmurs Abdomen: Bowel Sounds Present, Soft, Non Tender, Non-Distended, No Hepato- splenomegaly Extremities: Edema - bilateral, nontender, +2-3 Skin: No rashes, No breakdown Musculoskeletal: No Tenderness to Palpation of Joints or Extremities Lymphatic: No Cervical, Supraclavicular, or Inguinal Adenopathy Neurological: Cranial nerves II-XII grossly intact, Neuro grossly intact Psych/Mental Status: Normal Affect, Appropriate Laboratory Results 04/11/18 19:50: MRSA (PCR) Negative 04/11/18 20:15: Specimen Type ART, Sample Site R Radial, pH 7.37, Bicarbonate Actual 20.8 L, POC Total CO2 22, Base Excess -5 L, O2 Saturation 90 L, ABG pCO2 36.4, ABG pO2 59 L, Tamir Test POS, O2 Delivery Device Nasal Can, Liter Flow 6.0 , Blood Gas Notified Whom ICU , Blood Gas Notified Time 200904/11/18 20:25: Troponin I 1.580 H* 04/11/18 22:13: POC Glucose 416 H 04/11/18 22:35: Troponin I 1.330 H* 04/11/18 22:35: Lactic Acid 1.7 04/12/18 05:32: WBC 7.6, RBC 4.03 L, Hgb 12.3, Hct 37.7, MCV 93.5, MCH 30.5, MCHC 32.6, RDW 18.9 H, RDW Differential 60.9 H, Plt Count 179, MPV 10.5 04/12/18 05:32: Sodium 134 L, Potassium 5.3 H, Chloride 103, Carbon Dioxide 17.0 L, Anion Gap 14, BUN 39 H, Creatinine 1.16 H, Estim Creat Clear Calc 47.68 , Est GFR (MDRD) Af Amer 61, Est GFR (MDRD) Non-Af 50 L, BUN/Creatinine Ratio 33.6 H, Glucose 389 H, Calcium 7.8 L Current Medications Aspirin (Ecotrin) 81 mg PO DAILYCM [facility] Last Admin: 04/12/18 07:43 Dose: 81 mg Atorvastatin Calcium (Lipitor) 40 mg PO QHS [facility] Last Admin: 04/11/18 22:17 Dose: 40 mg Chlorhexidine Gluconate () 1 each TOPICAL DAILY [facility] Last Admin: 04/12/18 01:30 Dose: 1 each Clopidogrel Bisulfate (Plavix) 75 mg PO DAILY [facility] Dextrose (D50w Syringe) 0 gm IV X1 PRN; Protocol PRN Reason: Hypoglycemia Diazepam (Valium) 5 mg PO BID PRN PRN PRN Reason: ANXIETY Enoxaparin Sodium (Lovenox) 100 mg SC Q12 [facility] Last Admin: 04/11/18 22:16 Dose: 100 mg Ergocalciferol (Vitamin D) 50,000 unit PO Sa@1000 OMARI Furosemide (Lasix) 40 mg IV Q8 [facility] Last Admin: 04/12/18 05:18 Dose: 40 mg Glucagon () 1 mg IM .X1 PRN PRN Reason: Hypoglycemia Sodium Chloride () 250 mls @ 15 mls/hr IV .[id number] PRN PRN Reason: SALINE FLUSH Insulin Glargine (Lantus (Bk)) 15 units SC BID [facility] Insulin Human Lispro (Humalog Kwikpen ([facility])) 0 unit SC ACHS [facility] PRN Reason: Protocol Last Admin: 04/12/18 07:39 Dose: 6 units Levothyroxine Sodium (Synthroid) 25 mcg PO MoWeFr@0600 [facility] Levothyroxine Sodium (Synthroid) 175 mcg PO DAILY@0600 [facility] Last Admin: 04/12/18 05:18 Dose: 175 mcg Magnesium Hydroxide (Milk Of Magnesia) 30 ml PO DAILY PRN PRN PRN Reason: Constipation Metoprolol Tartrate (Lopressor (Beta Mu)) 25 mg PO Q8 [facility] Last Admin: 04/12/18 05:18 Dose: 25 mg Montelukast Sodium (Singulair) 10 mg PO DAILY [facility] Morphine Sulfate () 1 - 2 mg IV Q4H PRN PRN PRN Reason: Moderate Pain (pain scale 4-5) Nutritional Formula (Lactose Free) (Glucerna Shake) 120 ml PO TIDCM [facility] Last Admin: 04/12/18 07:43 Dose: Not Given Ondansetron HCl (Zofran) 4 mg IV Q8H PRN PRN PRN Reason: Nausea Pantoprazole Sodium (Protonix) 40 mg PO DAILY [facility] Sodium Chloride () 5 - 30 ml IV UD PRN PRN Reason: SALINE FLUSH Last Admin: 04/12/18 05:22 Dose: 20 ml Medical Necessity - Tobacco Use Smoking Status: Former smoker Tobacco Use: Cigarettes Assessment/Plan All Active Problems CHF (congestive heart failure) (Acute) NSTEMI, initial episode of care (Acute) Acute non-ST elevation myocardial infarction (NSTEMI) (Acute) 62-year-old female with past medical history of CAD status post 4 stents, chronic systolic heart failure, EF of 40%, type II DM, hypertension, hyperlipidemia, COPD, recent A. fib with RVR status post cardioversion, recent NSTEMI. Patient was admitted on 03/23/2018 with acute hypoxic respiratory failure secondary to community-acquired pneumonia and was intubated. Workup confirmed streptococcal pneumonia and H influenza. Patient was treated and successfully extubated. She was found to have NSTEMI as well as left upper extremity swelling concerning for focal pyomyositis and was transferred to the [facility]. She was reportedly discharged from the [facility] 2 days ago but she presented to the ED with worsening shortness of breath. In the [facility], she underwent cardiac catheterization for persistent NSTEMI and had a stent placed in her LAD. 1. Acute hypoxic respiratory failure secondary to acute on chronic systolic CHF , improving, currently on 4 L of oxygen, will continue to wean off oxygen for SPO2 more than 94%. Encourage use of incentive spirometer. 2. Acute on chronic systolic heart failure, EF 40%, admitting chest x-ray shows bilateral lower lobe airspace disease, left greater than right. Suspect a small left pleural effusion. BNPep upon admission was 2532.5. Diuresing on IV Lasix 40 mg every 8, continue fluid restrictions, strict I's and O's, daily weights. Continue on beta-mu, continue aspirin, plavix, statin, beta-mu, lisinopril. JOEL wraps to legs 3. NSTEMI, persistent, s/p recent cardiac cath and LAD stent, on aspirin, plavix , beta-blockers, statin, cardiology consulted 4. Diabetes type 2, BS are stable, continue on insulin, with accucheks and ISS. Continue to hold metformin and glyburide. 4. History of SVT, on beta-blockers. 5. Left upper extremity swelling that was consistent with necrotizing fasciitis , no workup planned per [facility] records. 6. Acute kidney injury, secondary to cardiorenal, improved compared to admission creatinine, will continue to monitor 7. COPD/asthma without acute exacerbation, continue with as needed breathing treatments 8. Lactic acidosis, likely secondary to hypoxia, resolved 9. DVT prophylaxis with Lovenox subcu Code Visit Inpatient E&M: 62225 Subs Hosp L3
[2018-04-12 07:51] LABS: Bedside Glucose 360 mg/dL (70-110)
[2018-04-12] MEDS: Enoxaparin 100 MG/ML Syringe SC ×2 (09:37→22:13)
[2018-04-12] MEDS: Clopidogrel Bisulfate 75 MG Tablet PO (09:38)
[2018-04-12] MEDS: Pantoprazole Sodium 40 MG Tablet PO (09:38)
[2018-04-12] MEDS: Montelukast 10 MG Tablet PO (09:38)
--- NOTE | 2018-04-12 10:09 | CON.PCM_ITS ---
Reason for Consult Date of Consultation: 04/12/18 Reason for Consultation: Shortness of breath an abnormal cardiac enzymes History of Present Illness: The patient is a 62 year old F well-known to me from a previous admission. She does have a history of mild coronary artery disease and respiratory failure. During her previous admission less than a month ago she had presented with respiratory failure had an echocardiogram done which demonstrated globally reduced left ventricular systolic function as well as a non-ST elevation myocardial infarction. She also during that hospitalization developed atrial fibrillation with rapid ventricular response rate and necessitated urgent DC cardioversion. There was a plan to perform a cardiac catheterization on her during the hospitalization but she unfortunately developed left arm swelling and a possible necrotizing fasciitis. She was transferred to the [facility] for further workup and management. She says that during this hospitalization she underwent a cardiac catheterization through the right brachial approach and underwent placement of a coronary stents. The results and details of this are unknown at this time and have been requested. She was discharged home to undergo rehabilitation but said that she got short of breath but denied any chest pain. She presented to the emergency room and was noted to be hypoxic and and probable heart failure. She was admitted to the intensive care unit and was seen by the hospitalist, production manufacturing worker and now myself. She appears to be doing well at this time has not required to be intubated once again. Her electrocardiogram demonstrates poor R-wave progression but no acute changes. She denies any chest pain or paroxysmal nocturnal dyspnea she has had mild pedal edema [] Past Medical History Allergies/Adverse Reactions: Allergies ampicillin Allergy (Verified 10/20/16 10:31) Hives doxycycline Allergy (Verified 03/24/18 12:43) Unknown hydrochlorothiazide Allergy (Verified 03/24/18 12:43) Unknown iodine Allergy (Verified 10/20/16 10:31) Unknown Penicillins [PCN] Allergy (Verified 03/24/18 12:43) Unknown shellfish derived Allergy (Verified 10/20/16 10:31) Hives venom-honey bee [bee venom (honey bee)] Allergy (Verified 10/20/16 10:31) Hives diphenhydramine [From Benadryl] Adverse Reaction (Verified 10/20/16 20:48) Hives Home Medications: Ambulatory Orders Medication Instructions Recorded Clopidogrel Bisulfate [Clopidogrel] 75 mg PO DAILY 10/20/16 Diazepam 5 mg PO BID PRN PRN 10/20/16 Levothyroxine [Synthroid] 25 mcg PO MOWEFR 10/20/16 Levothyroxine [Synthroid] 175 mcg PO DAILY 10/20/16 Montelukast [Singulair] 10 mg PO DAILY 10/20/16 Potassium Chloride [K-Dur] 10 meq PO DAILY 10/20/16 Aspirin [Adult Aspirin Regimen] 81 mg PO DAILY 04/11/18 Atorvastatin Calcium [Lipitor] 40 mg PO QHS 04/11/18 Ergocalciferol [Vitamin D] 50,000 unit PO Q7D 04/11/18 Glimepiride [Amaryl] 8 mg PO DAILY 04/11/18 Insulin Degludec [Tresiba 20 unit SQ DAILY 04/11/18 Flextouch U-200] Metformin HCl [Metformin HCl ER] 500 mg PO DAILY 04/11/18 Metoprolol Tartrate 25 mg PO Q8H 04/11/18 Naproxen Sodium 220 mg PO PRN PRN 04/11/18 Pantoprazole Sodium [Protonix] 40 mg PO DAILY 04/11/18 Past Medical History (Chronic Problems): Chronic Problems NSTEMI (non-ST elevated myocardial infarction) (Chronic) Acute exacerbation of COPD with asthma (Chronic) Pneumococcal pneumonia (Chronic) Acute respiratory failure with hypoxia and hypercapnia (Chronic) Diabetes mellitus (Chronic) HLD (hyperlipidemia) (Chronic) S/P PTCA (percutaneous transluminal coronary angioplasty) (Chronic) SVT (supraventricular tachycardia) (Chronic) CAD (coronary artery disease) (Chronic) Essential hypertension (Chronic) Surgical History: no surgical history - *Family History Paternal History Items: No pertinent history Smoking Status: Former smoker Tobacco Use: Cigarettes Alcohol: None Drugs: None Review of Systems - Review of Systems General: Denies: Fever, Night Sweats, Fatigue Cardiovascular: Reports: Shortness of Breath, Shortness of Breath at Rest, Shortness of Breath with Exertion. Denies: Chest Discomfort, Orthopnea, PND, Peripheral Edema, Palpitations, Lightheadedness, Dizziness, Near Syncope, Syncope Respiratory: Denies: Cough, Sputum Production, Hemoptysis Gastrointestinal: Denies: Hematemesis, Hematochezia, Melena Genitourinary: Denies: Dysuria, Hematuria Skin: Denies: Rash Subjectve: Pleasant lady in no apparent distress Objective: Vital Signs Temp Pulse Resp BP Pulse Ox 97.0 F L 99 21 H 136/88 H 92 04/12/18 08:00 04/12/18 09:00 04/12/18 09:00 04/12/18 09:00 04/12/18 09:00 Oxygen Flow Rate (L/min) 4 Oxygen Delivery Method Nasal Cannula Weight: 201 lb 0.985 oz Body Mass Index (BMI) 32.6 Intake and Output for Last 24 Hours 04/10/18 04/11/18 04/12/18 23:59 23:59 23:59 Intake Total 300 / 300 320 / 320 Output Total 250 / 250 300 / 300 Balance 50 / 50 20 / 20 General: Awake, Alert, Oriented x 3 HEENT: PERRL, EOMI, Sclera Non Icteric Neck: Supple, Good ROM, No Lymph Node Enlargement Lungs: Diminished Sharan Bases Cardiovascular: Regular Rhythm, Normal S1, Normal S2, No Murmurs, No Rubs, No Gallops Vascular: No Carotid Bruits, Normal Femoral Pulses, Normal Radial Pulses, Normal Dorsalis Pedal Pulse, Normal Posterior Tibial Pulses Abdomen: Bowel Sounds Present, Soft, Non Tender, No HSM, No Organomegaly Extremities: No Cyanosis, No Clubbing, Bilateral Edema +1 Neurological: No Focal Motor or Sensory Deficit 04/11/18 20:15: pH 7.37, Bicarbonate Actual 20.8 L, POC Total CO2 22, Base Excess -5 L, O2 Saturation 90 L, ABG pCO2 36.4, ABG pO2 59 L, Tamir Test POS 04/11/18 20:25: Troponin I 1.580 H* 04/11/18 22:35: Troponin I 1.330 H* 04/11/18 22:35: Lactic Acid 1.7 04/12/18 05:32: WBC 7.6, RBC 4.03 L, Hgb 12.3, Hct 37.7, MCV 93.5, MCH 30.5, MCHC 32.6, RDW 18.9 H, RDW Differential 60.9 H, Plt Count 179, MPV 10.5 04/12/18 05:32: Sodium 134 L, Potassium 5.3 H, Chloride 103, Carbon Dioxide 17.0 L, Anion Gap 14, BUN 39 H, Creatinine 1.16 H, Est GFR (MDRD) Af Amer 61, Est GFR (MDRD) Non-Af 50 L, BUN/Creatinine Ratio 33.6 H, Glucose 389 H, Calcium 7.8 L Rhythm: EKG: ECHO: Stress Test: Cardiac Cath: PCI: CT Surgery: Holter monitor: EPS: PPM: CXR: Chest CT Scan: Assessment/Plan 1. Non-ST elevation myocardial infarction. The patient presents with shortness of breath and develops a non-ST elevation myocardial infarction. I would like to see what the records from the [facility] demonstrate and then based on that further recommendations will be made. At this time however I am rather hesitant to pursue any invasive therapy. This is secondary to her extensive comorbidities. 2. Congestive heart failure. She does have a history of congestive heart failure and this is likely acute systolic. Her ejection fraction at her previous admission was noted to be approximately 40% her echocardiogram will be reviewed and her records from the clinic as well. She will be diuresed with intravenous Lasix at this particular time.
--- NOTE | 2018-04-12 12:12 | CASEMGMT ---
Social Work Referral for placement. Doctor recommending Inpatient Rehab for patient. Spoke with patient in room. Patient currently lives at home alone and has had recent hospitalization. Patient reporting to have declined rehabilitation with last hospitalization but to have not done well at home and to realize that patient would benefit from therapy before returning back to home alone. Patient insurance is [employer]. Patient aware that precert would need to be obtained. Patient first choice for facility would be the Inpatient Rehab Unit. Patient does not currently have a second option but if Rehab does not work patient would like to stay local to the [facility]. Support given. Telephone call to Mary in Inpatient Rehab, Mary requesting for referral to be made Saturday when Mary is able to look over the case further. Social Work to continue to follow on Saturday. Kari MERIDA, MACHINE SET UP
[2018-04-12 12:31] LABS: Bedside Glucose 432 mg/dL (70-110)
[2018-04-12 16:10] LABS: Bedside Glucose 380 mg/dL (70-110)
[2018-04-12] MEDS: Atorvastatin Calcium 40 MG Tablet PO (22:07)
[2018-04-12 22:31] LABS: Bedside Glucose 363 mg/dL (70-110)
[2018-04-13] VITALS (13 sets, daily range): BP systolic 102–114; BP diastolic 59–70; PULSE 76–113; RESP 16–18; TEMP 36.1–36.8; O2SAT 92–97
[2018-04-13] MEDS: Furosemide 40 MG/4 ML Vial IV (06:20)
[2018-04-13] MEDS: Levothyroxine 175 MCG Tablet PO (06:20)
--- NOTE | 2018-04-13 06:44 | PN_ITS ---
Subjective: Patient transferred out of the intensive care unit yesterday. Patient reports subjective improvement in breathing. Patient still has significant weakness of the left upper extremity. Patient reports a periodic nonproductive cough. General: Alert, Oriented x3, Cooperative, No apparent distress, - - Speaks in full sentences. Hoarse voice (baseline) HEENT: Atraumatic, PERRLA, EOMI, Normocephalic, - - No scleral icterus or injection noted. Oral: Moist Mucosa, No Gingival or Mucosal Lesions/ Ulcerations Neck: Supple, No JVD, No Nodes, Trachea Midline Lungs: No rhonchi, No rales, Diminished, Wheezes - Sporadic, - - Symmetric expansion. No dullness to percussion. Cardiovascular: Regular rate, Regular Rhythm, Normal S1, Normal S2, No murmurs, No rub noted, No Gallop Abdomen: Bowel Sounds Present, Soft, Non Tender, Non-Distended Extremities: No cyanosis, Clubbing, Edema - 2+ lower extremities Skin: - - Grossly unchanged compared to previous. Still with significant ecchymosis noted of the left upper extremity and abdomen Musculoskeletal: No Tenderness to Palpation of Joints or Extremities, No Muscle Wasting Lymphatic: No Cervical, Supraclavicular, or Inguinal Adenopathy Neurological: Cranial nerves II-XII grossly intact, - - Continues to have decreased movement of left upper extremity. Sensation is intact. Psych/Mental Status: Alert and oriented to time, place, person, mood and affect Vital Signs Temp Pulse Resp BP Pulse Ox 36.1 C L 90 16 110/68 96 04/13/18 02:00 04/13/18 03:06 04/13/18 02:00 04/13/18 02:00 04/13/18 02:00 Oxygen Flow Rate (L/min) 3 Oxygen Delivery Method Nasal Cannula Weight: 91.2 kg Body Mass Index (BMI) 32.6 Intake and Output for Last 24 Hours 04/11/18 04/12/18 04/13/18 23:59 23:59 23:59 Intake Total 300 / 300 1160 / 1160 100 / 100 Output Total 250 / 250 700 / 700 650 / 650 Balance 50 / 50 460 / 460 -550 / -550 Labs (Last 48 Hours) 04/11/18 04/11/18 04/11/18 19:50 20:15 20:25 WBC RBC Hgb Hct MCV MCH MCHC RDW RDW Differential Plt Count MPV Specimen Type ART Sample Site R Radial pH 7.37 Bicarbonate Actual 20.8 L POC Total CO2 22 Base Excess -5 L O2 Saturation 90 L ABG pCO2 36.4 ABG pO2 59 L Tamir Test POS O2 Delivery Device Nasal Can Liter Flow 6.0 Blood Gas Notified Whom ICU MD Blood Gas Notified Time 2009 Sodium Potassium Chloride Carbon Dioxide Anion Gap BUN Creatinine Estim Creat Clear Calc Est GFR (MDRD) Af Amer Est GFR (MDRD) Non-Af BUN/Creatinine Ratio Glucose Lactic Acid Calcium Troponin I 1.580 H* MRSA (PCR) Negative POC Glucose 04/11/18 04/11/18 04/11/18 22:13 22:35 22:35 WBC RBC Hgb Hct MCV MCH MCHC RDW RDW Differential Plt Count MPV Specimen Type Sample Site pH Bicarbonate Actual POC Total CO2 Base Excess O2 Saturation ABG pCO2 ABG pO2 Tamir Test O2 Delivery Device Liter Flow Blood Gas Notified Whom Blood Gas Notified Time Sodium Potassium Chloride Carbon Dioxide Anion Gap BUN Creatinine Estim Creat Clear Calc Est GFR (MDRD) Af Amer Est GFR (MDRD) Non-Af BUN/Creatinine Ratio Glucose Lactic Acid 1.7 Calcium Troponin I 1.330 H* MRSA (PCR) POC Glucose 416 H 04/12/18 04/12/18 04/12/18 05:32 05:32 07:38 WBC 7.6 RBC 4.03 L Hgb 12.3 Hct 37.7 MCV 93.5 MCH 30.5 MCHC 32.6 RDW 18.9 H RDW Differential 60.9 H Plt Count 179 MPV 10.5 Specimen Type Sample Site pH Bicarbonate Actual POC Total CO2 Base Excess O2 Saturation ABG pCO2 ABG pO2 Tamir Test O2 Delivery Device Liter Flow Blood Gas Notified Whom Blood Gas Notified Time Sodium 134 L Potassium 5.3 H Chloride 103 Carbon Dioxide 17.0 L Anion Gap 14 BUN 39 H Creatinine 1.16 H Estim Creat Clear Calc 47.68 Est GFR (MDRD) Af Amer 61 Est GFR (MDRD) Non-Af 50 L BUN/Creatinine Ratio 33.6 H Glucose 389 H Lactic Acid Calcium 7.8 L Troponin I MRSA (PCR) POC Glucose 360 H 04/12/18 04/12/18 04/12/18 12:21 16:05 22:17 WBC RBC Hgb Hct MCV MCH MCHC RDW RDW Differential Plt Count MPV Specimen Type Sample Site pH Bicarbonate Actual POC Total CO2 Base Excess O2 Saturation ABG pCO2 ABG pO2 Tamir Test O2 Delivery Device Liter Flow Blood Gas Notified Whom Blood Gas Notified Time Sodium Potassium Chloride Carbon Dioxide Anion Gap BUN Creatinine Estim Creat Clear Calc Est GFR (MDRD) Af Amer Est GFR (MDRD) Non-Af BUN/Creatinine Ratio Glucose Lactic Acid Calcium Troponin I MRSA (PCR) POC Glucose 432 H 380 H 363 H Medical Necessity - Tobacco Use Smoking Status: Former smoker Tobacco Use: Cigarettes Assessment/Plan All Active Problems CHF (congestive heart failure) (Acute) NSTEMI, initial episode of care (Acute) Acute non-ST elevation myocardial infarction (NSTEMI) (Acute) RECOMMENDATIONS: 1. Increase Lantus to 20 units twice daily 2. Wean oxygen as tolerated 3. Continue aggressive diuresis 4. No active reversal of hyperkalemia 5. Obtain records from [facility] 6. Increase activity as tolerated IMPRESSIONS: 1. Acute combined respiratory failure secondary to suspected acute on chronic combined CHF Patient is not reporting any constitutional symptoms to suggest an acute pneumonia at this time. Patient has been off of Lasix therapy and does have significant edema noted. Patient's last ejection fraction was noted to be 40%. It is unclear at this time if patient did have a heart catheterization or whether a stent was placed into her left upper extremity. Await records from [facility]. Cardiology has been consulted. Would continue with Lasix therapy unless BMP shows significant increase in creatinine 2. Non-ST elevation [place]/history of atrial flutter with RVR Previous echocardiogram showed an ejection fraction of 40%. Need to clarify what happened at [facility] as patient is reporting a heart catheterization, not a left upper extremity intervention. Patient may be at risk for in-stent stenosis if she was noncompliant with Plavix therapy. Await cardiology recommendations. 3. Diabetes mellitus type 2/hyperkalemia Patient was difficult to control during last hospitalization. Will increase Lantus therapy twice daily as this was successful in controlling blood sugars previously. Patient's potassium will likely decrease with active diuresis and control of blood sugars. Await morning BMP. Would not recommend aggressive reversal of potassium as patient has no changes on telemetry. 4. Anxiety/hypertension/hyperlipidemia/hypothyroidism Complicates care, management, recovery and prognosis. Blood pressure has been controlled when patient's anxiety is controlled at this time. Patient is on baseline blood pressure medications, but these have been held at this time. 5. Left upper extremity swelling Patient was significant improvement in left upper extremity swelling, but does have extensive ecchymosis noted. It is reported that this is a complication of therapy at the [facility]. Patient does not have any significant breakdown or superinfection that I can tell. Patient does not have any leukocytosis to suggest ongoing pyomyositis. Patient will likely require rehab. PT/OT will be consulted Code Visit Inpatient E&M: 27297 Subs Hosp L2
[2018-04-13 07:29] LABS: Hematocrit 36.9 % (37-47); Hemoglobin 11.6 g/dl (12.0-15.0); Mean Corp Hgb Conc 31.4 g/gl (32-36); Mean Corpuscular Hgb 29.3 pg (27.0-32.0); Mean Corpuscular Volume 93.2 fL (81-99); Mean Platelet Vol. 10.5 fl (6.2-12.0); Platelet Count 204 K/mm3 (150-450); RBC Distribution Width CV 18.6 % (11.6-14.6); RBC Distribution Width SD 61.4 fl (35.1-43.9); Red Blood Count 3.96 M/mm3 (4.2-5.4)
[2018-04-13 07:30] LABS: Scan Indicated on CBC? Y/N NO
[2018-04-13 07:30] LABS: Bedside Glucose 232 mg/dL (70-110)
--- NOTE | 2018-04-13 07:39 | PN_ITS ---
Patient Problems: Active and Suspected Problems CHF (congestive heart failure) (Acute) Subjective: Patient seen and examined. Denies chest pain, dizziness, palpitations. Feels better. On 1-2L of oxygen. Objective: Physical exam: General: Alert, Oriented x3, Cooperative, No apparent distress, - - on 1.5L oxygen, appear comfortable HEENT: Atraumatic, PERRLA, EOMI, Normocephalic Oral: Moist Mucosa Neck: Supple Lungs: Clear to auscultation, Normal air movement, Diminished, Rales - bilaterally Cardiovascular: Regular rate, Regular Rhythm, Normal S1, Normal S2, No murmurs Abdomen: Bowel Sounds Present, Soft, Non Tender, Non-Distended, No Hepato- splenomegaly Extremities: Edema - bilateral, nontender, +2-3, LUE edema with black/blue hematoma of left medial posterior surface and yellow skin discoloration from resolving hematoma as well as receeding edema. She is able to make a fist and move her upper extremity Skin: Old ecchymosis and resolving skin coloration of the left upper extremity Musculoskeletal: No Tenderness to Palpation of Joints or Extremities Lymphatic: No Cervical, Supraclavicular, or Inguinal Adenopathy Neurological: Cranial nerves II-XII grossly intact, Neuro grossly intact Psych/Mental Status: Normal Affect, Appropriate Vitals/I&O's: Vital Signs Temp Pulse Resp BP Pulse Ox 97.0 F L 94 16 110/68 96 04/13/18 02:00 04/13/18 07:07 04/13/18 02:00 04/13/18 02:00 04/13/18 02:00 Oxygen Flow Rate (L/min) 3 Oxygen Delivery Method Nasal Cannula Weight: 91.2 kg Body Mass Index (BMI) 32.6 Intake and Output for Last 24 Hours 04/11/18 04/12/18 04/13/18 23:59 23:59 23:59 Intake Total 300 / 300 1160 / 1160 100 / 100 Output Total 250 / 250 700 / 700 650 / 650 Balance 50 / 50 460 / 460 -550 / -550 Laboratory Results 04/12/18 07:38: POC Glucose 360 H 04/12/18 12:21: POC Glucose 432 H 04/12/18 16:05: POC Glucose 380 H 04/12/18 22:17: POC Glucose 363 H 04/13/18 05:50: WBC 13.0 H, RBC 3.96 L, Hgb 11.6 L, Hct 36.9 L, MCV 93.2, MCH 29.3, MCHC 31.4 L, RDW 18.6 H, RDW Differential 61.4 H, Plt Count 204, MPV 10.5 04/13/18 05:50: Sodium Pending, Potassium Pending, Chloride Pending, Carbon Dioxide Pending, Anion Gap Pending, BUN Pending, Creatinine Pending, Est GFR ( MDRD) Af Amer Pending, Est GFR (MDRD) Non-Af Pending, BUN/Creatinine Ratio Pending, Glucose Pending, Calcium Pending 04/13/18 07:12: POC Glucose 232 H Current Medications Aspirin (Ecotrin) 81 mg PO DAILYCM [facility] Last Admin: 04/12/18 07:43 Dose: 81 mg Atorvastatin Calcium (Lipitor) 40 mg PO QHS [facility] [place] Last Admin: 04/12/18 22:07 Dose: 40 mg Chlorhexidine Gluconate () 1 each TOPICAL DAILY [facility] [place] Last Admin: 04/12/18 01:30 Dose: 1 each Clopidogrel Bisulfate (Plavix) 75 mg PO DAILY [facility] [place] Last Admin: 04/12/18 09:38 Dose: 75 mg Dextrose (D50w Syringe) 0 gm IV X1 PRN; Protocol PRN Reason: Hypoglycemia Diazepam (Valium) 5 mg PO BID PRN PRN PRN Reason: ANXIETY Enoxaparin Sodium (Lovenox) 100 mg SC Q12 [facility] [place] Last Admin: 04/12/18 22:13 Dose: 100 mg Ergocalciferol (Vitamin D) 50,000 unit PO Sa@1000 [facility] [place] Last Admin: 04/12/18 09:38 Dose: 50,000 unit Furosemide (Lasix) 40 mg IV Q8 [facility] [place] Last Admin: 04/13/18 06:20 Dose: 40 mg Glucagon () 1 mg IM .X1 PRN PRN Reason: Hypoglycemia Sodium Chloride () 250 mls @ 15 mls/hr IV .[id number] PRN PRN Reason: SALINE FLUSH Insulin Glargine (Lantus (Bkc)) 20 units SC BID [facility] Insulin Human Lispro (Humalog Kwikpen (Bkc)) 0 unit SC ACHS [facility] [place] PRN Reason: Protocol Last Admin: 04/12/18 22:17 Dose: 6 units Levothyroxine Sodium (Synthroid) 25 mcg PO MoWeFr@0600 [facility] [place] Levothyroxine Sodium (Synthroid) 175 mcg PO DAILY@0600 [facility] [place] Last Admin: 04/13/18 06:20 Dose: 175 mcg Magnesium Hydroxide (Milk Of Magnesia) 30 ml PO DAILY PRN PRN PRN Reason: Constipation Metoprolol Tartrate (Lopressor (Beta Mu)) 25 mg PO BID [facility] [place] Last Admin: 04/12/18 22:07 Dose: 25 mg Montelukast Sodium (Singulair) 10 mg PO DAILY [facility] [place] Last Admin: 04/12/18 09:38 Dose: 10 mg Morphine Sulfate () 1 - 2 mg IV Q4H PRN PRN PRN Reason: Moderate Pain (pain scale 4-5) Ondansetron HCl (Zofran) 4 mg IV Q8H PRN PRN PRN Reason: Nausea Pantoprazole Sodium (Protonix) 40 mg PO DAILY [facility] [place] Last Admin: 04/12/18 09:38 Dose: 40 mg Sodium Chloride () 5 - 30 ml IV UD PRN PRN Reason: SALINE FLUSH Last Admin: 04/12/18 13:55 Dose: 10 ml Medical Necessity - Tobacco Use Smoking Status: Former smoker Tobacco Use: Cigarettes Assessment/Plan All Active Problems CHF (congestive heart failure) (Acute) NSTEMI, initial episode of care (Acute) Acute non-ST elevation myocardial infarction (NSTEMI) (Acute) 62-year-old female with past medical history of CAD status post 4 stents, chronic systolic heart failure, EF of 40%, type II DM, hypertension, hyperlipidemia, COPD, recent A. fib with RVR status post cardioversion, recent NSTEMI. Patient was admitted on 03/23/2018 with acute hypoxic respiratory failure secondary to community-acquired pneumonia and was intubated. Workup confirmed streptococcal pneumonia and H influenza. Patient was treated and successfully extubated. She was found to have NSTEMI as well as left upper extremity swelling concerning for focal pyomyositis and was transferred to the [facility]. She was reportedly discharged from the [facility] 2 days ago but she presented to the ED with worsening shortness of breath. In the [facility], she underwent cardiac catheterization for persistent NSTEMI and had a stent placed in her LAD. 1. Acute hypoxic respiratory failure secondary to acute on chronic systolic CHF , improving, on 1.5 L of oxygen, will continue to wean off oxygen for SPO2 more than 94% encourage incentive spirometer. 2. Acute on chronic systolic heart failure, EF 40%, admitting chest x-ray shows bilateral lower lobe airspace disease, left greater than right. Suspect a small left pleural effusion. BNPep upon admission was 2532.5. Continue on po lasix 40mg bid, continue fluid restrictions, strict I's and O's, daily weights. Continue on beta-mu, continue aspirin, plavix, statin, beta- mu, lisinopril. JOEL wraps to legs and LUE. 3. Acute NSTEMI, persistent, s/p recent cardiac cath and LAD stent, on aspirin, plavix, beta-blockers, statin, cardiology consulted, continue with medical therapy. 4. DM type 2, BS are stable, continue on insulin, with accucheks and ISS. Continue to hold metformin and glyburide. 5. History of SVT, on beta-blockers. 6. Left upper extremity swelling that was consistent with necrotizing fasciitis , no workup planned per [facility] records, JOEL wraps to LUE. 7. Acute kidney injury secondary to cardiorenal, slightly worse today, Cr increased to 1.38, lasix switched to 40mg po bid. 8. COPD/asthma without acute exacerbation, continue with as needed breathing treatments 9. Lactic acidosis, likely secondary to hypoxia, resolved 10. DVT prophylaxis with Lovenox subcu Code Visit Inpatient E&M: 12156 Subs Hosp L2
[2018-04-13 07:42] LABS: Anion Gap 11 (5-15); BUN 50 mg/dL (7-18); BUN/Creat Ratio 36.2 RATIO (10-20); Calcium,Total 8.1 mg/dL (8.5-10.1); Chloride 101 mmol/L (98-107); Creatinine, Serum 1.38 mg/dL (0.55-1.02); EST Glomerular Filtration Rate 41 mL/min (>60); Est Glom Filt Rate - Afr Amer 50 mL/min (>60); Estimated Creatinine Clearance 40.08 ml/min; Glucose 237 mg/dL (74-106); Potassium 4.4 mmol/L (3.5-5.1); Sodium Level 138 mmol/L (136-145)
[2018-04-13] MEDS: Aspirin E.C. 81 MG Tablet PO (08:03)
[2018-04-13] MEDS: Insulin Lispro 100 UNIT/ML INSULN.PEN SC ×4 (08:03→21:15)
--- NOTE | 2018-04-13 08:46 | PCM.PN.CARD ---
Subjectve: Patient seen and evaluated. Appears to be doing quite well denies any cardiac complaints. Objective: Vital Signs Temp Pulse Resp BP Pulse Ox 97.8 F 94 18 114/70 92 04/13/18 07:56 04/13/18 07:56 04/13/18 07:56 04/13/18 07:56 04/13/18 08:09 Oxygen Flow Rate (L/min) 1.5 Oxygen Delivery Method Nasal Cannula Weight: 201 lb 0.985 oz Body Mass Index (BMI) 32.6 Intake and Output for Last 24 Hours 04/11/18 04/12/18 04/13/18 23:59 23:59 23:59 Intake Total 300 / 300 1160 / 1160 100 / 100 Output Total 250 / 250 700 / 700 650 / 650 Balance 50 / 50 460 / 460 -550 / -550 General: Awake, Alert, Oriented x 3 HEENT: PERRL, EOMI, Sclera Non Icteric Neck: Supple, Good ROM, No Lymph Node Enlargement Lungs: Clear to auscultation Cardiovascular: Regular Rhythm, Normal S1, Normal S2, No Murmurs, No Rubs, No Gallops Vascular: No Carotid Bruits, Normal Femoral Pulses, Normal Radial Pulses, Normal Dorsalis Pedal Pulse, Normal Posterior Tibial Pulses Abdomen: Bowel Sounds Present, Soft, Non Tender, No HSM, No Organomegaly Extremities: No Cyanosis, No Clubbing, No edema, - - Left upper arm still black and blue Neurological: No Focal Motor or Sensory Deficit 04/13/18 05:50: WBC 13.0 H, RBC 3.96 L, Hgb 11.6 L, Hct 36.9 L, MCV 93.2, MCH 29.3, MCHC 31.4 L, RDW 18.6 H, RDW Differential 61.4 H, Plt Count 204, MPV 10.5 04/13/18 05:50: Sodium 138, Potassium 4.4, Chloride 101, Carbon Dioxide 26.0, Anion Gap 11, BUN 50 H, Creatinine 1.38 H, Est GFR (MDRD) Af Amer 50 L, Est GFR (MDRD) Non-Af 41 L, BUN/Creatinine Ratio 36.2 H, Glucose 237 H, Calcium 8.1 L Rhythm: EKG: ECHO: Stress Test: Cardiac Cath: PCI: CT Surgery: Holter monitor: EPS: PPM: CXR: Chest CT Scan: Medical Necessity - Tobacco Use Smoking Status: Former smoker Tobacco Use: Cigarettes Assessment/Plan 1. Non-ST elevation myocardial infarction. The patient presents with shortness of breath and develops a non-ST elevation myocardial infarction. It appears that after his transfer to the [facility] she underwent a cardiac catheterization which demonstrated a 90% post-stent stenosis in the left anterior descending artery for which she underwent angioplasty and placement of a drug-eluting stent. The circumflex artery was noted to be patent from the stents that had been placed in November 2016. The right coronary artery was also noted to be patent with the previously placed drug-eluting stent which was patent. Medical therapy will be continued at this juncture. No indication for further invasive therapy. Will repeat echo in a.m. to assess left ventricular function. 2. Congestive heart failure. She does have a history of congestive heart failure and this is likely acute systolic. Her ejection fraction at her previous admission was noted to be approximately 40% her echocardiogram will be reviewed and her records from the clinic as well. It appears that the ejection fraction at that time was about 43%. She will be transitioned from intravenous Lasix to oral Lasix. Lit inhibitors will be added as appropriate as her renal function improves. Thank you for allowing me to participate in the care of your patient. Please don't hesitate to call if any issues arise
--- NOTE | 2018-04-13 08:50 | PN.CARD_ITS ---
Subjectve: Patient seen and evaluated. Appears to be doing quite well denies any cardiac complaints. Objective: Vital Signs Temp Pulse Resp BP Pulse Ox 97.8 F 94 18 114/70 92 04/13/18 07:56 04/13/18 07:56 04/13/18 07:56 04/13/18 07:56 04/13/18 08:09 Oxygen Flow Rate (L/min) 1.5 Oxygen Delivery Method Nasal Cannula Weight: 201 lb 0.985 oz Body Mass Index (BMI) 32.6 Intake and Output for Last 24 Hours 04/11/18 04/12/18 04/13/18 23:59 23:59 23:59 Intake Total 300 / 300 1160 / 1160 100 / 100 Output Total 250 / 250 700 / 700 650 / 650 Balance 50 / 50 460 / 460 -550 / -550 General: Awake, Alert, Oriented x 3 HEENT: PERRL, EOMI, Sclera Non Icteric Neck: Supple, Good ROM, No Lymph Node Enlargement Lungs: Clear to auscultation Cardiovascular: Regular Rhythm, Normal S1, Normal S2, No Murmurs, No Rubs, No Gallops Vascular: No Carotid Bruits, Normal Femoral Pulses, Normal Radial Pulses, Normal Dorsalis Pedal Pulse, Normal Posterior Tibial Pulses Abdomen: Bowel Sounds Present, Soft, Non Tender, No HSM, No Organomegaly Extremities: No Cyanosis, No Clubbing, No edema, - - Left upper arm still black and blue Neurological: No Focal Motor or Sensory Deficit 04/13/18 05:50: WBC 13.0 H, RBC 3.96 L, Hgb 11.6 L, Hct 36.9 L, MCV 93.2, MCH 29.3, MCHC 31.4 L, RDW 18.6 H, RDW Differential 61.4 H, Plt Count 204, MPV 10.5 04/13/18 05:50: Sodium 138, Potassium 4.4, Chloride 101, Carbon Dioxide 26.0, Anion Gap 11, BUN 50 H, Creatinine 1.38 H, Est GFR (MDRD) Af Amer 50 L, Est GFR (MDRD) Non-Af 41 L, BUN/Creatinine Ratio 36.2 H, Glucose 237 H, Calcium 8.1 L Rhythm: EKG: ECHO: Stress Test: Cardiac Cath: PCI: CT Surgery: Holter monitor: EPS: PPM: CXR: Chest CT Scan: Medical Necessity - Tobacco Use Smoking Status: Former smoker Tobacco Use: Cigarettes Assessment/Plan 1. Non-ST elevation myocardial infarction. The patient presents with shortness of breath and develops a non-ST elevation myocardial infarction. * It appears that after his transfer to the [facility] she underwent a cardiac catheterization which demonstrated a 90% post-stent stenosis in the left anterior descending artery for which she underwent angioplasty and placement of a drug-eluting stent. The circumflex artery was noted to be patent from the stents that had been placed in November 2016. The right coronary artery was also noted to be patent with the previously placed drug- eluting stent which was patent. * Medical therapy will be continued at this juncture. * No indication for further invasive therapy. * Will repeat echo in a.m. to assess left ventricular function. 2. Congestive heart failure. She does have a history of congestive heart failure and this is likely acute systolic. Her ejection fraction at her previous admission was noted to be approximately 40% her echocardiogram will be reviewed and her records from the clinic as well. It appears that the ejection fraction at that time was about 43 %. She will be transitioned from intravenous Lasix to oral Lasix. Lit inhibitors will be added as appropriate as her renal function improves. Thank you for allowing me to participate in the care of your patient. Please don't hesitate to call if any issues arise
--- NOTE | 2018-04-13 08:52 | ECHOD_ITS ---
Reason For Study: S/P [place] Procedure This was a 2D Doppler, Color Flow transthoracic echocardiogram. Patient stated she was unable to lay on left side due to pain and left sided paralysis. Attempted a Bubble study twice to assess IAS but was unsuccessful due to poor IV. Patient would not allow another try after new IV has been placed. Exam performed portable in patient room. Left Ventricle Normal LV size. The estimated ejection fraction is 30 %. Moderately severe segmental systolic dysfunction (see wall motion). Transmitral diastolic flow velocities suggest severe (stage 3) diastolic dysfunction. [place] : Akinetic. Infero-Basal: Akinetic. Mid-Posterior: Normal. The rest of the wall segments are hypokinetic. Right Ventricle Normal RV size. Normal systolic function. [place] Normal left atrium. Normal right atrium. Mitral Valve There is mild to moderate mitral annular calcification. Mild (1+) eccentric mitral valve insufficiency. Tricuspid Valve Normal tricuspid valve. Moderate (2+) tricuspid valve insufficiency. Moderate pulmonary hypertension. Pulmonary artery systolic pressure is 52 mmHg. Aortic Valve Trisinus/trileaflet aortic valve. Mild focal aortic valve calcification. Pulmonic Valve Normal pulmonic valve. Great Vessels Normal aortic root. The pulmonary artery is normal size. Normal inferior vena cava. and partially collapses. Pericardium/Pleural No pericardial effusion. Moderate size left pleural effusion. MMode/2D Measurements & Calculations LVIDd: 5.4 cm IVSd: 0.95 cm Ao root diam: 2.9 cm LVIDs: 4.3 cm LVPWd: 0.96 cm LA dimension: 4.8 cm FS: 20.7 % LAV(MOD-bp): 71.3 ml LVAd ap4: 30.9 cm2 SV(MOD-sp4): 40.9 ml LAV(MOD-bp) Indexed: 36.0 ml/m2 EDV(MOD-sp4): 103.4 ml LAV(MOD-sp2): 65.9 ml EDV(sp4-el): 105.0 ml LAV(MOD-sp4): 72.7 ml LVAs ap4: 23.6 cm2 ESV(MOD-sp4): 62.5 ml ESV(sp4-el): 64.5 ml EF(MOD-sp4): 39.6 % EF(sp4-el): 38.6 % SV(sp4-el): 40.5 ml LA A4 area: 22.1 cm2 RA A4 area: 13.8 cm2 Time Measurements MV dec time: 0.16 sec Doppler Measurements & Calculations MV E max kadi: 104.4 cm/sec MV V2 max: 120.6 cm/sec MV P1/2t max kadi: 122.1 cm/sec MV A max kadi: 29.8 cm/sec MV max P.8 mmHg MV P1/2t: 91.5 msec MV E/A: 3.5 MV V2 mean: 61.1 cm/sec MV dec slope: 390.7 cm/sec2 MV mean P.9 mmHg MVA(P1/2t): 2.4 cm2 MV V2 VTI: 25.7 cm Ao V2 max: 104.4 cm/sec LV V1 max: 81.6 cm/sec PA V2 max: 74.0 cm/sec Ao max P.4 mmHg LV V1 max P.7 mmHg Ao V2 mean: 71.9 cm/sec LV V1 mean P.2 mmHg Ao mean P.3 mmHg LV V1 mean: 49.7 cm/sec Ao V2 VTI: 18.5 cm LV V1 VTI: 12.6 cm TR max kadi: 344.7 cm/sec TR max P.5 mmHg Interpretation Summary Normal LV size. The estimated ejection fraction is 30 %. Moderately severe segmental systolic dysfunction (see wall motion). Transmitral diastolic flow velocities suggest severe (stage 3) diastolic dysfunction Mild (1+) eccentric mitral valve insufficiency. Pulmonary artery systolic pressure is 52 mmHg. Cannot completely exclude LV apical thrombus Ordering Physician: Ilya Del Cid Referring Physician: Anastasiia Cordoba M.D. Performed By: Reynold Quinn RCS
[2018-04-13] MEDS: Metoprolol Tartrate 25 MG Tablet PO ×2 (10:00→21:16)
[2018-04-13] MEDS: Pantoprazole Sodium 40 MG Tablet PO (10:00)
[2018-04-13] MEDS: Lisinopril 2.5 MG Tablet PO (10:01)
[2018-04-13] MEDS: Montelukast 10 MG Tablet PO (10:01)
[2018-04-13] MEDS: Clopidogrel Bisulfate 75 MG Tablet PO (10:01)
[2018-04-13] MEDS: Furosemide 40 MG Tablet PO ×2 (10:01→17:39)
[2018-04-13] MEDS: Enoxaparin 40 MG/0.4 ML Syringe SC (10:01)
[2018-04-13] MEDS: Insulin Lispro 100 UNIT/ML INSULN.PEN SQ ×2 (12:59→16:22)
[2018-04-13 16:11] LABS: Bedside Glucose 243 mg/dL (70-110)
[2018-04-13 17:35] LABS: Bedside Glucose 193 mg/dL (70-110)
[2018-04-13] MEDS: Atorvastatin Calcium 40 MG Tablet PO (21:15)
[2018-04-13 22:31] LABS: Bedside Glucose 175 mg/dL (70-110)
[2018-04-14] VITALS (14 sets, daily range): BP systolic 98–112; BP diastolic 56–61; PULSE 66–85; RESP 16; TEMP 36.2–37.1; O2SAT 96–100
[2018-04-14] MEDS: Levothyroxine 175 MCG Tablet PO (05:49)
[2018-04-14] MEDS: Levothyroxine 25 MCG TABLET PO (05:49)
[2018-04-14 06:04] LABS: Hematocrit 35.2 % (37-47); Hemoglobin 11.5 g/dl (12.0-15.0); Mean Corp Hgb Conc 32.7 g/gl (32-36); Mean Corpuscular Hgb 30.4 pg (27.0-32.0); Mean Corpuscular Volume 93.1 fL (81-99); Mean Platelet Vol. 10.2 fl (6.2-12.0); Platelet Count 179 K/mm3 (150-450); RBC Distribution Width CV 18.7 % (11.6-14.6); RBC Distribution Width SD 60.9 fl (35.1-43.9); Red Blood Count 3.78 M/mm3 (4.2-5.4); White Blood Count 10.6 K/mm3 (4.4-11.0)
[2018-04-14 06:20] LABS: Scan Indicated on CBC? Y/N NO
[2018-04-14 06:36] LABS: Anion Gap 9 (5-15); BUN 46 mg/dL (7-18); BUN/Creat Ratio 43.4 RATIO (10-20); Calcium,Total 7.9 mg/dL (8.5-10.1); Chloride 103 mmol/L (98-107); Creatinine, Serum 1.06 mg/dL (0.55-1.02); EST Glomerular Filtration Rate 56 mL/min (>60); Est Glom Filt Rate - Afr Amer 68 mL/min (>60); Estimated Creatinine Clearance 52.17 ml/min; Glucose 68 mg/dL (74-106); Potassium 3.4 mmol/L (3.5-5.1); Sodium Level 141 mmol/L (136-145)
[2018-04-14 06:51] LABS: Bedside Glucose 78 mg/dL (70-110)
--- NOTE | 2018-04-14 07:12 | PN.CARD_ITS ---
Subjectve: Patient was seen and evaluated. Appears to be doing well. Left arm is feeling better. Objective: Vital Signs Temp Pulse Resp BP Pulse Ox 97.7 F L 68 16 98/57 L 100 04/14/18 03:01 04/14/18 03:10 04/14/18 03:01 04/14/18 03:01 04/14/18 03:01 Oxygen Flow Rate (L/min) 1 Oxygen Delivery Method Nasal Cannula Weight: 195 lb 15.855 oz Body Mass Index (BMI) 32.6 Intake and Output for Last 24 Hours 04/12/18 04/13/18 04/14/18 23:59 23:59 23:59 Intake Total 1160 / 1160 1180 / 1180 200 / 200 Output Total 700 / 700 4000 / 4000 700 / 700 Balance 460 / 460 -2820 / -2820 -500 / -500 General: Awake, Alert, Oriented x 3 HEENT: PERRL, EOMI, Sclera Non Icteric Neck: Supple, Good ROM, No Lymph Node Enlargement Lungs: Clear to auscultation Cardiovascular: Regular Rhythm, Normal S1, Normal S2, No Murmurs, No Rubs, No Gallops Vascular: No Carotid Bruits, Normal Femoral Pulses, Normal Radial Pulses, Normal Dorsalis Pedal Pulse, Normal Posterior Tibial Pulses Abdomen: Bowel Sounds Present, Soft, Non Tender, No HSM, No Organomegaly Extremities: No Cyanosis, No Clubbing, No edema, - - Left arm ecchymotic Neurological: No Focal Motor or Sensory Deficit 04/13/18 05:50: WBC 13.0 H, RBC 3.96 L, Hgb 11.6 L, Hct 36.9 L, MCV 93.2, MCH 29.3, MCHC 31.4 L, RDW 18.6 H, RDW Differential 61.4 H, Plt Count 204, MPV 10.5 04/13/18 05:50: Sodium 138, Potassium 4.4, Chloride 101, Carbon Dioxide 26.0, Anion Gap 11, BUN 50 H, Creatinine 1.38 H, Est GFR (MDRD) Af Amer 50 L, Est GFR (MDRD) Non-Af 41 L, BUN/Creatinine Ratio 36.2 H, Glucose 237 H, Calcium 8.1 L 04/14/18 05:24: WBC 10.6, RBC 3.78 L, Hgb 11.5 L, Hct 35.2 L, MCV 93.1, MCH 30.4 , MCHC 32.7, RDW 18.7 H, RDW Differential 60.9 H, Plt Count 179, MPV 10.2 04/14/18 05:24: Sodium 141, Potassium 3.4 L, Chloride 103, Carbon Dioxide 29.0, Anion Gap 9, BUN 46 H, Creatinine 1.06 H, Est GFR (MDRD) Af Amer 68, Est GFR ( MDRD) Non-Af 56 L, BUN/Creatinine Ratio 43.4 H, Glucose 68 L, Calcium 7.9 L Rhythm: EKG: ECHO: Stress Test: Cardiac Cath: PCI: CT Surgery: Holter monitor: EPS: PPM: CXR: Chest CT Scan: Medical Necessity - Tobacco Use Smoking Status: Former smoker Tobacco Use: Cigarettes Assessment/Plan 1. Non-ST elevation myocardial infarction. The patient presents with shortness of breath and develops a non-ST elevation myocardial infarction. * It appears that after his transfer to the [facility] she underwent a cardiac catheterization which demonstrated a 90% post-stent stenosis in the left anterior descending artery for which she underwent angioplasty and placement of a drug-eluting stent. The circumflex artery was noted to be patent from the stents that had been placed in November 2016. The right coronary artery was also noted to be patent with the previously placed drug- eluting stent which was patent. * Medical therapy will be continued at this juncture. * No indication for further invasive therapy. * Will repeat echo this a.m. to assess left ventricular function. 2. Congestive heart failure. She does have a history of congestive heart failure and this is likely acute systolic. Her ejection fraction at her previous admission was noted to be approximately 40% her echocardiogram will be reviewed and her records from the clinic as well. It appears that the ejection fraction at that time was about 43 %. She will be continued on oral Lasix. Lit inhibitors will be added as appropriate as her renal function improves. Would recommend rehabilitation in the transitional care unit. Thank you for allowing me to participate in the care of your patient. Please don't hesitate to call if any issues arise
[2018-04-14] MEDS: Insulin Lispro 100 UNIT/ML INSULN.PEN SQ ×3 (08:01→17:09)
[2018-04-14] MEDS: Aspirin E.C. 81 MG Tablet PO (08:02)
--- NOTE | 2018-04-14 08:25 | PCM.PROGNOTE ---
Patient Problems: Active and Suspected Problems CHF (congestive heart failure) (Acute) Subjective: Patient was seen and examined. She is lying in bed in no acute distress. Seems very distracted and needs frequent redirection. Denies any further cough or sputum production. Objective: Recent lab and culture data reviewed. Leukocytosis has resolved. Renal function improving. Blood cultures from 04/11 are pending. Plain film chest x-ray from 629 showed interstitial edema, bilateral lower lobe airspace disease left greater than right, and suspected small left pleural effusion. - Physical Exam General: Alert, Oriented x3, No apparent distress, Well developed, Well nourished, - - No conversational dyspnea. Chronic, raspy voice HEENT: Atraumatic, Normocephalic Oral: Moist Mucosa, No Gingival or Mucosal Lesions/ Ulcerations Neck: Supple, Trachea Midline Lungs: No rhonchi, No rales, Diminished, - - Wheezes, clears with cough Cardiovascular: Regular rate, Regular Rhythm, Normal S1, Normal S2, No murmurs, No rub noted, No Gallop Abdomen: Bowel Sounds Present, Soft, Non Tender, Non-Distended Extremities: No cyanosis, Clubbing, Edema - 1-2+ pitting bilateral lower extremities Skin: - - Ecchymotic LUE/abdomen Lit bandage intact to LUE and elevated on pillow Musculoskeletal: Tenderness - LUE Lymphatic: No Cervical, Supraclavicular, or Inguinal Adenopathy Neurological: Cranial nerves II-XII grossly intact, Neuro grossly intact, Motor Exam 5/5 strength throughout Psych/Mental Status: Normal Affect, Appropriate Vital Signs Temp Pulse Resp BP Pulse Ox 97.7 F L 71 16 98/57 L 97 04/14/18 03:01 04/14/18 07:09 04/14/18 08:03 04/14/18 03:01 04/14/18 08:03 Oxygen Flow Rate (L/min) 1 Oxygen Delivery Method Room Air Weight: 195 lb 15.855 oz Body Mass Index (BMI) 32.6 Intake and Output for Last 24 Hours 04/12/18 04/13/18 04/14/18 23:59 23:59 23:59 Intake Total 1160 / 1160 1180 / 1180 200 / 200 Output Total 700 / 700 4000 / 4000 700 / 700 Balance 460 / 460 -2820 / -2820 -500 / -500 Laboratory Tests Past 24 Hrs 04/14/18 04/14/18 05:24 05:24 WBC 10.6 RBC 3.78 L Hgb 11.5 L Hct 35.2 L MCV 93.1 MCH 30.4 MCHC 32.7 RDW 18.7 H RDW Differential 60.9 H Plt Count 179 MPV 10.2 Sodium 141 Potassium 3.4 L Chloride 103 Carbon Dioxide 29.0 Anion Gap 9 BUN 46 H Creatinine 1.06 H Estim Creat Clear Calc 52.17 Est GFR (MDRD) Af Amer 68 Est GFR (MDRD) Non-Af 56 L BUN/Creatinine Ratio 43.4 H Glucose 68 L Calcium 7.9 L POC Glucose 04/14/18 04/13/18 04/13/18 06:44 21:03 16:18 POC Glucose 78 175 H 193 H 04/13/18 12:13 POC Glucose 243 H Medical Necessity - Tobacco Use Smoking Status: Former smoker Tobacco Use: Cigarettes Assessment/Plan All Active Problems CHF (congestive heart failure) (Acute) NSTEMI, initial episode of care (Acute) Acute non-ST elevation myocardial infarction (NSTEMI) (Acute) RECOMMENDATIONS: 1. Adjust insulin as indicated 2. Wean oxygen as tolerated 3. Continue aggressive diuresis per cardiology recommendations 4. Electrolyte repletion as indicated 5. Obtain records from [facility] 6. Increase activity as tolerated 7. Elevate LUE IMPRESSIONS: 1. Acute combined respiratory failure secondary to suspected acute on chronic combined CHF Patient is not reporting any constitutional symptoms to suggest an acute pneumonia at this time. Patient has been off of Lasix therapy and does have significant edema noted. Patient's last ejection fraction was noted to be 40%. It is unclear at this time if patient did have a heart catheterization or whether a stent was placed into her left upper extremity. Await records from [facility]. Cardiology has been consulted. Would continue with Lasix therapy unless BMP shows significant increase in creatinine 2. Non-ST elevation MA/history of atrial flutter with RVR Previous echocardiogram showed an ejection fraction of 40%. Need to clarify what happened at [facility] as patient is reporting a heart catheterization, not a left upper extremity intervention. Patient may be at risk for in-stent stenosis if she was noncompliant with Plavix therapy. Await cardiology recommendations. 3. Diabetes mellitus type 2/hyperkalemia Patient was difficult to control during last hospitalization. Lantus therapy increased to twice daily as this was successful in controlling blood sugars previously. Blood sugars have improved. Potassium has decreased with diuresis. Electrolyte repletion as indicated. 4. Anxiety/hypertension/hyperlipidemia/hypothyroidism Complicates care, management, recovery and prognosis. Blood pressure has been controlled when patient's anxiety is controlled at this time. Patient is on baseline blood pressure medications, but these have been held at this time. 5. Left upper extremity swelling Patient was significant improvement in left upper extremity swelling, but does have extensive ecchymosis noted. It is reported that this is a complication of therapy at the [facility]. Patient does not have any significant breakdown or superinfection that I can tell. Patient does not have any leukocytosis to suggest ongoing pyomyositis. Patient will likely require rehab. PT/OT will be consulted. This note was generated with [email or web address] dictation software. It may contain incorrect words, spelling, and punctuation that were not noted in checking the note before signing.
[2018-04-14] MEDS: Enoxaparin 40 MG/0.4 ML Syringe SC (09:21)
[2018-04-14] MEDS: Furosemide 40 MG Tablet PO ×2 (09:21→17:09)
[2018-04-14] MEDS: Folic Acid 1 MG Tablet PO (09:21)
[2018-04-14] MEDS: Lisinopril 2.5 MG Tablet PO (09:21)
[2018-04-14] MEDS: Montelukast 10 MG Tablet PO (09:21)
[2018-04-14] MEDS: Pantoprazole Sodium 40 MG Tablet PO (09:21)
[2018-04-14] MEDS: Metoprolol Tartrate 25 MG Tablet PO ×2 (09:21→20:59)
[2018-04-14] MEDS: Clopidogrel Bisulfate 75 MG Tablet PO (09:21)
--- NOTE | 2018-04-14 09:47 | CASEMGMT ---
Addendum entered by Lise Jackson 04/14/18 10:48: SW spoke with Mary in the rehab unit and they do not have any beds nor does patient have a qualifying diagnosis. SW spoke with patient and explained this to her. She was getting TCU and rehab mixed up. MORIAH told her TCU does not take Medicaid. MORIAH told her the facilities in [facility] that take her insurance. She decided [facility] would be her first choice and [facility] would be second choice. MORIAH told her SW will work on this, but we will have to wait on her insurance to approve. Plan: [facility] vs [facility] pending insurance approval. Lise FALLON Original Note: MORIAH spoke with Mary in rehab to see if she could look at patient for the rehab unit. However, MORIAH is not sure patient will qualify for the inpatient rehab unit as she does not appear to have a qualifying diagnoses. She would qualify for SNF pending insurance approval. Await response from Mary and MORIAH will then talk with patient. Lise FALLON
[2018-04-14 11:06] LABS: Bedside Glucose 155 mg/dL (70-110)
[2018-04-14] MEDS: Insulin Lispro 100 UNIT/ML INSULN.PEN SC ×2 (11:17→21:00)
--- NOTE | 2018-04-14 12:30 | CASEMGMT ---
Received a call from [place] at [facility] and they do not have any beds available. SW faxed referral to [facility]. Lise FALLON
--- NOTE | 2018-04-14 12:42 | CASEMGMT ---
This HANG OBRIEN received call from Cecilia, nurse medicare sales representative at Dr. Cordoba office and she states that pt had been accepted at [facility] prior to discharge from [facility] but then pt refused. Cecilia states that pt realized once she was home that she did need to go to SNF and she states that she had been trying to get pt placed but then pt came back to hospital. Per Cecilia, pt was interested in [facility] and [facility]. Crescencio MAJOR updated on all at this time and voices understanding. Per Crescencio MAJOR, referral has already been sent to [facility]. SStgelacio MAURICIO CM
--- NOTE | 2018-04-14 13:36 | CASEMGMT ---
Addendum entered by Lise Jackson 04/14/18 14:26: MORIAH let patient know that [facility] was full, but [facility] could take her. MORIAH told her that we will have to wait on her insurance to approve her before she can go. Lise FALLON Original Note: MORIAH spoke with Kate at [facility] and they can take patient. She will start the process for insurance authorization. MORIAH will let patient know this information. Plan: [facility] pending pre-cert. Lise FALLON
--- NOTE | 2018-04-14 15:35 | PCM.PN.HOSP ---
Patient Problems: Active and Suspected Problems CHF (congestive heart failure) (Acute) Subjective: Patient seen and examined. No new complains. No fever or chills. Feels much better. Objective: hysical exam: General: Alert, Oriented x3, Cooperative, No apparent distress, off oxygen, appear comfortable HEENT: Atraumatic, PERRLA, EOMI, Normocephalic Oral: Moist Mucosa Neck: Supple Lungs: Clear to auscultation, Normal air movement, Diminished, Rales - bilaterally Cardiovascular: Regular rate, Regular Rhythm, Normal S1, Normal S2, No murmurs Abdomen: Bowel Sounds Present, Soft, Non Tender, Non-Distended, No Hepato-splenomegaly Extremities: Edema - bilateral, nontender, +2-3, LUE edema with black/blue hematoma of left medial posterior surface and yellow skin discoloration from resolving hematoma as well as receeding edema. She is able to make a fist and move her upper extremity Skin: Old ecchymosis and resolving skin coloration of the left upper extremity Musculoskeletal: No Tenderness to Palpation of Joints or Extremities Lymphatic: No Cervical, Supraclavicular, or Inguinal Adenopathy Neurological: Cranial nerves II-XII grossly intact, Neuro grossly intact Psych/Mental Status: Normal Affect, Appropriate Vitals/I&O's: Vital Signs Temp Pulse Resp BP Pulse Ox 98.4 F 76 16 104/57 L 97 04/14/18 14:46 04/14/18 14:46 04/14/18 14:46 04/14/18 14:46 04/14/18 14:46 Oxygen Flow Rate (L/min) 1 Oxygen Delivery Method Room Air Weight: 88.9 kg Body Mass Index (BMI) 32.6 Intake and Output for Last 24 Hours 04/12/18 04/13/18 04/14/18 23:59 23:59 23:59 Intake Total 1160 / 1160 1180 / 1180 600 / 600 Output Total 700 / 700 4000 / 4000 700 / 700 Balance 460 / 460 -2820 / -2820 -100 / -100 Laboratory Results 04/13/18 12:13: POC Glucose 243 H 04/13/18 16:18: POC Glucose 193 H 04/13/18 21:03: POC Glucose 175 H 04/14/18 05:24: WBC 10.6, RBC 3.78 L, Hgb 11.5 L, Hct 35.2 L, MCV 93.1, MCH 30.4, MCHC 32.7, RDW 18.7 H, RDW Differential 60.9 H, Plt Count 179, MPV 10.2 04/14/18 05:24: Sodium 141, Potassium 3.4 L, Chloride 103, Carbon Dioxide 29.0, Anion Gap 9, BUN 46 H, Creatinine 1.06 H, Estim Creat Clear Calc 52.17, Est GFR (MDRD) Af Amer 68, Est GFR (MDRD) Non-Af 56 L, BUN/Creatinine Ratio 43.4 H, Glucose 68 L, Calcium 7.9 L 04/14/18 06:44: POC Glucose 78 04/14/18 11:03: POC Glucose 155 H 04/14/18 15:33: POC Glucose Pending Current Medications [facility] Admin: 04/14/18 08:02 Dose: 81 mg Atorvastatin Calcium (Lipitor) 40 mg PO QHS [facility] Last Admin: 04/13/18 21:15 Dose: 40 mg Clopidogrel Bisulfate (Plavix) 75 mg PO DAILY [facility] Last Admin: 04/14/18 09:21 Dose: 75 mg Dextrose (D50w Syringe) 0 gm IV X1 PRN; Protocol PRN Reason: Hypoglycemia Diazepam (Valium) 5 mg PO BID PRN PRN PRN Reason: ANXIETY Enoxaparin Sodium (Lovenox) 40 mg SC DAILY [facility] Last Admin: 04/14/18 09:21 Dose: 40 mg Ergocalciferol (Vitamin D) 50,000 unit PO Sa@1000 [facility] Last Admin: 04/12/18 09:38 Dose: 50,000 unit Folic Acid (Folic Acid) 1 mg PO DAILY@0800 [facility] Last Admin: 04/14/18 09:21 Dose: 1 mg Furosemide (Lasix) 40 mg PO BID@1000,1800 [facility] Last Admin: 04/14/18 09:21 Dose: 40 mg Glucagon () 1 mg IM .X1 PRN PRN Reason: Hypoglycemia Sodium Chloride () 250 mls @ 15 mls/hr IV .[id number] PRN PRN Reason: SALINE FLUSH Insulin Glargine (Lantus (Bkc)) 25 units SC BID [facility] Last Admin: 04/14/18 09:21 Dose: 25 units Insulin Human Lispro (Humalog Kwikpen (Bkc)) 0 unit SC ACHS [facility] PRN Reason: Protocol Last Admin: 04/14/18 11:17 Dose: 1 units Insulin Human Lispro (Humalog Kwikpen (Bkc)) 2 unit SQ BREAKFAST [facility] Last Admin: 04/14/18 08:01 Dose: 2 u Insulin Human Lispro (Humalog Kwikpen (Bkc)) 2 unit SQ DINNER [facility] Last Admin: 04/13/18 16:22 Dose: 2 units Insulin Human Lispro (Humalog Kwikpen (Bkc)) 2 unit SQ LUNCH [facility] Last Admin: 04/14/18 11:18 Dose: 2 units Levothyroxine Sodium (Synthroid) 25 mcg PO MoWeFr@0600 [facility] Last Admin: 04/14/18 05:49 Dose: 25 mcg Levothyroxine Sodium (Synthroid) 175 mcg PO DAILY@0600 [facility] Last Admin: 04/14/18 05:49 Dose: 175 mcg Lisinopril (Zestril) 2.5 mg PO DAILY [facility] Last Admin: 04/14/18 09:21 Dose: 2.5 mg Magnesium Hydroxide (Milk Of Magnesia) 30 ml PO DAILY PRN PRN PRN Reason: Constipation Metoprolol Tartrate (Lopressor (Beta Mu)) 25 mg PO BID [facility] Last Admin: 04/14/18 09:21 Dose: 25 mg Montelukast Sodium (Singulair) 10 mg PO DAILY [facility] Last Admin: 04/14/18 09:21 Dose: 10 mg Morphine Sulfate () 1 - 2 mg IV Q4H PRN PRN PRN Reason: Moderate Pain (pain scale 4-5) Ondansetron HCl (Zofran) 4 mg IV Q8H PRN PRN PRN Reason: Nausea Pantoprazole Sodium (Protonix) 40 mg PO DAILY [facility] Last Admin: 04/14/18 09:21 Dose: 40 mg Sodium Chloride () 5 - 30 ml IV UD PRN PRN Reason: SALINE FLUSH Last Admin: 04/12/18 13:55 Dose: 10 ml Medical Necessity - Tobacco Use Smoking Status: Former smoker Tobacco Use: Cigarettes Assessment/Plan All Active Problems CHF (congestive heart failure) (Acute) NSTEMI, initial episode of care (Acute) Acute non-ST elevation myocardial infarction (NSTEMI) (Acute) 62-year-old female with past medical history of CAD status post 4 stents, chronic systolic heart failure, EF of 40%, type II DM, hypertension, hyperlipidemia, COPD, recent A. fib with RVR status post cardioversion, recent NSTEMI. Patient was admitted on 03/23/2018 with acute hypoxic respiratory failure secondary to community-acquired pneumonia and was intubated. Workup confirmed streptococcal pneumonia and H influenza. Patient was treated and successfully extubated. She was found to have NSTEMI as well as left upper extremity swelling concerning for focal pyomyositis and was transferred to the [facility]. She was reportedly discharged from the [facility] 2 days ago but she presented to the ED with worsening shortness of breath. In the [facility], she underwent cardiac catheterization for persistent NSTEMI and had a stent placed in her LAD. 1. Acute hypoxic respiratory failure secondary to acute on chronic systolic CHF, resolved, encourage incentive spirometer. 2. Acute on chronic systolic heart failure, EF 40%, admitting chest x-ray shows bilateral lower lobe airspace disease, left greater than right. Suspect a small left pleural effusion. BNPep upon admission was 2532.5, Continue on po lasix 40mg bid, continue fluid restrictions, strict I's and O's, daily weights. Continue on beta-mu, continue aspirin, plavix, statin, beta-mu, lisinopril. JOEL wraps to legs and LUE. 3. Acute NSTEMI, persistent, s/p recent cardiac cath and LAD stent, on aspirin, plavix, beta-blockers, statin, cardiology consulted, continue with medical therapy. 4. Hypokalemia, replaced, recheck in am 5. DM type 2, BS are stable, continue on insulin, with accucheks and ISS. Continue to hold metformin and glyburide. 5. History of SVT, on beta-blockers. 6. Left upper extremity swelling that was consistent with necrotizing fasciitis, no workup planned per [facility] records, JOEL wraps to LUE. 7. Acute kidney injury secondary to cardiorenal, improving, wi 8. COPD/asthma without acute exacerbation, continue with as needed breathing treatments 9. Lactic acidosis, likely secondary to hypoxia, resolved 10. DVT prophylaxis with Lovenox subcu Code Visit Inpatient E&M: 39119 Subs Hosp L2
[2018-04-14 15:36] LABS: Bedside Glucose 123 mg/dL (70-110)
[2018-04-14] MEDS: Atorvastatin Calcium 40 MG Tablet PO (20:59)
[2018-04-14 21:06] LABS: Bedside Glucose 252 mg/dL (70-110)
[2018-04-15] VITALS (14 sets, daily range): BP systolic 100–128; BP diastolic 53–66; PULSE 67–88; RESP 16–20; TEMP 36.6–37.2; O2SAT 95–99
[2018-04-15 03:41] LABS: Bedside Glucose 67 mg/dL (70-110)
[2018-04-15 03:41] LABS: Bedside Glucose 86 mg/dL (70-110)
[2018-04-15 03:41] LABS: Bedside Glucose 125 mg/dL (70-110)
[2018-04-15] MEDS: Levothyroxine 175 MCG Tablet PO (06:15)
[2018-04-15 06:50] LABS: Bedside Glucose 140 mg/dL (70-110)
--- NOTE | 2018-04-15 08:13 | PN.CARD_ITS ---
Subjectve: Patient seen and evaluated. Objective: Vital Signs Temp Pulse Resp BP Pulse Ox 98.3 F 67 18 100/53 L 98 04/15/18 08:10 04/15/18 08:10 04/15/18 08:10 04/15/18 08:10 04/15/18 08:10 Oxygen Flow Rate (L/min) 1 Oxygen Delivery Method Room Air Weight: 196 lb 6.91 oz Body Mass Index (BMI) 32.6 Intake and Output for Last 24 Hours 04/13/18 04/14/18 04/15/18 23:59 23:59 23:59 Intake Total 1180 / 1180 1160 / 1160 Output Total 4000 / 4000 1100 / 1100 600 / 600 Balance -2820 / -2820 60 / 60 -600 / -600 General: Awake, Alert, Oriented x 3 HEENT: PERRL, EOMI, Sclera Non Icteric Neck: Supple, Good ROM, No Lymph Node Enlargement Lungs: Clear to auscultation Cardiovascular: Regular Rhythm, Normal S1, Normal S2, No Murmurs, No Rubs, No Gallops Vascular: No Carotid Bruits, Normal Femoral Pulses, Normal Radial Pulses, Normal Dorsalis Pedal Pulse, Normal Posterior Tibial Pulses Abdomen: Bowel Sounds Present, Soft, Non Tender, No HSM, No Organomegaly Extremities: No Cyanosis, No Clubbing, No edema Neurological: No Focal Motor or Sensory Deficit Rhythm: EKG: ECHO: Stress Test: Cardiac Cath: PCI: CT Surgery: Holter monitor: EPS: PPM: CXR: Chest CT Scan: Medical Necessity - Tobacco Use Smoking Status: Former smoker Tobacco Use: Cigarettes Assessment/Plan 1. Non-ST elevation myocardial infarction. The patient presents with shortness of breath and develops a non-ST elevation myocardial infarction. * It appears that after his transfer to the [facility] she underwent a cardiac catheterization which demonstrated a 90% post-stent stenosis in the left anterior descending artery for which she underwent angioplasty and placement of a drug-eluting stent. The circumflex artery was noted to be patent from the stents that had been placed in November 2016. The right coronary artery was also noted to be patent with the previously placed drug- eluting stent which was patent. * Medical therapy will be continued at this juncture. * No indication for further invasive therapy. * 2. Congestive heart failure. She does have a history of congestive heart failure and this is likely acute systolic. Her ejection fraction at her previous admission was noted to be approximately 40% her echocardiogram will be reviewed and her records from the clinic as well. After reassessing her echocardiogram I do not think there is a left ventricular thrombus. It appears that the ejection fraction at that time was about 43%. She will be continued on oral Lasix. Lit inhibitors will be added as appropriate as her renal function improves. Would recommend rehabilitation in the transitional care unit. Thank you for allowing me to participate in the care of your patient. Please don't hesitate to call if any issues arise
[2018-04-15] MEDS: Aspirin E.C. 81 MG Tablet PO (08:18)
[2018-04-15] MEDS: Folic Acid 1 MG Tablet PO (08:18)
[2018-04-15] MEDS: Insulin Lispro 100 UNIT/ML INSULN.PEN SQ (08:19)
[2018-04-15 08:43] LABS: Anion Gap 8 (5-15); BUN 38 mg/dL (7-18); BUN/Creat Ratio 41.9 RATIO (10-20); Chloride 102 mmol/L (98-107); Creatinine, Serum 0.91 mg/dL (0.55-1.02); EST Glomerular Filtration Rate 67 mL/min (>60); Est Glom Filt Rate - Afr Amer 81 mL/min (>60); Estimated Creatinine Clearance 60.78 ml/min; Glucose 130 mg/dL (74-106); Potassium 3.7 mmol/L (3.5-5.1); Sodium Level 139 mmol/L (136-145)
--- NOTE | 2018-04-15 10:29 | PN_ITS ---
Patient Problems: Active and Suspected Problems CHF (congestive heart failure) (Acute) Subjective: Patient was seen and examined. Waiting on insurance precertification. Denies chest pain, dizziness, SOB. Objective: Physical exam: General: Alert, Oriented x3, Cooperative, No apparent distress, off oxygen, appear comfortable HEENT: Atraumatic, PERRLA, EOMI, Normocephalic Oral: Moist Mucosa Neck: Supple Lungs: Clear to auscultation, Normal air movement, Diminished, Rales - bilaterally Cardiovascular: Regular rate, Regular Rhythm, Normal S1, Normal S2, No murmurs Abdomen: Bowel Sounds Present, Soft, Non Tender, Non-Distended, No Hepato- splenomegaly Extremities: Edema - bilateral, nontender, +2-3, LUE edema with black/blue hematoma of left medial posterior surface and yellow skin discoloration from resolving hematoma as well as receeding edema. She is able to make a fist and move her upper extremity Skin: Old ecchymosis and resolving skin coloration of the left upper extremity Musculoskeletal: No Tenderness to Palpation of Joints or Extremities Lymphatic: No Cervical, Supraclavicular, or Inguinal Adenopathy Neurological: Cranial nerves II-XII grossly intact, Neuro grossly intact Psych/Mental Status: Normal Affect, Appropriate Vitals/I&O's: Vital Signs Temp Pulse Resp BP Pulse Ox 98.3 F 67 18 100/53 L 97 04/15/18 08:10 04/15/18 08:10 04/15/18 08:10 04/15/18 08:10 04/15/18 08:58 Oxygen Flow Rate (L/min) 1 Oxygen Delivery Method Room Air Weight: 89.1 kg Body Mass Index (BMI) 32.6 Intake and Output for Last 24 Hours 04/13/18 04/14/18 04/15/18 23:59 23:59 23:59 Intake Total 1180 / 1180 1160 / 1160 Output Total 4000 / 4000 1100 / 1100 600 / 600 Balance -2820 / -2820 60 / 60 -600 / -600 Laboratory Results 04/14/18 11:03: POC Glucose 155 H 04/14/18 15:33: POC Glucose 123 H 04/14/18 20:51: POC Glucose 252 H 04/15/18 02:40: POC Glucose 67 L 04/15/18 03:02: POC Glucose 86 04/15/18 03:38: POC Glucose 125 H 04/15/18 06:36: POC Glucose 140 H 04/15/18 07:45: Sodium 139, Potassium 3.7, Chloride 102, Carbon Dioxide 29.0, Anion Gap 8, BUN 38 H, Creatinine 0.91, Estim Creat Clear Calc 60.78, Est GFR ( MDRD) Af Amer 81, Est GFR (MDRD) Non-Af 67, BUN/Creatinine Ratio 41.9 H, Glucose 130 H, Calcium 8.0 L Current Medications Apixaban (Eliquis) 2.5 mg PO BID [facility] Aspirin (Ecotrin) 81 mg PO DAILYCM [facility] Last Admin: 04/15/18 08:18 Dose: 81 mg Atorvastatin Calcium (Lipitor) 40 mg PO QHS [facility] Last Admin: 04/14/18 20:59 Dose: 40 mg Clopidogrel Bisulfate (Plavix) 75 mg PO DAILY [facility] Last Admin: 04/14/18 09:21 Dose: 75 mg Dextrose (D50w Syringe) 0 gm IV X1 PRN; Protocol PRN Reason: Hypoglycemia Diazepam (Valium) 5 mg PO BID PRN PRN PRN Reason: ANXIETY Enoxaparin Sodium (Lovenox) 40 mg SC DAILY [facility] Last Admin: 04/14/18 09:21 Dose: 40 mg Ergocalciferol (Vitamin D) 50,000 unit PO Sa@1000 [facility] Last Admin: 04/12/18 09:38 Dose: 50,000 unit Folic Acid (Folic Acid) 1 mg PO DAILY@0800 [facility] Last Admin: 04/15/18 08:18 Dose: 1 mg Furosemide (Lasix) 40 mg PO BID@1000,1800 [facility] Last Admin: 04/14/18 17:09 Dose: 40 mg Glucagon () 1 mg IM .X1 PRN PRN Reason: Hypoglycemia Insulin Glargine (Lantus (Bkc)) 25 units SC BID [facility] Last Admin: 04/14/18 21:00 Dose: 25 units Insulin Human Lispro (Humalog Kwikpen (Bkc)) 0 unit SC ACHS [facility] PRN Reason: Protocol Last Admin: 04/15/18 07:41 Dose: Not Given Levothyroxine Sodium (Synthroid) 25 mcg PO MoWeFr@0600 [facility] Last Admin: 04/14/18 05:49 Dose: 25 mcg Levothyroxine Sodium (Synthroid) 175 mcg PO DAILY@0600 [facility] Last Admin: 04/15/18 06:15 Dose: 175 mcg Lisinopril (Zestril) 2.5 mg PO DAILY [facility] Last Admin: 04/14/18 09:21 Dose: 2.5 mg Magnesium Hydroxide (Milk Of Magnesia) 30 ml PO DAILY PRN PRN PRN Reason: Constipation Metoprolol Tartrate (Lopressor (Beta Mu)) 25 mg PO BID [facility] Last Admin: 04/14/18 20:59 Dose: 25 mg Montelukast Sodium (Singulair) 10 mg PO DAILY [facility] Last Admin: 04/14/18 09:21 Dose: 10 mg Morphine Sulfate () 1 - 2 mg IV Q4H PRN PRN PRN Reason: Moderate Pain (pain scale 4-5) Ondansetron HCl (Zofran) 4 mg IV Q8H PRN PRN PRN Reason: Nausea Pantoprazole Sodium (Protonix) 40 mg PO DAILY [facility] Last Admin: 04/14/18 09:21 Dose: 40 mg Potassium Chloride (K-Dur) 20 meq PO DAILYCM [facility] Last Admin: 04/15/18 08:22 Dose: 20 meq Sodium Chloride () 5 - 30 ml IV UD PRN PRN Reason: SALINE FLUSH Last Admin: 04/12/18 13:55 Dose: 10 ml Medical Necessity - Tobacco Use Smoking Status: Former smoker Tobacco Use: Cigarettes Assessment/Plan All Active Problems CHF (congestive heart failure) (Acute) NSTEMI, initial episode of care (Acute) Acute non-ST elevation myocardial infarction (NSTEMI) (Acute) 62-year-old female with past medical history of CAD status post 4 stents, chronic systolic heart failure, EF of 40%, type II DM, hypertension, hyperlipidemia, COPD, recent A. fib with RVR status post cardioversion, recent NSTEMI. Patient was admitted on 03/23/2018 with acute hypoxic respiratory failure secondary to community-acquired pneumonia and was intubated. Workup confirmed streptococcal pneumonia and H influenza. Patient was treated and successfully extubated. She was found to have NSTEMI as well as left upper extremity swelling concerning for focal pyomyositis and was transferred to the [facility]. She was reportedly discharged from the [facility] 2 days ago but she presented to the ED with worsening shortness of breath. In the [facility], she underwent cardiac catheterization for persistent NSTEMI and had a stent placed in her LAD. 1. Acute hypoxic respiratory failure secondary to acute on chronic systolic CHF , resolved, encourage incentive spirometer. 2. Acute on chronic systolic heart failure, EF 40%, BNPep upon admission was 2532.5, Continue on po lasix 40mg bid, continue fluid restrictions, strict I's and O's, daily weights. Continue on beta-mu, continue aspirin, plavix, statin, beta-mu, lisinopril. JOEL wraps to legs and LUE. 3. Acute NSTEMI, persistent, s/p recent cardiac cath and LAD stent, on aspirin, plavix, beta-blockers, statin, cardiology consulted, continue with medical therapy. 4. Hypokalemia, replaced, recheck in am 5. DM type 2, BS are stable, continue on insulin, with accucheks and ISS. Continue to hold metformin and glyburide. 5. History of SVT, on beta-blockers. 6. Left upper extremity swelling that was consistent with necrotizing fasciitis , no workup planned per [facility] records, JOEL wraps to LUE. 7. Acute kidney injury secondary to cardiorenal, resolved. 8. COPD/asthma without acute exacerbation, continue with as needed breathing treatments 9. Lactic acidosis, likely secondary to hypoxia, resolved 10. DVT prophylaxis with Lovenox subcu Code Visit Inpatient E&M: 68481 Subs Hosp L2
--- NOTE | 2018-04-15 10:57 | CASEMGMT ---
MORIAH received a call from Rai at [facility]. She asked for updated PT/OT as they are wondering why she is not walking very far. MORIAH faxed updated PT/OT to her. Ria at [facility]-P: [phone] and fax: . Lise ADAM MSW
[2018-04-15] MEDS: Furosemide 40 MG Tablet PO ×2 (11:37→18:59)
[2018-04-15] MEDS: Clopidogrel Bisulfate 75 MG Tablet PO (11:38)
[2018-04-15] MEDS: Pantoprazole Sodium 40 MG Tablet PO (11:38)
[2018-04-15] MEDS: Lisinopril 2.5 MG Tablet PO (11:38)
[2018-04-15] MEDS: Montelukast 10 MG Tablet PO (11:38)
[2018-04-15] MEDS: Metoprolol Tartrate 25 MG Tablet PO ×2 (11:38→22:55)
[2018-04-15 13:41] LABS: Bedside Glucose 164 mg/dL (70-110)
--- NOTE | 2018-04-15 16:02 | CASEMGMT ---
Received insurance approval for patient to go to [facility]. Patient will be ready tomorrow. SW notified patient she was approved. SW let [facility] know that patient will be ready tomorrow. Green sheet on chart. Plan: [facility] under skilled level of care on a convalescent stay. Staff to set up transport. Lise FALLON
[2018-04-15 16:35] LABS: Bedside Glucose 243 mg/dL (70-110)
[2018-04-15] MEDS: Insulin Lispro 100 UNIT/ML INSULN.PEN SC ×2 (16:37→22:56)
[2018-04-15] MEDS: Atorvastatin Calcium 40 MG Tablet PO (22:54)
[2018-04-15] MEDS: APIXABAN 2.5 MG TABLET PO (22:57)
[2018-04-16 00:20] LABS: Bedside Glucose 206 mg/dL (70-110)
[2018-04-16 02:40] VITALS: PULSE 71
[2018-04-16 03:06] VITALS: BP 102/56; PULSE 74; RESP 20; TEMP 36.8; O2SAT 95
--- NOTE | 2018-04-16 05:37 | CPS ---
Patient refused PAP therapy. Explained to patient it was in her best interest to wear it but she still declined.
[2018-04-16 05:55] LABS: Absolute Lymphocyte Count 1.39 X10^3/ul (0.83-4.51); Absolute Neutrophil Count 4.4 X10^3/uL (2.0-7.7); Basophil# 0.01 X10^3/uL; Basophil% 0.1 % (0-1); Eosinophil# 0.25 X10^3/uL; Eosinophils% 3.7 % (0-5); Hematocrit 35.2 % (37-47); Hemoglobin 11.3 g/dl (12.0-15.0); Lymphocyte # 1.39 X10^3/ul (4.0); Lymphocyte % 20.7 % (19-41); Mean Corp Hgb Conc 32.1 g/gl (32-36); Mean Corpuscular Hgb 29.9 pg (27.0-32.0); Mean Corpuscular Volume 93.1 fL (81-99); Mean Platelet Vol. 10.4 fl (6.2-12.0); Monocyte# 0.64 X10^3/uL; Monocyte% 9.5 % (0-10); Neutrophil # 4.42 X10^3/uL (2.7-7.7); Neutrophil % 65.7 % (47-70); Platelet Count 154 K/mm3 (150-450); RBC Distribution Width SD 59.2 fl (35.1-43.9); Red Blood Count 3.78 M/mm3 (4.2-5.4); White Blood Count 6.7 K/mm3 (4.4-11.0)
[2018-04-16 06:02] LABS: Anion Gap 6 (5-15); BUN 31 mg/dL (7-18); BUN/Creat Ratio 34.3 RATIO (10-20); Calcium,Total 7.8 mg/dL (8.5-10.1); Chloride 101 mmol/L (98-107); EST Glomerular Filtration Rate 67 mL/min (>60); Est Glom Filt Rate - Afr Amer 81 mL/min (>60); Estimated Creatinine Clearance 61.45 ml/min; Glucose 85 mg/dL (74-106); Potassium 3.4 mmol/L (3.5-5.1); Sodium Level 142 mmol/L (136-145)
[2018-04-16 06:15] LABS: POSITIVE COUNT NO; POSITIVE DIFFERENTIAL NO; POSITIVE MORPHOLOGY NO
[2018-04-16] MEDS: Levothyroxine 25 MCG TABLET PO (06:24)
[2018-04-16] MEDS: Levothyroxine 175 MCG Tablet PO (06:24)
[2018-04-16 06:59] VITALS: PULSE 68
[2018-04-16 07:26] LABS: Bedside Glucose 96 mg/dL (70-110)
[2018-04-16] MEDS: Folic Acid 1 MG Tablet PO (08:00)
[2018-04-16] MEDS: Aspirin E.C. 81 MG Tablet PO (08:03)
--- NOTE | 2018-04-16 09:17 | PCM.TXEXTCAR ---
- Diet 04/11/18 19:20 Diet: Cardiac/Low Cholesterol Food consistency:: Regular Liquid Consistency:: Regular/Thin Is pt able to select menu?: Yes - Routine Orders/Code Status Keep PO Greater than or Equal to (%): 94 - Encourage use of incentive spirometer Routine Lab Work: CBC - within 3 days, BMP - within 3 days - Wound(s) Left arm Wound Type: Puncture - Therapies Weight Bearing: Weight bearing as tolerated Physical Therapy: Eval and Treat Occupational Therapy: Eval and Treat - Allergies/Procedures Done in Hospital Allergies/Adverse Reactions: Allergies ampicillin Allergy (Verified 10/20/16 10:31) Hives doxycycline Allergy (Verified 03/24/18 12:43) Unknown hydrochlorothiazide Allergy (Verified 03/24/18 12:43) Unknown iodine Allergy (Verified 10/20/16 10:31) Unknown Penicillins [PCN] Allergy (Verified 03/24/18 12:43) Unknown shellfish derived Allergy (Verified 10/20/16 10:31) Hives venom-honey bee [bee venom (honey bee)] Allergy (Verified 10/20/16 10:31) Hives diphenhydramine [From Benadryl] Adverse Reaction (Verified 10/20/16 20:48) Hives - Type of Care/Length of Stay Estimated LOS: Convalescent Care Less Than 30 days Type of Care Needed: Skilled Rehab Potential: Good Prognosis: Good - Additional Orders/Day of Discharge Additional Orders: Left upper extremity elevation and sleeve to help with the swelling. SVETLANA hoses to lower extremities 12 hours on, 12 hours off. Daily weights, fluid restriction to less than 1500mls per CHF protocol. Consider resuming her home metformin and glimepiride in the next few days. Day of Discharge: 04/16/18 - Dietary and Speech Recommendations Dietitian Recommendations/Changes: Suggest diet change to 1800 calorie controlled, cardiac, low sodium w/ fluid restriction as indicated. Will d/c glucerna shake with meals - Follow Up Care Primary Care Physician: Anastasiia Cordoba MD [Primary Care Provider] - Please follow up with your Primary Care Physician in: within 2 weeks of discharge Please Follow Up With: Ilya Del Cid MD When: within 2 weeks
--- NOTE | 2018-04-16 09:22 | PCM.DC.SUM ---
Discharge Date and Diagnosis Date of Admission: 04/11/18 Date of Discharge: 04/16/18 - Primary Discharge Diagnosis Active and Suspected Problems CHF (congestive heart failure) (Acute) Acute hypoxic respiratory failure Acute on chronic systolic NSTEMI Hypokalemia - Secondary Discharge Diagnosis Chronic Problems NSTEMI (non-ST elevated myocardial infarction) (Chronic) Acute exacerbation of COPD with asthma (Chronic) Pneumococcal pneumonia (Chronic) Acute respiratory failure with hypoxia and hypercapnia (Chronic) Diabetes mellitus (Chronic) HLD (hyperlipidemia) (Chronic) S/P PTCA (percutaneous transluminal coronary angioplasty) (Chronic) SVT (supraventricular tachycardia) (Chronic) CAD (coronary artery disease) (Chronic) Essential hypertension (Chronic) Hospital Course and Treatment Imaging Results: Clinical Impression(s) from Imaging Studies Chest X-Ray 04/11/18 16:15 IMPRESSION: Interstitial edema. Bilateral lower lobe airspace disease, left greater than right. Suspected small left pleural effusion. Electronically Signed: Heri Zheng DO at 16:36 EDT Tel , Service support , Cardiology Critical care Operations: None Procedures: 2-D Echocardiogram Summary of Care Provided: 62-year-old female with past medical history of CAD status post 4 stents, chronic systolic heart failure, EF of 40%, type II DM, hypertension, hyperlipidemia, COPD, recent A. fib with RVR status post cardioversion, recent NSTEMI. Patient was admitted on 03/23/2018 with acute hypoxic respiratory failure secondary to community-acquired pneumonia and was intubated. Workup confirmed streptococcal pneumonia and H influenza. Patient was treated and successfully extubated. She was found to have NSTEMI as well as left upper extremity swelling concerning for focal pyomyositis and was transferred to the [facility]. She was reportedly discharged from the [facility] 2 days ago but she presented to the ED with worsening shortness of breath. In the [facility], she underwent cardiac catheterization for persistent NSTEMI and had a stent placed in her LAD. Patient was managed as follows: 1. Acute hypoxic respiratory failure secondary to acute on chronic systolic CHF, resolved 2. Acute on chronic systolic heart failure, EF 40%, BNPep upon admission was 2532.5, managed on IV lasix, continued on po lasix 40mg bid, fluid restrictions, strict I's and O's, daily weights, beta-jackie, aspirin, plavix, statin, beta-jackie, lisinopril. JOEL wraps to legs and LUE. 3. Acute NSTEMI, persistent, s/p recent cardiac cath and LAD stent, on aspirin, plavix, beta-blockers, statin, medical management recommended. 4. Acute left ventricular thrombus, started on apixaban. 5. Hypokalemia, replaced 6. DM type 2, on insulin, metformin and glimepiride were held 7. History of SVT, on beta-blockers. 8. Left upper extremity swelling that was consistent with necrotizing fasciitis, no workup planned per [facility] records, JOEL wraps to LUE. 9. Acute kidney injury secondary to cardiorenal, resolved. 10. COPD/asthma without acute exacerbation, continue with as needed breathing treatments 11. Lactic acidosis, likely secondary to hypoxia, resolved Discharge Diet: Low fat/ Low Cholesterol, 2000 mg Sodium Diet, Carb Control Diet Discharge Activity: Return to Normal Activity Home Medications: Medications to take at Discharge Clopidogrel Bisulfate [Clopidogrel] 75 mg PO DAILY 10/20/16 Diazepam 5 mg PO BID PRN PRN 10/20/16 Levothyroxine [Synthroid] 25 mcg PO MOWEFR 10/20/16 Levothyroxine [Synthroid] 175 mcg PO DAILY 10/20/16 Montelukast [Singulair] 10 mg PO DAILY 10/20/16 Potassium Chloride [K-Dur] 10 meq PO DAILY 10/20/16 Aspirin [Adult Aspirin Regimen] 81 mg PO DAILY 04/11/18 Atorvastatin Calcium [Lipitor] 40 mg PO QHS 04/11/18 Ergocalciferol [Vitamin D] 50,000 unit PO Q7D 04/11/18 Pantoprazole Sodium [Protonix] 40 mg PO DAILY 04/11/18 Albuterol Inhaler [Ventolin Hfa] 2 puff INHALATION Q4H PRN PRN 04/12/18 Folic Acid 1 mg PO DAILY@0800 04/12/18 Apixaban [Eliquis] 2.5 mg PO BID tablet 04/16/18 Furosemide [Lasix] 40 mg PO BID@1000,1800 tablet 04/16/18 Insulin Glargine [Lantus SoloStar Pen] 20 units SC BID pen 04/16/18 Insulin Lispro [Humalog KwikPen] See Protocol SC ACHS insuln.pen 04/16/18 Lisinopril [Zestril] 2.5 mg PO DAILY tablet 04/16/18 Metoprolol Tartrate [Lopressor (beta jackie)] 25 mg PO BID tablet 04/16/18 Potassium Chloride [K-Dur] 20 meq PO DAILYCM tablet 04/16/18 Primary Care Physician: Anastasiia Cordoba MD [Primary Care Provider] - Please follow up with your Primary Care Physician in: within 2 weeks of discharge Please Follow Up With: Ilya Del Cid MD When: within 2 weeks Disposition: [facility] facility Minutes spent on discharge:: 55 Patient Condition:: Stable Medical Necessity - Tobacco Use Smoking Status: Former smoker Tobacco Use: Cigarettes Meaningful Use Info Meaningful Use Diagnoses (Choose all that apply): CHF - CHF JOEL/ARB ordered at discharge?: Yes Documented LVEF (%): 40 Code Visit Inpatient E&M: 42845 Disch Hosp
[2018-04-16] MEDS: APIXABAN 2.5 MG TABLET PO (09:39)
[2018-04-16] MEDS: Furosemide 40 MG Tablet PO (09:39)
[2018-04-16 09:40] VITALS: BP 100/56; PULSE 75; PULSE 80; RESP 18; TEMP 36.4; O2SAT 97
[2018-04-16] MEDS: Metoprolol Tartrate 25 MG Tablet PO (09:40)
[2018-04-16] MEDS: Clopidogrel Bisulfate 75 MG Tablet PO (09:40)
[2018-04-16] MEDS: Pantoprazole Sodium 40 MG Tablet PO (09:40)
[2018-04-16] MEDS: Montelukast 10 MG Tablet PO (09:40)
[2018-04-16] MEDS: Lisinopril 2.5 MG Tablet PO (09:41)
[2018-04-16 10:01] LABS: Bedside Glucose 200 mg/dL (70-110)
[2018-04-16 10:59] VITALS: PULSE 69
[2018-04-16] MEDS: Insulin Lispro 100 UNIT/ML INSULN.PEN SC (11:25)
[2018-04-16 11:35] LABS: Bedside Glucose 205 mg/dL (70-110)
== END 2018-04-16 13:06 | disposition skilled nursing facility (03) | DRG 121 ==
LOC: ED 17:03 → ICU 18:25 → PCU 04-12 13:14 → ICU 04-15 10:13
PROVIDERS: Admitting Provider Internal Medicine; Emergency Provider Emergency Medicine; Family Provider Internal Medicine; PCP Internal Medicine; Visit Provider Internal Medicine
DX: I11.0 Hypertensive heart disease with heart failure (principal); I21.4 Non-ST elevation (NSTEMI) myocardial infarction; J96.01 Acute respiratory failure with hypoxia; N17.9 Acute kidney failure, unspecified; J44.9 Chronic obstructive pulmonary disease, unspecified; E87.2 Acidosis; E11.9 Type 2 diabetes mellitus without complications; I50.23 Acute on chronic systolic (congestive) heart failure; Z95.5 Presence of coronary angioplasty implant and graft; I25.10 Atherosclerotic heart disease of native coronary artery without angina pectoris; Z87.891 Personal history of nicotine dependence; Z79.4 Long term (current) use of insulin; E87.6 Hypokalemia; E78.5 Hyperlipidemia, unspecified; M79.89 Other specified soft tissue disorders
CPT/HCPCS: 36415; 36600; 71045; 80048; 82550; 82803; 82962; 83605; 83880; 84484; 85025; 85027; 87040; 87641; 93005; 93306; 94002; 94640; 97110; 97116; 97163; 97166; 97530; 97802; 99285; 99406; J7030; A4216; J1940

== ENCOUNTER 2018-05-18 14:21 | Inpatient (IN) | payer MEDICAID, SELFPAY ==
[2016-10-23 10:17] VITALS: BMI 33.8
[2018-05-18] VITALS (20 sets, daily range): BP systolic 81–131; BP diastolic 57–82; PULSE 78–156; RESP 12–28; TEMP 36.3–37.1; O2SAT 89–98; BMI 34.7; BMI 35.2
--- NOTE | 2018-05-18 15:11 | RAD_ITS ---
STUDY: X-RAY CHEST REASON FOR EXAM: Female, 62 years old. Dyspnea TECHNIQUE: Single AP portable view of the chest. COMPARISON: March 22, 2018 chest x-ray FINDINGS: There is a hazy appearance of the right lung base. There is blunting of the costophrenic angles slightly less than prior study. There is mild cardiac enlargement. Normal mediastinum and emily. Normal visualized pulmonary arteries. There is atherosclerotic calcification of the aortic arch with tortuosity. There are diffuse degenerative changes of the visualized thoracic spine. Normal visualized ribs, clavicles, and shoulders. There is no demonstrated abnormality of the visualized soft tissue structures of the upper abdomen. RAD/Chest 1 View (Portable) IMPRESSION: Findings are suspicious for small bilateral pleural effusions atelectasis. Mild cardiomegaly. Electronically Signed: Radha Archer MD at 16:11 EDT Tel , Service support ,
[2018-05-18 15:31] LABS: Absolute Lymphocyte Count 3.67 X10^3/ul (0.83-4.51); Basophil# 0.03 X10^3/uL; Basophil% 0.3 % (0-1); Differential Indicated SCAN CRITERIA MET; Eosinophil# 0.09 X10^3/uL; Eosinophils% 0.8 % (0-5); Hematocrit 46.9 % (37-47); Hemoglobin 14.6 g/dl (12.0-15.0); Lymphocyte # 3.67 X10^3/ul (4.0); Lymphocyte % 30.9 % (19-41); Mean Corp Hgb Conc 31.1 g/gl (32-36); Mean Platelet Vol. 10.7 fl (6.2-12.0); Monocyte# 1.06 X10^3/uL; Monocyte% 8.9 % (0-10); POSITIVE COUNT YES; POSITIVE DIFFERENTIAL NO; POSITIVE MORPHOLOGY NO; RBC Distribution Width CV 15.8 % (11.6-14.6); RBC Distribution Width SD 51.7 fl (35.1-43.9); Red Blood Count 5.21 M/mm3 (4.2-5.4); White Blood Count 11.9 K/mm3 (4.4-11.0)
[2018-05-18] MEDS: dilTIAZem 25 MG/5 ML Vial 20 MG IV BOLUS ×2 (15:34→21:34)
[2018-05-18] MEDS: 0.9% Normal Saline 1,000 ML 15 ML IV (15:34)
--- NOTE | 2018-05-18 15:40 | ED.RN ---
k+6.[address] called from the lab. dr leslie aware
[2018-05-18 15:41] LABS: Anion Gap 7 (5-15); BUN 61 mg/dL (7-18); Calcium,Total 8.5 mg/dL (8.5-10.1); Chloride 95 mmol/L (98-107); Creatinine, Serum 2.44 mg/dL (0.55-1.02); EST Glomerular Filtration Rate 21 mL/min (>60); Est Glom Filt Rate - Afr Amer 26 mL/min (>60); Estimated Creatinine Clearance 22.67 ml/min; Glucose 156 mg/dL (74-106); Potassium 6.4 mmol/L (3.5-5.1); Sodium Level 128 mmol/L (136-145)
--- NOTE | 2018-05-18 15:50 | ED.VISSUMM ---
- ER Visit Summary Date of Service: 05/18/18 Chief Complaint: [Swelling in the legs.] History of Present Illness: The patient is a 62 F [presents the emergency department from [facility] with complaint of swelling in her legs that she has had for about a month. Patient apparently has gained 5 pounds in the last 24 hours. Patient's had nausea. Patient states she is not making as much urine is normal. She denies any chest pain. She does feel mildly short of breath with activity. Patient does have 2 pillow orthopnea. Patient apparently recently had about 10 day history of vomiting and diarrhea. Patient does have a history of coronary artery disease, SVT, diabetes, hypertension, high cholesterol, hypothyroidism. Patient in March apparently had a cardiac arrest and cardiac stenting at the [facility].] Physical Examination: [HEENT-PERRLA, EOMI. Cranial nerves II through XII grossly intact. TMs clear. Mucous membranes slightly dry. No adenopathy. Cardiovascular-irregularly irregular and tachycardic with heart rate in the 130s. No significant murmurs auscultated. Lungs-good aeration bilaterally, faint rales noted in the bases. No accessory muscle use or retractions. Abdomen-normoactive bowel sounds, soft, nontender, no rebound or rigidity, no peritoneal signs. Extremities-intact ?4, normal range of motion, normal pulses, atraumatic]. +2 edema both lower extremities that is symmetric. Test Results: [EKG obtained on arrival showed atrial fibrillation with rapid ventricular response of 131 bpm. CBC with differential showed white count 11.9, hemoglobin 14.6, hematocrit 47, platelets 284. Temperature showed a sodium of 128, potassium 6.4, chloride 95, CO2 26, glucose 156, BUN 61 and creatinine 2.44. Troponin is 0.016. Chest x-ray showed bilateral effusions left greater than right with some mild pulmonary congestion on my interpretation.] Emergency Department Course and Treatment: [Initially on arrival patient was given Cardizem 20 mg IV bolus and that slowed her heart rate down to right around 100. Patient at this point I believe is dehydrated rather than fluid overloaded for she was ordered normal saline 1 50 cc an hour. Patient was treated with calcium chloride, sodium bicarb, insulin, dextrose, and albuterol aerosol.] Treatment Plan: Admit for further workup and treatment [] Disposition: [Admit] Impression: [Atrial fibrillation with rapid ventricular response-new onset Acute renal failure Hyperkalemia Dehydration] This note was generated with [employer] dictation software. It may contain incorrect words, spelling, and punctuation that were not noted in review of the chart prior to signing ED Disposition - Plan for ED Patient: Chief Complaint: Edema Referrals: Anastasiia Cordoba MD [Primary Care Provider] -
--- NOTE | 2018-05-18 15:54 | ED.DCSUM_ITS ---
- ER Visit Summary Date of Service: 05/18/18 Chief Complaint: [Swelling in the legs.] History of Present Illness: The patient is a 62 F [presents the emergency department from [facility] with complaint of swelling in her legs that she has had for about a month. Patient apparently has gained 5 pounds in the last 24 hours. Patient's had nausea. Patient states she is not making as much urine is normal. She denies any chest pain. She does feel mildly short of breath with activity. Patient does have 2 pillow orthopnea. Patient apparently recently had about 10 day history of vomiting and diarrhea. Patient does have a history of coronary artery disease, SVT, diabetes, hypertension, high cholesterol, hypothyroidism. Patient in March apparently had a cardiac arrest and cardiac stenting at the [facility].] Physical Examination: [HEENT-PERRLA, EOMI. Cranial nerves II through XII grossly intact. TMs clear. Mucous membranes slightly dry. No adenopathy. Cardiovascular-irregularly irregular and tachycardic with heart rate in the 130s. No significant murmurs auscultated. Lungs-good aeration bilaterally, faint rales noted in the bases. No accessory muscle use or retractions. Abdomen-normoactive bowel sounds, soft, nontender, no rebound or rigidity, no peritoneal signs. Extremities-intact ?4, normal range of motion, normal pulses, atraumatic]. +2 edema both lower extremities that is symmetric. Test Results: [EKG obtained on arrival showed atrial fibrillation with rapid ventricular response of 131 bpm. CBC with differential showed white count 11.9 , hemoglobin 14.6, hematocrit 47, platelets 284. Temperature showed a sodium of 128, potassium 6.4, chloride 95, CO2 26, glucose 156, BUN 61 and creatinine 2.44. Troponin is 0.016. Chest x-ray showed bilateral effusions left greater than right with some mild pulmonary congestion on my interpretation.] Emergency Department Course and Treatment: [Initially on arrival patient was given Cardizem 20 mg IV bolus and that slowed her heart rate down to right around 100. Patient at this point I believe is dehydrated rather than fluid overloaded for she was ordered normal saline 1 50 cc an hour. Patient was treated with calcium chloride, sodium bicarb, insulin, dextrose, and albuterol aerosol.] Treatment Plan: Admit for further workup and treatment [] Disposition: [Admit] Impression: [Atrial fibrillation with rapid ventricular response-new onset Acute renal failure Hyperkalemia Dehydration] This note was generated with [employer] dictation software. It may contain incorrect words, spelling, and punctuation that were not noted in review of the chart prior to signing ED Disposition - Plan for ED Patient: Chief Complaint: Edema Referrals: Anastasiia Cordoba MD [Primary Care Provider] -
[2018-05-18 15:55] LABS: Differential Comment SCANNED; Platelet Estimate ADEQUATE (ADEQ)
[2018-05-18] MEDS: Albuterol 2.5 MG/3 ML VIAL.NEB. INHALATION ×5 (16:02→20:02)
[2018-05-18 16:07] LABS: BNP,B-Type NATRIURETIC PEPTIDE 766.9 pg/mL (0-100)
--- NOTE | 2018-05-18 16:17 | PCM.HP.STD ---
Problem List (1) Dehydration Status: Acute (2) Diarrhea Status: Acute (3) RAFFAELE (acute kidney injury) Status: Acute History of Present Illness Date of Admission: 05/18/18 Chief Complaint: diarrhea The patient is a 62 year old F with past medical history of heart failure with reduced ejection fraction with EF being around 30% per last echo, coronary artery disease status post stents to LAD at [facility] in March 2018, hypertension hyperlipidemia. Patient was admitted from her long-term by the ED on 518 with complaint of diarrhea for 2 weeks. Patient states she had several episodes of diarrhea daily, diarrhea is nonbloody. She has also had occasional associated nausea and vomiting with emesis been nonbloody and nonbilious. Patient says all throughout this while she was being given her Lasix in the long-term and actually her Lasix dose had been increased on account of CHF and worsening lower extremity swelling mainly in the right lower extremity. She started having dizziness and lightheadedness but states she was continuously given her Lasix. Today she insisted that she be brought to the ED because he did not think she was getting the care that she needed. According to her, C. difficile was checked in the long-term and was negative. She denied any fever or chills, any cough, any shortness of breath, any chest pain, any abdominal pain or urinary symptoms. She did complain of a vaginal yeast infection. Admission in the ED, blood pressure was initially 101/53, but dropped to 81/61 at time of review. Respiratory was initially 19 and went up to 28 and temperature was 97.7 Fahrenheit . Saturating at 96% on room air. Chemistry was significant for sodium of 128 and potassium of 6.4-potassium was moderately hemolyzed and so this may not be accurate. Bicarb was 26 and creatinine was 2.44 with a baseline of less than 1 and BUN of 61. BNP was 766.9. CBC showed white blood cell count of 11.9, but was otherwise unremarkable. Patient had not received any IV fluids at time of review and blood pressure dropped to 81/61. Patient has been admitted to be managed for severe dehydration due to diarrhea and vomiting and hypotension due to diarrhea and vomiting and overdiuresis. [] Past Medical History Past Medical History (Chronic Problems): Chronic Problems Left ventricular apical thrombus (Chronic) Ischemic cardiomyopathy (Chronic) History of coronary artery stent placement (Chronic) CHRAY to LAD @ [facility] in March 2018 NSTEMI (non-ST elevated myocardial infarction) (Chronic) Acute exacerbation of COPD with asthma (Chronic) Pneumococcal pneumonia (Chronic) Acute respiratory failure with hypoxia and hypercapnia (Chronic) Diabetes mellitus (Chronic) HLD (hyperlipidemia) (Chronic) S/P PTCA (percutaneous transluminal coronary angioplasty) (Chronic) SVT (supraventricular tachycardia) (Chronic) CAD (coronary artery disease) (Chronic) S/P PTCA/CHARY to LAD @ [facility] in March 2018; Essential hypertension (Chronic) Medical History: Medical History CHF (congestive heart failure) (Acute) I50.9 NSTEMI (non-ST elevated myocardial infarction) (Chronic) I21.4 HLD (hyperlipidemia) (Chronic) E78.5 CAD (coronary artery disease) (Chronic) I25.10 S/P PTCA/CHARY to LAD @ [facility] in March 2018; Essential hypertension (Chronic) I10 Allergies ampicillin Allergy (Verified 05/18/18 14:28) Hives doxycycline Allergy (Verified 05/18/18 14:28) Unknown hydrochlorothiazide Allergy (Verified 05/18/18 14:28) Unknown iodine Allergy (Verified 05/18/18 14:28) Unknown Penicillins [PCN] Allergy (Verified 05/18/18 14:28) Unknown shellfish derived Allergy (Verified 05/18/18 14:28) Hives venom-honey bee [bee venom (honey bee)] Allergy (Verified 05/18/18 14:28) Hives diphenhydramine [From Benadryl] Adverse Reaction (Verified 05/18/18 14:28) Hives Home Medications: Ambulatory Orders Medication Instructions Recorded Clopidogrel Bisulfate [Clopidogrel] 75 mg PO DAILY 10/20/16 Diazepam 5 mg PO BID PRN PRN 10/20/16 Levothyroxine [Synthroid] 25 mcg PO MOWEFR 10/20/16 Levothyroxine [Synthroid] 175 mcg PO DAILY 10/20/16 Montelukast [Singulair] 10 mg PO QHS 10/20/16 Aspirin [Adult Aspirin Regimen] 81 mg PO DAILY 04/11/18 Atorvastatin Calcium [Lipitor] 40 mg PO QHS 04/11/18 Ergocalciferol [Vitamin D] 50,000 unit PO Q7D 04/11/18 Pantoprazole Sodium [Protonix] 40 mg PO DAILY 04/11/18 Albuterol Inhaler [Ventolin Hfa] 2 puff INHALATION Q4H PRN PRN 04/12/18 Folic Acid 1 mg PO DAILY@0800 04/12/18 Apixaban [Eliquis] 2.5 mg PO BID tablet 04/16/18 Furosemide [Lasix] 40 mg PO BID@1000,1800 tablet 04/16/18 Insulin Lispro [Humalog KwikPen] See Protocol SC ACHS insuln.pen 04/16/18 Lisinopril [Zestril] 2.5 mg PO DAILY tablet 04/16/18 Metoprolol Tartrate [Lopressor 25 mg PO BID tablet 04/16/18 (beta jackie)] Potassium Chloride [K-Dur] 20 meq PO DAILYCM tablet 04/16/18 Furosemide [Lasix] 40 mg PO DAILY 05/18/18 Insulin Glargine,Hum.rec.anlog 20 unit SQ BID 05/18/18 [Basaglar Kwikpen U-100] Lactobacillus Rhamnosus GG 1 each PO DAILY 05/18/18 [Culturelle] Surgical History: Surgical History (Last Updated 04/30/18 @ 10:07 by Amalia Ackerman) Hx of tonsillectomy (Resolved) Z90.89 Hx of cholecystectomy (Resolved) Z90.49 S/P PTCA (percutaneous transluminal coronary angioplasty) (Chronic) Z98.61 Surgical History: no surgical history Lives: Shelter Smoking Status: Former smoker Alcohol: None Drugs: None - *Family History Paternal Family History: Family History (Last Updated 04/30/18 @ 10:05 by Amalia Ackerman) Father CAD (coronary artery disease) Brother CAD (coronary artery disease) History Items: No pertinent history Review of Systems Constitutional: Reports: Anorexia, Malaise, Weakness. Denies: Chills, Fever HEENT: Denies: Head Aches, Sinus Congestion, Sinus Drainage Cardiovascular: Reports: Edema, Light Headedness. Denies: Chest Pain, Heaviness, Orthopnea, Palpitations, Paroxysmal Noc. Dyspnea, Syncope Respiratory: Denies: Cough, Shortness of Breath, Shortness of breath at rest, Shortness of breath upon exertion, Sputum production, Wheezing Gastrointestinal: Reports: Diarrhea, Nausea, Vomiting. Denies: Abdominal Pain Genitourinary: Reports: - - yeast infection. Denies: Dysuria Musculoskeletal: Denies: Joint Pain, Joint Tenderness Skin: Denies: Rash, Wounds Neurological: Denies: Numbness, Tingling, Focal weakness Psychiatric: Denies: Anxiety, Depression, Homicidal Ideations, Suicidal Ideations Hematologic/ Lymphatic: Denies: Easy Bruising, Easy Bleeding VTE Information - Inpt Only VTE Present on Admission: No VTE Mechan Device Prophylaxis: SCD's VTE Pharm Prophylaxis ordered?: Yes Patient Problems: Active and Suspected Problems Dehydration (Acute) Diarrhea (Acute) RAFFAELE (acute kidney injury) (Acute) - Physical Exam General: Alert, Oriented x3, Cooperative, - - in moderate distress HEENT: Atraumatic, PERRLA, EOMI, Normocephalic Oral: Dry Mucosa Neck: Supple, No JVD, Negative Carotid Bruits Lungs: Clear to auscultation, Normal air movement Cardiovascular: Normal S1, Normal S2, Irregular Rate, Tachycardic, - - pulse weak and thready Abdomen: Bowel Sounds Present, Soft, Non Tender, Non-Distended, No Hepato-splenomegaly Extremities: No clubbing, No cyanosis, - - RLE 3+ pitting edema; no calf tenderness, no differential warmth Skin: No rashes, No breakdown Musculoskeletal: No Tenderness to Palpation of Joints or Extremities Lymphatic: No Cervical, Supraclavicular, or Inguinal Adenopathy Neurological: Cranial nerves II-XII grossly intact, Motor Exam 5/5 strength throughout Psych/Mental Status: Anxious, Alert and oriented to time, place, person, mood and affect Vital Signs Temp Pulse Resp BP Pulse Ox 97.7 F L 133 H 16 108/80 95 05/18/18 14:22 05/18/18 15:35 05/18/18 15:35 05/18/18 15:35 05/18/18 15:35 Oxygen Delivery Method Room Air Weight: 215 lb 2.738 oz Body Mass Index (BMI) 34.7 Laboratory Tests Past 24 Hrs 05/18/18 05/18/18 05/18/18 14:30 14:30 14:30 WBC 11.9 H RBC 5.21 Hgb 14.6 Hct 46.9 MCV 90.0 MCH 28.0 MCHC 31.1 L RDW 15.8 H RDW Differential 51.7 H Plt Count TNP MPV 10.7 Immature Gran % (Auto) 0.100 Neut % (Auto) 59.0 Lymph % (Auto) 30.9 [place] % (Auto) 8.9 Eos % (Auto) 0.8 Baso % (Auto) 0.3 Absolute Neuts (auto) 7.0 Absolute Lymphs (auto) 3.67 Total Counted Not Reportable Differential Comment SCANNED Platelet Estimate ADEQUATE Sodium 128 L Potassium 6.4 H* Chloride 95 L Carbon Dioxide 26.0 Anion Gap 7 BUN 61 H Creatinine 2.44 H Estim Creat Clear Calc 22.67 Est GFR (MDRD) Af Amer 26 L Est GFR (MDRD) Non-Af 21 L BUN/Creatinine Ratio 25.0 H Glucose 156 H Calcium 8.5 Troponin I 0.016 B-Natriuretic Peptide 766.9 H Diagnostic Data Chest X-Ray 05/18/18 15:11 IMPRESSION: Findings are suspicious for small bilateral pleural effusions atelectasis. Mild cardiomegaly. Electronically Signed: Radha Archer MD at 16:11 EDT Tel , Service support , Assessment/Plan All Active Problems Dehydration (Acute) Diarrhea (Acute) RAFFAELE (acute kidney injury) (Acute) Hx of tonsillectomy (Resolved) Hx of cholecystectomy (Resolved) CHF (congestive heart failure) (Acute) NSTEMI, initial episode of care (Acute) Acute non-ST elevation myocardial infarction (NSTEMI) (Acute) 62 y/o female presenting with a 2 week history of intractable diarrhea and vomiting. 1. Hypovolemic shock due to severe gastroenteritis symptoms have been worsening over 2 weeks. Says she goes several times daily was hypotensive on review. was in Afib with RVR on admission, looks clinically very dry hadnt received any fluids at time of review. received a dose of IV cardizem in the ED o/a of elevated heart rate, which could have also contributed to the shock to give a bolus of IVF NS 500cc once in the ED; will continue gentle IVF hydration. 2. CHF exacerbation has known EF of 30%, per last Echo BNP today is 766.9; patient however looks clinically very dry, and has a weak and thready pulse. patient has been getting an increased dose of lasix in the NH, as she says the SNF thought she needed increased diuresis due to her LE edema CXR showed: hazy appearance at right lung base, blunting of costophrenic angles are slightly less than prior study. Mild cardiac enlargement. Findings suspicious for small bilateral pleura effusions and atelectasis. I personally reviewed the xrays,and I do not see clear evidence of fluid overload per xray EKG showed since her clinical symptoms piont more towards dehydration and hypovolemic shock, will hold lasix and gently resuscitate with IVF, keeping in mind her reduced EF of 30% per her last echo. 3. ? Adrenal insufficiency constellation of hyponatremia, hypokalemia and hypotension fit with adrenal insufficiency; patient doesnt have any history of Naveen's disease or any other autoimmune condition. will check stat serum cortisol will give a dose of IV hydrocortisone 100mg once if BP doesnt respond to IVF administration. 4. RAFFAELE, likely pre-renal due to gastroenteritis Cr is 2.44; baseline is <1 will check Feurea check UA and renal USG; monitor kidney function with IVF administration 5. Afib was in RVR in the ED, with HR in the 140s;w as down in the 100s at time of review I think this may have been exacerbated by severely dehydrated state. Received a dose of Cardizem in the ED which may have contributed to hypotension Will monitor with IV fluid administration. Beta blockers on hold on account of hypotension. on eliquis 2.5mg bid (renally adjusted dose) 6. hyponatremia Na is 128; this is likely a hypovolemic hypotonic hyponatremia due to dehydration will check serum osmolality i think it is less likely due to CHF as from records, previous BNP in March was 791 in March, and sodium was normal at that point. will monitor with IVF administration 7. hyperkalemia K is 6.4; this is inaccurate as sample is moderately hemolysed repeat K was 6.5 with only slight hemolysis; this doesnt really fit with the history as she should be hypokalemic with all the nausea and vomiting she has. will give PO kayexalate once and repeat. 8.. CAD s/p stents on aspirin, plavix and statin 8. Hypertension BP meds on hold o/a of hypotension 9. DVT prophylaxis: on apixaban Code status: Full code. patient counselled about her code status. different types of code status explained to patient, including differences between full code, DNRCC and DNRCCA. Patient elects to be full code. This note was generated with [employer] dictation software. It may contain incorrect words, spelling, and punctuation that were not noted in checking the note before signing. Code Visit Inpatient E&M: 11699 Init Hosp L3 Procedures: 77263 Advncd Care Plan 30 Min
--- NOTE | 2018-05-18 16:22 | HP.PCM_ITS ---
Problem List (1) Dehydration Status: Acute (2) Diarrhea Status: Acute (3) RAFFAELE (acute kidney injury) Status: Acute History of Present Illness Date of Admission: 05/18/18 Chief Complaint: diarrhea The patient is a 62 year old F with past medical history of heart failure with reduced ejection fraction with EF being around 30% per last echo, coronary artery disease status post stents to LAD at [facility] in March 2018, hypertension hyperlipidemia. Patient was admitted from her halfway by the ED on 518 with complaint of diarrhea for 2 weeks. Patient states she had several episodes of diarrhea daily, diarrhea is nonbloody. She has also had occasional associated nausea and vomiting with emesis been nonbloody and nonbilious. Patient says all throughout this while she was being given her Lasix in the halfway and actually her Lasix dose had been increased on account of CHF and worsening lower extremity swelling mainly in the right lower extremity. She started having dizziness and lightheadedness but states she was continuously given her Lasix. Today she insisted that she be brought to the ED because he did not think she was getting the care that she needed. According to her, C. difficile was checked in the halfway and was negative. She denied any fever or chills, any cough, any shortness of breath, any chest pain, any abdominal pain or urinary symptoms. She did complain of a vaginal yeast infection. Admission in the ED, blood pressure was initially 101/53, but dropped to 81/61 at time of review. Respiratory was initially 19 and went up to 28 and temperature was 97.7 Fahrenheit . Saturating at 96% on room air. Chemistry was significant for sodium of 128 and potassium of 6.4-potassium was moderately hemolyzed and so this may not be accurate. Bicarb was 26 and creatinine was 2.44 with a baseline of less than 1 and BUN of 61. BNP was 766.9. CBC showed white blood cell count of 11.9, but was otherwise unremarkable. Patient had not received any IV fluids at time of review and blood pressure dropped to 81/61. Patient has been admitted to be managed for severe dehydration due to diarrhea and vomiting and hypotension due to diarrhea and vomiting and overdiuresis. [] Past Medical History Past Medical History (Chronic Problems): Chronic Problems Left ventricular apical thrombus (Chronic) Ischemic cardiomyopathy (Chronic) History of coronary artery stent placement (Chronic) CHARY to LAD @ [facility] in March 2018 NSTEMI (non-ST elevated myocardial infarction) (Chronic) Acute exacerbation of COPD with asthma (Chronic) Pneumococcal pneumonia (Chronic) Acute respiratory failure with hypoxia and hypercapnia (Chronic) Diabetes mellitus (Chronic) HLD (hyperlipidemia) (Chronic) S/P PTCA (percutaneous transluminal coronary angioplasty) (Chronic) SVT (supraventricular tachycardia) (Chronic) CAD (coronary artery disease) (Chronic) S/P PTCA/CHARY to LAD @ [facility] in March 2018; Essential hypertension (Chronic) Medical History: Medical History CHF (congestive heart failure) (Acute) I50.9 NSTEMI (non-ST elevated myocardial infarction) (Chronic) I21.4 HLD (hyperlipidemia) (Chronic) E78.5 CAD (coronary artery disease) (Chronic) I25.10 S/P PTCA/CHARY to LAD @ [facility] in March 2018; Essential hypertension (Chronic) I10 Allergies ampicillin Allergy (Verified 05/18/18 14:28) Hives doxycycline Allergy (Verified 05/18/18 14:28) Unknown hydrochlorothiazide Allergy (Verified 05/18/18 14:28) Unknown iodine Allergy (Verified 05/18/18 14:28) Unknown Penicillins [PCN] Allergy (Verified 05/18/18 14:28) Unknown shellfish derived Allergy (Verified 05/18/18 14:28) Hives venom-honey bee [bee venom (honey bee)] Allergy (Verified 05/18/18 14:28) Hives diphenhydramine [From Benadryl] Adverse Reaction (Verified 05/18/18 14:28) Hives Home Medications: Ambulatory Orders Medication Instructions Recorded Clopidogrel Bisulfate [Clopidogrel] 75 mg PO DAILY 10/20/16 Diazepam 5 mg PO BID PRN PRN 10/20/16 Levothyroxine [Synthroid] 25 mcg PO MOWEFR 10/20/16 Levothyroxine [Synthroid] 175 mcg PO DAILY 10/20/16 Montelukast [Singulair] 10 mg PO QHS 10/20/16 Aspirin [Adult Aspirin Regimen] 81 mg PO DAILY 04/11/18 Atorvastatin Calcium [Lipitor] 40 mg PO QHS 04/11/18 Ergocalciferol [Vitamin D] 50,000 unit PO Q7D 04/11/18 Pantoprazole Sodium [Protonix] 40 mg PO DAILY 04/11/18 Albuterol Inhaler [Ventolin Hfa] 2 puff INHALATION Q4H PRN PRN 04/12/18 Folic Acid 1 mg PO DAILY@0800 04/12/18 Apixaban [Eliquis] 2.5 mg PO BID tablet 04/16/18 Furosemide [Lasix] 40 mg PO BID@1000,1800 tablet 04/16/18 Insulin Lispro [Humalog KwikPen] See Protocol SC ACHS insuln.pen 04/16/18 Lisinopril [Zestril] 2.5 mg PO DAILY tablet 04/16/18 Metoprolol Tartrate [Lopressor 25 mg PO BID tablet 04/16/18 (beta jackie)] Potassium Chloride [K-Dur] 20 meq PO DAILYCM tablet 04/16/18 Furosemide [Lasix] 40 mg PO DAILY 05/18/18 Insulin Glargine,Hum.rec.anlog 20 unit SQ BID 05/18/18 [Basaglar Kwikpen U-100] Lactobacillus Rhamnosus GG 1 each PO DAILY 05/18/18 [Culturelle] Surgical History: Surgical History (Last Updated 04/30/18 @ 10:07 by Amalia Ackerman) Hx of tonsillectomy (Resolved) Z90.89 Hx of cholecystectomy (Resolved) Z90.49 S/P PTCA (percutaneous transluminal coronary angioplasty) (Chronic) Z98.61 Surgical History: no surgical history Lives: [facility] Smoking Status: Former smoker Alcohol: None Drugs: None - *Family History Paternal Family History: Family History (Last Updated 04/30/18 @ 10:05 by Amalia Ackerman) Father CAD (coronary artery disease) Brother CAD (coronary artery disease) History Items: No pertinent history Review of Systems Constitutional: Reports: Anorexia, Malaise, Weakness. Denies: Chills, Fever HEENT: Denies: Head Aches, Sinus Congestion, Sinus Drainage Cardiovascular: Reports: Edema, Light Headedness. Denies: Chest Pain, Heaviness , Orthopnea, Palpitations, Paroxysmal Noc. Dyspnea, Syncope Respiratory: Denies: Cough, Shortness of Breath, Shortness of breath at rest, Shortness of breath upon exertion, Sputum production, Wheezing Gastrointestinal: Reports: Diarrhea, Nausea, Vomiting. Denies: Abdominal Pain Genitourinary: Reports: - - yeast infection. Denies: Dysuria Musculoskeletal: Denies: Joint Pain, Joint Tenderness Skin: Denies: Rash, Wounds Neurological: Denies: Numbness, Tingling, Focal weakness Psychiatric: Denies: Anxiety, Depression, Homicidal Ideations, Suicidal Ideations Hematologic/ Lymphatic: Denies: Easy Bruising, Easy Bleeding VTE Information - Inpt Only VTE Present on Admission: No VTE Mechan Device Prophylaxis: SCD's VTE Pharm Prophylaxis ordered?: Yes Patient Problems: Active and Suspected Problems Dehydration (Acute) Diarrhea (Acute) RAFFAELE (acute kidney injury) (Acute) - Physical Exam General: Alert, Oriented x3, Cooperative, - - in moderate distress HEENT: Atraumatic, PERRLA, EOMI, Normocephalic Oral: Dry Mucosa Neck: Supple, No JVD, Negative Carotid Bruits Lungs: Clear to auscultation, Normal air movement Cardiovascular: Normal S1, Normal S2, Irregular Rate, Tachycardic, - - pulse weak and thready Abdomen: Bowel Sounds Present, Soft, Non Tender, Non-Distended, No Hepato- splenomegaly Extremities: No clubbing, No cyanosis, - - RLE 3+ pitting edema; no calf tenderness, no differential warmth Skin: No rashes, No breakdown Musculoskeletal: No Tenderness to Palpation of Joints or Extremities Lymphatic: No Cervical, Supraclavicular, or Inguinal Adenopathy Neurological: Cranial nerves II-XII grossly intact, Motor Exam 5/5 strength throughout Psych/Mental Status: Anxious, Alert and oriented to time, place, person, mood and affect Vital Signs Temp Pulse Resp BP Pulse Ox 97.7 F L 133 H 16 108/80 95 05/18/18 14:22 05/18/18 15:35 05/18/18 15:35 05/18/18 15:35 05/18/18 15:35 Oxygen Delivery Method Room Air Weight: 215 lb 2.738 oz Body Mass Index (BMI) 34.7 Laboratory Tests Past 24 Hrs 05/18/18 05/18/18 05/18/18 14:30 14:30 14:30 WBC 11.9 H RBC 5.21 Hgb 14.6 Hct 46.9 MCV 90.0 MCH 28.0 MCHC 31.1 L RDW 15.8 H RDW Differential 51.7 H Plt Count TNP MPV 10.7 Immature Gran % (Auto) 0.100 Neut % (Auto) 59.0 Lymph % (Auto) 30.9 [place] % (Auto) 8.9 Eos % (Auto) 0.8 Baso % (Auto) 0.3 Absolute Neuts (auto) 7.0 Absolute Lymphs (auto) 3.67 Total Counted Not Reportable Differential Comment SCANNED Platelet Estimate ADEQUATE Sodium 128 L Potassium 6.4 H* Chloride 95 L Carbon Dioxide 26.0 Anion Gap 7 BUN 61 H Creatinine 2.44 H Estim Creat Clear Calc 22.67 Est GFR (MDRD) Af Amer 26 L Est GFR (MDRD) Non-Af 21 L BUN/Creatinine Ratio 25.0 H Glucose 156 H Calcium 8.5 Troponin I 0.016 B-Natriuretic Peptide 766.9 H Diagnostic Data Chest X-Ray 05/18/18 15:11 IMPRESSION: Findings are suspicious for small bilateral pleural effusions atelectasis. Mild cardiomegaly. Electronically Signed: Radha Archer MD at 16:11 EDT Tel , Service support , Assessment/Plan All Active Problems Dehydration (Acute) Diarrhea (Acute) RAFFAELE (acute kidney injury) (Acute) Hx of tonsillectomy (Resolved) Hx of cholecystectomy (Resolved) CHF (congestive heart failure) (Acute) NSTEMI, initial episode of care (Acute) Acute non-ST elevation myocardial infarction (NSTEMI) (Acute) 62 y/o female presenting with a 2 week history of intractable diarrhea and vomiting. 1. Hypovolemic shock due to severe gastroenteritis * symptoms have been worsening over 2 weeks. Says she goes several times daily * was hypotensive on review. * was in Afib with RVR on admission, looks clinically very dry * hadnt received any fluids at time of review. * received a dose of IV cardizem in the ED o/a of elevated heart rate, which could have also contributed to the shock * to give a bolus of IVF NS 500cc once in the ED; will continue gentle IVF hydration. * 2. CHF exacerbation * has known EF of 30%, per last Echo * BNP today is 766.9; patient however looks clinically very dry, and has a weak and thready pulse. * patient has been getting an increased dose of lasix in the NH, as she says the SNF thought she needed increased diuresis due to her LE edema * CXR showed: hazy appearance at right lung base, blunting of costophrenic angles are slightly less than prior study. Mild cardiac enlargement. Findings suspicious for small bilateral pleura effusions and atelectasis. * I personally reviewed the xrays,and I do not see clear evidence of fluid overload per xray * EKG showed * since her clinical symptoms piont more towards dehydration and hypovolemic shock, will hold lasix and gently resuscitate with IVF, keeping in mind her reduced EF of 30% per her last echo. * 3. ? Adrenal insufficiency * constellation of hyponatremia, hypokalemia and hypotension fit with adrenal insufficiency; patient doesnt have any history of [place]'s disease or any other autoimmune condition. * will check stat serum cortisol * will give a dose of IV hydrocortisone 100mg once if BP doesnt respond to IVF administration. * 4. RAFFAELE, likely pre-renal due to gastroenteritis * Cr is 2.44; baseline is <1 * will check Feurea * check UA and renal USG; * monitor kidney function with IVF administration * 5. Afib * was in RVR in the ED, with HR in the 140s;w as down in the 100s at time of review * I think this may have been exacerbated by severely dehydrated state. * Received a dose of Cardizem in the ED which may have contributed to hypotension * Will monitor with IV fluid administration. Beta blockers on hold on account of hypotension. * on eliquis 2.5mg bid (renally adjusted dose) * 6. hyponatremia * Na is 128; this is likely a hypovolemic hypotonic hyponatremia due to dehydration * will check serum osmolality * i think it is less likely due to CHF as from records, previous BNP in March was 791 in March, and sodium was normal at that point. * will monitor with IVF administration * 7. hyperkalemia * K is 6.4; this is inaccurate as sample is moderately hemolysed * repeat K was 6.5 with only slight hemolysis; this doesnt really fit with the history as she should be hypokalemic with all the nausea and vomiting she has. * will give PO kayexalate once and repeat. * 8.. CAD s/p stents * on aspirin, plavix and statin * 8. Hypertension * BP meds on hold o/a of hypotension * 9. DVT prophylaxis: on apixaban Code status: Full code. * patient counselled about her code status. different types of code status explained to patient, including differences between full code, DNRCC and DNRCCA. Patient elects to be full code. * This note was generated with [employer] dictation software. It may contain incorrect words, spelling, and punctuation that were not noted in checking the note before signing. Code Visit Inpatient E&M: 77750 Init Hosp L3 Procedures: 73821 Advncd Care Plan 30 Min
[2018-05-18 16:40] LABS: Potassium 6.5 mmol/L (3.5-5.1)
[2018-05-18] MEDS: Calcium Chloride 1 GM/10 ML Syringe IV (16:44)
[2018-05-18] MEDS: Dextrose 50%-Water 25 GM/50 ML DISP.SYRIN IV (16:44)
--- NOTE | 2018-05-18 16:59 | ED.RN ---
pt c/o itching and yeast to vaginal area- was recently on 2 different antibiotics. ulloa inserted, small amount of redness noted. RN transporting patient is going to inform RN taking care pt to notify MD.
--- NOTE | 2018-05-18 17:29 | US_ITS ---
STUDY: RENAL ULTRASOUND - COMPLETE REASON FOR EXAM: Female, 62 years old. Acute renal failure. TECHNIQUE: Ultrasound evaluation of the kidneys was performed with real-time and static putnam-scale imaging. COMPARISON: None. FINDINGS: Exam limited by obesity. RIGHT KIDNEY: Normal location of the right kidney, which is normal in size. The right kidney measures 11.2 x 5.3 x 5.5 cm. There is a normal cortex of the right kidney. The renal cortex measures 1.5 cm. There is no right renal mass or cyst. There are no right renal calculi. There is no right hydronephrosis. DISTAL RIGHT URETER: There is non-visualization of the distal right ureter. There is no demonstrated right ureterovesical junction calculus. There is no demonstrated right ureteral jet. LEFT KIDNEY: Normal location of the left kidney, which is normal in size. The left kidney measures 11.2 x 5.3 x 5.5 cm. There is a normal cortex of the left kidney. The renal cortex measures 1.6 cm. There is no left renal mass or cyst. There are no left renal calculi. There is no left hydronephrosis. DISTAL LEFT URETER: There is non-visualization of the distal left ureter. There is no demonstrated left ureterovesical junction calculus. There is no demonstrated left ureteral jet. BLADDER: There is a Polanco catheter emptying the bladder. There is mild ascites. US/Kidney and Bladder IMPRESSION: Normal ultrasound of the kidneys. There is moderate ascites. Electronically Signed: Adair Kumar MD at 17:11 EDT , Service support ,
[2018-05-18 18:16] LABS: Bedside Glucose 164 mg/dL (70-110)
[2018-05-18] MEDS: 0.9% Normal Saline 1,000 ML 150 ML IV (18:16)
[2018-05-18] MEDS: Sodium Polystyrene Sulfonate 15 GM/60 ML UDC 30 GM PO (18:24)
[2018-05-18] MEDS: 0.9% Normal Saline 1,000 ML 100 ML IV (21:34)
[2018-05-18] MEDS: Atorvastatin Calcium 40 MG Tablet PO (21:36)
[2018-05-18] MEDS: APIXABAN 2.5 MG TABLET PO (21:36)
[2018-05-18] MEDS: Montelukast 10 MG Tablet PO (21:36)
[2018-05-18] MEDS: Insulin Lispro 100 UNIT/ML INSULN.PEN SC (21:43)
[2018-05-18 21:46] LABS: Bedside Glucose 212 mg/dL (70-110)
[2018-05-18 22:47] LABS: Bacteria 0 SEEN /hpf (None Seen); Mucous, Urine 0 SEEN /hpf (<or=2+); Red Blood Cells-Urine 0 SEEN /hpf (0-5)
[2018-05-18 22:49] LABS: Color, Urine Yellow (Yellow); Glucose, Dipstick Normal (Normal); Ketone-Dipstick Negative (Negative); Leukocyte Esterase-Dipstick 100 /ul (Negative); Nitrite-Dipstick Negative (Negative); Occult Blood-Urine Negative /ul (Negative); Protein-Dipstick 15 mg/dl (Negative); Urine Bilirubin Dipstick Negative (Negative); Urine Clarity Clear (Clear); Urine Urobilinogen Normal (Normal)
[2018-05-18 22:59] LABS: Urea Nitrogen, Urine 396 mg/dL (NO RANGE EST.)
[2018-05-18 23:02] LABS: Squamous Epithelial Cells - UA 5-10 SEEN /hpf (5-10); Transitional Epithelial - Ur 0-5 SEEN /hpf (0-5); White Blood Cells 0-5 SEEN /hpf (0-5)
[2018-05-18 23:03] LABS: Hyaline Cast 5-10 SEEN /lpf (0-5)
--- NOTE | 2018-05-18 23:43 | NURSING ---
patient refusing labs. per Olive, milk route supervisor- the lab girl tried twice on the patient and could not get any blood so when Olive went in to try, patient refused saying she was a hard stick and was tired of being poked. spoke with Dr. Calabrese and she told me to make a note about patient refusing labs. we will retry in the morning when her morning labs are due.
[2018-05-19] VITALS (43 sets, daily range): BP systolic 64–125; BP diastolic 33–90; PULSE 78–127; RESP 12–22; TEMP 36.4–36.7; O2SAT 91–99
[2018-05-19] MEDS: Levothyroxine 25 MCG TABLET PO (05:18)
[2018-05-19] MEDS: Levothyroxine 175 MCG Tablet PO (05:18)
[2018-05-19] MEDS: 0.9% Normal Saline 1,000 ML 100 ML IV (05:22)
[2018-05-19 06:40] LABS: Bedside Glucose 282 mg/dL (70-110)
[2018-05-19] MEDS: Folic Acid 1 MG Tablet PO (07:56)
[2018-05-19] MEDS: Insulin Lispro 100 UNIT/ML INSULN.PEN SC ×4 (07:56→21:24)
[2018-05-19] MEDS: Pantoprazole Sodium 40 MG Tablet PO (07:57)
[2018-05-19] MEDS: Clopidogrel Bisulfate 75 MG Tablet PO (07:59)
[2018-05-19] MEDS: Aspirin E.C. 81 MG Tablet PO (07:59)
[2018-05-19 10:41] LABS: Absolute Lymphocyte Count 0.77 X10^3/ul (0.83-4.51); Absolute Neutrophil Count 4.4 X10^3/uL (2.0-7.7); Hematocrit 37.3 % (37-47); Hemoglobin 11.7 g/dl (12.0-15.0); Lymphocyte # 0.77 X10^3/ul (4.0); Mean Corp Hgb Conc 31.4 g/gl (32-36); Mean Corpuscular Hgb 27.9 pg (27.0-32.0); Mean Corpuscular Volume 88.8 fL (81-99); Mean Platelet Vol. 10.3 fl (6.2-12.0); Monocyte# 0.32 X10^3/uL; Monocyte% 5.8 % (0-10); Platelet Count 218 K/mm3 (150-450); RBC Distribution Width CV 15.7 % (11.6-14.6); RBC Distribution Width SD 50.5 fl (35.1-43.9); White Blood Count 5.5 K/mm3 (4.4-11.0)
[2018-05-19 10:42] LABS: POSITIVE COUNT NO; POSITIVE DIFFERENTIAL NO; POSITIVE MORPHOLOGY NO
[2018-05-19] MEDS: Metoprolol Tartrate 25 MG Tablet PO (10:47)
[2018-05-19 11:15] LABS: Bedside Glucose 352 mg/dL (70-110)
[2018-05-19 11:19] LABS: Lactic Acid 2.4 mmol/L (0.4-2.0)
[2018-05-19 11:24] LABS: Anion Gap 10 (5-15); BUN 54 mg/dL (7-18); BUN/Creat Ratio 29.2 RATIO (10-20); Calcium,Total 7.1 mg/dL (8.5-10.1); Chloride 102 mmol/L (98-107); Creatinine, Serum 1.85 mg/dL (0.55-1.02); EST Glomerular Filtration Rate 29 mL/min (>60); Est Glom Filt Rate - Afr Amer 36 mL/min (>60); Estimated Creatinine Clearance 29.89 ml/min; Glucose 350 mg/dL (74-106); Magnesium 1.6 mg/dL (1.6-2.6); Potassium 4.4 mmol/L (3.5-5.1); Sodium Level 134 mmol/L (136-145); Thyroid Stim Hormone (TSH) 0.68 uIU/mL (0.358-3.74)
--- NOTE | 2018-05-19 11:31 | PCM.PN.HOSP ---
Patient Problems: Active and Suspected Problems Dehydration (Acute) Diarrhea (Acute) RAFFAELE (acute kidney injury) (Acute) Subjective: Patient seen and examined this morning. She looks better and was eating breakfast. Diarrhea, nausea and vomiting have resolved. Patient received a dose of IV Decadron 4 mg on account of suspicion for adrenal insufficiency yesterday. Blood pressure has remained in the 110s since then she has been on IV fluids. Vitals/I&O's: Vital Signs Temp Pulse Resp BP Pulse Ox 98.0 F 120 H 18 106/65 95 05/19/18 11:00 05/19/18 11:00 05/19/18 11:00 05/19/18 11:00 05/19/18 11:00 Oxygen Delivery Method Room Air Weight: 217 lb 13.067 oz Body Mass Index (BMI) 35.2 Intake and Output for Last 24 Hours 05/17/18 05/18/18 05/19/18 23:59 23:59 23:59 Intake Total 1171.9 / 1171.9 803.9 / 803.9 Output Total 400 / 400 275 / 275 Balance 771.9 / 771.9 528.9 / 528.9 General: Alert, Oriented x3, Cooperative, No apparent distress HEENT: Atraumatic, PERRLA, EOMI, Normocephalic Oral: Moist Mucosa Neck: Supple, No JVD, Negative Carotid Bruits Lungs: Clear to auscultation, Normal air movement, No rhonchi, No wheeze, No rales Cardiovascular: Normal S1, Normal S2, Irregular Rate, Tachycardic Abdomen: Bowel Sounds Present, Soft, Non Tender, Non-Distended, No Hepato-splenomegaly Extremities: No clubbing, No cyanosis, No edema, Capillary Refill Less than 3 Seconds Skin: No rashes, No breakdown Musculoskeletal: No Tenderness to Palpation of Joints or Extremities Lymphatic: No Cervical, Supraclavicular, or Inguinal Adenopathy Neurological: Cranial nerves II-XII grossly intact, Motor Exam 5/5 strength throughout Psych/Mental Status: Normal Affect, Appropriate, Alert and oriented to time, place, person, mood and affect Laboratory Results 05/18/18 16:15: Potassium 6.5 H* 05/18/18 18:10: POC Glucose 164 H 05/18/18 18:15: Urine Creatinine 110.00 05/18/18 18:15: Urine Urea Nitrogen 396 05/18/18 18:15: Urine Color Yellow, Urine Clarity Clear, Urine pH 5.0, Ur Specific [place] 1.020, Urine Protein 15 H, Urine Glucose (UA) Normal, Urine Ketones Negative, Urine Occult Blood Negative, Urine Nitrite Negative, Urine Bilirubin Negative, Urine Urobilinogen Normal, Ur Leukocyte Esterase 100 H, Urine RBC 0 SEEN, Urine WBC 0-5 SEEN, Ur Squamous Epith Cells 5-10 SEEN, Ur Transition Epith Cell 0-5 SEEN, Urine Bacteria 0 SEEN, Hyaline Casts 5-10 SEEN, Urine Mucus 0 SEEN 05/18/18 21:40: POC Glucose 212 H 05/19/18 06:06: Troponin I < 0.015 05/19/18 06:06: Cortisol Cancelled 05/19/18 06:06: Sodium Cancelled, Potassium Cancelled, Chloride Cancelled, Carbon Dioxide Cancelled, Anion Gap Cancelled, BUN Cancelled, Creatinine Cancelled, Estim Creat Clear Calc Cancelled, Est GFR (MDRD) Af Amer Cancelled, Est GFR (MDRD) Non-Af Cancelled, BUN/Creatinine Ratio Cancelled, Glucose Cancelled, Calcium Cancelled 05/19/18 06:37: POC Glucose 282 H 05/19/18 10:20: WBC 5.5, RBC 4.20, Hgb 11.7 L, Hct 37.3, MCV 88.8, MCH 27.9, MCHC 31.4 L, RDW 15.7 H, RDW Differential 50.5 H, Plt Count 218, MPV 10.3, Immature Gran % (Auto) 0.200, Neut % (Auto) 80.0 H, Lymph % (Auto) 14.0 L, [place] % (Auto) 5.8, Eos % (Auto) 0.0, Baso % (Auto) 0.0, Absolute Neuts (auto) 4.4, Absolute Lymphs (auto) 0.77 L, Total Counted Not Reportable 05/19/18 10:20: Cortisol 3.70 05/19/18 10:20: Sodium 134 L, Potassium 4.4, Chloride 102, Carbon Dioxide 22.0, Anion Gap 10, BUN 54 H, Creatinine 1.85 H, Estim Creat Clear Calc 29.89, Est GFR (MDRD) Af Amer 36 L, Est GFR (MDRD) Non-Af 29 L, BUN/Creatinine Ratio 29.2 H, Glucose 350 H, Calcium 7.1 L, Magnesium 1.6, TSH 0.68 05/19/18 10:30: Lactic Acid 2.4 H 05/19/18 11:05: POC Glucose 352 H Diagnostic Data Chest X-Ray 05/18/18 15:11 IMPRESSION: Findings are suspicious for small bilateral pleural effusions atelectasis. Mild cardiomegaly. Electronically Signed: Radha Archer MD at 16:11 EDT Tel , Service support , Current Medications Albuterol Sulfate (Ventolin Aerosols) 2.5 mg INHALATION Q4H PRN PRN PRN Reason: COPD Apixaban (Eliquis) 2.5 mg PO BID [facility] Last Admin: 05/19/18 08:23 Dose: Not Given Aspirin (Ecotrin) 81 mg PO DAILY [facility] Last Admin: 05/19/18 07:59 Dose: 81 mg Atorvastatin Calcium (Lipitor) 40 mg PO QHS [facility] Last Admin: 05/18/18 21:36 Dose: 40 mg Clopidogrel Bisulfate (Plavix) 75 mg PO DAILY [facility] Last Admin: 05/19/18 07:59 Dose: 75 mg Dextrose (D50w Syringe) 0 gm IV X1 PRN; Protocol PRN Reason: Hypoglycemia Diazepam (Valium) 5 mg PO BID PRN PRN PRN Reason: ANXIETY Ergocalciferol (Vitamin D) 50,000 unit PO Q7D@1000 [facility] Folic Acid (Folic Acid) 1 mg PO DAILY@0800 [facility] Last Admin: 05/19/18 07:56 Dose: 1 mg Glucagon () 1 mg IM .X1 PRN PRN Reason: Hypoglycemia Sodium Chloride () 1,000 mls @ 15 mls/hr IV .Q48H [facility] Last Admin: 05/18/18 15:34 Dose: 15 mls/hr Sodium Chloride () 1,000 mls @ 100 mls/hr IV .Q10H [facility] Last Admin: 05/19/18 05:22 Dose: 100 mls/hr Diltiazem HCl 125 mg/ Dextrose 125 mls @ 5 mls/hr IV .Q25H [facility] PRN Reason: 5 MG/HR Last Admin: 05/18/18 21:47 Dose: 5 mls/hr Insulin Glargine (Lantus (Bkc)) 20 units SC BID [facility] Last Admin: 05/19/18 07:56 Dose: 20 u Insulin Human Lispro (Humalog Kwikpen (Bkc)) 0 unit SC ACHS [facility] PRN Reason: Protocol Last Admin: 05/19/18 11:07 Dose: 6 u Levothyroxine Sodium (Synthroid) 25 mcg PO MoWeFr@0600 [facility] Last Admin: 05/19/18 05:18 Dose: 25 mcg Levothyroxine Sodium (Synthroid) 175 mcg PO DAILY@0600 [facility] Last Admin: 05/19/18 05:18 Dose: 175 mcg Magnesium Hydroxide (Milk Of Magnesia) 30 ml PO DAILY PRN PRN PRN Reason: Constipation Metoprolol Tartrate (Lopressor (Beta Mu)) 25 mg PO BID [facility] Last Admin: 05/19/18 10:47 Dose: 25 mg Montelukast Sodium (Singulair) 10 mg PO QHS [facility] Last Admin: 05/18/18 21:36 Dose: 10 mg Pantoprazole Sodium (Protonix) 40 mg PO DAILY [facility] Last Admin: 05/19/18 07:57 Dose: 40 mg Polyethylene Glycol (Miralax) 34 gm PO X1 PRN PRN Reason: Bowel Movement Medical Necessity - Tobacco Use Smoking Status: Former smoker Tobacco Use: Cigarettes Assessment/Plan All Active Problems Dehydration (Acute) Diarrhea (Acute) RAFFAELE (acute kidney injury) (Acute) Hx of tonsillectomy (Resolved) Hx of cholecystectomy (Resolved) CHF (congestive heart failure) (Acute) NSTEMI, initial episode of care (Acute) Acute non-ST elevation myocardial infarction (NSTEMI) (Acute) 62 y/o female presenting with a 2 week history of intractable diarrhea and vomiting. 1. Hypovolemic shock due to severe gastroenteritis resolving. BP now improved and in the 100s systolic diarrhea and vomiting have resolved on IVF NS @ 120cc/hr lactic acid this morning is 2.4, will increase fluid to 125cc/hr will monitor 2. Afib with RVR was started on amiodarone drip overnight o/a of Afib with RVR was still tachycardic at time of review metoprolol was held on admission o/a of hypotension cardiology consulted; will discuss about resuming metoprolol 3. Probable adrenal insufficiency constellation of hyponatremia, hypokalemia and hypotension fit with adrenal insufficiency; patient doesnt have any history of [place]'s disease or any other autoimmune condition. received IV decadrone 4mg once yesterday o/a of hypotension early childhood associate cortisol level today was 3.7; this is borderline deficient will do cosyntropin test tomorrow; will check serum ACTH as well 4. HFrEF EF 30% per last echo BNP on admission was 766.9, but was clinically very dry no clinical evidence of fluid overload currently on IVF; lasix on hold will monitor closely and resume lasix once hypotension resolves 4. RAFFAELE, likely pre-renal due to gastroenteritis resolving with IVF administration Cr was 2.44 on admission; is down to 1.85 today will continue to monitor 5. Epistaxis had an episode of nose bleed overnight; hasnt recurred since morning dose of eliquis held. will monitor and resume evening dose as appropriate 6. Hyponatremia resolving. Na is 134 today. Likely due to dehydration. WIll monitor 7. Hyperkalemia K was 6.5 on admission resolving; now down to 4.4 received kayexalate on admisison. will monitor 8.. CAD s/p stents on aspirin, plavix and statin 8. Hypertension BP meds on hold o/a of hypotension 9. DVT prophylaxis: on apixaban Code status: Full code. This note was generated with [employer] dictation software. It may contain incorrect words, spelling, and punctuation that were not noted in checking the note before signing. Code Visit Inpatient E&M: 56090 Subs Hosp L3
--- NOTE | 2018-05-19 11:36 | PN_ITS ---
Patient Problems: Active and Suspected Problems Dehydration (Acute) Diarrhea (Acute) RAFFAELE (acute kidney injury) (Acute) Subjective: Patient seen and examined this morning. She looks better and was eating breakfast. Diarrhea, nausea and vomiting have resolved. Patient received a dose of IV Decadron 4 mg on account of suspicion for adrenal insufficiency yesterday. Blood pressure has remained in the 110s since then she has been on IV fluids. Vitals/I&O's: Vital Signs Temp Pulse Resp BP Pulse Ox 98.0 F 120 H 18 106/65 95 05/19/18 11:00 05/19/18 11:00 05/19/18 11:00 05/19/18 11:00 05/19/18 11:00 Oxygen Delivery Method Room Air Weight: 217 lb 13.067 oz Body Mass Index (BMI) 35.2 Intake and Output for Last 24 Hours 05/17/18 05/18/18 05/19/18 23:59 23:59 23:59 Intake Total 1171.9 / 1171.9 803.9 / 803.9 Output Total 400 / 400 275 / 275 Balance 771.9 / 771.9 528.9 / 528.9 General: Alert, Oriented x3, Cooperative, No apparent distress HEENT: Atraumatic, PERRLA, EOMI, Normocephalic Oral: Moist Mucosa Neck: Supple, No JVD, Negative Carotid Bruits Lungs: Clear to auscultation, Normal air movement, No rhonchi, No wheeze, No rales Cardiovascular: Normal S1, Normal S2, Irregular Rate, Tachycardic Abdomen: Bowel Sounds Present, Soft, Non Tender, Non-Distended, No Hepato- splenomegaly Extremities: No clubbing, No cyanosis, No edema, Capillary Refill Less than 3 Seconds Skin: No rashes, No breakdown Musculoskeletal: No Tenderness to Palpation of Joints or Extremities Lymphatic: No Cervical, Supraclavicular, or Inguinal Adenopathy Neurological: Cranial nerves II-XII grossly intact, Motor Exam 5/5 strength throughout Psych/Mental Status: Normal Affect, Appropriate, Alert and oriented to time, place, person, mood and affect Laboratory Results 05/18/18 16:15: Potassium 6.5 H* 05/18/18 18:10: POC Glucose 164 H 05/18/18 18:15: Urine Creatinine 110.00 05/18/18 18:15: Urine Urea Nitrogen 396 05/18/18 18:15: Urine Color Yellow, Urine Clarity Clear, Urine pH 5.0, Ur Specific [place] 1.020, Urine Protein 15 H, Urine Glucose (UA) Normal, Urine Ketones Negative, Urine Occult Blood Negative, Urine Nitrite Negative, Urine Bilirubin Negative, Urine Urobilinogen Normal, Ur Leukocyte Esterase 100 H, Urine RBC 0 SEEN, Urine WBC 0-5 SEEN, Ur Squamous Epith Cells 5-10 SEEN, Ur Transition Epith Cell 0-5 SEEN, Urine Bacteria 0 SEEN, Hyaline Casts 5-10 SEEN, Urine Mucus 0 SEEN 05/18/18 21:40: POC Glucose 212 H 05/19/18 06:06: Troponin I < 0.015 05/19/18 06:06: Cortisol Cancelled 05/19/18 06:06: Sodium Cancelled, Potassium Cancelled, Chloride Cancelled, Carbon Dioxide Cancelled, Anion Gap Cancelled, BUN Cancelled, Creatinine Cancelled, Estim Creat Clear Calc Cancelled, Est GFR (MDRD) Af Amer Cancelled, Est GFR (MDRD) Non-Af Cancelled, BUN/Creatinine Ratio Cancelled, Glucose Cancelled, Calcium Cancelled 05/19/18 06:37: POC Glucose 282 H 05/19/18 10:20: WBC 5.5, RBC 4.20, Hgb 11.7 L, Hct 37.3, MCV 88.8, MCH 27.9, MCHC 31.4 L, RDW 15.7 H, RDW Differential 50.5 H, Plt Count 218, MPV 10.3, Immature Gran % (Auto) 0.200, Neut % (Auto) 80.0 H, Lymph % (Auto) 14.0 L, [place] % (Auto) 5.8, Eos % (Auto) 0.0, Baso % (Auto) 0.0, Absolute Neuts (auto) 4.4, Absolute Lymphs (auto) 0.77 L, Total Counted Not Reportable 05/19/18 10:20: Cortisol 3.70 05/19/18 10:20: Sodium 134 L, Potassium 4.4, Chloride 102, Carbon Dioxide 22.0, Anion Gap 10, BUN 54 H, Creatinine 1.85 H, Estim Creat Clear Calc 29.89, Est GFR (MDRD) Af Amer 36 L, Est GFR (MDRD) Non-Af 29 L, BUN/Creatinine Ratio 29.2 H , Glucose 350 H, Calcium 7.1 L, Magnesium 1.6, TSH 0.68 05/19/18 10:30: Lactic Acid 2.4 H 05/19/18 11:05: POC Glucose 352 H Diagnostic Data Chest X-Ray 05/18/18 15:11 IMPRESSION: Findings are suspicious for small bilateral pleural effusions atelectasis. Mild cardiomegaly. Electronically Signed: Radha Archer MD at 16:11 EDT Tel , Service support , Current Medications Albuterol Sulfate (Ventolin Aerosols) 2.5 mg INHALATION Q4H PRN PRN PRN Reason: COPD Apixaban (Eliquis) 2.5 mg PO BID [facility] Last Admin: 05/19/18 08:23 Dose: Not Given Aspirin (Ecotrin) 81 mg PO DAILY [facility] Last Admin: 05/19/18 07:59 Dose: 81 mg Atorvastatin Calcium (Lipitor) 40 mg PO QHS [facility] Last Admin: 05/18/18 21:36 Dose: 40 mg Clopidogrel Bisulfate (Plavix) 75 mg PO DAILY [facility] Last Admin: 05/19/18 07:59 Dose: 75 mg Dextrose (D50w Syringe) 0 gm IV X1 PRN; Protocol PRN Reason: Hypoglycemia Diazepam (Valium) 5 mg PO BID PRN PRN PRN Reason: ANXIETY Ergocalciferol (Vitamin D) 50,000 unit PO Q7D@1000 [facility] Folic Acid (Folic Acid) 1 mg PO DAILY@0800 [facility] Last Admin: 05/19/18 07:56 Dose: 1 mg Glucagon () 1 mg IM .X1 PRN PRN Reason: Hypoglycemia Sodium Chloride () 1,000 mls @ 15 mls/hr IV .Q48H [facility] Last Admin: 05/18/18 15:34 Dose: 15 mls/hr Sodium Chloride () 1,000 mls @ 100 mls/hr IV .Q10H [facility] Last Admin: 05/19/18 05:22 Dose: 100 mls/hr Diltiazem HCl 125 mg/ Dextrose 125 mls @ 5 mls/hr IV .Q25H [facility] PRN Reason: 5 MG/HR Last Admin: 05/18/18 21:47 Dose: 5 mls/hr Insulin Glargine (Lantus (Bkc)) 20 units SC BID [facility] Last Admin: 05/19/18 07:56 Dose: 20 u Insulin Human Lispro (Humalog Kwikpen (Bkc)) 0 unit SC ACHS [facility] PRN Reason: Protocol Last Admin: 05/19/18 11:07 Dose: 6 u Levothyroxine Sodium (Synthroid) 25 mcg PO MoWeFr@0600 [facility] Last Admin: 05/19/18 05:18 Dose: 25 mcg Levothyroxine Sodium (Synthroid) 175 mcg PO DAILY@0600 [facility] Last Admin: 05/19/18 05:18 Dose: 175 mcg Magnesium Hydroxide (Milk Of Magnesia) 30 ml PO DAILY PRN PRN PRN Reason: Constipation Metoprolol Tartrate (Lopressor (Beta Mu)) 25 mg PO BID [facility] Last Admin: 05/19/18 10:47 Dose: 25 mg Montelukast Sodium (Singulair) 10 mg PO QHS [facility] Last Admin: 05/18/18 21:36 Dose: 10 mg Pantoprazole Sodium (Protonix) 40 mg PO DAILY [facility] Last Admin: 05/19/18 07:57 Dose: 40 mg Polyethylene Glycol (Miralax) 34 gm PO X1 PRN PRN Reason: Bowel Movement Medical Necessity - Tobacco Use Smoking Status: Former smoker Tobacco Use: Cigarettes Assessment/Plan All Active Problems Dehydration (Acute) Diarrhea (Acute) RAFFAELE (acute kidney injury) (Acute) Hx of tonsillectomy (Resolved) Hx of cholecystectomy (Resolved) CHF (congestive heart failure) (Acute) NSTEMI, initial episode of care (Acute) Acute non-ST elevation myocardial infarction (NSTEMI) (Acute) 62 y/o female presenting with a 2 week history of intractable diarrhea and vomiting. 1. Hypovolemic shock due to severe gastroenteritis * resolving. BP now improved and in the 100s systolic * diarrhea and vomiting have resolved * on IVF NS @ 120cc/hr * lactic acid this morning is 2.4, will increase fluid to 125cc/hr * will monitor * 2. Afib with RVR * was started on amiodarone drip overnight o/a of Afib with RVR * was still tachycardic at time of review * metoprolol was held on admission o/a of hypotension * cardiology consulted; will discuss about resuming metoprolol * * 3. Probable adrenal insufficiency * constellation of hyponatremia, hypokalemia and hypotension fit with adrenal insufficiency; patient doesnt have any history of Leigh's disease or any other autoimmune condition. 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 HFrEF * EF 30% per last echo * BNP on admission was 766.9, but was clinically very dry * no clinical evidence of fluid overload * currently on IVF; lasix on hold * will monitor closely and resume lasix once hypotension resolves * * 4. RAFFAELE, likely pre-renal due to gastroenteritis * resolving with IVF administration * Cr was 2.44 on admission; is down to 1.85 today * will continue to monitor * 5. Epistaxis * had an episode of nose bleed overnight; * hasnt recurred since * morning dose of eliquis held. * will monitor and resume evening dose as appropriate * 6. Hyponatremia * resolving. Na is 134 today. Likely due to dehydration. WIll monitor * 7. Hyperkalemia * K was 6.5 on admission * resolving; now down to 4.4 * received kayexalate on admisison. * will monitor * * 8.. CAD s/p stents * on aspirin, plavix and statin * 8. Hypertension * BP meds on hold o/a of hypotension * 9. DVT prophylaxis: on apixaban Code status: Full code. * This note was generated with [employer] software. It may contain incorrect words, spelling, and punctuation that were not noted in checking the note before signing. Code Visit Inpatient E&M: 19523 [facility] L3
--- NOTE | 2018-05-19 11:45 | PCM.CONS.C ---
Problem List (1) Atrial fibrillation Status: Acute (2) Left ventricular apical thrombus Status: Chronic (3) Ischemic cardiomyopathy Status: Chronic (4) History of coronary artery stent placement Status: Chronic Comment: CHARY to LAD @ [facility] in March 2018 (5) CHF (congestive heart failure) Status: Acute Qualifiers: Heart failure type: combined systolic and diastolic Heart failure chronicity: acute on chronic Qualified Code(s): I50.43 - Acute on chronic combined systolic (congestive) and diastolic (congestive) heart failure (6) NSTEMI (non-ST elevated myocardial infarction) Status: Chronic (7) HLD (hyperlipidemia) Status: Chronic Qualifiers: Hyperlipidemia type: pure hypercholesterolemia Qualified Code(s): E78.00 - Pure hypercholesterolemia, unspecified; E78.0 - Pure hypercholesterolemia (8) Essential hypertension Status: Chronic Reason for Consult Date of Consultation: 05/19/18 Reason for Consultation: Atrial fibrillation with RVR, coronary disease, status post stenting, congestive heart failure, hypertension, hypercholesterolemia, diabetes, acute on chronic renal failure History of Present Illness: The patient is a 62 year old F, patient of Dr. Rodriguez in the past, with hypertension, diabetes, hypercholesterolemia, coronary disease status post angioplasty and stenting ?5, the most recent of which was in March 2018 at the [facility] of an unknown vessel. Allegedly the patient also has a LV apical thrombus and was placed on anticoagulation therapy although I do not have the specifics of that. Apparently she developed a large ecchymotic left arm, and she is unaware whether she had her anticoagulation discontinued or not. She states that she is on aspirin Plavix given her recent stent. Given her constellation of comorbidities, she was placed in a [facility], and recently has had urinary tract infections followed by antibiotic therapy. According to the patient she has had diarrhea for the past 2 weeks, as well as a yeast infection. Patient developed fatigue, lightheadedness, dizziness, shortness of breath and presented to [facility] ER for her various ailments. She was found to be initially mildly hypotensive and then her blood pressure dropped into 80/60, and her respiratory rate increased to 29. She was also found to be in acute on chronic renal failure with an elevation of her creatinine. She was also found to have atrial fibrillation with rapid ventricular response and placed on a Cardizem drip. In addition the patient complains of worsening lower extremity edema, shortness of breath, but denies any chest pain or angina. She appears to be quite frustrated with her recent care at the [facility]. Her most recent echocardiogram dated 04/13/18 showed an EF around 30%, cannot exclude a left ventricular apical thrombus. [] Past Medical History Allergies/Adverse Reactions: Allergies ampicillin Allergy (Verified 05/18/18 14:28) Hives doxycycline Allergy (Verified 05/18/18 14:28) Unknown hydrochlorothiazide Allergy (Verified 05/18/18 14:28) Unknown iodine Allergy (Verified 05/18/18 14:28) Unknown Penicillins [PCN] Allergy (Verified 05/18/18 14:28) Unknown shellfish derived Allergy (Verified 05/18/18 14:28) Hives venom-honey bee [bee venom (honey bee)] Allergy (Verified 05/18/18 14:28) Hives diphenhydramine [From Benadryl] Adverse Reaction (Verified 05/18/18 14:28) Hives Home Medications: Ambulatory Orders Medication Instructions Recorded Clopidogrel Bisulfate [Clopidogrel] 75 mg PO DAILY 10/20/16 Diazepam 5 mg PO BID PRN PRN 10/20/16 Levothyroxine [Synthroid] 25 mcg PO MOWEFR 10/20/16 Levothyroxine [Synthroid] 175 mcg PO DAILY 10/20/16 Montelukast [Singulair] 10 mg PO QHS 10/20/16 Aspirin [Adult Aspirin Regimen] 81 mg PO DAILY 04/11/18 Atorvastatin Calcium [Lipitor] 40 mg PO QHS 04/11/18 Ergocalciferol [Vitamin D] 50,000 unit PO Q7D 04/11/18 Pantoprazole Sodium [Protonix] 40 mg PO DAILY 04/11/18 Albuterol Inhaler [Ventolin Hfa] 2 puff INHALATION Q4H PRN PRN 04/12/18 Folic Acid 1 mg PO DAILY@0800 04/12/18 Apixaban [Eliquis] 2.5 mg PO BID tablet 04/16/18 Furosemide [Lasix] 40 mg PO BID@1000,1800 tablet 04/16/18 Insulin Lispro [Humalog KwikPen] See Protocol SC ACHS insuln.pen 04/16/18 Lisinopril [Zestril] 2.5 mg PO DAILY tablet 04/16/18 Metoprolol Tartrate [Lopressor 25 mg PO BID tablet 04/16/18 (beta jackie)] Potassium Chloride [K-Dur] 20 meq PO DAILYCM tablet 04/16/18 Insulin Glargine,Hum.rec.anlog 20 unit SQ BID 05/18/18 [Basaglar Kwikpen U-100] Lactobacillus Rhamnosus GG 1 each PO DAILY 05/18/18 [Culturelle] Past Medical History (Chronic Problems): Chronic Problems Left ventricular apical thrombus (Chronic) Ischemic cardiomyopathy (Chronic) History of coronary artery stent placement (Chronic) CHARY to LAD @ [facility] in March 2018 NSTEMI (non-ST elevated myocardial infarction) (Chronic) Acute exacerbation of COPD with asthma (Chronic) Pneumococcal pneumonia (Chronic) Acute respiratory failure with hypoxia and hypercapnia (Chronic) Diabetes mellitus (Chronic) HLD (hyperlipidemia) (Chronic) S/P PTCA (percutaneous transluminal coronary angioplasty) (Chronic) SVT (supraventricular tachycardia) (Chronic) CAD (coronary artery disease) (Chronic) S/P PTCA/CHARY to LAD @ [facility] in March 2018; Essential hypertension (Chronic) Surgical History: no surgical history - *Family History Paternal Family History: Family History (Last Updated 04/30/18 @ 10:05 by Amalia Ackerman) Father CAD (coronary artery disease) Brother CAD (coronary artery disease) History Items: No pertinent history Lives: [facility] Smoking Status: Former smoker Tobacco Use: Cigarettes Alcohol: None Drugs: None Review of Systems - Review of Systems General: Reports: Fatigue, Weakness. Denies: Fever, Night Sweats Cardiovascular: Reports: Shortness of Breath, Shortness of Breath at Rest, Peripheral Edema. Denies: Chest Discomfort, Orthopnea, PND, Palpitations, Lightheadedness, Dizziness, Near Syncope, Syncope Respiratory: Denies: Cough, Sputum Production, Hemoptysis Gastrointestinal: Reports: Diarrhea. Denies: Hematemesis, Hematochezia, Melena Genitourinary: Denies: Dysuria, Hematuria Skin: Denies: Rash Subjectve: Patient sitting in chair, no acute distress. Objective: Vital Signs Temp Pulse Resp BP Pulse Ox 98.0 F 120 H 18 106/65 95 05/19/18 11:00 05/19/18 11:00 05/19/18 11:00 05/19/18 11:00 05/19/18 11:00 Oxygen Delivery Method Room Air Weight: 217 lb 13.067 oz Body Mass Index (BMI) 35.2 Intake and Output for Last 24 Hours 05/17/18 05/18/18 05/19/18 23:59 23:59 23:59 Intake Total 1171.9 / 1171.9 803.9 / 803.9 Output Total 400 / 400 275 / 275 Balance 771.9 / 771.9 528.9 / 528.9 General: Awake, Alert, Oriented x 3 HEENT: PERRL, EOMI, Sclera Non Icteric Neck: Supple, Good ROM, No Lymph Node Enlargement Lungs: Clear to auscultation Cardiovascular: Irregular Rhythm, Normal S1, Normal S2, No Murmurs, No Rubs, No Gallops Vascular: No Carotid Bruits, Normal Femoral Pulses, Normal Radial Pulses, Normal Dorsalis Pedal Pulse, Normal Posterior Tibial Pulses Abdomen: Bowel Sounds Present, Soft, Non Tender, No HSM, No Organomegaly Extremities: No Cyanosis, No Clubbing, No edema Neurological: No Focal Motor or Sensory Deficit 05/18/18 16:15: Potassium 6.5 H* 05/18/18 18:15: Urine Color Yellow, Urine Clarity Clear, Urine pH 5.0, Ur Specific [place] 1.020, Urine Protein 15 H, Urine Glucose (UA) Normal, Urine Ketones Negative, Urine Occult Blood Negative, Urine Nitrite Negative, Urine Bilirubin Negative, Urine Urobilinogen Normal, Ur Leukocyte Esterase 100 H, Urine RBC 0 SEEN, Urine WBC 0-5 SEEN 05/19/18 06:06: Troponin I < 0.015 05/19/18 06:06: Sodium Cancelled, Potassium Cancelled, Chloride Cancelled, Carbon Dioxide Cancelled, Anion Gap Cancelled, BUN Cancelled, Creatinine Cancelled, Est GFR (MDRD) Af Amer Cancelled, Est GFR (MDRD) Non-Af Cancelled, BUN/Creatinine Ratio Cancelled, Glucose Cancelled, Calcium Cancelled 05/19/18 10:20: WBC 5.5, RBC 4.20, Hgb 11.7 L, Hct 37.3, MCV 88.8, MCH 27.9, MCHC 31.4 L, RDW 15.7 H, RDW Differential 50.5 H, Plt Count 218, MPV 10.3, Immature Gran % (Auto) 0.200, Neut % (Auto) 80.0 H, Lymph % (Auto) 14.0 L, [place] % (Auto) 5.8, Eos % (Auto) 0.0, Baso % (Auto) 0.0, Absolute Neuts (auto) 4.4, Total Counted Not Reportable 05/19/18 10:20: Sodium 134 L, Potassium 4.4, Chloride 102, Carbon Dioxide 22.0, Anion Gap 10, BUN 54 H, Creatinine 1.85 H, Est GFR (MDRD) Af Amer 36 L, Est GFR (MDRD) Non-Af 29 L, BUN/Creatinine Ratio 29.2 H, Glucose 350 H, Calcium 7.1 L, Magnesium 1.6 05/19/18 10:30: Lactic Acid 2.4 H Rhythm: EKG: ECHO: As above Stress Test: Cardiac Cath: PCI: CT Surgery: Holter monitor: EPS: PPM: CXR: Chest CT Scan: Assessment/Plan 1. Ischemic cardiomyopathy: The patient reportedly has a history of multiple stents, the most recent of which was placed at the [facility] in early March of 2018. According to Dr. Del Cid's note, her previously placed stents in the circumflex and RCA were widely patent and her EF was around 40%. Patient now returns with what appears to be congestive heart failure exacerbation, lower extremity edema, clear lungs by physical exam and by chest x-ray, new onset atrial fibrillation with RVR, previously noted severe ecchymosis of her left arm and possible LV apical thrombus by echocardiogram. In addition she has a couple week history of diarrhea with intravascular depletion and acute on chronic renal insufficiency. At this point I would hold all medications that may make her dehydration and renal insufficiency worse such as diuretics, LIT inhibitors. Would recommend continuing her baby aspirin and Plavix given her recently placed stent. Her ecchymosis in her left arm is resolving and has been much improved per the patient. Would also recommend obtaining her old records from either the [facility] or from her recent admission here and preferably the catheterization films so that I may review them. 2. Atrial fibrillation: The patient presents with atrial fibrillation with RVR which is no doubt making her congestive heart failure worse. She is unable to take anticoagulation therapy given her recent ecchymosis to her left arm and despite her possible LV apical thrombus on echocardiogram in April 2018. She is currently on a Cardizem drip which is not holding her heart rate less than 100, and may be contributing to her lower extremity edema as well. Would recommend starting amiodarone drip IV per protocol, gradually wean off her Cardizem drip. Would recommend gentle rehydration given her LV dysfunction and atrial fibrillation as well as her lower extremity edema. Once her creatinine begins to improve may consider IV diuretic therapy. In the meantime would recommend Lit bandage wraps to both legs to facilitate venous return. Once her ecchymosis resolves in her left arm she may require anticoagulation therapy in addition to her aspirin and Plavix and be scheduled for an outpatient cardioversion in 3-4 weeks. 3. Hyperlipidemia: Continue statin based medications of appropriate do so. 4. Thank you very much for the opportunity to participate in the cardiac care of your patient. Consultation time took place between 1130 and 12 PM. Code Visit Inpatient E&M: 82310 Init Hosp L2
--- NOTE | 2018-05-19 11:49 | CON.PCM_ITS ---
Problem List (1) Atrial fibrillation Status: Acute (2) Left ventricular apical thrombus Status: Chronic (3) Ischemic cardiomyopathy Status: Chronic (4) History of coronary artery stent placement Status: Chronic Comment: CHARY to LAD @ [facility] in March 2018 (5) CHF (congestive heart failure) Status: Acute Qualifiers: Heart failure type: combined systolic and diastolic Heart failure chronicity: acute on chronic Qualified Code(s): I50.43 - Acute on chronic combined systolic (congestive) and diastolic (congestive) heart failure (6) NSTEMI (non-ST elevated myocardial infarction) Status: Chronic (7) HLD (hyperlipidemia) Status: Chronic Qualifiers: Hyperlipidemia type: pure hypercholesterolemia Qualified Code(s): E78.00 - Pure hypercholesterolemia, unspecified; E78.0 - Pure hypercholesterolemia (8) Essential hypertension Status: Chronic Reason for Consult Date of Consultation: 05/19/18 Reason for Consultation: Atrial fibrillation with RVR, coronary disease, status post stenting, congestive heart failure, hypertension, hypercholesterolemia, diabetes, acute on chronic renal failure History of Present Illness: The patient is a 62 year old F, patient of Dr. Rodriguez in the past, with hypertension, diabetes, hypercholesterolemia, coronary disease status post angioplasty and stenting ?5, the most recent of which was in March 2018 at the [facility] of an unknown vessel. Allegedly the patient also has a LV apical thrombus and was placed on anticoagulation therapy although I do not have the specifics of that. Apparently she developed a large ecchymotic left arm, and she is unaware whether she had her anticoagulation discontinued or not. She states that she is on aspirin Plavix given her recent stent. Given her constellation of comorbidities, she was placed in a senior care, and recently has had urinary tract infections followed by antibiotic therapy. According to the patient she has had diarrhea for the past 2 weeks, as well as a yeast infection. Patient developed fatigue, lightheadedness, dizziness, shortness of breath and presented to [facility] ER for her various ailments. She was found to be initially mildly hypotensive and then her blood pressure dropped into 80/60, and her respiratory rate increased to 29. She was also found to be in acute on chronic renal failure with an elevation of her creatinine. She was also found to have atrial fibrillation with rapid ventricular response and placed on a Cardizem drip. In addition the patient complains of worsening lower extremity edema, shortness of breath, but denies any chest pain or angina. She appears to be quite frustrated with her recent care at the senior care. Her most recent echocardiogram dated 04/13/18 showed an EF around 30%, cannot exclude a left ventricular apical thrombus. [] Past Medical History Allergies/Adverse Reactions: Allergies ampicillin Allergy (Verified 05/18/18 14:28) Hives doxycycline Allergy (Verified 05/18/18 14:28) Unknown hydrochlorothiazide Allergy (Verified 05/18/18 14:28) Unknown iodine Allergy (Verified 05/18/18 14:28) Unknown Penicillins [PCN] Allergy (Verified 05/18/18 14:28) Unknown shellfish derived Allergy (Verified 05/18/18 14:28) Hives venom-honey bee [bee venom (honey bee)] Allergy (Verified 05/18/18 14:28) Hives diphenhydramine [From Benadryl] Adverse Reaction (Verified 05/18/18 14:28) Hives Home Medications: Ambulatory Orders Medication Instructions Recorded Clopidogrel Bisulfate [Clopidogrel] 75 mg PO DAILY 10/20/16 Diazepam 5 mg PO BID PRN PRN 10/20/16 Levothyroxine [Synthroid] 25 mcg PO MOWEFR 10/20/16 Levothyroxine [Synthroid] 175 mcg PO DAILY 10/20/16 Montelukast [Singulair] 10 mg PO QHS 10/20/16 Aspirin [Adult Aspirin Regimen] 81 mg PO DAILY 04/11/18 Atorvastatin Calcium [Lipitor] 40 mg PO QHS 04/11/18 Ergocalciferol [Vitamin D] 50,000 unit PO Q7D 04/11/18 Pantoprazole Sodium [Protonix] 40 mg PO DAILY 04/11/18 Albuterol Inhaler [Ventolin Hfa] 2 puff INHALATION Q4H PRN PRN 04/12/18 Folic Acid 1 mg PO DAILY@0800 04/12/18 Apixaban [Eliquis] 2.5 mg PO BID tablet 04/16/18 Furosemide [Lasix] 40 mg PO BID@1000,1800 tablet 04/16/18 Insulin Lispro [Humalog KwikPen] See Protocol SC ACHS insuln.pen 04/16/18 Lisinopril [Zestril] 2.5 mg PO DAILY tablet 04/16/18 Metoprolol Tartrate [Lopressor 25 mg PO BID tablet 04/16/18 (beta jackie)] Potassium Chloride [K-Dur] 20 meq PO DAILYCM tablet 04/16/18 Insulin Glargine,Hum.rec.anlog 20 unit SQ BID 05/18/18 [Basaglar Kwikpen U-100] Lactobacillus Rhamnosus GG 1 each PO DAILY 05/18/18 [Culturelle] Past Medical History (Chronic Problems): Chronic Problems Left ventricular apical thrombus (Chronic) Ischemic cardiomyopathy (Chronic) History of coronary artery stent placement (Chronic) [facility] NSTEMI (non-ST elevated myocardial infarction) (Chronic) Acute exacerbation of COPD with asthma (Chronic) Pneumococcal pneumonia (Chronic) Acute respiratory failure with hypoxia and hypercapnia (Chronic) Diabetes mellitus (Chronic) HLD (hyperlipidemia) (Chronic) S/P PTCA (percutaneous transluminal coronary angioplasty) (Chronic) SVT (supraventricular tachycardia) (Chronic) CAD (coronary artery disease) (Chronic) S/P PTCA/CHARY to LAD [facility] in March 2018; Essential hypertension (Chronic) Surgical History: no surgical history - *Family History Paternal Family History: Family History (Last Updated 04/30/18 @ 10:05 by Amalia Ackerman) Father CAD (coronary artery disease) Brother CAD (coronary artery disease) History Items: No pertinent history [place]: [place] Smoking Status: Former smoker Tobacco Use: Cigarettes Alcohol: None Drugs: None Review of Systems - Review of Systems General: Reports: Fatigue, Weakness. Denies: Fever, Night Sweats Cardiovascular: Reports: Shortness of Breath, Shortness of Breath at Rest, Peripheral Edema. Denies: Chest Discomfort, Orthopnea, PND, Palpitations, Lightheadedness, Dizziness, Near Syncope, Syncope Respiratory: Denies: Cough, Sputum Production, Hemoptysis Gastrointestinal: Reports: Diarrhea. Denies: Hematemesis, Hematochezia, Melena Genitourinary: Denies: Dysuria, Hematuria Skin: Denies: Rash Subjectve: Patient sitting in chair, no acute distress. Objective: Vital Signs Temp Pulse Resp BP Pulse Ox 98.0 F 120 H 18 106/65 95 05/19/18 11:00 05/19/18 11:00 05/19/18 11:00 05/19/18 11:00 05/19/18 11:00 Oxygen Delivery Method Room Air Weight: 217 lb 13.067 oz Body Mass Index (BMI) 35.2 Intake and Output for Last 24 Hours 05/17/18 05/18/18 05/19/18 23:59 23:59 23:59 Intake Total 1171.9 / 1171.9 803.9 / 803.9 Output Total 400 / 400 275 / 275 Balance 771.9 / 771.9 528.9 / 528.9 General: Awake, Alert, Oriented x 3 HEENT: PERRL, EOMI, Sclera Non Icteric Neck: Supple, Good ROM, No Lymph Node Enlargement Lungs: Clear to auscultation Cardiovascular: Irregular Rhythm, Normal S1, Normal S2, No Murmurs, No Rubs, No Gallops Vascular: No Carotid Bruits, Normal Femoral Pulses, Normal Radial Pulses, Normal Dorsalis Pedal Pulse, Normal Posterior Tibial Pulses Abdomen: Bowel Sounds Present, Soft, Non Tender, No HSM, No Organomegaly Extremities: No Cyanosis, No Clubbing, No edema Neurological: No Focal Motor or Sensory Deficit 05/18/18 16:15: Potassium 6.5 H* 05/18/18 18:15: Urine Color Yellow, Urine Clarity Clear, Urine pH 5.0, Ur Specific [place] 1.020, Urine Protein 15 H, Urine Glucose (UA) Normal, Urine Ketones Negative, Urine Occult Blood Negative, Urine Nitrite Negative, Urine Bilirubin Negative, Urine Urobilinogen Normal, Ur Leukocyte Esterase 100 H, Urine RBC 0 SEEN, Urine WBC 0-5 SEEN 05/19/18 06:06: Troponin I < 0.015 05/19/18 06:06: Sodium Cancelled, Potassium Cancelled, Chloride Cancelled, Carbon Dioxide Cancelled, Anion Gap Cancelled, BUN Cancelled, Creatinine Cancelled, Est GFR (MDRD) Af Amer Cancelled, Est GFR (MDRD) Non-Af Cancelled, BUN/Creatinine Ratio Cancelled, Glucose Cancelled, Calcium Cancelled 05/19/18 10:20: WBC 5.5, RBC 4.20, Hgb 11.7 L, Hct 37.3, MCV 88.8, MCH 27.9, MCHC 31.4 L, RDW 15.7 H, RDW Differential 50.5 H, Plt Count 218, MPV 10.3, Immature Gran % (Auto) 0.200, Neut % (Auto) 80.0 H, Lymph % (Auto) 14.0 L, [place] % (Auto) 5.8, Eos % (Auto) 0.0, Baso % (Auto) 0.0, Absolute Neuts (auto) 4.4, Total Counted Not Reportable 05/19/18 10:20: Sodium 134 L, Potassium 4.4, Chloride 102, Carbon Dioxide 22.0, Anion Gap 10, BUN 54 H, Creatinine 1.85 H, Est GFR (MDRD) Af Amer 36 L, Est GFR (MDRD) Non-Af 29 L, BUN/Creatinine Ratio 29.2 H, Glucose 350 H, Calcium 7.1 L, Magnesium 1.6 05/19/18 10:30: Lactic Acid 2.4 H Rhythm: EKG: ECHO: As above Stress Test: Cardiac Cath: PCI: CT Surgery: Holter monitor: EPS: PPM: CXR: Chest CT Scan: Assessment/Plan 1. Ischemic cardiomyopathy: The patient reportedly has a history of multiple stents, the most recent of which was placed at the [facility] in early March of 2018. According to Dr. Del Cid's note, her previously placed stents in the circumflex and RCA were widely patent and her EF was around 40%. Patient now returns with what appears to be congestive heart failure exacerbation, lower extremity edema, clear lungs by physical exam and by chest x-ray, new onset atrial fibrillation with RVR, previously noted severe ecchymosis of her left arm and possible LV apical thrombus by echocardiogram. In addition she has a couple week history of diarrhea with intravascular depletion and acute on chronic renal insufficiency. At this point I would hold all medications that may make her dehydration and renal insufficiency worse such as diuretics, LIT inhibitors. Would recommend continuing her baby aspirin and Plavix given her recently placed stent. Her ecchymosis in her left arm is resolving and has been much improved per the patient. Would also recommend obtaining her old records from either the [facility] or from her recent admission here and preferably the catheterization films so that I may review them. 2. Atrial fibrillation: The patient presents with atrial fibrillation with RVR which is no doubt making her congestive heart failure worse. She is unable to take anticoagulation therapy given her recent ecchymosis to her left arm and despite her possible LV apical thrombus on echocardiogram in April 2018. She is currently on a Cardizem drip which is not holding her heart rate less than 100, and may be contributing to her lower extremity edema as well. Would recommend starting amiodarone drip IV per protocol, gradually wean off her Cardizem drip. Would recommend gentle rehydration given her LV dysfunction and atrial fibrillation as well as her lower extremity edema. Once her creatinine begins to improve may consider IV diuretic therapy. In the meantime would recommend Lit bandage wraps to both legs to facilitate venous return. Once her ecchymosis resolves in her left arm she may require anticoagulation therapy in addition to her aspirin and Plavix and be scheduled for an outpatient cardioversion in 3-4 weeks. 3. Hyperlipidemia: Continue statin based medications of appropriate do so. 4. Thank you very much for the opportunity to participate in the cardiac care of your patient. Consultation time took place between 1130 and 12 PM. Code Visit Inpatient E&M: 51100 Init Hosp L2
--- NOTE | 2018-05-19 11:52 | PCM.CONS.R ---
Consultation - Renal 05/19/18 PCP/ Referring MD: Requesting physician: Dr Miller Primary care physician: Anastasiia Cordoba Reason for Consultation:: RAFFAELE - History of Present Illness History of Present Illness: The patient is a 62 year old F admitted to hospital with multiple complaints. Renal service consulted for RAFFAELE and hyperkalemia. Apparently she has known history of CHF with low EF 30%, was at [facility] main campus, had angiogram with stenting. sent to rehab after. several issues there including - diarrhea, C Diff negative. UTI treated with abx, CHF - aggressively diuresed. still has some LE edema. no urinary complaints now. admitted with RAFFAELE and hyperkalemia. 2.44 and 6.5. currently denies any complaints. overall looks dry to me. - Allergies Allergies: Allergies ampicillin Allergy (Verified 05/18/18 14:28) Hives doxycycline Allergy (Verified 05/18/18 14:28) Unknown hydrochlorothiazide Allergy (Verified 05/18/18 14:28) Unknown iodine Allergy (Verified 05/18/18 14:28) Unknown Penicillins [PCN] Allergy (Verified 05/18/18 14:28) Unknown shellfish derived Allergy (Verified 05/18/18 14:28) Hives venom-honey bee [bee venom (honey bee)] Allergy (Verified 05/18/18 14:28) Hives diphenhydramine [From Benadryl] Adverse Reaction (Verified 05/18/18 14:28) Hives - Current Medications Current Medications: Current Medications Albuterol Sulfate (Ventolin Aerosols) 2.5 mg INHALATION Q4H PRN PRN PRN Reason: COPD Apixaban (Eliquis) 2.5 mg PO BID [facility] Last Admin: 05/19/18 08:23 Dose: Not Given Aspirin (Ecotrin) 81 mg PO DAILY [facility] Last Admin: 05/19/18 07:59 Dose: 81 mg Atorvastatin Calcium (Lipitor) 40 mg PO QHS [facility] Last Admin: 05/18/18 21:36 Dose: 40 mg Clopidogrel Bisulfate (Plavix) 75 mg PO DAILY [facility] Last Admin: 05/19/18 07:59 Dose: 75 mg Dextrose (D50w Syringe) 0 gm IV X1 PRN; Protocol PRN Reason: Hypoglycemia Diazepam (Valium) 5 mg PO BID PRN PRN PRN Reason: ANXIETY Ergocalciferol (Vitamin D) 50,000 unit PO Q7D@1000 [facility] Folic Acid (Folic Acid) 1 mg PO DAILY@0800 [facility] Last Admin: 05/19/18 07:56 Dose: 1 mg Glucagon () 1 mg IM .X1 PRN PRN Reason: Hypoglycemia Sodium Chloride () 1,000 mls @ 15 mls/hr IV .Q48H [facility] Last Admin: 05/18/18 15:34 Dose: 15 mls/hr Diltiazem HCl 125 mg/ Dextrose 125 mls @ 5 mls/hr IV .Q25H [facility] PRN Reason: 5 MG/HR Last Admin: 05/18/18 21:47 Dose: 5 mls/hr Sodium Chloride () 1,000 mls @ 125 mls/hr IV .Q8H [facility] Insulin Glargine (Lantus (Bk)) 20 units SC BID [facility] Last Admin: 05/19/18 07:56 Dose: 20 u Insulin Human Lispro (Humalog Kwikpen (Bk)) 0 unit SC ACHS [facility] PRN Reason: Protocol Last Admin: 05/19/18 11:07 Dose: 6 u Levothyroxine Sodium (Synthroid) 25 mcg PO MoWeFr@0600 [facility] Last Admin: 05/19/18 05:18 Dose: 25 mcg Levothyroxine Sodium (Synthroid) 175 mcg PO DAILY@0600 [facility] Last Admin: 05/19/18 05:18 Dose: 175 mcg Magnesium Hydroxide (Milk Of Magnesia) 30 ml PO DAILY PRN PRN PRN Reason: Constipation Metoprolol Tartrate (Lopressor (Beta Mu)) 25 mg PO BID [facility] Last Admin: 05/19/18 10:47 Dose: 25 mg Montelukast Sodium (Singulair) 10 mg PO QHS [facility] Last Admin: 05/18/18 21:36 Dose: 10 mg Pantoprazole Sodium (Protonix) 40 mg PO DAILY [facility] Last Admin: 05/19/18 07:57 Dose: 40 mg Polyethylene Glycol (Miralax) 34 gm PO X1 PRN PRN Reason: Bowel Movement - Past Medical History Past Medical History (Chronic Problems): Chronic Problems Left ventricular apical thrombus (Chronic) Ischemic cardiomyopathy (Chronic) History of coronary artery stent placement (Chronic) CHARY to LAD @ [facility] in March 2018 NSTEMI (non-ST elevated myocardial infarction) (Chronic) Acute exacerbation of COPD with asthma (Chronic) Pneumococcal pneumonia (Chronic) Acute respiratory failure with hypoxia and hypercapnia (Chronic) Diabetes mellitus (Chronic) HLD (hyperlipidemia) (Chronic) S/P PTCA (percutaneous transluminal coronary angioplasty) (Chronic) SVT (supraventricular tachycardia) (Chronic) CAD (coronary artery disease) (Chronic) S/P PTCA/CHARY to LAD @ [facility] in March 2018; Essential hypertension (Chronic) - Past Surgical History Surgical History: no surgical history - Social History Smoking Status: Former smoker Alcohol: None Drugs: None - Family History Paternal Family History: Family History (Last Updated 04/30/18 @ 10:05 by Amalia Ackerman) Father CAD (coronary artery disease) Brother CAD (coronary artery disease) History Items: No pertinent history Review of Systems Constitutional: Denies: Chills, Fever, Weight Change HEENT: Denies: Head Aches, Sinus Congestion, Sinus Drainage Cardiovascular: Denies: Chest Pain, Palpitations Respiratory: Denies: Cough, Shortness of breath at rest, Sputum production Gastrointestinal: Denies: Abdominal Pain, Nausea, Vomiting Genitourinary: Denies: Dysuria Musculoskeletal: Denies: Joint Pain, Joint Tenderness Skin: Denies: Rash, Wounds Neurological: Denies: Numbness, Tingling, Focal weakness Psychiatric: Denies: Anxiety, Depression, Homicidal Ideations, Suicidal Ideations Hematologic/ Lymphatic: Denies: Easy Bruising, Easy Bleeding Patient Problems: Active and Suspected Problems Dehydration (Acute) Diarrhea (Acute) RAFFAELE (acute kidney injury) (Acute) Atrial fibrillation (Acute) - Physical Exam General: Alert, Oriented x3, Cooperative HEENT: Atraumatic, PERRLA, EOMI, Normocephalic Neck: Supple, No JVD, Negative Carotid Bruits Lungs: Clear to auscultation, Normal air movement Cardiovascular: Regular rate, No murmurs Abdomen: Bowel Sounds Present, Soft, Non Tender Extremities: No edema, Capillary Refill Less than 3 Seconds Skin: No rashes, No breakdown Musculoskeletal: No Tenderness to Palpation of Joints or Extremities Neurological: Cranial nerves II-XII grossly intact Psych/Mental Status: Normal Affect, Appropriate Vital Signs Temp Pulse Resp BP Pulse Ox 98.0 F 120 H 18 106/65 95 05/19/18 11:00 05/19/18 11:00 05/19/18 11:00 05/19/18 11:00 05/19/18 11:00 Oxygen Delivery Method Room Air Weight: 98.8 kg Body Mass Index (BMI) 35.2 Intake and Output for Last 24 Hours 05/17/18 05/18/18 05/19/18 23:59 23:59 23:59 Intake Total 1171.9 / 1171.9 2133.7 / 2133.7 Output Total 400 / 400 450 / 450 Balance 771.9 / 771.9 1683.7 / 1683.7 Laboratory Tests Past 24 Hrs 05/18/18 05/18/18 05/18/18 16:15 18:15 18:15 WBC RBC Hgb Hct MCV MCH MCHC RDW RDW Differential Plt Count MPV Immature Gran % (Auto) Neut % (Auto) Lymph % (Auto) [place] % (Auto) Eos % (Auto) Baso % (Auto) Absolute Neuts (auto) Absolute Lymphs (auto) Total Counted Sodium Potassium 6.5 H* Chloride Carbon Dioxide Anion Gap BUN Creatinine Estim Creat Clear Calc Est GFR (MDRD) Af Amer Est GFR (MDRD) Non-Af BUN/Creatinine Ratio Glucose Lactic Acid Calcium Magnesium Troponin I TSH Cortisol Urine Color Urine Clarity Urine pH Ur Specific [place] Urine Protein Urine Glucose (UA) Urine Ketones Urine Occult Blood Urine Nitrite Urine Bilirubin Urine Urobilinogen Ur Leukocyte Esterase Urine RBC Urine WBC Ur Squamous Epith Cells Ur Transition Epith Cell Urine Bacteria Hyaline Casts Urine Mucus Urine Creatinine 110.00 Urine Urea Nitrogen 396 05/18/18 05/19/18 05/19/18 18:15 06:06 06:06 WBC RBC Hgb Hct MCV MCH MCHC RDW RDW Differential Plt Count MPV Immature Gran % (Auto) Neut % (Auto) Lymph % (Auto) [place] % (Auto) Eos % (Auto) Baso % (Auto) Absolute Neuts (auto) Absolute Lymphs (auto) Total Counted Sodium Potassium Chloride Carbon Dioxide Anion Gap BUN Creatinine Estim Creat Clear Calc Est GFR (MDRD) Af Amer Est GFR (MDRD) Non-Af BUN/Creatinine Ratio Glucose Lactic Acid Calcium Magnesium Troponin I < 0.015 TSH Cortisol Cancelled Urine Color Yellow Urine Clarity Clear Urine pH 5.0 Ur Specific [place] 1.020 Urine Protein 15 H Urine Glucose (UA) Normal Urine Ketones Negative Urine Occult Blood Negative Urine Nitrite Negative Urine Bilirubin Negative Urine Urobilinogen Normal Ur Leukocyte Esterase 100 H Urine RBC 0 SEEN Urine WBC 0-5 SEEN Ur Squamous Epith Cells 5-10 SEEN Ur Transition Epith Cell 0-5 SEEN Urine Bacteria 0 SEEN Hyaline Casts 5-10 SEEN Urine Mucus 0 SEEN Urine Creatinine Urine Urea Nitrogen 05/19/18 05/19/18 05/19/18 06:06 10:20 10:20 WBC 5.5 RBC 4.20 Hgb 11.7 L Hct 37.3 MCV 88.8 MCH 27.9 MCHC 31.4 L RDW 15.7 H RDW Differential 50.5 H Plt Count 218 MPV 10.3 Immature Gran % (Auto) 0.200 Neut % (Auto) 80.0 H Lymph % (Auto) 14.0 L [place] % (Auto) 5.8 Eos % (Auto) 0.0 Baso % (Auto) 0.0 Absolute Neuts (auto) 4.4 Absolute Lymphs (auto) 0.77 L Total Counted Not Reportable Sodium Cancelled Potassium Cancelled Chloride Cancelled Carbon Dioxide Cancelled Anion Gap Cancelled BUN Cancelled Creatinine Cancelled Estim Creat Clear Calc Cancelled Est GFR (MDRD) Af Amer Cancelled Est GFR (MDRD) Non-Af Cancelled BUN/Creatinine Ratio Cancelled Glucose Cancelled Lactic Acid Calcium Cancelled Magnesium Troponin I TSH Cortisol 3.70 Urine Color Urine Clarity Urine pH Ur Specific [place] Urine Protein Urine Glucose (UA) Urine Ketones Urine Occult Blood Urine Nitrite Urine Bilirubin Urine Urobilinogen Ur Leukocyte Esterase Urine RBC Urine WBC Ur Squamous Epith Cells Ur Transition Epith Cell Urine Bacteria Hyaline Casts Urine Mucus Urine Creatinine Urine Urea Nitrogen 05/19/18 05/19/18 10:20 10:30 WBC RBC Hgb Hct MCV MCH MCHC RDW RDW Differential Plt Count MPV Immature Gran % (Auto) Neut % (Auto) Lymph % (Auto) [place] % (Auto) Eos % (Auto) Baso % (Auto) Absolute Neuts (auto) Absolute Lymphs (auto) Total Counted Sodium 134 L Potassium 4.4 Chloride 102 Carbon Dioxide 22.0 Anion Gap 10 BUN 54 H Creatinine 1.85 H Estim Creat Clear Calc 29.89 Est GFR (MDRD) Af Amer 36 L Est GFR (MDRD) Non-Af 29 L BUN/Creatinine Ratio 29.2 H Glucose 350 H Lactic Acid 2.4 H Calcium 7.1 L Magnesium 1.6 Troponin I TSH 0.68 Cortisol Urine Color Urine Clarity Urine pH Ur Specific [place] Urine Protein Urine Glucose (UA) Urine Ketones Urine Occult Blood Urine Nitrite Urine Bilirubin Urine Urobilinogen Ur Leukocyte Esterase Urine RBC Urine WBC Ur Squamous Epith Cells Ur Transition Epith Cell Urine Bacteria Hyaline Casts Urine Mucus Urine Creatinine Urine Urea Nitrogen POC Glucose 05/19/18 05/19/18 05/18/18 11:05 06:37 21:40 POC Glucose 352 H 282 H 212 H 05/18/18 18:10 POC Glucose 164 H Assessment/Plan All Active Problems Dehydration (Acute) Diarrhea (Acute) RAFFAELE (acute kidney injury) (Acute) Atrial fibrillation (Acute) Hx of tonsillectomy (Resolved) Hx of cholecystectomy (Resolved) CHF (congestive heart failure) (Acute) NSTEMI, initial episode of care (Acute) Acute non-ST elevation myocardial infarction (NSTEMI) (Acute) RAFFAELE. normal baseline as of last month. UA looks benign. renal imaging pending. creatinine is already better. no further work up for now Hyperkalemia. ? supplements related. better now CHF. history of severe CHF with low EF. CXR looks ok. some peripheral edema which she says is better than before. Lungs are clear. oral mucosa is relatively dry. continue to hold diuretics for now Diarrhea. C Diff negative. better now as per patient d.w Dr Miller will follow
--- NOTE | 2018-05-19 11:57 | CON.PCM_ITS ---
Consultation - Renal 05/19/18 PCP/ Referring MD: Requesting physician: Dr Miller Primary care physician: Anastasiia Cordoba Reason for Consultation:: RAFFAELE - History of Present Illness History of Present Illness: The patient is a 62 year old F admitted to hospital with multiple complaints. Renal service consulted for RAFFAELE and hyperkalemia. Apparently she has known history of CHF with low EF 30%, was at [facility] main campus, had angiogram with stenting. sent to rehab after. several issues there including - diarrhea, C Diff negative. UTI treated with abx, CHF - aggressively diuresed. still has some LE edema. no urinary complaints now. admitted with RAFFAELE and hyperkalemia. 2.44 and 6.5. currently denies any complaints. overall looks dry to me. - Allergies Allergies: Allergies ampicillin Allergy (Verified 05/18/18 14:28) Hives doxycycline Allergy (Verified 05/18/18 14:28) Unknown hydrochlorothiazide Allergy (Verified 05/18/18 14:28) Unknown iodine Allergy (Verified 05/18/18 14:28) Unknown Penicillins [PCN] Allergy (Verified 05/18/18 14:28) Unknown shellfish derived Allergy (Verified 05/18/18 14:28) Hives venom-honey bee [bee venom (honey bee)] Allergy (Verified 05/18/18 14:28) Hives diphenhydramine [From Benadryl] Adverse Reaction (Verified 05/18/18 14:28) Hives - Current Medications Current Medications: Current Medications Albuterol Sulfate (Ventolin Aerosols) 2.5 mg INHALATION Q4H PRN PRN PRN Reason: COPD Apixaban (Eliquis) 2.5 mg PO BID [facility] Last Admin: 05/19/18 08:23 Dose: Not Given Aspirin (Ecotrin) 81 mg PO DAILY [facility] Last Admin: 05/19/18 07:59 Dose: 81 mg Atorvastatin Calcium (Lipitor) 40 mg PO QHS [facility] Last Admin: 05/18/18 21:36 Dose: 40 mg Clopidogrel Bisulfate (Plavix) 75 mg PO DAILY [facility] Last Admin: 05/19/18 07:59 Dose: 75 mg Dextrose (D50w Syringe) 0 gm IV X1 PRN; Protocol PRN Reason: Hypoglycemia Diazepam (Valium) 5 mg PO BID PRN PRN PRN Reason: ANXIETY Ergocalciferol (Vitamin D) 50,000 unit PO Q7D@1000 [facility] Folic Acid (Folic Acid) 1 mg PO DAILY@0800 [facility] Last Admin: 05/19/18 07:56 Dose: 1 mg Glucagon () 1 mg IM .X1 PRN PRN Reason: Hypoglycemia Sodium Chloride () 1,000 mls @ 15 mls/hr IV .Q48H [facility] Last Admin: 05/18/18 15:34 Dose: 15 mls/hr Diltiazem HCl 125 mg/ Dextrose 125 mls @ 5 mls/hr IV .Q25H [facility] PRN Reason: 5 MG/HR Last Admin: 05/18/18 21:47 Dose: 5 mls/hr Sodium Chloride () 1,000 mls @ 125 mls/hr IV .Q8H [facility] Insulin Glargine (Lantus (Bk)) 20 units SC BID [facility] Last Admin: 05/19/18 07:56 Dose: 20 u Insulin Human Lispro (Humalog Kwikpen (Bk)) 0 unit SC ACHS [facility] PRN Reason: Protocol Last Admin: 05/19/18 11:07 Dose: 6 u Levothyroxine Sodium (Synthroid) 25 mcg PO MoWeFr@0600 [facility] Last Admin: 05/19/18 05:18 Dose: 25 mcg Levothyroxine Sodium (Synthroid) 175 mcg PO DAILY@0600 [facility] Last Admin: 05/19/18 05:18 Dose: 175 mcg Magnesium Hydroxide (Milk Of Magnesia) 30 ml PO DAILY PRN PRN PRN Reason: Constipation Metoprolol Tartrate (Lopressor (Beta Mu)) 25 mg PO BID [facility] Last Admin: 05/19/18 10:47 Dose: 25 mg Montelukast Sodium (Singulair) 10 mg PO QHS [facility] Last Admin: 05/18/18 21:36 Dose: 10 mg Pantoprazole Sodium (Protonix) 40 mg PO DAILY [facility] Last Admin: 05/19/18 07:57 Dose: 40 mg Polyethylene Glycol (Miralax) 34 gm PO X1 PRN PRN Reason: Bowel Movement - Past Medical History Past Medical History (Chronic Problems): Chronic Problems Left ventricular apical thrombus (Chronic) Ischemic cardiomyopathy (Chronic) History of coronary artery stent placement (Chronic) CHARY to LAD @ [facility] in March 2018 NSTEMI (non-ST elevated myocardial infarction) (Chronic) Acute exacerbation of COPD with asthma (Chronic) Pneumococcal pneumonia (Chronic) Acute respiratory failure with hypoxia and hypercapnia (Chronic) Diabetes mellitus (Chronic) HLD (hyperlipidemia) (Chronic) S/P PTCA (percutaneous transluminal coronary angioplasty) (Chronic) SVT (supraventricular tachycardia) (Chronic) CAD (coronary artery disease) (Chronic) S/P PTCA/CHARY to LAD @ [facility] in March 2018; Essential hypertension (Chronic) - Past Surgical History Surgical History: no surgical history - Social History Smoking Status: Former smoker Alcohol: None Drugs: None - Family History Paternal Family History: Family History (Last Updated 04/30/18 @ 10:05 by Amalia Ackerman) Father CAD (coronary artery disease) Brother CAD (coronary artery disease) History Items: No pertinent history Review of Systems Constitutional: Denies: Chills, Fever, Weight Change HEENT: Denies: Head Aches, Sinus Congestion, Sinus Drainage Cardiovascular: Denies: Chest Pain, Palpitations Respiratory: Denies: Cough, Shortness of breath at rest, Sputum production Gastrointestinal: Denies: Abdominal Pain, Nausea, Vomiting Genitourinary: Denies: Dysuria Musculoskeletal: Denies: Joint Pain, Joint Tenderness Skin: Denies: Rash, Wounds Neurological: Denies: Numbness, Tingling, Focal weakness Psychiatric: Denies: Anxiety, Depression, Homicidal Ideations, Suicidal Ideations Hematologic/ Lymphatic: Denies: Easy Bruising, Easy Bleeding Patient Problems: Active and Suspected Problems Dehydration (Acute) Diarrhea (Acute) RAFFAELE (acute kidney injury) (Acute) Atrial fibrillation (Acute) - Physical Exam General: Alert, Oriented x3, Cooperative HEENT: Atraumatic, PERRLA, EOMI, Normocephalic Neck: Supple, No JVD, Negative Carotid Bruits Lungs: Clear to auscultation, Normal air movement Cardiovascular: Regular rate, No murmurs Abdomen: Bowel Sounds Present, Soft, Non Tender Extremities: No edema, Capillary Refill Less than 3 Seconds Skin: No rashes, No breakdown Musculoskeletal: No Tenderness to Palpation of Joints or Extremities Neurological: Cranial nerves II-XII grossly intact Psych/Mental Status: Normal Affect, Appropriate Vital Signs Temp Pulse Resp BP Pulse Ox 98.0 F 120 H 18 106/65 95 05/19/18 11:00 05/19/18 11:00 05/19/18 11:00 05/19/18 11:00 05/19/18 11:00 Oxygen Delivery Method Room Air Weight: 98.8 kg Body Mass Index (BMI) 35.2 Intake and Output for Last 24 Hours 05/17/18 05/18/18 05/19/18 23:59 23:59 23:59 Intake Total 1171.9 / 1171.9 2133.7 / 2133.7 Output Total 400 / 400 450 / 450 Balance 771.9 / 771.9 1683.7 / 1683.7 Laboratory Tests Past 24 Hrs 05/18/18 05/18/18 05/18/18 16:15 18:15 18:15 WBC RBC Hgb Hct MCV MCH MCHC RDW RDW Differential Plt Count MPV Immature Gran % (Auto) Neut % (Auto) Lymph % (Auto) [place] % (Auto) Eos % (Auto) Baso % (Auto) Absolute Neuts (auto) Absolute Lymphs (auto) Total Counted Sodium Potassium 6.5 H* Chloride Carbon Dioxide Anion Gap BUN Creatinine Estim Creat Clear Calc Est GFR (MDRD) Af Amer Est GFR (MDRD) Non-Af BUN/Creatinine Ratio Glucose Lactic Acid Calcium Magnesium Troponin I TSH Cortisol Urine Color Urine Clarity Urine pH Ur Specific [place] Urine Protein Urine Glucose (UA) Urine Ketones Urine Occult Blood Urine Nitrite Urine Bilirubin Urine Urobilinogen Ur Leukocyte Esterase Urine RBC Urine WBC Ur Squamous Epith Cells Ur Transition Epith Cell Urine Bacteria Hyaline Casts Urine Mucus Urine Creatinine 110.00 Urine Urea Nitrogen 396 05/18/18 05/19/18 05/19/18 18:15 06:06 06:06 WBC RBC Hgb Hct MCV MCH MCHC RDW RDW Differential Plt Count MPV Immature Gran % (Auto) Neut % (Auto) Lymph % (Auto) [place] % (Auto) Eos % (Auto) Baso % (Auto) Absolute Neuts (auto) Absolute Lymphs (auto) Total Counted Sodium Potassium Chloride Carbon Dioxide Anion Gap BUN Creatinine Estim Creat Clear Calc Est GFR (MDRD) Af Amer Est GFR (MDRD) Non-Af BUN/Creatinine Ratio Glucose Lactic Acid Calcium Magnesium Troponin I < 0.015 TSH Cortisol Cancelled Urine Color Yellow Urine Clarity Clear Urine pH 5.0 Ur Specific [place] 1.020 Urine Protein 15 H Urine Glucose (UA) Normal Urine Ketones Negative Urine Occult Blood Negative Urine Nitrite Negative Urine Bilirubin Negative Urine Urobilinogen Normal Ur Leukocyte Esterase 100 H Urine RBC 0 SEEN Urine WBC 0-5 SEEN Ur Squamous Epith Cells 5-10 SEEN Ur Transition Epith Cell 0-5 SEEN Urine Bacteria 0 SEEN Hyaline Casts 5-10 SEEN Urine Mucus 0 SEEN Urine Creatinine Urine Urea Nitrogen 05/19/18 05/19/18 05/19/18 06:06 10:20 10:20 WBC 5.5 RBC 4.20 Hgb 11.7 L Hct 37.3 MCV 88.8 MCH 27.9 MCHC 31.4 L RDW 15.7 H RDW Differential 50.5 H Plt Count 218 MPV 10.3 Immature Gran % (Auto) 0.200 Neut % (Auto) 80.0 H Lymph % (Auto) 14.0 L [place] % (Auto) 5.8 Eos % (Auto) 0.0 Baso % (Auto) 0.0 Absolute Neuts (auto) 4.4 Absolute Lymphs (auto) 0.77 L Total Counted Not Reportable Sodium Cancelled Potassium Cancelled Chloride Cancelled Carbon Dioxide Cancelled Anion Gap Cancelled BUN Cancelled Creatinine Cancelled Estim Creat Clear Calc Cancelled Est GFR (MDRD) Af Amer Cancelled Est GFR (MDRD) Non-Af Cancelled BUN/Creatinine Ratio Cancelled Glucose Cancelled Lactic Acid Calcium Cancelled Magnesium Troponin I TSH Cortisol 3.70 Urine Color Urine Clarity Urine pH Ur Specific [place] Urine Protein Urine Glucose (UA) Urine Ketones Urine Occult Blood Urine Nitrite Urine Bilirubin Urine Urobilinogen Ur Leukocyte Esterase Urine RBC Urine WBC Ur Squamous Epith Cells Ur Transition Epith Cell Urine Bacteria Hyaline Casts Urine Mucus Urine Creatinine Urine Urea Nitrogen 05/19/18 05/19/18 10:20 10:30 WBC RBC Hgb Hct MCV MCH MCHC RDW RDW Differential Plt Count MPV Immature Gran % (Auto) Neut % (Auto) Lymph % (Auto) [place] % (Auto) Eos % (Auto) Baso % (Auto) Absolute Neuts (auto) Absolute Lymphs (auto) Total Counted Sodium 134 L Potassium 4.4 Chloride 102 Carbon Dioxide 22.0 Anion Gap 10 BUN 54 H Creatinine 1.85 H Estim Creat Clear Calc 29.89 Est GFR (MDRD) Af Amer 36 L Est GFR (MDRD) Non-Af 29 L BUN/Creatinine Ratio 29.2 H Glucose 350 H Lactic Acid 2.4 H Calcium 7.1 L Magnesium 1.6 Troponin I TSH 0.68 Cortisol Urine Color Urine Clarity Urine pH Ur Specific [place] Urine Protein Urine Glucose (UA) Urine Ketones Urine Occult Blood Urine Nitrite Urine Bilirubin Urine Urobilinogen Ur Leukocyte Esterase Urine RBC Urine WBC Ur Squamous Epith Cells Ur Transition Epith Cell Urine Bacteria Hyaline Casts Urine Mucus Urine Creatinine Urine Urea Nitrogen POC Glucose 05/19/18 05/19/18 05/18/18 11:05 06:37 21:40 POC Glucose 352 H 282 H 212 H 05/18/18 18:10 POC Glucose 164 H Assessment/Plan All Active Problems Dehydration (Acute) Diarrhea (Acute) RAFFAELE (acute kidney injury) (Acute) Atrial fibrillation (Acute) Hx of tonsillectomy (Resolved) Hx of cholecystectomy (Resolved) CHF (congestive heart failure) (Acute) NSTEMI, initial episode of care (Acute) Acute non-ST elevation myocardial infarction (NSTEMI) (Acute) RAFFAELE. normal baseline as of last month. UA looks benign. renal imaging pending. creatinine is already better. no further work up for now Hyperkalemia. ? supplements related. better now CHF. history of severe CHF with low EF. CXR looks ok. some peripheral edema which she says is better than before. Lungs are clear. oral mucosa is relatively dry. continue to hold diuretics for now Diarrhea. C Diff negative. better now as per patient d.w Dr Miller will follow
[2018-05-19] MEDS: 0.9% Normal Saline 1,000 ML 125 ML IV (14:19)
[2018-05-19 14:36] LABS: Reflex Lactate? Y
--- NOTE | 2018-05-19 15:45 | CASEMGMT ---
Social Work Note SW attempted to see pt to complete initial assessment and to confirm discharge plans. Pt currently on the commode and didn't want to speak to this worker at this time. SW will follow up with pt as time allows either later today or tomorrow. Plan: TBD Pt is from [facility] but per Radha RESEARCH AIDE pt wasn't happy being at [facility] and will need to confirm discharge plans with pt once she is available to talk to the SW. Kinsey Alaniz [employer], RESEARCH AIDE
[2018-05-19 16:13] LABS: Lactic Acid 4.1 mmol/L (0.4-2.0)
[2018-05-19 16:20] LABS: Bedside Glucose 393 mg/dL (70-110)
[2018-05-19 16:55] LABS: Allen Test POS; Base Excess -8 mmol/L (-2 to +2); Bicarbonate 16.9 mmol/L (22-26); Blood Gas Specimen Type ART; O2 Delivery Device Room Air; PO2 76 mmHG (75-100); SITE R Radial; SO2 95 % (95-99); Time Given 1645; Total Carbon Dioxide 18 mmol/L; pCO2 29.4 mmHg (35-45); pH 7.37 (7.35-7.45)
[2018-05-19] MEDS: Ondansetron 4 MG/2 ML Vial IV (17:29)
--- NOTE | 2018-05-19 19:00 | NURSING ---
Patient ulloa catheter irrigated with 60cc Sterile H2O at this time. No resistance was met. Ulloa drained 60cc of pink fluid. No clots noted. Patient was then bladder scanned with a result of 50cc.
[2018-05-19 19:46] LABS: Anion Gap 13 (5-15); BUN 62 mg/dL (7-18); BUN/Creat Ratio 25.6 RATIO (10-20); Calcium,Total 7.7 mg/dL (8.5-10.1); Chloride 99 mmol/L (98-107); Creatinine, Serum 2.42 mg/dL (0.55-1.02); EST Glomerular Filtration Rate 22 mL/min (>60); Est Glom Filt Rate - Afr Amer 26 mL/min (>60); Estimated Creatinine Clearance 22.85 ml/min; Glucose 397 mg/dL (74-106); Potassium 5.4 mmol/L (3.5-5.1); Sodium Level 128 mmol/L (136-145)
[2018-05-19 20:20] LABS: Lactic Acid 3.5 mmol/L (0.4-2.0)
[2018-05-19] MEDS: APIXABAN 2.5 MG TABLET PO (21:21)
[2018-05-19] MEDS: Atorvastatin Calcium 40 MG Tablet PO (21:26)
[2018-05-19] MEDS: Montelukast 10 MG Tablet PO (21:26)
[2018-05-19] MEDS: 0.9% Normal Saline 1,000 ML 150 ML IV (21:27)
[2018-05-19 21:55] LABS: Bedside Glucose 326 mg/dL (70-110)
[2018-05-19 23:27] LABS: Reflex Lactate? Y
[2018-05-20] VITALS (37 sets, daily range): BP systolic 92–127; BP diastolic 64–94; PULSE 98–137; RESP 13–25; TEMP 36.7–37.1; O2SAT 92–99
[2018-05-20] MEDS: 0.9% Normal Saline 1,000 ML 150 ML IV (04:39)
[2018-05-20 04:42] LABS: Reflex Lactate? Y
[2018-05-20 05:41] LABS: Absolute Lymphocyte Count 1.27 X10^3/ul (0.83-4.51); Basophil# 0.01 X10^3/uL; Basophil% 0.1 % (0-1); Hemoglobin 14.1 g/dl (12.0-15.0); Lymphocyte # 1.27 X10^3/ul (4.0); Lymphocyte % 11.6 % (19-41); Mean Corp Hgb Conc 32.8 g/gl (32-36); Mean Corpuscular Hgb 28.5 pg (27.0-32.0); Mean Platelet Vol. 10.9 fl (6.2-12.0); Monocyte# 0.64 X10^3/uL; Monocyte% 5.9 % (0-10); Neutrophil # 8.96 X10^3/uL (2.7-7.7); Neutrophil % 82.1 % (47-70); Platelet Count 285 K/mm3 (150-450); RBC Distribution Width CV 16.2 % (11.6-14.6); Red Blood Count 4.94 M/mm3 (4.2-5.4); White Blood Count 10.9 K/mm3 (4.4-11.0)
[2018-05-20 05:53] LABS: POSITIVE COUNT NO; POSITIVE DIFFERENTIAL NO; POSITIVE MORPHOLOGY NO
[2018-05-20] MEDS: Levothyroxine 175 MCG Tablet PO (05:54)
[2018-05-20 06:05] LABS: Anion Gap 12 (5-15); BUN 68 mg/dL (7-18); BUN/Creat Ratio 26.8 RATIO (10-20); Calcium,Total 7.7 mg/dL (8.5-10.1); Chloride 99 mmol/L (98-107); Creatinine, Serum 2.54 mg/dL (0.55-1.02); EST Glomerular Filtration Rate 20 mL/min (>60); Est Glom Filt Rate - Afr Amer 25 mL/min (>60); Estimated Creatinine Clearance 21.77 ml/min; Glucose 296 mg/dL (74-106); Magnesium 1.7 mg/dL (1.6-2.6); Potassium 5.3 mmol/L (3.5-5.1); Sodium Level 133 mmol/L (136-145)
[2018-05-20 06:09] LABS: Lactic Acid 1.6 mmol/L (0.4-2.0)
[2018-05-20 07:21] LABS: Bedside Glucose 295 mg/dL (70-110)
[2018-05-20] MEDS: Insulin Lispro 100 UNIT/ML INSULN.PEN SC ×4 (07:37→22:57)
[2018-05-20] MEDS: Hydrocortisone Sod Succinate 100 MG/2 ML Vial 50 MG IV ×4 (08:10→23:00)
[2018-05-20] MEDS: Clopidogrel Bisulfate 75 MG Tablet PO (08:34)
[2018-05-20] MEDS: Aspirin E.C. 81 MG Tablet PO (08:34)
[2018-05-20] MEDS: APIXABAN 2.5 MG TABLET PO ×2 (08:34→22:52)
[2018-05-20] MEDS: Metoprolol Tartrate 25 MG Tablet PO ×2 (08:34→22:51)
[2018-05-20] MEDS: Pantoprazole Sodium 40 MG Tablet PO (08:34)
[2018-05-20] MEDS: Folic Acid 1 MG Tablet PO (08:34)
--- NOTE | 2018-05-20 11:07 | PN.CARD_ITS ---
Subjectve: Patient laying down flat, was hypotensive yesterday requiring IV steroids, cessation of her amiodarone drip, and multiple IV fluid boluses. Patient's lactate was elevated suggesting some kind of infectious process. Blood and urine cultures and fungal cultures obtained last evening with results pending. Lactic acid trending downward at 1.6 today. Heart rate was difficult to control yesterday given precipitous drops in her blood pressure. Amiodarone was held and Lopressor resumed this morning for heart rate control. Patient remains in atrial fibrillation with rapid ventricular response per Objective: Vital Signs Temp Pulse Resp BP Pulse Ox 98.8 F 99 18 114/94 H 96 05/20/18 05:00 05/20/18 10:46 05/20/18 10:00 05/20/18 10:00 05/20/18 10:00 Oxygen Delivery Method Room Air Weight: 217 lb 13.067 oz Body Mass Index (BMI) 35.2 Intake and Output for Last 24 Hours 05/18/18 05/19/18 05/20/18 23:59 23:59 23:59 Intake Total 1171.9 / 1171.9 6307.7 / 6307.7 838 / 838 Output Total 400 / 400 550 / 550 100 / 100 Balance 771.9 / 771.9 5757.7 / 5757.7 738 / 738 General: Awake, Alert, Oriented x 3 HEENT: PERRL, EOMI, Sclera Non Icteric Neck: Supple, Good ROM, No Lymph Node Enlargement Lungs: Clear to auscultation Cardiovascular: Irregular Rhythm, Normal S1, Normal S2, No Murmurs, No Rubs, No Gallops Vascular: No Carotid Bruits, Normal Femoral Pulses, Normal Radial Pulses, Normal Dorsalis Pedal Pulse, Normal Posterior Tibial Pulses Abdomen: Bowel Sounds Present, Soft, Non Tender, No HSM, No Organomegaly Extremities: No Cyanosis, No Clubbing, No edema Neurological: No Focal Motor or Sensory Deficit 05/19/18 10:20: Sodium 134 L, Potassium 4.4, Chloride 102, Carbon Dioxide 22.0, Anion Gap 10, BUN 54 H, Creatinine 1.85 H, Est GFR (MDRD) Af Amer 36 L, Est GFR (MDRD) Non-Af 29 L, BUN/Creatinine Ratio 29.2 H, Glucose 350 H, Calcium 7.1 L, Magnesium 1.6 05/19/18 10:30: Lactic Acid 2.4 H 05/19/18 14:57: Lactic Acid 4.1 H* 05/19/18 16:49: pH 7.37, Bicarbonate Actual 16.9 L, POC Total CO2 18, Base Excess -8 L, O2 Saturation 95, ABG pCO2 29.4 L, ABG pO2 76, Tamir Test POS 05/19/18 18:48: Lactic Acid 3.5 H 05/19/18 18:48: Sodium 128 L, Potassium 5.4 H, Chloride 99, Carbon Dioxide 16.0 L, Anion Gap 13, BUN 62 H, Creatinine 2.42 H, Est GFR (MDRD) Af Amer 26 L, Est GFR (MDRD) Non-Af 22 L, BUN/Creatinine Ratio 25.6 H, Glucose 397 H, Calcium 7.7 L 05/20/18 00:35: Lactic Acid 2.0 05/20/18 05:25: WBC 10.9, RBC 4.94, Hgb 14.1, Hct 43.0, MCV 87.0, MCH 28.5, MCHC 32.8, RDW 16.2 H, RDW Differential 51.0 H, Plt Count 285, MPV 10.9, Immature Gran % (Auto) 0.300, Neut % (Auto) 82.1 H, Lymph % (Auto) 11.6 L, [place] % (Auto) 5.9, Eos % (Auto) 0.0, Baso % (Auto) 0.1, Absolute Neuts (auto) 9.0 H, Total Counted Not Reportable 05/20/18 05:25: Sodium 133 L, Potassium 5.3 H, Chloride 99, Carbon Dioxide 22.0 , Anion Gap 12, BUN 68 H, Creatinine 2.54 H, Est GFR (MDRD) Af Amer 25 L, Est GFR (MDRD) Non-Af 20 L, BUN/Creatinine Ratio 26.8 H, Glucose 296 H, Calcium 7.7 L, Magnesium 1.7 05/20/18 05:25: Lactic Acid 1.6 Rhythm: EKG: ECHO: Stress Test: Cardiac Cath: PCI: CT Surgery: Holter monitor: EPS: PPM: CXR: Chest CT Scan: Medical Necessity - Tobacco Use Smoking Status: Former smoker Tobacco Use: Cigarettes Assessment/Plan 1. Ischemic cardiomyopathy: The patient reportedly has a history of multiple stents, the most recent of which was placed at the [facility] in early March of 2018. According to Dr. Del Cid's note, her previously placed stents in the circumflex and RCA were widely patent and her EF was around 40%. Patient now returns with what appears to be dehydration as a result of her diarrhea for the past 2 weeks, worsening renal function,, lower extremity edema, clear lungs by physical exam and by chest x-ray, new onset atrial fibrillation with RVR, previously noted severe ecchymosis of her left arm and possible LV apical thrombus by echocardiogram. At this point I would hold all medications that may make her dehydration and renal insufficiency worse such as diuretics, LIT inhibitors. Would recommend continuing her baby aspirin and Plavix given her recently placed stent. Her ecchymosis in her left arm is resolving and has been much improved per the patient and her hemoglobin is stable. Would also recommend obtaining her old records from either the [facility] or from her recent admission here and preferably the catheterization films so that I may review them. 2. Atrial fibrillation: The patient presents with atrial fibrillation with RVR which is no doubt making her congestive heart failure worse. She is currently on low-dose Eliquis therapy for anticoagulation therapy despite her recent ecchymosis to her left arm and despite her possible LV apical thrombus on echocardiogram in April 2018. Her heart rate appears to be slightly better controlled with IV fluid resuscitation, and low-dose Lopressor therapy. We can always restart her amiodarone drip if it is necessary for heart rate control. Would not recommend IV amiodarone bolus given her predilection for hypotension. Her lactate level is going down suggesting that her fluid status is stabilizing. Blood cultures, urine cultures and fungal cultures are all pending. In the meantime would recommend Lit bandage wraps to both legs to facilitate venous return. Would recommend DC cardioversion in 3-4 weeks time to assist with resynchronization given her LV dysfunction. 3. Hyperlipidemia: Continue statin based medications of appropriate do so. 4. Thank you very much for the opportunity to participate in the cardiac care of your patient. Code Visit Inpatient E&M: 27265 Subs Hosp L2
--- NOTE | 2018-05-20 11:26 | PCM.PN.HOSP ---
Patient Problems: Active and Suspected Problems Dehydration (Acute) Diarrhea (Acute) RAFFAELE (acute kidney injury) (Acute) Atrial fibrillation (Acute) Subjective: Patient seen and examined. She feels better than yesterday. She still does feel nauseous vomiting and diarrhea have resolved. She denies any chills overnight, any cough or chest pain, shortness of breath, any abdominal pain. 12 point review of systems otherwise negative. Last night, patient was noted to be hypotensive again a repeat BMP done showed hyponatremia and hyperkalemia. She was given another dose of Decadron yesterday. Vitals/I&O's: Vital Signs Temp Pulse Resp BP Pulse Ox 98.8 F 106 H 18 104/72 96 05/20/18 05:00 05/20/18 11:00 05/20/18 11:00 05/20/18 11:00 05/20/18 11:00 Oxygen Delivery Method Room Air Weight: 217 lb 13.067 oz Body Mass Index (BMI) 35.2 Intake and Output for Last 24 Hours 05/18/18 05/19/18 05/20/18 23:59 23:59 23:59 Intake Total 1171.9 / 1171.9 6307.7 / 6307.7 838 / 838 Output Total 400 / 400 550 / 550 100 / 100 Balance 771.9 / 771.9 5757.7 / 5757.7 738 / 738 General: Alert, Oriented x3, Cooperative, No apparent distress HEENT: Atraumatic, PERRLA, EOMI, Normocephalic Oral: Moist Mucosa Neck: Supple, No JVD, Negative Carotid Bruits, No Nodes Lungs: Clear to auscultation, Normal air movement, No rhonchi, No wheeze, No rales Cardiovascular: Regular rate, Regular Rhythm, Normal S1, Normal S2, No murmurs Abdomen: Bowel Sounds Present, Soft, Non Tender, Non-Distended, No Hepato-splenomegaly Extremities: No clubbing, No cyanosis, - - mild 1+ bipedal pitting edema Skin: No rashes, No breakdown Musculoskeletal: No Tenderness to Palpation of Joints or Extremities Lymphatic: No Cervical, Supraclavicular, or Inguinal Adenopathy Neurological: Cranial nerves II-XII grossly intact, Motor Exam 5/5 strength throughout Psych/Mental Status: Normal Affect, Appropriate, Alert and oriented to time, place, person, mood and affect Laboratory Results 05/19/18 10:20: ACTH Pending 05/19/18 14:57: Lactic Acid 4.1 H* 05/19/18 16:10: POC Glucose 393 H 05/19/18 16:49: Specimen Type ART, Sample Site R Radial, pH 7.37, Bicarbonate Actual 16.9 L, POC Total CO2 18, Base Excess -8 L, O2 Saturation 95, ABG pCO2 29.4 L, ABG pO2 76, Tamir Test POS, O2 Delivery Device Room Air, Blood Gas Notified Whom NORIS ROSE, Blood Gas Notified Time 1645 05/19/18 18:48: Lactic Acid 3.5 H 05/19/18 18:48: Sodium 128 L, Potassium 5.4 H, Chloride 99, Carbon Dioxide 16.0 L, Anion Gap 13, BUN 62 H, Creatinine 2.42 H, Estim Creat Clear Calc 22.85, Est GFR (MDRD) Af Amer 26 L, Est GFR (MDRD) Non-Af 22 L, BUN/Creatinine Ratio 25.6 H, Glucose 397 H, Calcium 7.7 L 05/19/18 21:23: POC Glucose 326 H 05/20/18 00:35: Lactic Acid 2.0 05/20/18 05:25: Miscellaneous Test Pending 05/20/18 05:25: WBC 10.9, RBC 4.94, Hgb 14.1, Hct 43.0, MCV 87.0, MCH 28.5, MCHC 32.8, RDW 16.2 H, RDW Differential 51.0 H, Plt Count 285, MPV 10.9, Immature Gran % (Auto) 0.300, Neut % (Auto) 82.1 H, Lymph % (Auto) 11.6 L, [place] % (Auto) 5.9, Eos % (Auto) 0.0, Baso % (Auto) 0.1, Absolute Neuts (auto) 9.0 H, Absolute Lymphs (auto) 1.27, Total Counted Not Reportable 05/20/18 05:25: Sodium 133 L, Potassium 5.3 H, Chloride 99, Carbon Dioxide 22.0, Anion Gap 12, BUN 68 H, Creatinine 2.54 H, Estim Creat Clear Calc 21.77, Est GFR (MDRD) Af Amer 25 L, Est GFR (MDRD) Non-Af 20 L, BUN/Creatinine Ratio 26.8 H, Glucose 296 H, Calcium 7.7 L, Magnesium 1.7 05/20/18 05:25: Lactic Acid 1.6 05/20/18 06:50: POC Glucose 295 H 05/20/18 07:23: Miscellaneous Test Pending Current Medications Albuterol Sulfate (Ventolin Aerosols) 2.5 mg INHALATION Q4H PRN PRN PRN Reason: COPD Apixaban (Eliquis) 2.5 mg PO BID [facility] Last Admin: 05/20/18 08:34 Dose: 2.5 mg Aspirin (Ecotrin) 81 mg PO DAILY [facility] Last Admin: 05/20/18 08:34 Dose: 81 mg Atorvastatin Calcium (Lipitor) 40 mg PO QHS [facility] Last Admin: 05/19/18 21:26 Dose: 40 mg Clopidogrel Bisulfate (Plavix) 75 mg PO DAILY [facility] Last Admin: 05/20/18 08:34 Dose: 75 mg Dextrose (D50w Syringe) 0 gm IV X1 PRN; Protocol PRN Reason: Hypoglycemia Diazepam (Valium) 5 mg PO BID PRN PRN PRN Reason: ANXIETY Ergocalciferol (Vitamin D) 50,000 unit PO Q7D@1000 [facility] Folic Acid (Folic Acid) 1 mg PO DAILY@0800 [facility] Last Admin: 05/20/18 08:34 Dose: 1 mg Glucagon () 1 mg IM .X1 PRN PRN Reason: Hypoglycemia Hydrocortisone Sodium Succinate (Solu-Cortef) 50 mg IV Q6 [facility] Last Admin: 05/20/18 08:10 Dose: 50 mg Sodium Chloride () 1,000 mls @ 15 mls/hr IV .Q48H [facility] Last Admin: 05/18/18 15:34 Dose: 15 mls/hr Sodium Chloride () 1,000 mls @ 100 mls/hr IV .Q10H [facility] Insulin Glargine (Lantus (Bkc)) 20 units SC BID [facility] Last Admin: 05/20/18 07:37 Dose: 20 u Insulin Human Lispro (Humalog Kwikpen (Bkc)) 0 unit SC ACHS [facility] PRN Reason: Protocol Last Admin: 05/20/18 07:37 Dose: 4 u Levothyroxine Sodium (Synthroid) 25 mcg PO MoWeFr@0600 [facility] Last Admin: 05/19/18 05:18 Dose: 25 mcg Levothyroxine Sodium (Synthroid) 175 mcg PO DAILY@0600 [facility] Last Admin: 05/20/18 05:54 Dose: 175 mcg Magnesium Hydroxide (Milk Of Magnesia) 30 ml PO DAILY PRN PRN PRN Reason: Constipation Metoprolol Tartrate (Lopressor (Beta Mu)) 25 mg PO BID [facility] Last Admin: 05/20/18 08:34 Dose: 25 mg Montelukast Sodium (Singulair) 10 mg PO QHS [facility] Last Admin: 05/19/18 21:26 Dose: 10 mg Ondansetron HCl (Zofran) 4 mg IV Q6H PRN PRN PRN Reason: NAUSEA Last Admin: 05/19/18 17:29 Dose: 4 mg Pantoprazole Sodium (Protonix) 40 mg PO DAILY [facility] Last Admin: 05/20/18 08:34 Dose: 40 mg Polyethylene Glycol (Miralax) 34 gm PO X1 PRN PRN Reason: Bowel Movement Sodium Chloride () 5 - 30 ml IV UD PRN PRN Reason: SALINE FLUSH Medical Necessity - Tobacco Use Smoking Status: Former smoker Tobacco Use: Cigarettes Assessment/Plan All Active Problems Dehydration (Acute) Diarrhea (Acute) RAFFAELE (acute kidney injury) (Acute) Atrial fibrillation (Acute) Hx of tonsillectomy (Resolved) Hx of cholecystectomy (Resolved) CHF (congestive heart failure) (Acute) NSTEMI, initial episode of care (Acute) Acute non-ST elevation myocardial infarction (NSTEMI) (Acute) 62 y/o female presenting with a 2 week history of intractable diarrhea and vomiting. 1. adrenal insufficiency presented with nausea, vomiting and diarrhea. Labs showed hyperkalemia and hyponatremia. She was also hypotensive. Achieved a dose of IV Decadron 4 mg on day of admission. Random cortisol level was 3.7. ACTH ordered and is pending. Labs repeated yesterday still showed hypokalemia and hyponatremia with hypotension also. Cosyntropin test ordered. This was inadvertently not carried out for repair lab. Since patient remains hypotensive and thus the risk of given IV fluids due to CHF, will start treatment with IV hydrocortisone 50 mg every 6 today. Will transition off IV fluids. Will follow serum ACTH and cosyntropin levels. This is a send out test and so last night and quite a while to come back. May need to be further worked up on outpatient basis to diagnose exact cause. 2. Hypovolemic shock due to severe gastroenteritis BP now in 100s systolic on IVF 150cc/hr; will cut back down to 100cc/hr will transition off iVF in light of heart failure 3.Lactic acidosis peaked at ~4; now down to 1.6 was likely due to hypotension will monitor; blood cultures, urine cultures and fungal cultures pending 4. Afib with RVR was started on amiodarone drip o/a of Afib with RVR; amiodarone drip dced o/a of hypotension was still tachycardic at time of review metoprolol was held on admission o/a of hypotension; metoprolol resumed cardiology on board; recommend holding amiodarone drip for now; if it needs to be started again, not to give amiodarone bolus. 5. HFrEF EF 30% per last echo BNP on admission was 766.9, but was clinically very dry no clinical evidence of fluid overload currently on IVF; lasix on hold will monitor closely and resume lasix once hypotension resolves 5. RAFFAELE, likely pre-renal due to gastroenteritis Cr up to 2.54 baseline is ~ 1. nephro on board will monitor 5. Epistaxis resolved eliquis restarted will montor 6. Hyponatremia resolving. Na is 133 today. 7. Hyperkalemia K was 6.5 on admission; went down to 4.4 and is 5.3 today likely due to adrenal insufficiency will monitor BNP will give kayexalate x 1 8.. CAD s/p stents on aspirin, plavix and statin 9. Hypertension BP meds on hold o/a of hypotension 10. DVT prophylaxis: on apixaban Code status: Full code. This note was generated with [employer] dictation software. It may contain incorrect words, spelling, and punctuation that were not noted in checking the note before signing. Code Visit Inpatient E&M: 05973 [facility] L[facility]
--- NOTE | 2018-05-20 11:35 | PN_ITS ---
Patient Problems: Active and Suspected Problems Dehydration (Acute) Diarrhea (Acute) RAFFAELE (acute kidney injury) (Acute) Atrial fibrillation (Acute) Subjective: Patient seen and examined. She feels better than yesterday. She still does feel nauseous vomiting and diarrhea have resolved. She denies any chills overnight, any cough or chest pain, shortness of breath, any abdominal pain. 12 point review of systems otherwise negative. Last night, patient was noted to be hypotensive again a repeat BMP done showed hyponatremia and hyperkalemia. She was given another dose of Decadron yesterday. Vitals/I&O's: Vital Signs Temp Pulse Resp BP Pulse Ox 98.8 F 106 H 18 104/72 96 05/20/18 05:00 05/20/18 11:00 05/20/18 11:00 05/20/18 11:00 05/20/18 11:00 Oxygen Delivery Method Room Air Weight: 217 lb 13.067 oz Body Mass Index (BMI) 35.2 Intake and Output for Last 24 Hours 05/18/18 05/19/18 05/20/18 23:59 23:59 23:59 Intake Total 1171.9 / 1171.9 6307.7 / 6307.7 838 / 838 Output Total 400 / 400 550 / 550 100 / 100 Balance 771.9 / 771.9 5757.7 / 5757.7 738 / 738 General: Alert, Oriented x3, Cooperative, No apparent distress HEENT: Atraumatic, PERRLA, EOMI, Normocephalic Oral: Moist Mucosa Neck: Supple, No JVD, Negative Carotid Bruits, No Nodes Lungs: Clear to auscultation, Normal air movement, No rhonchi, No wheeze, No rales Cardiovascular: Regular rate, Regular Rhythm, Normal S1, Normal S2, No murmurs Abdomen: Bowel Sounds Present, Soft, Non Tender, Non-Distended, No Hepato- splenomegaly Extremities: No clubbing, No cyanosis, - - mild 1+ bipedal pitting edema Skin: No rashes, No breakdown Musculoskeletal: No Tenderness to Palpation of Joints or Extremities Lymphatic: No Cervical, Supraclavicular, or Inguinal Adenopathy Neurological: Cranial nerves II-XII grossly intact, Motor Exam 5/5 strength throughout Psych/Mental Status: Normal Affect, Appropriate, Alert and oriented to time, place, person, mood and affect Laboratory Results 05/19/18 10:20: ACTH Pending 05/19/18 14:57: Lactic Acid 4.1 H* 05/19/18 16:10: POC Glucose 393 H 05/19/18 16:49: Specimen Type ART, Sample Site R Radial, pH 7.37, Bicarbonate Actual 16.9 L, POC Total CO2 18, Base Excess -8 L, O2 Saturation 95, ABG pCO2 29.4 L, ABG pO2 76, Tamir Test POS, O2 Delivery Device Room Air, Blood Gas Notified Whom NORIS ROSE, Blood Gas Notified Time 1645 05/19/18 18:48: Lactic Acid 3.5 H 05/19/18 18:48: Sodium 128 L, Potassium 5.4 H, Chloride 99, Carbon Dioxide 16.0 L, Anion Gap 13, BUN 62 H, Creatinine 2.42 H, Estim Creat Clear Calc 22.85, Est GFR (MDRD) Af Amer 26 L, Est GFR (MDRD) Non-Af 22 L, BUN/Creatinine Ratio 25.6 H , Glucose 397 H, Calcium 7.7 L 05/19/18 21:23: POC Glucose 326 H 05/20/18 00:35: Lactic Acid 2.0 05/20/18 05:25: Miscellaneous Test Pending 05/20/18 05:25: WBC 10.9, RBC 4.94, Hgb 14.1, Hct 43.0, MCV 87.0, MCH 28.5, MCHC 32.8, RDW 16.2 H, RDW Differential 51.0 H, Plt Count 285, MPV 10.9, Immature Gran % (Auto) 0.300, Neut % (Auto) 82.1 H, Lymph % (Auto) 11.6 L, [place] % (Auto) 5.9, Eos % (Auto) 0.0, Baso % (Auto) 0.1, Absolute Neuts (auto) 9.0 H, Absolute Lymphs (auto) 1.27, Total Counted Not Reportable 05/20/18 05:25: Sodium 133 L, Potassium 5.3 H, Chloride 99, Carbon Dioxide 22.0 , Anion Gap 12, BUN 68 H, Creatinine 2.54 H, Estim Creat Clear Calc 21.77, Est GFR (MDRD) Af Amer 25 L, Est GFR (MDRD) Non-Af 20 L, BUN/Creatinine Ratio 26.8 H , Glucose 296 H, Calcium 7.7 L, Magnesium 1.7 05/20/18 05:25: Lactic Acid 1.6 05/20/18 06:50: POC Glucose 295 H 05/20/18 07:23: Miscellaneous Test Pending Current Medications Albuterol Sulfate (Ventolin Aerosols) 2.5 mg INHALATION Q4H PRN PRN PRN Reason: COPD Apixaban (Eliquis) 2.5 mg PO BID [facility] Last Admin: 05/20/18 08:34 Dose: 2.5 mg Aspirin (Ecotrin) 81 mg PO DAILY [facility] Last Admin: 05/20/18 08:34 Dose: 81 mg Atorvastatin Calcium (Lipitor) 40 mg PO QHS [facility] Last Admin: 05/19/18 21:26 Dose: 40 mg Clopidogrel Bisulfate (Plavix) 75 mg PO DAILY [facility] Last Admin: 05/20/18 08:34 Dose: 75 mg Dextrose (D50w Syringe) 0 gm IV X1 PRN; Protocol PRN Reason: Hypoglycemia Diazepam (Valium) 5 mg PO BID PRN PRN PRN Reason: ANXIETY Ergocalciferol (Vitamin D) 50,000 unit PO Q7D@1000 [facility] Folic Acid (Folic Acid) 1 mg PO DAILY@0800 [facility] Last Admin: 05/20/18 08:34 Dose: 1 mg Glucagon () 1 mg IM .X1 PRN PRN Reason: Hypoglycemia Hydrocortisone Sodium Succinate (Solu-Cortef) 50 mg IV Q6 [facility] Last Admin: 05/20/18 08:10 Dose: 50 mg Sodium Chloride () 1,000 mls @ 15 mls/hr IV .Q48H [facility] Last Admin: 05/18/18 15:34 Dose: 15 mls/hr Sodium Chloride () 1,000 mls @ 100 mls/hr IV .Q10H [facility] Insulin Glargine (Lantus (Bkc)) 20 units SC BID [facility] Last Admin: 05/20/18 07:37 Dose: 20 u Insulin Human Lispro (Humalog Kwikpen (Bkc)) 0 unit SC ACHS [facility] PRN Reason: Protocol Last Admin: 05/20/18 07:37 Dose: 4 u Levothyroxine Sodium (Synthroid) 25 mcg PO MoWeFr@0600 [facility] Last Admin: 05/19/18 05:18 Dose: 25 mcg Levothyroxine Sodium (Synthroid) 175 mcg PO DAILY@0600 [facility] Last Admin: 05/20/18 05:54 Dose: 175 mcg Magnesium Hydroxide (Milk Of Magnesia) 30 ml PO DAILY PRN PRN PRN Reason: Constipation Metoprolol Tartrate (Lopressor (Beta Mu)) 25 mg PO BID [facility] Last Admin: 05/20/18 08:34 Dose: 25 mg Montelukast Sodium (Singulair) 10 mg PO QHS [facility] Last Admin: 05/19/18 21:26 Dose: 10 mg Ondansetron HCl (Zofran) 4 mg IV Q6H PRN PRN PRN Reason: NAUSEA Last Admin: 05/19/18 17:29 Dose: 4 mg Pantoprazole Sodium (Protonix) 40 mg PO DAILY [facility] Last Admin: 05/20/18 08:34 Dose: 40 mg Polyethylene Glycol (Miralax) 34 gm PO X1 PRN PRN Reason: Bowel Movement Sodium Chloride () 5 - 30 ml IV UD PRN PRN Reason: SALINE FLUSH Medical Necessity - Tobacco Use Smoking Status: Former smoker Tobacco Use: Cigarettes Assessment/Plan All Active Problems Dehydration (Acute) Diarrhea (Acute) RAFFAELE (acute kidney injury) (Acute) Atrial fibrillation (Acute) Hx of tonsillectomy (Resolved) Hx of cholecystectomy (Resolved) CHF (congestive heart failure) (Acute) NSTEMI, initial episode of care (Acute) Acute non-ST elevation myocardial infarction (NSTEMI) (Acute) 62 y/o female presenting with a 2 week history of intractable diarrhea and vomiting. 1. adrenal insufficiency * presented with nausea, vomiting and diarrhea. Labs showed hyperkalemia and hyponatremia. She was also hypotensive. * Achieved a dose of IV Decadron 4 mg on day of admission. Random cortisol level was 3.7. * ACTH ordered and is pending. * Labs repeated yesterday still showed hypokalemia and hyponatremia with hypotension also. * Cosyntropin test ordered. This was inadvertently not carried out for repair lab. * Since patient remains hypotensive and thus the risk of given IV fluids due to CHF, will start treatment with IV hydrocortisone 50 mg every 6 today. Will transition off IV fluids. * Will follow serum ACTH and cosyntropin levels. This is a send out test and so last night and quite a while to come back. * May need to be further worked up on outpatient basis to diagnose exact cause. * 2. Hypovolemic shock due to severe gastroenteritis * BP now in 100s systolic * on IVF 150cc/hr; will cut back down to 100cc/hr * will transition off iVF in light of heart failure * 3.Lactic acidosis * peaked at ~4; now down to 1.6 * was likely due to hypotension * will monitor; blood cultures, urine cultures and fungal cultures pending * 4. Afib with RVR * was started on amiodarone drip o/a of Afib with RVR; amiodarone drip dced o/a of hypotension * was still tachycardic at time of review * metoprolol was held on admission o/a of hypotension; metoprolol resumed * cardiology on board; recommend holding amiodarone drip for now; if it needs to be started again, not to give amiodarone bolus. * 5. HFrEF * EF 30% per last echo * BNP on admission was 766.9, but was clinically very dry * no clinical evidence of fluid overload * currently on IVF; lasix on hold * will monitor closely and resume lasix once hypotension resolves * * 5. RAFFAELE, likely pre-renal due to gastroenteritis * Cr up to 2.54 * baseline is ~ 1. * nephro on board * will monitor * 5. Epistaxis * resolved * eliquis restarted * will montor * * 6. Hyponatremia * resolving. Na is 133 today. * 7. Hyperkalemia * K was 6.5 on admission; went down to 4.4 and is 5.3 today * likely due to adrenal insufficiency * will monitor BNP * will give kayexalate x 1 * * 8.. CAD s/p stents * on aspirin, plavix and statin * 9. Hypertension * BP meds on hold o/a of hypotension * 10. DVT prophylaxis: on apixaban Code status: Full code. * This note was generated with [employer] software. It may contain incorrect words, spelling, and punctuation that were not noted in checking the note before signing. Code Visit Inpatient E&M: 06904 [facility] L3
[2018-05-20 11:50] LABS: Bedside Glucose 310 mg/dL (70-110)
--- NOTE | 2018-05-20 12:27 | CASEMGMT ---
SW spoke with patient and she does not want to go back to [facility]. She asked if she could stay here and go to [facility]'s unit. SW told her they do not take Medicaid in TCU. SW gave her a list of facilities that are in network with her insurance. She will review the list and let SW know. Lise FALLON
--- NOTE | 2018-05-20 13:40 | PCM.PN.REN ---
Patient Problems: Active and Suspected Problems Dehydration (Acute) Diarrhea (Acute) RAFFAELE (acute kidney injury) (Acute) Atrial fibrillation (Acute) Subjective: events noted - Physical Exam General: Alert, Oriented x3, Cooperative HEENT: Atraumatic, PERRLA, EOMI, Normocephalic Neck: Supple, No JVD, Negative Carotid Bruits Lungs: Clear to auscultation, Normal air movement Cardiovascular: Regular rate, No murmurs Abdomen: Bowel Sounds Present, Soft, Non Tender Extremities: No edema, Capillary Refill Less than 3 Seconds Skin: No rashes, No breakdown Musculoskeletal: No Tenderness to Palpation of Joints or Extremities Neurological: Cranial nerves II-XII grossly intact Psych/Mental Status: Normal Affect, Appropriate Vital Signs Temp Pulse Resp BP Pulse Ox 98.8 F 106 H 18 104/72 96 05/20/18 05:00 05/20/18 11:00 05/20/18 11:00 05/20/18 11:00 05/20/18 11:00 Oxygen Delivery Method Room Air Weight: 98.8 kg Body Mass Index (BMI) 35.2 Intake and Output for Last 24 Hours 05/18/18 05/19/18 05/20/18 23:59 23:59 23:59 Intake Total 1171.9 / 1171.9 6307.7 / 6307.7 1809 / 1809 Output Total 400 / 400 550 / 550 125 / 125 Balance 771.9 / 771.9 5757.7 / 5757.7 1684 / 1684 Laboratory Tests Past 24 Hrs 05/19/18 05/19/18 05/19/18 14:57 16:49 18:48 WBC RBC Hgb Hct MCV MCH MCHC RDW RDW Differential Plt Count MPV Immature Gran % (Auto) Neut % (Auto) Lymph % (Auto) [place] % (Auto) Eos % (Auto) Baso % (Auto) Absolute Neuts (auto) Absolute Lymphs (auto) Total Counted Specimen Type ART Sample Site R Radial pH 7.37 Bicarbonate Actual 16.9 L POC Total CO2 18 Base Excess -8 L O2 Saturation 95 ABG pCO2 29.4 L ABG pO2 76 Tamir Test POS O2 Delivery Device Room Air Blood Gas Notified Whom HOSP Blood Gas Notified Time 1645 Sodium Potassium Chloride Carbon Dioxide Anion Gap BUN Creatinine Estim Creat Clear Calc Est GFR (MDRD) Af Amer Est GFR (MDRD) Non-Af BUN/Creatinine Ratio Glucose Lactic Acid 4.1 H* 3.5 H Calcium Magnesium Miscellaneous Test 05/19/18 05/20/18 05/20/18 18:48 00:35 05:25 WBC RBC Hgb Hct MCV MCH MCHC RDW RDW Differential Plt Count MPV Immature Gran % (Auto) Neut % (Auto) Lymph % (Auto) [place] % (Auto) Eos % (Auto) Baso % (Auto) Absolute Neuts (auto) Absolute Lymphs (auto) Total Counted Specimen Type Sample Site pH Bicarbonate Actual POC Total CO2 Base Excess O2 Saturation ABG pCO2 ABG pO2 Tamir Test O2 Delivery Device Blood Gas Notified Whom Blood Gas Notified Time Sodium 128 L Potassium 5.4 H Chloride 99 Carbon Dioxide 16.0 L Anion Gap 13 BUN 62 H Creatinine 2.42 H Estim Creat Clear Calc 22.85 Est GFR (MDRD) Af Amer 26 L Est GFR (MDRD) Non-Af 22 L BUN/Creatinine Ratio 25.6 H Glucose 397 H Lactic Acid 2.0 Calcium 7.7 L Magnesium Miscellaneous Test Pending 05/20/18 05/20/18 05/20/18 05:25 05:25 05:25 WBC 10.9 RBC 4.94 Hgb 14.1 Hct 43.0 MCV 87.0 MCH 28.5 MCHC 32.8 RDW 16.2 H RDW Differential 51.0 H Plt Count 285 MPV 10.9 Immature Gran % (Auto) 0.300 Neut % (Auto) 82.1 H Lymph % (Auto) 11.6 L [place] % (Auto) 5.9 Eos % (Auto) 0.0 Baso % (Auto) 0.1 Absolute Neuts (auto) 9.0 H Absolute Lymphs (auto) 1.27 Total Counted Not Reportable Specimen Type Sample Site pH Bicarbonate Actual POC Total CO2 Base Excess O2 Saturation ABG pCO2 ABG pO2 Tamir Test O2 Delivery Device Blood Gas Notified Whom Blood Gas Notified Time Sodium 133 L Potassium 5.3 H Chloride 99 Carbon Dioxide 22.0 Anion Gap 12 BUN 68 H Creatinine 2.54 H Estim Creat Clear Calc 21.77 Est GFR (MDRD) Af Amer 25 L Est GFR (MDRD) Non-Af 20 L BUN/Creatinine Ratio 26.8 H Glucose 296 H Lactic Acid 1.6 Calcium 7.7 L Magnesium 1.7 Miscellaneous Test 05/20/18 07:23 WBC RBC Hgb Hct MCV MCH MCHC RDW RDW Differential Plt Count MPV Immature Gran % (Auto) Neut % (Auto) Lymph % (Auto) [place] % (Auto) Eos % (Auto) Baso % (Auto) Absolute Neuts (auto) Absolute Lymphs (auto) Total Counted Specimen Type Sample Site pH Bicarbonate Actual POC Total CO2 Base Excess O2 Saturation ABG pCO2 ABG pO2 Tamir Test O2 Delivery Device Blood Gas Notified Whom Blood Gas Notified Time Sodium Potassium Chloride Carbon Dioxide Anion Gap BUN Creatinine Estim Creat Clear Calc Est GFR (MDRD) Af Amer Est GFR (MDRD) Non-Af BUN/Creatinine Ratio Glucose Lactic Acid Calcium Magnesium Miscellaneous Test Pending POC Glucose 05/20/18 05/20/18 05/19/18 11:40 06:50 21:23 POC Glucose 310 H 295 H 326 H 05/19/18 16:10 POC Glucose 393 H Medical Necessity - Tobacco Use Smoking Status: Former smoker Tobacco Use: Cigarettes Assessment/Plan All Active Problems Dehydration (Acute) Diarrhea (Acute) RAFFAELE (acute kidney injury) (Acute) Atrial fibrillation (Acute) Hx of tonsillectomy (Resolved) Hx of cholecystectomy (Resolved) CHF (congestive heart failure) (Acute) NSTEMI, initial episode of care (Acute) Acute non-ST elevation myocardial infarction (NSTEMI) (Acute) RAFFAELE. normal baseline as of last month. UA looks benign. renal imaging looks ok. creatinine is slightly worse. low urine output. ? cardiorenal. will try IV lasix today Hyperkalemia. better now CHF. history of severe CHF with low EF. CXR looks ok. looks more edematous today. Diarrhea. C Diff negative. better now as per patient d.w Dr Miller
[2018-05-20] MEDS: Furosemide 40 MG/4 ML Vial IV (13:59)
[2018-05-20] MEDS: 0.9% NaCl Peripheral Flush Adult/Peds IV ×3 (13:59→18:07)
--- NOTE | 2018-05-20 14:09 | CASEMGMT ---
SW spoke with patient and she asked SW to send a referral to [facility]. SW asked her to come up with a second choices in case [facility] cannot take her. She said she didn't have one and she wasn't going to [place] and isn't sure she wants to go to [place] either. SW told her she should pick a second place in the event [facility] cannot take her. SW told her SW will make a referral to [facility]. MORIAH called [facility] and made a referral. MORIAH also faxed over information, but therapy was not ordered so these evals will have to be sent later. Lise ADAM [employer]AC[employer]IES MANAGEMENT EXECUTIVE
--- NOTE | 2018-05-20 15:32 | CASEMGMT ---
MORIAH received a voice mail from [facility] and [facility] cannot take patient. MORIAH let patient know this and she was very upset. MORIAH told her that MORIAH will check back with her tomorrow to see what her next choice would be. Lise ADAM MSW
--- NOTE | 2018-05-20 15:50 | NURSING ---
patient complains of pain at IV site. Small amount of swelling noted. No redness noted. Amiodarone stopped. IV removed. Will attempt new IV site.
[2018-05-20 17:20] LABS: Bedside Glucose 332 mg/dL (70-110)
[2018-05-20] MEDS: Atorvastatin Calcium 40 MG Tablet PO (22:52)
[2018-05-20] MEDS: Montelukast 10 MG Tablet PO (22:56)
[2018-05-20] MEDS: diazePAM 5 MG Tablet PO (23:08)
[2018-05-20 23:26] LABS: Bedside Glucose 297 mg/dL (70-110)
[2018-05-21] VITALS (23 sets, daily range): BP systolic 83–117; BP diastolic 59–93; PULSE 74–104; RESP 11–27; TEMP 36.1–36.9; O2SAT 93–99
[2018-05-21 01:16] LABS: Bedside Glucose 287 mg/dL (70-110)
[2018-05-21] MEDS: Levothyroxine 175 MCG Tablet PO (06:27)
[2018-05-21] MEDS: Levothyroxine 25 MCG TABLET PO (06:27)
[2018-05-21] MEDS: Hydrocortisone Sod Succinate 100 MG/2 ML Vial 50 MG IV ×2 (06:27→12:20)
[2018-05-21 07:31] LABS: Bedside Glucose 229 mg/dL (70-110)
[2018-05-21] MEDS: Insulin Lispro 100 UNIT/ML INSULN.PEN SC ×2 (08:08→12:20)
[2018-05-21 08:36] LABS: Absolute Lymphocyte Count 2.14 X10^3/ul (0.83-4.51); Absolute Neutrophil Count 12.5 X10^3/uL (2.0-7.7); Anion Gap 12 (5-15); BUN 78 mg/dL (7-18); BUN/Creat Ratio 23.9 RATIO (10-20); Basophil# 0.01 X10^3/uL; Basophil% 0.1 % (0-1); Calcium,Total 7.9 mg/dL (8.5-10.1); Chloride 95 mmol/L (98-107); Creatinine, Serum 3.26 mg/dL (0.55-1.02); EST Glomerular Filtration Rate 15 mL/min (>60); Est Glom Filt Rate - Afr Amer 19 mL/min (>60); Estimated Creatinine Clearance 16.96 ml/min; Glucose 253 mg/dL (74-106); Hematocrit 46.1 % (37-47); Hemoglobin 14.8 g/dl (12.0-15.0); Lymphocyte # 2.14 X10^3/ul (4.0); Lymphocyte % 13.3 % (19-41); Mean Corp Hgb Conc 32.1 g/gl (32-36); Mean Corpuscular Hgb 28.6 pg (27.0-32.0); Mean Platelet Vol. 10.6 fl (6.2-12.0); Monocyte# 1.45 X10^3/uL; Neutrophil # 12.47 X10^3/uL (2.7-7.7); Neutrophil % 77.4 % (47-70); POSITIVE COUNT NO; POSITIVE DIFFERENTIAL NO; POSITIVE MORPHOLOGY NO; Platelet Count 252 K/mm3 (150-450); Potassium 5.8 mmol/L (3.5-5.1); RBC Distribution Width CV 16.5 % (11.6-14.6); RBC Distribution Width SD 53.2 fl (35.1-43.9); Red Blood Count 5.18 M/mm3 (4.2-5.4); Sodium Level 129 mmol/L (136-145); White Blood Count 16.1 K/mm3 (4.4-11.0)
[2018-05-21 11:12] LABS: Adrenocorticotropic Hormone 1.6 pg/mL (7.2-63.3)
[2018-05-21] MEDS: Pantoprazole Sodium 40 MG Tablet PO (11:27)
[2018-05-21] MEDS: APIXABAN 2.5 MG TABLET PO (11:27)
[2018-05-21] MEDS: Clopidogrel Bisulfate 75 MG Tablet PO (11:27)
[2018-05-21] MEDS: Folic Acid 1 MG Tablet PO (11:27)
[2018-05-21] MEDS: Metoprolol Tartrate 25 MG Tablet PO (11:27)
[2018-05-21] MEDS: Aspirin E.C. 81 MG Tablet PO (11:27)
[2018-05-21] MEDS: Furosemide 40 MG/4 ML Vial IV (11:31)
[2018-05-21 12:26] LABS: Bedside Glucose 215 mg/dL (70-110)
--- NOTE | 2018-05-21 12:37 | PCM.PN.REN ---
Patient Problems: Active and Suspected Problems Dehydration (Acute) Diarrhea (Acute) RAFFAELE (acute kidney injury) (Acute) Atrial fibrillation (Acute) Subjective: no new events remains anuric Bp remains low, on amiodarone drip breathing is ok - Physical Exam General: Alert, Oriented x3, Cooperative HEENT: Atraumatic, PERRLA, EOMI, Normocephalic Neck: Supple, No JVD, Negative Carotid Bruits Lungs: Clear to auscultation, Normal air movement Cardiovascular: Regular rate, No murmurs Abdomen: Bowel Sounds Present, Soft, Non Tender Extremities: Capillary Refill Less than 3 Seconds, Edema Skin: No rashes, No breakdown Musculoskeletal: No Tenderness to Palpation of Joints or Extremities Neurological: Cranial nerves II-XII grossly intact Psych/Mental Status: Normal Affect, Appropriate Vital Signs Temp Pulse Resp BP Pulse Ox 98.5 F 89 18 89/73 L 99 05/21/18 08:00 05/21/18 12:00 05/21/18 08:00 05/21/18 12:00 05/21/18 08:00 Oxygen Delivery Method Room Air Weight: 98.8 kg Body Mass Index (BMI) 35.2 Intake and Output for Last 24 Hours 05/19/18 05/20/18 05/21/18 23:59 23:59 23:59 Intake Total 6307.7 / 6307.7 2554.2 / 2554.2 494 / 494 Output Total 550 / 550 325 / 325 40 / 40 Balance 5757.7 / 5757.7 2229.2 / 2229.2 454 / 454 Microbiology Past 72 Hours 05/18/18 18:15 Urine Culture - Preliminary Urine Catheter - Polanco Staphylococcus aureus Laboratory Tests Past 24 Hrs 05/19/18 05/21/18 05/21/18 10:20 08:00 08:00 WBC 16.1 H RBC 5.18 Hgb 14.8 Hct 46.1 MCV 89.0 MCH 28.6 MCHC 32.1 RDW 16.5 H RDW Differential 53.2 H Plt Count 252 MPV 10.6 Immature Gran % (Auto) 0.200 Neut % (Auto) 77.4 H Lymph % (Auto) 13.3 L [place] % (Auto) 9.0 Eos % (Auto) 0.0 Baso % (Auto) 0.1 Absolute Neuts (auto) 12.5 H Absolute Lymphs (auto) 2.14 Total Counted Not Reportable Sodium 129 L Potassium 5.8 H Chloride 95 L Carbon Dioxide 22.0 Anion Gap 12 BUN 78 H Creatinine 3.26 H Estim Creat Clear Calc 16.96 Est GFR (MDRD) Af Amer 19 L Est GFR (MDRD) Non-Af 15 L BUN/Creatinine Ratio 23.9 H Glucose 253 H Calcium 7.9 L ACTH 1.6 L POC Glucose 05/21/18 05/21/18 05/21/18 12:18 07:26 01:03 POC Glucose 215 H 229 H 287 H 05/20/18 05/20/18 22:39 16:23 POC Glucose 297 H 332 H Medical Necessity - Tobacco Use Smoking Status: Former smoker Tobacco Use: Cigarettes Assessment/Plan All Active Problems Dehydration (Acute) Diarrhea (Acute) RAFFAELE (acute kidney injury) (Acute) Atrial fibrillation (Acute) Hx of tonsillectomy (Resolved) Hx of cholecystectomy (Resolved) CHF (congestive heart failure) (Acute) NSTEMI, initial episode of care (Acute) Acute non-ST elevation myocardial infarction (NSTEMI) (Acute) RAFFAELE. normal baseline as of last month. UA looks benign. renal imaging looks ok. creatinine continues to get worse. no response to lasix bolus. remains on amiodarone drip. RAFFAELE is likely hypotension mediated. D/w Dr Miller. There is a suspicion for addisons disease as cortisol is relatively low and ACTH is extremely low. she is on hydrocortisone right now. Echo findings from last month reviewed. she has low EF of 30 % with grade 3 diastolic dysfunction. so hypotension could be related to adrenal insufficiency or CHF. I think the hypotension is driving RAFFAELE. she will likely need dialysis soon. Discussed with Dr Miller. She would like to transfer her to a hospital with endocrinology coverage. [facility]. Hyperkalemia. give kayexalate today CHF. history of severe CHF with low EF. CXR looks ok. no response to lasix IV Diarrhea. C Diff negative. d.w Dr Miller
[2018-05-21] MEDS: Sodium Polystyrene Sulfonate 15 GM/60 ML UDC 30 GM PO (13:32)
--- NOTE | 2018-05-21 14:03 | NURSING ---
report called to leny maki at [facility]
--- NOTE | 2018-05-21 14:19 | PCM.TXEXTCAR ---
- Diet 05/18/18 16:40 Diet: Cardiac/Low Cholesterol Food consistency:: Regular Liquid Consistency:: Regular/Thin - Routine Orders/Code Status Enema Type: Fleetz Enema Frequency: Daily PRN Suppository Type: Dulcolax 10mg Suppository Frequency: Daily PRN O2 Frequency: PRN Keep PO Greater than or Equal to (%): 92 Code Status: Full Code - Therapies Weight Bearing: Full weight bearing - Problem/Diagnosis (1) Dehydration Status: Acute Current Visit: Yes (2) Diarrhea Status: Acute Current Visit: Yes (3) RAFFAELE (acute kidney injury) Status: Acute Current Visit: Yes - Allergies/Procedures Done in Hospital Allergies/Adverse Reactions: Allergies ampicillin Allergy (Verified 05/18/18 14:28) Hives doxycycline Allergy (Verified 05/18/18 14:28) Unknown hydrochlorothiazide Allergy (Verified 05/18/18 14:28) Unknown iodine Allergy (Verified 05/18/18 14:28) Unknown Penicillins [PCN] Allergy (Verified 05/18/18 14:28) Unknown shellfish derived Allergy (Verified 05/18/18 14:28) Hives venom-honey bee [bee venom (honey bee)] Allergy (Verified 05/18/18 14:28) Hives diphenhydramine [From Benadryl] Adverse Reaction (Verified 05/18/18 14:28) Hives - Type of Care/Length of Stay Estimated LOS: Convalescent Care Less Than 30 days Type of Care Needed: Skilled Rehab Potential: Poor Prognosis: Poor - Additional Orders/Day of Discharge H&P will serve as current which was dated: 05/18/18 Day of Discharge: 05/21/18 - Dietary and Speech Recommendations Dietitian Recommendations/Changes: Rec diet change to 1800 calorie controlled, cardiac, low sodium. - Follow Up Care Primary Care Physician: Anastasiia Cordoba MD [Primary Care Provider] - Please follow up with your Primary Care Physician in: one week
--- NOTE | 2018-05-21 14:26 | CASEMGMT ---
Patient is being transferred to [facility]. SW notified [facility]. Lise ADAM MSW
--- NOTE | 2018-05-21 15:25 | PCM.DC.SUM ---
Discharge Date and Diagnosis - Problem List Patient Problems: Active and Suspected Problems Dehydration (Acute) Diarrhea (Acute) RAFFAELE (acute kidney injury) (Acute) Atrial fibrillation (Acute) Date of Admission: 05/18/18 Date of Discharge: 05/21/18 - Primary Discharge Diagnosis Active and Suspected Problems Dehydration (Acute) Diarrhea (Acute) RAFFAELE (acute kidney injury) (Acute) Atrial fibrillation (Acute) acute adrenal insufficiency - Secondary Discharge Diagnosis Chronic Problems Left ventricular apical thrombus (Chronic) Ischemic cardiomyopathy (Chronic) History of coronary artery stent placement (Chronic) CHARY to LAD @ [facility] in March 2018 NSTEMI (non-ST elevated myocardial infarction) (Chronic) 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 Mild cardiomegaly. Electronically Signed: Radha Archer MD at 16:11 EDT Tel , Service support , Renal Ultrasound 05/18/18 17:29 IMPRESSION: Normal ultrasound of the kidneys. There is moderate ascites. Electronically Signed: Adair Kumar MD at 17:11 EDT , Service support , Laboratory Tests 05/18/18 05/18/18 05/18/18 14:30 14:30 14:30 WBC 11.9 H RBC 5.21 Hgb 14.6 Hct 46.9 MCV 90.0 MCH 28.0 MCHC 31.1 L RDW 15.8 H RDW Differential 51.7 H Plt Count TNP MPV 10.7 Immature Gran % (Auto) 0.100 Neut % (Auto) 59.0 Lymph % (Auto) 30.9 [place] % (Auto) 8.9 Eos % (Auto) 0.8 Baso % (Auto) 0.3 Absolute Neuts (auto) 7.0 Absolute Lymphs (auto) 3.67 Total Counted Not Reportable Differential Comment SCANNED Platelet Estimate ADEQUATE Specimen Type Sample Site pH Bicarbonate Actual POC Total CO2 Base Excess O2 Saturation ABG pCO2 ABG pO2 Tamir Test O2 Delivery Device Blood Gas Notified Whom Blood Gas Notified Time Sodium 128 L Potassium 6.4 H* Chloride 95 L Carbon Dioxide 26.0 Anion Gap 7 BUN 61 H Creatinine 2.44 H Estim Creat Clear Calc 22.67 Est GFR (MDRD) Af Amer 26 L Est GFR (MDRD) Non-Af 21 L BUN/Creatinine Ratio 25.0 H Glucose 156 H Lactic Acid Calcium 8.5 Magnesium Troponin I 0.016 B-Natriuretic Peptide 766.9 H TSH Cortisol ACTH Urine Color Urine Clarity Urine pH Ur Specific [place] Urine Protein Urine Glucose (UA) Urine Ketones Urine Occult Blood Urine Nitrite Urine Bilirubin Urine Urobilinogen Ur Leukocyte Esterase Urine RBC Urine WBC Ur Squamous Epith Cells Ur Transition Epith Cell Urine Bacteria Hyaline Casts Urine Mucus Urine Creatinine Urine Urea Nitrogen POC Glucose 05/18/18 05/18/18 05/18/18 16:15 18:10 18:15 WBC RBC Hgb Hct MCV MCH MCHC RDW RDW Differential Plt Count MPV Immature Gran % (Auto) Neut % (Auto) Lymph % (Auto) [place] % (Auto) Eos % (Auto) Baso % (Auto) Absolute Neuts (auto) Absolute Lymphs (auto) Total Counted Differential Comment Platelet Estimate Specimen Type Sample Site pH Bicarbonate Actual POC Total CO2 Base Excess O2 Saturation ABG pCO2 ABG pO2 Tamir Test O2 Delivery Device Blood Gas Notified Whom Blood Gas Notified Time Sodium Potassium 6.5 H* Chloride Carbon Dioxide Anion Gap BUN Creatinine Estim Creat Clear Calc Est GFR (MDRD) Af Amer Est GFR (MDRD) Non-Af BUN/Creatinine Ratio Glucose Lactic Acid Calcium Magnesium Troponin I B-Natriuretic Peptide TSH Cortisol ACTH Urine Color Urine Clarity Urine pH Ur Specific [place] Urine Protein Urine Glucose (UA) Urine Ketones Urine Occult Blood Urine Nitrite Urine Bilirubin Urine Urobilinogen Ur Leukocyte Esterase Urine RBC Urine WBC Ur Squamous Epith Cells Ur Transition Epith Cell Urine Bacteria Hyaline Casts Urine Mucus Urine Creatinine 110.00 Urine Urea Nitrogen POC Glucose 164 H 05/18/18 05/18/1818 18:15 18:15 21:40 WBC RBC Hgb Hct MCV MCH MCHC RDW RDW Differential Plt Count MPV Immature Gran % (Auto) Neut % (Auto) Lymph % (Auto) [place] % (Auto) Eos % (Auto) Baso % (Auto) Absolute Neuts (auto) Absolute Lymphs (auto) Total Counted Differential Comment Platelet Estimate Specimen Type Sample Site pH Bicarbonate Actual POC Total CO2 Base Excess O2 Saturation ABG pCO2 ABG pO2 Tamir Test O2 Delivery Device Blood Gas Notified Whom Blood Gas Notified Time Sodium Potassium Chloride Carbon Dioxide Anion Gap BUN Creatinine Estim Creat Clear Calc Est GFR (MDRD) Af Amer Est GFR (MDRD) Non-Af BUN/Creatinine Ratio Glucose Lactic Acid Calcium Magnesium Troponin I B-Natriuretic Peptide TSH Cortisol ACTH Urine Color Yellow Urine Clarity Clear Urine pH 5.0 Ur Specific [place] 1.020 Urine Protein 15 H Urine Glucose (UA) Normal Urine Ketones Negative Urine Occult Blood Negative Urine Nitrite Negative Urine Bilirubin Negative Urine Urobilinogen Normal Ur Leukocyte Esterase 100 H Urine RBC 0 SEEN Urine WBC 0-5 SEEN Ur Squamous Epith Cells 5-10 SEEN Ur Transition Epith Cell 0-5 SEEN Urine Bacteria 0 SEEN Hyaline Casts 5-10 SEEN Urine Mucus 0 SEEN Urine Creatinine Urine Urea Nitrogen 396 POC Glucose 212 H 05/19/18 05/19/18 05/19/18 06:06 06:06 06:06 WBC RBC Hgb Hct MCV MCH MCHC RDW RDW Differential Plt Count MPV Immature Gran % (Auto) Neut % (Auto) Lymph % (Auto) [place] % (Auto) Eos % (Auto) Baso % (Auto) Absolute Neuts (auto) Absolute Lymphs (auto) Total Counted Differential Comment Platelet Estimate Specimen Type Sample Site pH Bicarbonate Actual POC Total CO2 Base Excess O2 Saturation ABG pCO2 ABG pO2 Tamir Test O2 Delivery Device Blood Gas Notified Whom Blood Gas Notified Time Sodium Cancelled Potassium Cancelled Chloride Cancelled Carbon Dioxide Cancelled Anion Gap Cancelled BUN Cancelled Creatinine Cancelled Estim Creat Clear Calc Cancelled Est GFR (MDRD) Af Amer Cancelled Est GFR (MDRD) Non-Af Cancelled BUN/Creatinine Ratio Cancelled Glucose Cancelled Lactic Acid Calcium Cancelled Magnesium Troponin I < 0.015 B-Natriuretic Peptide TSH Cortisol Cancelled ACTH Urine Color Urine Clarity Urine pH Ur Specific [place] Urine Protein Urine Glucose (UA) Urine Ketones Urine Occult Blood Urine Nitrite Urine Bilirubin Urine Urobilinogen Ur Leukocyte Esterase Urine RBC Urine WBC Ur Squamous Epith Cells Ur Transition Epith Cell Urine Bacteria Hyaline Casts Urine Mucus Urine Creatinine Urine Urea Nitrogen POC Glucose 05/19/18 05/19/18 05/19/18 06:37 10:20 10:20 WBC 5.5 RBC 4.20 Hgb 11.7 L Hct 37.3 MCV 88.8 MCH 27.9 MCHC 31.4 L RDW 15.7 H RDW Differential 50.5 H Plt Count 218 MPV 10.3 Immature Gran % (Auto) 0.200 Neut % (Auto) 80.0 H Lymph % (Auto) 14.0 L [place] % (Auto) 5.8 Eos % (Auto) 0.0 Baso % (Auto) 0.0 Absolute Neuts (auto) 4.4 Absolute Lymphs (auto) 0.77 L Total Counted Not Reportable Differential Comment Platelet Estimate Specimen Type Sample Site pH Bicarbonate Actual POC Total CO2 Base Excess O2 Saturation ABG pCO2 ABG pO2 Tamir Test O2 Delivery Device Blood Gas Notified Whom Blood Gas Notified Time Sodium Potassium Chloride Carbon Dioxide Anion Gap BUN Creatinine Estim Creat Clear Calc Est GFR (MDRD) Af Amer Est GFR (MDRD) Non-Af BUN/Creatinine Ratio Glucose Lactic Acid Calcium Magnesium Troponin I B-Natriuretic Peptide TSH Cortisol 3.70 ACTH Urine Color Urine Clarity Urine pH Ur Specific [place] Urine Protein Urine Glucose (UA) Urine Ketones Urine Occult Blood Urine Nitrite Urine Bilirubin Urine Urobilinogen Ur Leukocyte Esterase Urine RBC Urine WBC Ur Squamous Epith Cells Ur Transition Epith Cell Urine Bacteria Hyaline Casts Urine Mucus Urine Creatinine Urine Urea Nitrogen POC Glucose 282 H 05/19/18 05/19/18 05/19/18 10:20 10:20 10:30 WBC RBC Hgb Hct MCV MCH MCHC RDW RDW Differential Plt Count MPV Immature Gran % (Auto) Neut % (Auto) Lymph % (Auto) [place] % (Auto) Eos % (Auto) Baso % (Auto) Absolute Neuts (auto) Absolute Lymphs (auto) Total Counted Differential Comment Platelet Estimate Specimen Type Sample Site pH Bicarbonate Actual POC Total CO2 Base Excess O2 Saturation ABG pCO2 ABG pO2 Tamir Test O2 Delivery Device Blood Gas Notified Whom Blood Gas Notified Time Sodium 134 L Potassium 4.4 Chloride 102 Carbon Dioxide 22.0 Anion Gap 10 BUN 54 H Creatinine 1.85 H Estim Creat Clear Calc 29.89 Est GFR (MDRD) Af Amer 36 L Est GFR (MDRD) Non-Af 29 L BUN/Creatinine Ratio 29.2 H Glucose 350 H Lactic Acid 2.4 H Calcium 7.1 L Magnesium 1.6 Troponin I B-Natriuretic Peptide TSH 0.68 Cortisol ACTH 1.6 L Urine Color Urine Clarity Urine pH Ur Specific [place] Urine Protein Urine Glucose (UA) Urine Ketones Urine Occult Blood Urine Nitrite Urine Bilirubin Urine Urobilinogen Ur Leukocyte Esterase Urine RBC Urine WBC Ur Squamous Epith Cells Ur Transition Epith Cell Urine Bacteria Hyaline Casts Urine Mucus Urine Creatinine Urine Urea Nitrogen POC Glucose 05/19/18 05/19/18 05/19/18 11:05 14:57 16:10 WBC RBC Hgb Hct MCV MCH MCHC RDW RDW Differential Plt Count MPV Immature Gran % (Auto) Neut % (Auto) Lymph % (Auto) [place] % (Auto) Eos % (Auto) Baso % (Auto) Absolute Neuts (auto) Absolute Lymphs (auto) Total Counted Differential Comment Platelet Estimate Specimen Type Sample Site pH Bicarbonate Actual POC Total CO2 Base Excess O2 Saturation ABG pCO2 ABG pO2 Tamir Test O2 Delivery Device Blood Gas Notified Whom Blood Gas Notified Time Sodium Potassium Chloride Carbon Dioxide Anion Gap BUN Creatinine Estim Creat Clear Calc Est GFR (MDRD) Af Amer Est GFR (MDRD) Non-Af BUN/Creatinine Ratio Glucose Lactic Acid 4.1 H* Calcium Magnesium Troponin I B-Natriuretic Peptide TSH Cortisol ACTH Urine Color Urine Clarity Urine pH Ur Specific [place] Urine Protein Urine Glucose (UA) Urine Ketones Urine Occult Blood Urine Nitrite Urine Bilirubin Urine Urobilinogen Ur Leukocyte Esterase Urine RBC Urine WBC Ur Squamous Epith Cells Ur Transition Epith Cell Urine Bacteria Hyaline Casts Urine Mucus Urine Creatinine Urine Urea Nitrogen POC Glucose 352 H 393 H 05/19/18 05/19/18 05/19/18 16:49 18:48 18:48 WBC RBC Hgb Hct MCV MCH MCHC RDW RDW Differential Plt Count MPV Immature Gran % (Auto) Neut % (Auto) Lymph % (Auto) [place] % (Auto) Eos % (Auto) Baso % (Auto) Absolute Neuts (auto) Absolute Lymphs (auto) Total Counted Differential Comment Platelet Estimate Specimen Type ART Sample Site R Radial pH 7.37 Bicarbonate Actual 16.9 L POC Total CO2 18 Base Excess -8 L O2 Saturation 95 ABG pCO2 29.4 L ABG pO2 76 Tamir Test POS O2 Delivery Device Room Air Blood Gas Notified Whom [facility] Blood Gas Notified Time 1645 Sodium 128 L Potassium 5.4 H Chloride 99 Carbon Dioxide 16.0 L Anion Gap 13 BUN 62 H Creatinine 2.42 H Estim Creat Clear Calc 22.85 Est GFR (MDRD) Af Amer 26 L Est GFR (MDRD) Non-Af 22 L BUN/Creatinine Ratio 25.6 H Glucose 397 H Lactic Acid 3.5 H Calcium 7.7 L Magnesium Troponin I B-Natriuretic Peptide TSH Cortisol ACTH Urine Color Urine Clarity Urine pH Ur Specific [place] Urine Protein Urine Glucose (UA) Urine Ketones Urine Occult Blood Urine Nitrite Urine Bilirubin Urine Urobilinogen Ur Leukocyte Esterase Urine RBC Urine WBC Ur Squamous Epith Cells Ur Transition Epith Cell Urine Bacteria Hyaline Casts Urine Mucus Urine Creatinine Urine Urea Nitrogen POC Glucose 05/19/18 05/20/18 05/20/18 21:23 00:35 05:25 WBC 10.9 RBC 4.94 Hgb 14.1 Hct 43.0 MCV 87.0 MCH 28.5 MCHC 32.8 RDW 16.2 H RDW Differential 51.0 H Plt Count 285 MPV 10.9 Immature Gran % (Auto) 0.300 Neut % (Auto) 82.1 H Lymph % (Auto) 11.6 L [place] % (Auto) 5.9 Eos % (Auto) 0.0 Baso % (Auto) 0.1 Absolute Neuts (auto) 9.0 H Absolute Lymphs (auto) 1.27 Total Counted Not Reportable Differential Comment Platelet Estimate Specimen Type Sample Site pH Bicarbonate Actual POC Total CO2 Base Excess O2 Saturation ABG pCO2 ABG pO2 Tamir Test O2 Delivery Device Blood Gas Notified Whom Blood Gas Notified Time Sodium Potassium Chloride Carbon Dioxide Anion Gap BUN Creatinine Estim Creat Clear Calc Est GFR (MDRD) Af Amer Est GFR (MDRD) Non-Af BUN/Creatinine Ratio Glucose Lactic Acid 2.0 Calcium Magnesium Troponin I B-Natriuretic Peptide TSH Cortisol ACTH Urine Color Urine Clarity Urine pH Ur Specific [place] Urine Protein Urine Glucose (UA) Urine Ketones Urine Occult Blood Urine Nitrite Urine Bilirubin Urine Urobilinogen Ur Leukocyte Esterase Urine RBC Urine WBC Ur Squamous Epith Cells Ur Transition Epith Cell Urine Bacteria Hyaline Casts Urine Mucus Urine Creatinine Urine Urea Nitrogen POC Glucose 326 H 05/20/18 05/20/18 05/20/18 05:25 05:25 06:50 WBC RBC Hgb Hct MCV MCH MCHC RDW RDW Differential Plt Count MPV Immature Gran % (Auto) Neut % (Auto) Lymph % (Auto) [place] % (Auto) Eos % (Auto) Baso % (Auto) Absolute Neuts (auto) Absolute Lymphs (auto) Total Counted Differential Comment Platelet Estimate Specimen Type Sample Site pH Bicarbonate Actual POC Total CO2 Base Excess O2 Saturation ABG pCO2 ABG pO2 Tamir Test O2 Delivery Device Blood Gas Notified Whom Blood Gas Notified Time Sodium 133 L Potassium 5.3 H Chloride 99 Carbon Dioxide 22.0 Anion Gap 12 BUN 68 H Creatinine 2.54 H Estim Creat Clear Calc 21.77 Est GFR (MDRD) Af Amer 25 L Est GFR (MDRD) Non-Af 20 L BUN/Creatinine Ratio 26.8 H Glucose 296 H Lactic Acid 1.6 Calcium 7.7 L Magnesium 1.7 Troponin I B-Natriuretic Peptide TSH Cortisol ACTH Urine Color Urine Clarity Urine pH Ur Specific [place] Urine Protein Urine Glucose (UA) Urine Ketones Urine Occult Blood Urine Nitrite Urine Bilirubin Urine Urobilinogen Ur Leukocyte Esterase Urine RBC Urine WBC Ur Squamous Epith Cells Ur Transition Epith Cell Urine Bacteria Hyaline Casts Urine Mucus Urine Creatinine Urine Urea Nitrogen POC Glucose 295 H 05/20/18 05/20/18 05/20/18 11:40 16:23 22:39 WBC RBC Hgb Hct MCV MCH MCHC RDW RDW Differential Plt Count MPV Immature Gran % (Auto) Neut % (Auto) Lymph % (Auto) [place] % (Auto) Eos % (Auto) Baso % (Auto) Absolute Neuts (auto) Absolute Lymphs (auto) Total Counted Differential Comment Platelet Estimate Specimen Type Sample Site pH Bicarbonate Actual POC Total CO2 Base Excess O2 Saturation ABG pCO2 ABG pO2 Tamir Test O2 Delivery Device Blood Gas Notified Whom Blood Gas Notified Time Sodium Potassium Chloride Carbon Dioxide Anion Gap BUN Creatinine Estim Creat Clear Calc Est GFR (MDRD) Af Amer Est GFR (MDRD) Non-Af BUN/Creatinine Ratio Glucose Lactic Acid Calcium Magnesium Troponin I B-Natriuretic Peptide TSH Cortisol ACTH Urine Color Urine Clarity Urine pH Ur Specific [place] Urine Protein Urine Glucose (UA) Urine Ketones Urine Occult Blood Urine Nitrite Urine Bilirubin Urine Urobilinogen Ur Leukocyte Esterase Urine RBC Urine WBC Ur Squamous Epith Cells Ur Transition Epith Cell Urine Bacteria Hyaline Casts Urine Mucus Urine Creatinine Urine Urea Nitrogen POC Glucose 310 H 332 H 297 H 05/21/18 05/21/18 05/21/18 01:03 07:26 08:00 WBC 16.1 H RBC 5.18 Hgb 14.8 Hct 46.1 MCV 89.0 MCH 28.6 MCHC 32.1 RDW 16.5 H RDW Differential 53.2 H Plt Count 252 MPV 10.6 Immature Gran % (Auto) 0.200 Neut % (Auto) 77.4 H Lymph % (Auto) 13.3 L [place] % (Auto) 9.0 Eos % (Auto) 0.0 Baso % (Auto) 0.1 Absolute Neuts (auto) 12.5 H Absolute Lymphs (auto) 2.14 Total Counted Not Reportable Differential Comment Platelet Estimate Specimen Type Sample Site pH Bicarbonate Actual POC Total CO2 Base Excess O2 Saturation ABG pCO2 ABG pO2 Tamir Test O2 Delivery Device Blood Gas Notified Whom Blood Gas Notified Time Sodium Potassium Chloride Carbon Dioxide Anion Gap BUN Creatinine Estim Creat Clear Calc Est GFR (MDRD) Af Amer Est GFR (MDRD) Non-Af BUN/Creatinine Ratio Glucose Lactic Acid Calcium Magnesium Troponin I B-Natriuretic Peptide TSH Cortisol ACTH Urine Color Urine Clarity Urine pH Ur Specific [place] Urine Protein Urine Glucose (UA) Urine Ketones Urine Occult Blood Urine Nitrite Urine Bilirubin Urine Urobilinogen Ur Leukocyte Esterase Urine RBC Urine WBC Ur Squamous Epith Cells Ur Transition Epith Cell Urine Bacteria Hyaline Casts Urine Mucus Urine Creatinine Urine Urea Nitrogen POC Glucose 287 H 229 H 05/21/18 05/21/18 08:00 12:18 WBC RBC Hgb Hct MCV MCH MCHC RDW RDW Differential Plt Count MPV Immature Gran % (Auto) Neut % (Auto) Lymph % (Auto) [place] % (Auto) Eos % (Auto) Baso % (Auto) Absolute Neuts (auto) Absolute Lymphs (auto) Total Counted Differential Comment Platelet Estimate Specimen Type Sample Site pH Bicarbonate Actual POC Total CO2 Base Excess O2 Saturation ABG pCO2 ABG pO2 Tamir Test O2 Delivery Device Blood Gas Notified Whom Blood Gas Notified Time Sodium 129 L Potassium 5.8 H Chloride 95 L Carbon Dioxide 22.0 Anion Gap 12 BUN 78 H Creatinine 3.26 H Estim Creat Clear Calc 16.96 Est GFR (MDRD) Af Amer 19 L Est GFR (MDRD) Non-Af 15 L BUN/Creatinine Ratio 23.9 H Glucose 253 H Lactic Acid Calcium 7.9 L Magnesium Troponin I B-Natriuretic Peptide TSH Cortisol ACTH Urine Color Urine Clarity Urine pH Ur Specific [place] Urine Protein Urine Glucose (UA) Urine Ketones Urine Occult Blood Urine Nitrite Urine Bilirubin Urine Urobilinogen Ur Leukocyte Esterase Urine RBC Urine WBC Ur Squamous Epith Cells Ur Transition Epith Cell Urine Bacteria Hyaline Casts Urine Mucus Urine Creatinine Urine Urea Nitrogen POC Glucose 215 H Operations: None Summary of Care Provided: The patient is a 62 year old F with a past medical history of heart failure with reduced ejection fraction with EF being around 30% per last echo, coronary artery disease status post stents to LAD at [facility] in March 2018, hypertension and hyperlipidemia. Was admitted from her [facility] on [facility] with complaint of diarrhea for 2 weeks prior to presentation. Diarrhea was nonbloody with associated nausea and vomiting. Emesis was also nonbloody and nonbilious. She had been getting her Lasix at the [facility] and on a worsening lower extremity edema. He had associated dizziness and lightheadedness and was still receiving him Lasix and therefore insisted that she be brought to the ED. C. difficile was checked in the [facility] and was negative. In the ED, blood pressure was initially 101/53 and suddenly dropped to 81/61 at review and labs show sodium of 128 and potassium of 6.4 which was moderately hemolyzed and was 6.5 on repeat. Creatinine was 2.44 with a baseline being less than 1 and BUN was 61. BNP was 766.9 and CBC showed a white cell count of 11.9 but was otherwise unremarkable. Patient was managed for hypovolemic shock due to gastroenteritis was resuscitated aggressively with IV fluids. The suspicion of adrenal insufficiency was also made on account of elevated potassium and low sodium as well as hypovolemia. On the day of admission, patient developed A. fib with RVR and had to be put on amiodarone drip. Patient also received a dose of Decadron serum cortisol checked the next morning was 3.7, with lower limit being 3. Patient continued to be hydrated with IV fluids started on IV hydrocortisone on account of adrenal insufficiency. Her heart rate fluctuated and she had to be on and off amiodarone drip. Hypotension was worsened by amiodarone drip and this did not fully resolve with maximal blood pressure being around 120s, blood pressure systolic was mainly in the 80s and 90s during admission despite IV fluid resuscitation. Kidney function also gradually worsened after trending down initially to 1.85 from 1.44 on admission. Creatinine trended up gradually to 3.5 at time of discharge. Nephrology was consulted on account of worsening kidney function and also as patient was becoming oliguric. Patient's urine output trended down significantly and she is making significantly less than 0.5 cc/h. Kidney ultrasound was normal. Urinalysis was also unremarkable. Patient did not improve and kept on feeling nauseous and weak. She was not able to get off the amiodarone drip as heart rate would always go up to the 120s and 130s on her oral medication. Cosyntropin test was ordered but was done in error. ACTH ordered came back very low at 1.7, with lower limit of 7. 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 Patient remained hypotensive, and remained hypokalemic and hyponatremic despite being on adrenal steroid hormone replacement with IV hydrocortisone. Cardiology and nephrology were on board. Per nephrology, patient may need dialysis or a Lasix drip, but this was precluded by her persistent hypotension. Decision was made to transfer patient to [facility] as patient needed urgent endocrinology review and there was no lining sewer available at [facility]. Patient was accepted by [facility] and she was transferred on 05/21/2018. Patient seen and examined prior to discharge. Patient continued to feel weak and frail and still had nausea. He remained on amiodarone drip as heart rate had gone up. She remained hypotensive with blood pressure being in the 80s and 90s systolic and her urine output was also not improving. 12 point review of systems was otherwise negative. o/e: Vital Signs Height 5 ft 6 in Weight: 217 lb 13.067 oz Weight in Pounds 217.8 lbs BMI 33.8 Pulse Ox 95 Temperature 97 F Pulse Rate 99 Respiratory Rate 18 Blood Pressure [BP] 85/69 Blood Pressure 83/63 Blood Pressure Position [BP] Semi-Fowlers Blood Pressure Position Sitting General: Alert, Oriented x3, Cooperative,very lethargic,. HEENT: Atraumatic, PERRLA, EOMI, Normocephalic Oral: Moist Mucosa Neck: Supple, No JVD, Negative Carotid Bruits, No Nodes Lungs: Clear to auscultation, Normal air movement, No rhonchi, No wheeze, No rales Cardiovascular: Regular rate, Regular Rhythm, Normal S1, Normal S2, No murmurs Abdomen: Bowel Sounds Present, Soft, Non Tender, Non-Distended, No Hepato-splenomegaly Extremities: No clubbing, No cyanosis, - -2++ bipedal pitting edema Skin: No rashes, No breakdown Musculoskeletal: No Tenderness to Palpation of Joints or Extremities Lymphatic: No Cervical, Supraclavicular, or Inguinal Adenopathy Neurological: Cranial nerves II-XII grossly intact, Motor Exam 5/5 strength throughout Psych/Mental Status: Normal Affect, Appropriate, Alert and oriented to time, place, person, mood and affect Plan as stated above. Discharge Diet: 2000 mg Sodium Diet Call your doctor if you observe: Shortness of breath, Dizziness, Swelling in the ankles Home Medications: Medications to take at Discharge Clopidogrel Bisulfate [Clopidogrel] 75 mg PO DAILY 10/20/16 Diazepam 5 mg PO BID PRN PRN 10/20/16 Levothyroxine [Synthroid] 25 mcg PO MOWEFR 10/20/16 Levothyroxine [Synthroid] 175 mcg PO DAILY 10/20/16 Montelukast [Singulair] 10 mg PO QHS 10/20/16 Aspirin [Adult Aspirin Regimen] 81 mg PO DAILY 04/11/18 Atorvastatin Calcium [Lipitor] 40 mg PO QHS 04/11/18 Ergocalciferol [Vitamin D] 50,000 unit PO Q7D 04/11/18 Pantoprazole Sodium [Protonix] 40 mg PO DAILY 04/11/18 Albuterol Inhaler [Ventolin Hfa] 2 puff INHALATION Q4H PRN PRN 04/12/18 Folic Acid 1 mg PO DAILY@0800 04/12/18 Apixaban [Eliquis] 2.5 mg PO BID tablet 04/16/18 Furosemide [Lasix] 40 mg PO BID@1000,1800 tablet 04/16/18 Insulin Lispro [Humalog KwikPen] See Protocol SC ACHS insuln.pen 04/16/18 Lisinopril [Zestril] 2.5 mg PO DAILY tablet 04/16/18 Metoprolol Tartrate [Lopressor (beta jackie)] 25 mg PO BID tablet 04/16/18 Potassium Chloride [K-Dur] 20 meq PO DAILYCM tablet 04/16/18 Insulin Glargine,Hum.rec.anlog [Basaglar Kwikpen U-100] 20 unit SQ BID 05/18/18 Lactobacillus Rhamnosus GG [Culturelle] 1 each PO DAILY 05/18/18 Primary Care Physician: Anastasiia Cordoba MD [Primary Care Provider] - Please follow up with your Primary Care Physician in: one week Disposition: Acute care Hospital [facility] Minutes spent on discharge:: 50 Patient Condition:: Poor Medical Necessity - Tobacco Use Smoking Status: Former smoker Tobacco Use: Cigarettes Meaningful Use Info Meaningful Use Diagnoses (Choose all that apply): None applicable Code Visit Inpatient E&M: 36072 Disch Hosp
--- NOTE | 2018-05-21 15:35 | DS.PCM_ITS ---
Discharge Date and Diagnosis - Problem List Patient Problems: Active and Suspected Problems Dehydration (Acute) Diarrhea (Acute) RAFFAELE (acute kidney injury) (Acute) Atrial fibrillation (Acute) Date of Admission: 05/18/18 Date of Discharge: 05/21/18 - Primary Discharge Diagnosis Active and Suspected Problems Dehydration (Acute) Diarrhea (Acute) RAFFAELE (acute kidney injury) (Acute) Atrial fibrillation (Acute) acute adrenal insufficiency - Secondary Discharge Diagnosis Chronic Problems Left ventricular apical thrombus (Chronic) Ischemic cardiomyopathy (Chronic) History of coronary artery stent placement (Chronic) CHARY to LAD @ [facility] in March 2018 NSTEMI (non-ST elevated myocardial infarction) (Chronic) 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 Mild cardiomegaly. Electronically Signed: Radha Archer MD at 16:11 EDT Tel , Service support , Renal Ultrasound 05/18/18 17:29 IMPRESSION: Normal ultrasound of the kidneys. There is moderate ascites. Electronically Signed: Adair Kumar MD at 17:11 EDT , Service support , Laboratory Tests 05/18/18 05/18/18 05/18/18 14:30 14:30 14:30 WBC 11.9 H RBC 5.21 Hgb 14.6 Hct 46.9 MCV 90.0 MCH 28.0 MCHC 31.1 L RDW 15.8 H RDW Differential 51.7 H Plt Count TNP MPV 10.7 Immature Gran % (Auto) 0.100 Neut % (Auto) 59.0 Lymph % (Auto) 30.9 Levy % (Auto) 8.9 Eos % (Auto) 0.8 Baso % (Auto) 0.3 Absolute Neuts (auto) 7.0 Absolute Lymphs (auto) 3.67 Total Counted Not Reportable Differential Comment SCANNED Platelet Estimate ADEQUATE Specimen Type Sample Site pH Bicarbonate Actual POC Total CO2 Base Excess O2 Saturation ABG pCO2 ABG pO2 Tamir Test O2 Delivery Device Blood Gas Notified Whom Blood Gas Notified Time Sodium 128 L Potassium 6.4 H* Chloride 95 L Carbon Dioxide 26.0 Anion Gap 7 BUN 61 H Creatinine 2.44 H Estim Creat Clear Calc 22.67 Est GFR (MDRD) Af Amer 26 L Est GFR (MDRD) Non-Af 21 L BUN/Creatinine Ratio 25.0 H Glucose 156 H Lactic Acid Calcium 8.5 Magnesium Troponin I 0.016 B-Natriuretic Peptide 766.9 H TSH Cortisol ACTH Urine Color Urine Clarity Urine pH Ur Specific Bernard Urine Protein Urine Glucose (UA) Urine Ketones Urine Occult Blood Urine Nitrite Urine Bilirubin Urine Urobilinogen Ur Leukocyte Esterase Urine RBC Urine WBC Ur Squamous Epith Cells Ur Transition Epith Cell Urine Bacteria Hyaline Casts Urine Mucus Urine Creatinine Urine Urea Nitrogen POC Glucose 05/18/18 05/18/18 05/18/18 16:15 18:10 18:15 WBC RBC Hgb Hct MCV MCH MCHC RDW RDW Differential Plt Count MPV Immature Gran % (Auto) Neut % (Auto) Lymph % (Auto) Levy % (Auto) Eos % (Auto) Baso % (Auto) Absolute Neuts (auto) Absolute Lymphs (auto) Total Counted Differential Comment Platelet Estimate Specimen Type Sample Site pH Bicarbonate Actual POC Total CO2 Base Excess O2 Saturation ABG pCO2 ABG pO2 Tamir Test O2 Delivery Device Blood Gas Notified Whom Blood Gas Notified Time Sodium Potassium 6.5 H* Chloride Carbon Dioxide Anion Gap BUN Creatinine Estim Creat Clear Calc Est GFR (MDRD) Af Amer Est GFR (MDRD) Non-Af BUN/Creatinine Ratio Glucose Lactic Acid Calcium Magnesium Troponin I B-Natriuretic Peptide TSH Cortisol ACTH Urine Color Urine Clarity Urine pH Ur Specific Bernard Urine Protein Urine Glucose (UA) Urine Ketones Urine Occult Blood Urine Nitrite Urine Bilirubin Urine Urobilinogen Ur Leukocyte Esterase Urine RBC Urine WBC Ur Squamous Epith Cells Ur Transition Epith Cell Urine Bacteria Hyaline Casts Urine Mucus Urine Creatinine 110.00 Urine Urea Nitrogen POC Glucose 164 H 05/18/18 05/18/1818 18:15 18:15 21:40 WBC RBC Hgb Hct MCV MCH MCHC RDW RDW Differential Plt Count MPV Immature Gran % (Auto) Neut % (Auto) Lymph % (Auto) Levy % (Auto) Eos % (Auto) Baso % (Auto) Absolute Neuts (auto) Absolute Lymphs (auto) Total Counted Differential Comment Platelet Estimate Specimen Type Sample Site pH Bicarbonate Actual POC Total CO2 Base Excess O2 Saturation ABG pCO2 ABG pO2 Tamir Test O2 Delivery Device Blood Gas Notified Whom Blood Gas Notified Time Sodium Potassium Chloride Carbon Dioxide Anion Gap BUN Creatinine Estim Creat Clear Calc Est GFR (MDRD) Af Amer Est GFR (MDRD) Non-Af BUN/Creatinine Ratio Glucose Lactic Acid Calcium Magnesium Troponin I B-Natriuretic Peptide TSH Cortisol ACTH Urine Color Yellow Urine Clarity Clear Urine pH 5.0 Ur Specific Bernard 1.020 Urine Protein 15 H Urine Glucose (UA) Normal Urine Ketones Negative Urine Occult Blood Negative Urine Nitrite Negative Urine Bilirubin Negative Urine Urobilinogen Normal Ur Leukocyte Esterase 100 H Urine RBC 0 SEEN Urine WBC 0-5 SEEN Ur Squamous Epith Cells 5-10 SEEN Ur Transition Epith Cell 0-5 SEEN Urine Bacteria 0 SEEN Hyaline Casts 5-10 SEEN Urine Mucus 0 SEEN Urine Creatinine Urine Urea Nitrogen 396 POC Glucose 212 H 05/19/18 05/19/18 05/19/18 06:06 06:06 06:06 WBC RBC Hgb Hct MCV MCH MCHC RDW RDW Differential Plt Count MPV Immature Gran % (Auto) Neut % (Auto) Lymph % (Auto) Levy % (Auto) Eos % (Auto) Baso % (Auto) Absolute Neuts (auto) Absolute Lymphs (auto) Total Counted Differential Comment Platelet Estimate Specimen Type Sample Site pH Bicarbonate Actual POC Total CO2 Base Excess O2 Saturation ABG pCO2 ABG pO2 Tamir Test O2 Delivery Device Blood Gas Notified Whom Blood Gas Notified Time Sodium Cancelled Potassium Cancelled Chloride Cancelled Carbon Dioxide Cancelled Anion Gap Cancelled BUN Cancelled Creatinine Cancelled Estim Creat Clear Calc Cancelled Est GFR (MDRD) Af Amer Cancelled Est GFR (MDRD) Non-Af Cancelled BUN/Creatinine Ratio Cancelled Glucose Cancelled Lactic Acid Calcium Cancelled Magnesium Troponin I < 0.015 B-Natriuretic Peptide TSH Cortisol Cancelled ACTH Urine Color Urine Clarity Urine pH Ur Specific Bernard Urine Protein Urine Glucose (UA) Urine Ketones Urine Occult Blood Urine Nitrite Urine Bilirubin Urine Urobilinogen Ur Leukocyte Esterase Urine RBC Urine WBC Ur Squamous Epith Cells Ur Transition Epith Cell Urine Bacteria Hyaline Casts Urine Mucus Urine Creatinine Urine Urea Nitrogen POC Glucose 05/19/18 05/19/18 05/19/18 06:37 10:20 10:20 WBC 5.5 RBC 4.20 Hgb 11.7 L Hct 37.3 MCV 88.8 MCH 27.9 MCHC 31.4 L RDW 15.7 H RDW Differential 50.5 H Plt Count 218 MPV 10.3 Immature Gran % (Auto) 0.200 Neut % (Auto) 80.0 H Lymph % (Auto) 14.0 L Levy % (Auto) 5.8 Eos % (Auto) 0.0 Baso % (Auto) 0.0 Absolute Neuts (auto) 4.4 Absolute Lymphs (auto) 0.77 L Total Counted Not Reportable Differential Comment Platelet Estimate Specimen Type Sample Site pH Bicarbonate Actual POC Total CO2 Base Excess O2 Saturation ABG pCO2 ABG pO2 Tmair Test O2 Delivery Device Blood Gas Notified Whom Blood Gas Notified Time Sodium Potassium Chloride Carbon Dioxide Anion Gap BUN Creatinine Estim Creat Clear Calc Est GFR (MDRD) Af Amer Est GFR (MDRD) Non-Af BUN/Creatinine Ratio Glucose Lactic Acid Calcium Magnesium Troponin I B-Natriuretic Peptide TSH Cortisol 3.70 ACTH Urine Color Urine Clarity Urine pH Ur Specific Bernard Urine Protein Urine Glucose (UA) Urine Ketones Urine Occult Blood Urine Nitrite Urine Bilirubin Urine Urobilinogen Ur Leukocyte Esterase Urine RBC Urine WBC Ur Squamous Epith Cells Ur Transition Epith Cell Urine Bacteria Hyaline Casts Urine Mucus Urine Creatinine Urine Urea Nitrogen POC Glucose 282 H 05/19/18 05/19/18 05/19/18 10:20 10:20 10:30 WBC RBC Hgb Hct MCV MCH MCHC RDW RDW Differential Plt Count MPV Immature Gran % (Auto) Neut % (Auto) Lymph % (Auto) Levy % (Auto) Eos % (Auto) Baso % (Auto) Absolute Neuts (auto) Absolute Lymphs (auto) Total Counted Differential Comment Platelet Estimate Specimen Type Sample Site pH Bicarbonate Actual POC Total CO2 Base Excess O2 Saturation ABG pCO2 ABG pO2 Tamir Test O2 Delivery Device Blood Gas Notified Whom Blood Gas Notified Time Sodium 134 L Potassium 4.4 Chloride 102 Carbon Dioxide 22.0 Anion Gap 10 BUN 54 H Creatinine 1.85 H Estim Creat Clear Calc 29.89 Est GFR (MDRD) Af Amer 36 L Est GFR (MDRD) Non-Af 29 L BUN/Creatinine Ratio 29.2 H Glucose 350 H Lactic Acid 2.4 H Calcium 7.1 L Magnesium 1.6 Troponin I B-Natriuretic Peptide TSH 0.68 Cortisol ACTH 1.6 L Urine Color Urine Clarity Urine pH Ur Specific Bernard Urine Protein Urine Glucose (UA) Urine Ketones Urine Occult Blood Urine Nitrite Urine Bilirubin Urine Urobilinogen Ur Leukocyte Esterase Urine RBC Urine WBC Ur Squamous Epith Cells Ur Transition Epith Cell Urine Bacteria Hyaline Casts Urine Mucus Urine Creatinine Urine Urea Nitrogen POC Glucose 05/19/18 05/19/18 05/19/18 11:05 14:57 16:10 WBC RBC Hgb Hct MCV MCH MCHC RDW RDW Differential Plt Count MPV Immature Gran % (Auto) Neut % (Auto) Lymph % (Auto) Levy % (Auto) Eos % (Auto) Baso % (Auto) Absolute Neuts (auto) Absolute Lymphs (auto) Total Counted Differential Comment Platelet Estimate Specimen Type Sample Site pH Bicarbonate Actual POC Total CO2 Base Excess O2 Saturation ABG pCO2 ABG pO2 Tamir Test O2 Delivery Device Blood Gas Notified Whom Blood Gas Notified Time Sodium Potassium Chloride Carbon Dioxide Anion Gap BUN Creatinine Estim Creat Clear Calc Est GFR (MDRD) Af Amer Est GFR (MDRD) Non-Af BUN/Creatinine Ratio Glucose Lactic Acid 4.1 H* Calcium Magnesium Troponin I B-Natriuretic Peptide TSH Cortisol ACTH Urine Color Urine Clarity Urine pH Ur Specific Bernard Urine Protein Urine Glucose (UA) Urine Ketones Urine Occult Blood Urine Nitrite Urine Bilirubin Urine Urobilinogen Ur Leukocyte Esterase Urine RBC Urine WBC Ur Squamous Epith Cells Ur Transition Epith Cell Urine Bacteria Hyaline Casts Urine Mucus Urine Creatinine Urine Urea Nitrogen POC Glucose 352 H 393 H 05/19/18 05/19/18 05/19/18 16:49 18:48 18:48 WBC RBC Hgb Hct MCV MCH MCHC RDW RDW Differential Plt Count MPV Immature Gran % (Auto) Neut % (Auto) Lymph % (Auto) Levy % (Auto) Eos % (Auto) Baso % (Auto) Absolute Neuts (auto) Absolute Lymphs (auto) Total Counted Differential Comment Platelet Estimate Specimen Type ART Sample Site R Radial pH 7.37 Bicarbonate Actual 16.9 L POC Total CO2 18 Base Excess -8 L O2 Saturation 95 ABG pCO2 29.4 L ABG pO2 76 Tamir Test POS O2 Delivery Device Room Air Blood Gas Notified Whom [facility] Blood Gas Notified Time 1645 Sodium 128 L Potassium 5.4 H Chloride 99 Carbon Dioxide 16.0 L Anion Gap 13 BUN 62 H Creatinine 2.42 H Estim Creat Clear Calc 22.85 Est GFR (MDRD) Af Amer 26 L Est GFR (MDRD) Non-Af 22 L BUN/Creatinine Ratio 25.6 H Glucose 397 H Lactic Acid 3.5 H Calcium 7.7 L Magnesium Troponin I B-Natriuretic Peptide TSH Cortisol ACTH Urine Color Urine Clarity Urine pH Ur Specific Bernard Urine Protein Urine Glucose (UA) Urine Ketones Urine Occult Blood Urine Nitrite Urine Bilirubin Urine Urobilinogen Ur Leukocyte Esterase Urine RBC Urine WBC Ur Squamous Epith Cells Ur Transition Epith Cell Urine Bacteria Hyaline Casts Urine Mucus Urine Creatinine Urine Urea Nitrogen POC Glucose 05/19/18 05/20/18 05/20/18 21:23 00:35 05:25 WBC 10.9 RBC 4.94 Hgb 14.1 Hct 43.0 MCV 87.0 MCH 28.5 MCHC 32.8 RDW 16.2 H RDW Differential 51.0 H Plt Count 285 MPV 10.9 Immature Gran % (Auto) 0.300 Neut % (Auto) 82.1 H Lymph % (Auto) 11.6 L Levy % (Auto) 5.9 Eos % (Auto) 0.0 Baso % (Auto) 0.1 Absolute Neuts (auto) 9.0 H Absolute Lymphs (auto) 1.27 Total Counted Not Reportable Differential Comment Platelet Estimate Specimen Type Sample Site pH Bicarbonate Actual POC Total CO2 Base Excess O2 Saturation ABG pCO2 ABG pO2 Tamir Test O2 Delivery Device Blood Gas Notified Whom Blood Gas Notified Time Sodium Potassium Chloride Carbon Dioxide Anion Gap BUN Creatinine Estim Creat Clear Calc Est GFR (MDRD) Af Amer Est GFR (MDRD) Non-Af BUN/Creatinine Ratio Glucose Lactic Acid 2.0 Calcium Magnesium Troponin I B-Natriuretic Peptide TSH Cortisol ACTH Urine Color Urine Clarity Urine pH Ur Specific Bernard Urine Protein Urine Glucose (UA) Urine Ketones Urine Occult Blood Urine Nitrite Urine Bilirubin Urine Urobilinogen Ur Leukocyte Esterase Urine RBC Urine WBC Ur Squamous Epith Cells Ur Transition Epith Cell Urine Bacteria Hyaline Casts Urine Mucus Urine Creatinine Urine Urea Nitrogen POC Glucose 326 H 05/20/18 05/20/18 05/20/18 05:25 05:25 06:50 WBC RBC Hgb Hct MCV MCH MCHC RDW RDW Differential Plt Count MPV Immature Gran % (Auto) Neut % (Auto) Lymph % (Auto) Levy % (Auto) Eos % (Auto) Baso % (Auto) Absolute Neuts (auto) Absolute Lymphs (auto) Total Counted Differential Comment Platelet Estimate Specimen Type Sample Site pH Bicarbonate Actual POC Total CO2 Base Excess O2 Saturation ABG pCO2 ABG pO2 Tamir Test O2 Delivery Device Blood Gas Notified Whom Blood Gas Notified Time Sodium 133 L Potassium 5.3 H Chloride 99 Carbon Dioxide 22.0 Anion Gap 12 BUN 68 H Creatinine 2.54 H Estim Creat Clear Calc 21.77 Est GFR (MDRD) Af Amer 25 L Est GFR (MDRD) Non-Af 20 L BUN/Creatinine Ratio 26.8 H Glucose 296 H Lactic Acid 1.6 Calcium 7.7 L Magnesium 1.7 Troponin I B-Natriuretic Peptide TSH Cortisol ACTH Urine Color Urine Clarity Urine pH Ur Specific Bernard Urine Protein Urine Glucose (UA) Urine Ketones Urine Occult Blood Urine Nitrite Urine Bilirubin Urine Urobilinogen Ur Leukocyte Esterase Urine RBC Urine WBC Ur Squamous Epith Cells Ur Transition Epith Cell Urine Bacteria Hyaline Casts Urine Mucus Urine Creatinine Urine Urea Nitrogen POC Glucose 295 H 05/20/18 05/20/18 05/20/18 11:40 16:23 22:39 WBC RBC Hgb Hct MCV MCH MCHC RDW RDW Differential Plt Count MPV Immature Gran % (Auto) Neut % (Auto) Lymph % (Auto) Levy % (Auto) Eos % (Auto) Baso % (Auto) Absolute Neuts (auto) Absolute Lymphs (auto) Total Counted Differential Comment Platelet Estimate Specimen Type Sample Site pH Bicarbonate Actual POC Total CO2 Base Excess O2 Saturation ABG pCO2 ABG pO2 Tamir Test O2 Delivery Device Blood Gas Notified Whom Blood Gas Notified Time Sodium Potassium Chloride Carbon Dioxide Anion Gap BUN Creatinine Estim Creat Clear Calc Est GFR (MDRD) Af Amer Est GFR (MDRD) Non-Af BUN/Creatinine Ratio Glucose Lactic Acid Calcium Magnesium Troponin I B-Natriuretic Peptide TSH Cortisol ACTH Urine Color Urine Clarity Urine pH Ur Specific Bernard Urine Protein Urine Glucose (UA) Urine Ketones Urine Occult Blood Urine Nitrite Urine Bilirubin Urine Urobilinogen Ur Leukocyte Esterase Urine RBC Urine WBC Ur Squamous Epith Cells Ur Transition Epith Cell Urine Bacteria Hyaline Casts Urine Mucus Urine Creatinine Urine Urea Nitrogen POC Glucose 310 H 332 H 297 H 05/21/18 05/21/18 05/21/18 01:03 07:26 08:00 WBC 16.1 H RBC 5.18 Hgb 14.8 Hct 46.1 MCV 89.0 MCH 28.6 MCHC 32.1 RDW 16.5 H RDW Differential 53.2 H Plt Count 252 MPV 10.6 Immature Gran % (Auto) 0.200 Neut % (Auto) 77.4 H Lymph % (Auto) 13.3 L Levy % (Auto) 9.0 Eos % (Auto) 0.0 Baso % (Auto) 0.1 Absolute Neuts (auto) 12.5 H Absolute Lymphs (auto) 2.14 Total Counted Not Reportable Differential Comment Platelet Estimate Specimen Type Sample Site pH Bicarbonate Actual POC Total CO2 Base Excess O2 Saturation ABG pCO2 ABG pO2 Tamir Test O2 Delivery Device Blood Gas Notified Whom Blood Gas Notified Time Sodium Potassium Chloride Carbon Dioxide Anion Gap BUN Creatinine Estim Creat Clear Calc Est GFR (MDRD) Af Amer Est GFR (MDRD) Non-Af BUN/Creatinine Ratio Glucose Lactic Acid Calcium Magnesium Troponin I B-Natriuretic Peptide TSH Cortisol ACTH Urine Color Urine Clarity Urine pH Ur Specific Bernard Urine Protein Urine Glucose (UA) Urine Ketones Urine Occult Blood Urine Nitrite Urine Bilirubin Urine Urobilinogen Ur Leukocyte Esterase Urine RBC Urine WBC Ur Squamous Epith Cells Ur Transition Epith Cell Urine Bacteria Hyaline Casts Urine Mucus Urine Creatinine Urine Urea Nitrogen POC Glucose 287 H 229 H 05/21/18 05/21/18 08:00 12:18 WBC RBC Hgb Hct MCV MCH MCHC RDW RDW Differential Plt Count MPV Immature Gran % (Auto) Neut % (Auto) Lymph % (Auto) Levy % (Auto) Eos % (Auto) Baso % (Auto) Absolute Neuts (auto) Absolute Lymphs (auto) Total Counted Differential Comment Platelet Estimate Specimen Type Sample Site pH Bicarbonate Actual POC Total CO2 Base Excess O2 Saturation ABG pCO2 ABG pO2 Tamir Test O2 Delivery Device Blood Gas Notified Whom Blood Gas Notified Time Sodium 129 L Potassium 5.8 H Chloride 95 L Carbon Dioxide 22.0 Anion Gap 12 BUN 78 H Creatinine 3.26 H Estim Creat Clear Calc 16.96 Est GFR (MDRD) Af Amer 19 L Est GFR (MDRD) Non-Af 15 L BUN/Creatinine Ratio 23.9 H Glucose 253 H Lactic Acid Calcium 7.9 L Magnesium Troponin I B-Natriuretic Peptide TSH Cortisol ACTH Urine Color Urine Clarity Urine pH Ur Specific Bernard Urine Protein Urine Glucose (UA) Urine Ketones Urine Occult Blood Urine Nitrite Urine Bilirubin Urine Urobilinogen Ur Leukocyte Esterase Urine RBC Urine WBC Ur Squamous Epith Cells Ur Transition Epith Cell Urine Bacteria Hyaline Casts Urine Mucus Urine Creatinine Urine Urea Nitrogen POC Glucose 215 H Operations: None Summary of Care Provided: The patient is a 62 year old F with a past medical history of heart failure with reduced ejection fraction with EF being around 30% per last echo, coronary artery disease status post stents to LAD at [facility] in March 2018, hypertension and hyperlipidemia. Was admitted from her care home on 2017 with complaint of diarrhea for 2 weeks prior to presentation. Diarrhea was nonbloody with associated nausea and vomiting. Emesis was also nonbloody and nonbilious. She had been getting her Lasix at the care home and on a worsening lower extremity edema. He had associated dizziness and lightheadedness and was still receiving him Lasix and therefore insisted that she be brought to the ED. C. difficile was checked in the care home and was negative. In the ED, blood pressure was initially 101/53 and suddenly dropped to 81/61 at review and labs show sodium of 128 and potassium of 6.4 which was moderately hemolyzed and was 6.5 on repeat. Creatinine was 2.44 with a baseline being less than 1 and BUN was 61. BNP was 766.9 and CBC showed a white cell count of 11.9 but was otherwise unremarkable. Patient was managed for hypovolemic shock due to gastroenteritis was resuscitated aggressively with IV fluids. The suspicion of adrenal insufficiency was also made on account of elevated potassium and low sodium as well as hypovolemia. On the day of admission, patient developed A. fib with RVR and had to be put on amiodarone drip. Patient also received a dose of Decadron serum cortisol checked the next morning was 3.7, with lower limit being 3. Patient continued to be hydrated with IV fluids started on IV hydrocortisone on account of adrenal insufficiency. Her heart rate fluctuated and she had to be on and off amiodarone drip. Hypotension was worsened by amiodarone drip and this did not fully resolve with maximal blood pressure being around 120s, blood pressure systolic was mainly in the 80s and 90s during admission despite IV fluid resuscitation. Kidney function also gradually worsened after trending down initially to 1.85 from 1.44 on admission. Creatinine trended up gradually to 3.5 at time of discharge. Nephrology was consulted on account of worsening kidney function and also as patient was becoming oliguric. Patient's urine output trended down significantly and she is making significantly less than 0.5 cc/h. Kidney ultrasound was normal. Urinalysis was also unremarkable. Patient did not improve and kept on feeling nauseous and weak. She was not able to get off the amiodarone drip as heart rate would always go up to the 120s and 130s on her oral medication. Cosyntropin test was ordered but was done in error. ACTH ordered came back very low at 1.7, with lower limit of 7. 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 Patient remained hypotensive, and remained hypokalemic and hyponatremic despite being on adrenal steroid hormone replacement with IV hydrocortisone. Cardiology and nephrology were on board. Per nephrology, patient may need dialysis or a Lasix drip, but this was precluded by her persistent hypotension. Decision was made to transfer patient to [facility] as patient needed urgent endocrinology review and there was no power equipment mechanics instructor available at [facility]. Patient was accepted by [facility] and she was transferred on 05/21/2018. Patient seen and examined prior to discharge. Patient continued to feel weak and frail and still had nausea. He remained on amiodarone drip as heart rate had gone up. She remained hypotensive with blood pressure being in the 80s and 90s systolic and her urine output was also not improving. 12 point review of systems was otherwise negative. o/e: Vital Signs Height 5 ft 6 in Weight: 217 lb 13.067 oz Weight in Pounds 217.8 lbs BMI 33.8 Pulse Ox 95 Temperature 97 F Pulse Rate 99 Respiratory Rate 18 Blood Pressure [BP] 85/69 Blood Pressure 83/63 Blood Pressure Position [BP] Semi-Fowlers Blood Pressure Position Sitting General: Alert, Oriented x3, Cooperative,very lethargic,. HEENT: Atraumatic, PERRLA, EOMI, Normocephalic Oral: Moist Mucosa Neck: Supple, No JVD, Negative Carotid Bruits, No Nodes Lungs: Clear to auscultation, Normal air movement, No rhonchi, No wheeze, No rales Cardiovascular: Regular rate, Regular Rhythm, Normal S1, Normal S2, No murmurs Abdomen: Bowel Sounds Present, Soft, Non Tender, Non-Distended, No Hepato- splenomegaly Extremities: No clubbing, No cyanosis, - -2++ bipedal pitting edema Skin: No rashes, No breakdown Musculoskeletal: No Tenderness to Palpation of Joints or Extremities Lymphatic: No Cervical, Supraclavicular, or Inguinal Adenopathy Neurological: Cranial nerves II-XII grossly intact, Motor Exam 5/5 strength throughout Psych/Mental Status: Normal Affect, Appropriate, Alert and oriented to time, place, person, mood and affect Plan as stated above. Discharge Diet: 2000 mg Sodium Diet Call your doctor if you observe: Shortness of breath, Dizziness, Swelling in the ankles Home Medications: Medications to take at Discharge Clopidogrel Bisulfate [Clopidogrel] 75 mg PO DAILY 10/20/16 Diazepam 5 mg PO BID PRN PRN 10/20/16 Levothyroxine [Synthroid] 25 mcg PO MOWEFR 10/20/16 Levothyroxine [Synthroid] 175 mcg PO DAILY 10/20/16 Montelukast [Singulair] 10 mg PO QHS 10/20/16 Aspirin [Adult Aspirin Regimen] 81 mg PO DAILY 04/11/18 Atorvastatin Calcium [Lipitor] 40 mg PO QHS 04/11/18 Ergocalciferol [Vitamin D] 50,000 unit PO Q7D 04/11/18 Pantoprazole Sodium [Protonix] 40 mg PO DAILY 04/11/18 Albuterol Inhaler [Ventolin Hfa] 2 puff INHALATION Q4H PRN PRN 04/12/18 Folic Acid 1 mg PO DAILY@0800 04/12/18 Apixaban [Eliquis] 2.5 mg PO BID tablet 04/16/18 Furosemide [Lasix] 40 mg PO BID@1000,1800 tablet 04/16/18 Insulin Lispro [Humalog KwikPen] See Protocol SC ACHS insuln.pen 04/16/18 Lisinopril [Zestril] 2.5 mg PO DAILY tablet 04/16/18 Metoprolol Tartrate [Lopressor (beta jackie)] 25 mg PO BID tablet 04/16/18 Potassium Chloride [K-Dur] 20 meq PO DAILYCM tablet 04/16/18 Insulin Glargine,Hum.rec.anlog [Basaglar Kwikpen U-100] 20 unit SQ BID 05/18/18 Lactobacillus Rhamnosus GG [Culturelle] 1 each PO DAILY 05/18/18 Primary Care Physician: Anastasiia Cordoba MD [Primary Care Provider] - Please follow up with your Primary Care Physician in: one week Disposition: Acute care Hospital [facility] Minutes spent on discharge:: 50 Patient Condition:: Poor Medical Necessity - Tobacco Use Smoking Status: Former smoker Tobacco Use: Cigarettes Meaningful Use Info Meaningful Use Diagnoses (Choose all that apply): None applicable Code Visit Inpatient E&M: 49641 Disch Hosp
== END 2018-05-21 16:40 | disposition short-term general hospital (02) | DRG 316 ==
LOC: ED 15:32 → PCU 16:37
PROVIDERS: Family Medicine; Admitting Provider Student in an Organized Health Care Education/Training Program; Emergency Provider Emergency Medicine; Family Provider Internal Medicine; PCP Internal Medicine; Visit Provider Student in an Organized Health Care Education/Training Program
DX: N17.9 Acute kidney failure, unspecified (principal); E27.40 Unspecified adrenocortical insufficiency; I48.91 Unspecified atrial fibrillation; E87.5 Hyperkalemia; E86.0 Dehydration; E87.1 Hypo-osmolality and hyponatremia; R57.1 Hypovolemic shock; I50.20 Unspecified systolic (congestive) heart failure; I11.0 Hypertensive heart disease with heart failure; I25.10 Atherosclerotic heart disease of native coronary artery without angina pectoris; E78.5 Hyperlipidemia, unspecified; I25.5 Ischemic cardiomyopathy; E11.9 Type 2 diabetes mellitus without complications; I25.2 Old myocardial infarction; Z87.891 Personal history of nicotine dependence; Z79.4 Long term (current) use of insulin; Z95.5 Presence of coronary angioplasty implant and graft; K52.9 Noninfective gastroenteritis and colitis, unspecified
CPT/HCPCS: 36415; 36600; 51702; 71045; 76770; 80048; 81001; 82024; 82533; 82570; 82803; 82962; 83605; 83735; 83880; 84132; 84443; 84484; 84540; 85025; 87040; 87077; 87086; 87088; 87186; 93005; 94640; 97162; 97165; 97530; 97802; 99285; 99406; J7030; J7040; A4216; J0610; J1940; J2405

== ENCOUNTER 2018-11-25 16:31 | Observation (INO) | payer MEDICAID, SELFPAY ==
[2016-10-23 10:17] VITALS: BMI 33.8
[2018-11-25] VITALS (7 sets, daily range): BP systolic 92–111; BP diastolic 52–71; PULSE 86–90; RESP 16; TEMP 36.6–37.1; O2SAT 91–96; BMI 31.3; BMI 30.1
--- NOTE | 2018-11-25 16:53 | EKG12_ITS ---
Test Reason : Blood Pressure : / mmHG Vent. Rate : 095 BPM Atrial Rate : 095 BPM P-R Int : 182 ms QRS Dur : 072 ms QT Int : 504 ms P-R-T Axes : 067 -82 106 degrees QTc Int : 633 ms Sinus rhythm with Premature atrial complexes Possible Left atrial enlargement Left axis deviation Low voltage QRS Anterolateral infarct , age undetermined Inferior infarct, age undetermined Prolonged QT Abnormal ECG Confirmed by CHRISTIANO ROSE, GIANCARLO ([id number]), editor continuity and script JESS OCAMPO ([id number] on 12/03/2018 10:28:34 AM Referred By: Angelina Calabrese Confirmed By:GIANCARLO ALVARADO MD
[2018-11-25] MEDS: Ondansetron 4 MG/2 ML Vial IV ×2 (17:35→22:33)
[2018-11-25] MEDS: 0.9% Normal Saline 1,000 ML 1000 ML IV (17:35)
[2018-11-25 18:07] LABS: Absolute Lymphocyte Count 0.76 X10^3/ul (0.83-4.51); Absolute Neutrophil Count 4.5 X10^3/uL (2.0-7.7); Basophil# 0.01 X10^3/uL; Basophil% 0.2 % (0-1); Differential Indicated SCAN CRITERIA MET; Hematocrit 40.4 % (37-47); Hemoglobin 12.2 g/dl (12.0-15.0); Lymphocyte # 0.76 X10^3/ul (4.0); Lymphocyte % 12.3 % (19-41); Mean Corp Hgb Conc 30.2 g/gl (32-36); Mean Corpuscular Hgb 21.2 pg (27.0-32.0); Mean Corpuscular Volume 70.3 fL (81-99); Monocyte# 0.91 X10^3/uL; Monocyte% 14.7 % (0-10); Neutrophil # 4.47 X10^3/uL (2.7-7.7); Neutrophil % 72.3 % (47-70); POSITIVE COUNT NO; POSITIVE DIFFERENTIAL NO; POSITIVE MORPHOLOGY YES; Platelet Count 163 K/mm3 (150-450); RBC Distribution Width CV 20.1 % (11.6-14.6); RBC Distribution Width SD 50.3 fl (35.1-43.9); Red Blood Count 5.75 M/mm3 (4.2-5.4); White Blood Count 6.2 K/mm3 (4.4-11.0)
[2018-11-25 18:09] LABS: Anion Gap 8 (5-15); BUN 52 mg/dL (7-18); BUN/Creat Ratio 33.1 RATIO (10-20); Calcium,Total 8.7 mg/dL (8.5-10.1); Chloride 94 mmol/L (98-107); Creatinine, Serum 1.57 mg/dL (0.55-1.02); EST Glomerular Filtration Rate 35 mL/min (>60); Est Glom Filt Rate - Afr Amer 43 mL/min (>60); Estimated Creatinine Clearance 34.78 ml/min; Glucose 114 mg/dL (74-106); Potassium 3.2 mmol/L (3.5-5.1); Sodium Level 131 mmol/L (136-145)
[2018-11-25 18:14] LABS: Mucous, Urine 0 SEEN /hpf (<or=2+)
[2018-11-25 18:19] LABS: Color, Urine Yellow (Yellow); Glucose, Dipstick Normal (Normal); Ketone-Dipstick Negative (Negative); Leukocyte Esterase-Dipstick 100 /ul (Negative); Nitrite-Dipstick Negative (Negative); Occult Blood-Urine 250 /ul (Negative); Protein-Dipstick 30 mg/dl (Negative); Specific Gravity, Urine 1.015 (1.002-1.030); Urine Bilirubin Dipstick Negative (Negative); Urine Clarity Cloudy (Clear); Urine Urobilinogen 1 mg/dl (Normal)
[2018-11-25 18:25] LABS: Bacteria RARE /hpf (None Seen); Red Blood Cells-Urine 0-5 SEEN /hpf (0-5); Squamous Epithelial Cells - UA 10-25 SEEN /hpf (5-10); White Blood Cells 0-5 SEEN /hpf (0-5)
[2018-11-25 18:55] LABS: Anisocytosis 1+; Hypochromasia 1+; Microcytosis 1+; Ovalocyte RARE; Platelet Estimate ADEQUATE (ADEQ); Polychromasia RARE
--- NOTE | 2018-11-25 19:21 | ED.VISSUMM ---
- ER Visit Summary Date of Service: 11/25/18 Chief Complaint: [Nausea and fatigue] History of Present Illness: The patient is a 63 F presents to the emergency department complaint of nausea and fatigue that started 2 days ago. Patient has been vomiting once or twice a day. Patient's been sleeping more per her son. Patient just has had no energy. Patient's not sure if she has had a fever. She denies any abdominal pain. Patient has had a cough for about 3 or 4 days. Patient has had some sinus drainage. She denies any rashes. Patient being treated for a abscess on her vulva and was seen by MOVER HELPER today who has been following it and apparently it is improving. [Patient denies any chest pain. She does have some exertional dyspnea. Patient has history of coronary artery disease, diabetes, hypertension, high cholesterol, and renal failure.] Physical Examination: [HEENT-PERRLA, EOMI. Cranial nerves II through XII grossly intact. TMs clear. Mucous membranes moist. No adenopathy. Cardiovascular-regular rate and rhythm without murmur or ectopy Lungs-clear to auscultation, chest wall stable without crepitus or subcu emphysema Abdomen-normoactive bowel sounds, soft, nontender, no rebound or rigidity, no peritoneal signs. Extremities-intact ?4, normal range of motion, normal pulses, atraumatic] Test Results: [EKG obtained on arrival showed a sinus rhythm with a ventricular rate of 95 bpm with old anterior lateral infarct as well as old inferior infarct. When compared with prior EKG no new changes noted. CBC with differential obtained showed a white count 6.2, hemoglobin 12, hematocrit 40, platelets 163. Chemistries unremarkable. BUN was 52 and creatinine 1.57. Potassium was 3.2. Urinalysis was normal. Troponin was slightly elevated 0.077. Chest x-ray was ordered and pending.] Emergency Department Course and Treatment: [She was given a liter normal same fluid bolus and was given Zofran 4 mill grams IV.] Treatment Plan: [Admit for IV fluids and repeat cardiac enzymes.] Disposition: [Admit] Impression: [Generalized weakness Nausea and vomiting Elevated troponin] This note was generated with [employer] dictation software. It may contain incorrect words, spelling, and punctuation that were not noted in review of the chart prior to signing ED Disposition - Plan for ED Patient: Referrals: Anastasiia Cordoba MD [Primary Care Provider] -
--- NOTE | 2018-11-25 19:21 | ED.RN ---
PT IS NOT CONSIDERED SEPSIS AT THIS TIME, NAUSEA AND VOMITING ONLY. SEPSIS COMPLETED WITH PERMISSION FROM DR. KEATING.
--- NOTE | 2018-11-25 19:24 | ED.DCSUM_ITS ---
- ER Visit Summary Date of Service: 11/25/18 Chief Complaint: [Nausea and fatigue] History of Present Illness: The patient is a 63 F presents to the emergency department complaint of nausea and fatigue that started 2 days ago. Patient has been vomiting once or twice a day. Patient's been sleeping more per her son. Patient just has had no energy. Patient's not sure if she has had a fever. She denies any abdominal pain. Patient has had a cough for about 3 or 4 days. Patient has had some sinus drainage. She denies any rashes. Patient being treated for a abscess on her vulva and was seen by MANDOLIN REPAIRER today who has been following it and apparently it is improving. [Patient denies any chest pain. She does have some exertional dyspnea. Patient has history of coronary artery disease, diabetes, hypertension, high cholesterol, and renal failure.] Physical Examination: [HEENT-PERRLA, EOMI. Cranial nerves II through XII grossly intact. TMs clear. Mucous membranes moist. No adenopathy. Cardiovascular-regular rate and rhythm without murmur or ectopy Lungs-clear to auscultation, chest wall stable without crepitus or subcu emphysema Abdomen-normoactive bowel sounds, soft, nontender, no rebound or rigidity, no peritoneal signs. Extremities-intact ?4, normal range of motion, normal pulses, atraumatic] Test Results: [EKG obtained on arrival showed a sinus rhythm with a ventricular rate of 95 bpm with old anterior lateral infarct as well as old inferior infarct. When compared with prior EKG no new changes noted. CBC with differential obtained showed a white count 6.2, hemoglobin 12, hematocrit 40, platelets 163. Chemistries unremarkable. BUN was 52 and creatinine 1.57. Potassium was 3.2. Urinalysis was normal. Troponin was slightly elevated 0.077. Chest x-ray was ordered and pending.] Emergency Department Course and Treatment: [She was given a liter normal same fluid bolus and was given Zofran 4 mill grams IV.] Treatment Plan: [Admit for IV fluids and repeat cardiac enzymes.] Disposition: [Admit] Impression: [Generalized weakness Nausea and vomiting Elevated troponin] This note was generated with [employer] dictation software. It may contain incorrect words, spelling, and punctuation that were not noted in review of the chart prior to signing ED Disposition - Plan for ED Patient: Referrals: Anastasiia Cordoba MD [Primary Care Provider] -
--- NOTE | 2018-11-25 19:25 | RAD_ITS ---
STUDY: X-RAY CHEST REASON FOR EXAM: Female, 63 years old. Nausea and vomiting. Fever. Chills and fatigue. TECHNIQUE: Single AP portable view of the chest. COMPARISON: May 18, 2018. FINDINGS: Telemetry wires overlie the chest. The lungs are clear and expanded. Hazy area of the right lung base has resolved. There is no demonstrated pleural abnormality. There is borderline cardiomegaly. Normal mediastinum and emily. Normal visualized pulmonary arteries. There is atherosclerotic calcification of the aortic arch with tortuosity. The thoracic spine is obscured by the mediastinum. Normal visualized ribs, clavicles, and shoulders. There is no demonstrated abnormality of the visualized soft tissue structures of the upper abdomen. RAD/Chest 1 View (Portable) IMPRESSION: Borderline cardiomegaly without acute pulmonary disease. Electronically Signed: Chaka Melendrez DO at 20:04 EST Tel [phone], Service support ,
--- NOTE | 2018-11-25 19:45 | HP.PCM_ITS ---
History of Present Illness Date of Admission: 11/25/18 Chief Complaint: N/V/Fever/Chills The patient is a 63 y/o F w/ PMHx: Chronic Systolic CHF (EF 30%)/Ischemic Cardiomyopathy, History LV Apical Thrombus, CAD s/p NSTEMI and most recently noted CHARY to LAD 03/2018 [facility] w/ patient noted PCI x 5, HTN, HLD, Obesity, Chronic Asthma/COPD w/ Former Tobacco use history, Diabetes mellitus type II, Hypothyroidism, Anxiety, GERD who presents to the [facility] ED on 11/25/18 sent per [facility] for evaluation following re-assessment for recent vulva abscess w/ history of nausea, emesis, fatigue, malaise, decreased intake with associated fever and chills ongoing x 2-3 days in addition to exertional dyspnea but no marked chest pain and minimally productive cough noted to be yellow-brown in color. She notes she was evaluated recent for her ? vulva/labial abscess and it has been improving. She also notes recent scabies 2-3 weeks prior and notes she was treated at that time. She currently is fatigued and not markedly cooperative with discussions as a results. Work-up in the ED included T 98.6, heart rate 90, BP initially 111/71 with repeat 95/58, respiratory rate 16, 95% room air, CBC with WBC 6.2, hemoglobin 12.2, platelet 163 without market shift, BMP with sodium 131, potassium 3.2, chloride 94, BUN/Cr 52/1.57 (baseline Cr appeared earlier in 2018 0.7-0.9 however she has had increased creatinine likely with acute admissions with most recent 05/21/2018 3.26), glucose 114, troponin 0.077, UA with evidence mild dehydration, poor sample is no acute findings. Past Medical History Past Medical History (Chronic Problems): Chronic Problems Left ventricular apical thrombus (Chronic) Ischemic cardiomyopathy (Chronic) History of coronary artery stent placement (Chronic) CHARY to LAD @ [facility] in March 2018 NSTEMI (non-ST elevated myocardial infarction) (Chronic) Acute exacerbation of COPD with asthma (Chronic) Pneumococcal pneumonia (Chronic) Acute respiratory failure with hypoxia and hypercapnia (Chronic) Diabetes mellitus (Chronic) HLD (hyperlipidemia) (Chronic) S/P PTCA (percutaneous transluminal coronary angioplasty) (Chronic) SVT (supraventricular tachycardia) (Chronic) CAD (coronary artery disease) (Chronic) S/P PTCA/CHARY to LAD @ [facility] in March 2018; Essential hypertension (Chronic) Medical History: Medical History CHF (congestive heart failure) (Acute) I50.9 NSTEMI (non-ST elevated myocardial infarction) (Chronic) I21.4 HLD (hyperlipidemia) (Chronic) E78.5 CAD (coronary artery disease) (Chronic) I25.10 S/P PTCA/CHARY to LAD @ [facility] in March 2018; Essential hypertension (Chronic) I10 Allergies ampicillin Allergy (Verified 11/25/18 16:34) Hives doxycycline Allergy (Verified 11/25/18 16:34) Unknown hydrochlorothiazide Allergy (Verified 11/25/18 16:34) Unknown iodine Allergy (Verified 11/25/18 16:34) Unknown Penicillins [PCN] Allergy (Verified 11/25/18 16:34) Unknown shellfish derived Allergy (Verified 11/25/18 16:34) Hives venom-honey bee [bee venom (honey bee)] Allergy (Verified 11/25/18 16:34) Hives diphenhydramine [From Benadryl] Adverse Reaction (Verified 11/25/18 16:34) Hives Home Medications: Ambulatory Orders Medication Instructions Recorded Clopidogrel Bisulfate [Clopidogrel] 75 mg PO DAILY 10/20/16 Diazepam 5 mg PO BID PRN PRN 10/20/16 Levothyroxine [Synthroid] 25 mcg PO MOWEFR 10/20/16 Levothyroxine [Synthroid] 175 mcg PO DAILY 10/20/16 Montelukast [Singulair] 10 mg PO QHS 10/20/16 Aspirin [Adult Aspirin Regimen] 81 mg PO DAILY 04/11/18 Atorvastatin Calcium [Lipitor] 40 mg PO QHS 04/11/18 Ergocalciferol [Vitamin D] 50,000 unit PO Q7D 04/11/18 Pantoprazole Sodium [Protonix] 40 mg PO DAILY 04/11/18 Albuterol Inhaler [Ventolin Hfa] 2 puff INHALATION Q4H PRN PRN 04/12/18 Folic Acid 1 mg PO DAILY@0800 04/12/18 Apixaban [Eliquis] 2.5 mg PO BID tablet 04/16/18 Furosemide [Lasix] 40 mg PO BID@1000,1800 tablet 04/16/18 Insulin Lispro [Humalog KwikPen] See Protocol SC ACHS insuln.pen 04/16/18 Lisinopril [Zestril] 2.5 mg PO DAILY tablet 04/16/18 Metoprolol Tartrate [Lopressor 25 mg PO BID tablet 04/16/18 (beta jackie)] Potassium Chloride [K-Dur] 20 meq PO DAILYCM tablet 04/16/18 Insulin Glargine,Hum.rec.anlog 20 unit SQ BID 05/18/18 [Basaglar Kwikpen U-100] Lactobacillus Rhamnosus GG 1 each PO DAILY 05/18/18 [Culturelle] Clopidogrel Bisulfate [Clopidogrel] 75 mg PO DAILY 11/25/18 Diazepam [Valium] 5 mg PO BID 11/25/18 Surgical History: Surgical History (Last Updated 04/30/18 @ 10:07 by Amalia Ackerman) Hx of tonsillectomy (Resolved) Z90.89 Hx of cholecystectomy (Resolved) Z90.49 S/P PTCA (percutaneous transluminal coronary angioplasty) (Chronic) Z98.61 Surgical History: - - PCI x 5, cholecystectomy. 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 Lives: Alone Smoking Status: Former smoker - She notes quit in [id number]. Tobacco Use: Non-smoker Alcohol: None Drugs: None - *Family History Paternal Family History: Family History (Last Updated 04/30/18 @ 10:05 by Amalia Ackerman) Father CAD (coronary artery disease) Brother CAD (coronary artery disease) History Items: Heart Disease Sibling Family History: Family History (Last Updated 04/30/18 @ 10:05 by Amalia Ackerman) Father CAD (coronary artery disease) Brother CAD (coronary artery disease) History Items: Heart Disease Maternal Family History: Family History (Last Updated 04/30/18 @ 10:05 by Amalia Ackerman) Father CAD (coronary artery disease) Brother CAD (coronary artery disease) History Items: - - Denies any marked materal history including CA, DM, HD. Review of Systems Constitutional: Reports: Anorexia, Chills, Fever, Weakness, Fatigue. Denies: Weight Change HEENT: Denies: Head Aches, Sinus Congestion, Sinus Drainage Cardiovascular: Denies: Chest Pain, Palpitations Respiratory: Reports: Cough, Shortness of Breath, Shortness of breath upon exertion, Sputum production. Denies: Shortness of breath at rest Gastrointestinal: Reports: Abdominal Pain, Nausea, Vomiting Genitourinary: Denies: Dysuria Musculoskeletal: Reports: Joint Pain, Muscle pain. Denies: Joint Tenderness Skin: Reports: Skin Changes. Denies: Rash, Wounds Neurological: Denies: Numbness, Tingling, Focal weakness Psychiatric: Denies: Anxiety, Depression, Homicidal Ideations, Suicidal Ideations Hematologic/ Lymphatic: Reports: Anemia, Easy Bruising, Easy Bleeding VTE Information - Inpt Only VTE Present on Admission: No VTE Mechan Device Prophylaxis: SCD's VTE Pharm Prophylaxis ordered?: No Reason prophylaxis not ordered:: Treatment Not Indicated - On eliquis baseline. Subjective: Laying in the ED bed, fatigued appearance, intermittently cooperative as notes fatigue, notes feeling mildly improved since Zofran administration. Objective: Physical Examination: General: awake, alert, oriented x 3 and cooperative, seated upright in the ED bed in no apparent distress but fatigued, disheveled appearance. Skin: normal color, turgor, no icterus, cyanosis except noted occasional scabs with patient noting recent scabies 2-3 weeks prior. HEENT: AT/NC, EOMI, PERRLA, dry MM, no carotid bruits or JVD noted. Lungs: Diminished breath sounds bilateral bases, mild to moderate effort, no rales or market rhonchi, occasional end expiratory wheeze, severe. Heart: Regular rate and rhythm; no gallop, rub audible. Abdomen: soft, obese, mild generalized discomfort with palpation, nondistended although difficult to assess given habitus, decreased bowel sounds, no HSM however given habitus difficult to assess. : No obvious abscess, some drainage noted on pad, no erythema noted, no market tenderness palpation of the labial region, left which she notes is where the abscess had been located, NTTP, no induration. Extremities: no cyanosis, clubbing, or edema, see skin. Neurological: patient awake, alert, oriented x 3; cognitive function intact; pupils equally reactive to light and accomodation; cranial nerves II-XII grossly normal, moving all 4 extremities, no focal deficits, strength moderately to severely globally decreased [place] to acute presentation. Psychiatric: affect appears fatigued, irritable, no acute evidence of depressive or anxiety feelings. - Physical Exam Vital Signs Temp Pulse Resp BP Pulse Ox 98.7 F 88 16 95/58 L 94 11/25/18 16:49 11/25/18 19:20 11/25/18 19:20 11/25/18 19:20 11/25/18 19:20 Oxygen Delivery Method Room Air Weight: 194 lb Body Mass Index (BMI) 31.3 Laboratory Tests Past 24 Hrs 11/25/18 11/25/18 11/25/18 17:35 17:35 18:00 WBC 6.2 RBC 5.75 H Hgb 12.2 Hct 40.4 MCV 70.3 L MCH 21.2 L MCHC 30.2 L RDW 20.1 H RDW Differential 50.3 H Plt Count 163 MPV TNP Immature Gran % (Auto) 0.500 Neut % (Auto) 72.3 H Lymph % (Auto) 12.3 L [place] % (Auto) 14.7 H Eos % (Auto) 0.0 Baso % (Auto) 0.2 Absolute Neuts (auto) 4.5 Absolute Lymphs (auto) 0.76 L Total Counted Not Reportable Platelet Estimate ADEQUATE Polychromasia RARE Hypochromasia 1+ Anisocytosis 1+ Microcytosis 1+ Ovalocytes RARE Sodium 131 L Potassium 3.2 L Chloride 94 L Carbon Dioxide 29.0 Anion Gap 8 BUN 52 H Creatinine 1.57 H Estim Creat Clear Calc 34.78 Est GFR (MDRD) Af Amer 43 L Est GFR (MDRD) Non-Af 35 L BUN/Creatinine Ratio 33.1 H Glucose 114 H Calcium 8.7 Troponin I 0.077 H Urine Color Yellow Urine Clarity Cloudy Urine pH 5.0 Ur Specific [place] 1.015 Urine Protein 30 H Urine Glucose (UA) Normal Urine Ketones Negative Urine Occult Blood 250 H Urine Nitrite Negative Urine Bilirubin Negative Urine Urobilinogen 1 H Ur Leukocyte Esterase 100 H Urine RBC 0-5 SEEN Urine WBC 0-5 SEEN Ur Squamous Epith Cells 10-25 SEEN Urine Bacteria RARE Urine Mucus 0 SEEN Assessment/Plan All Active Problems Dehydration (Acute) Diarrhea (Acute) RAFFAELE (acute kidney injury) (Acute) Atrial fibrillation (Acute) Hx of tonsillectomy (Resolved) Hx of cholecystectomy (Resolved) CHF (congestive heart failure) (Acute) NSTEMI, initial episode of care (Acute) Acute non-ST elevation myocardial infarction (NSTEMI) (Acute) The patient is a 63 y/o F w/ PMHx: Chronic Systolic CHF (EF 30%)/Ischemic Cardiomyopathy, History LV Apical Thrombus, CAD s/p NSTEMI and most recently noted CHARY to LAD 03/2018 [facility] w/ patient noted PCI x 5, HTN, HLD, Obesity, Chronic Asthma/COPD w/ Former Tobacco use history, Diabetes mellitus type II, Hypothyroidism, Anxiety, GERD who presents to the [facility] ED on 11/25/18 sent per [facility] for evaluation following re-assessment for recent vulva abscess w/ history of nausea, emesis, fatigue, malaise, decreased intake with associated fever and chills ongoing x 2-3 days in addition to exertional dyspnea but no marked chest pain and minimally productive cough noted to be yellow-brown in color. (1) General Malaise, Cough, Fever, Chills, Nausea, Emesis, General Debility secondary to Suspected Viral Syndrome: CXR in the ED pending upon requested evaluation of patient, CBC without marked WBC elevation or shift, afebrile, BP low normal. Respiratory viral panel requested. Will admit to PCU given mildly elevated trop/indeterminant, maintain on oxygen with wean as tolerated, continue ATC duonebs, PRN albuterol, HOB, IS parameters, initiate clears only and ADAT to ADA once clinically improving, repeat CBC, BMP in AM. (2) Indeterminate cardiac enzyme: EKG in ED with no evidence of acute ischemia, CXR pending upon requested evaluation patient, initial trop 0.077, last < 0.02. Will place on a monitored bed to assure no acute myocardial infarction with serial cardiac enzymes and EKGs. ASA, NG, morphine. (3) Hypokalemia: Admission K+ 3.2, supplementation given, repeat level in AM. (4) Hyponatremia, Mild: Hypovolemic given GI losses, gently hydrating given cardiac history as noted, repeat BMP in AM. (5) ? Recent Vulva, Specifically Patient Reported Left Labial Abscess: Notes was on the left, notes has been draining, recent Associate Program Manager evaluation, not on abx she notes, examination in the ED with no erythema, no marked drainage, no tenderness to the region, encouraged continued follow-up. (6) ? Recent Scabies: Notes was treated ~ 2-3 weeks prior, scabs noted, notified staff. (7) CKD stage III: Admission BUN/Cr 52/1.57, baseline Cr appeared earlier in 2018 0.7-0.9 however she has had increased creatinine with acute admission with most recent 05/21/2018 3.26 in [facility], had temporary HD, unclear most recent in [facility] system, gently hydrating, holding BP regimen, repeat BMP in AM. (8) Chronic Systolic CHF (EF 30%)/Ischemic Cardiomyopathy: Continue home aspirin, Eliquis, Plavix, statin regimen, hold BP regimen given low normal BP. (9) History LV Apical Thrombus: Continue home Eliquis regimen. (10) CAD s/p NSTEMI and most recently noted CHARY to LAD 03/2018 [facility] w/ patient noted PCI x 5, continue home aspirin, Eliquis, Plavix, statin regimen, hold BP regimen given low normal BP. (11) Hypertension: Low normal BP in the ED, given GI losses, hold regimen, PRN hydralazine. (12) Hyperlipidemia: Continue home statin regimen. AM FLP. (13) Obesity: Weight loss and lifestyle changes encouraged, nutrition consulted. (14) Chronic Asthma/COPD: Will maintain on oxygen with wean as tolerated to room air, continue ATC duonebs, PRN albuterol, HOB, IS parameters. (15) Former Tobacco use history: Encouraged continued tobacco cessation. (16) Diabetes mellitus type II: Hold oral home regimen, continue home insulin regimen, ADA diet, accu checks w/ ISS. (17) Hypothyroidism: Continue home synthroid regimen, TSH pending. (18) Anxiety: Continue home diazepam regimen. (19) GERD: PPI. (20) DVT Prophylaxis: SCDs, eliquis. Code Visit OBSV E&M: [id number] Initial observation care L3
--- NOTE | 2018-11-25 21:33 | EKG12_ITS ---
Test Reason : INCREASED TROP Blood Pressure : / mmHG Vent. Rate : 088 BPM Atrial Rate : 088 BPM P-R Int : 190 ms QRS Dur : 074 ms QT Int : 346 ms P-R-T Axes : 046 267 120 degrees QTc Int : 418 ms Sinus rhythm with Premature atrial complexes and Premature ventricular complexes or Fusion complexes Possible Right ventricular hypertrophy Possible Anterolateral infarct , new Inferior injury pattern ACUTE ME / STEMI Confirmed by SCOTTIE ROSE, LOLIS ([id number]), newspaper photo editor JESS OCAMPO ([id number]) on 12/02/2018 11:47:31 AM Referred By: Angelina Calabrese Confirmed By:LOLIS RUBIN MD
[2018-11-25] MEDS: 0.9% Normal Saline 1,000 ML 100 ML IV (22:29)
[2018-11-25] MEDS: APIXABAN 2.5 MG TABLET PO (22:30)
[2018-11-25] MEDS: Atorvastatin Calcium 40 MG Tablet PO (22:31)
[2018-11-25] MEDS: Montelukast 10 MG Tablet PO (22:31)
[2018-11-25] MEDS: 0.9% NaCl Peripheral Flush Adult/Peds IV (22:33)
[2018-11-25 22:52] LABS: Bedside Glucose 116 mg/dL (70-110)
[2018-11-25 22:58] LABS: Magnesium 1.5 mg/dL (1.6-2.6)
[2018-11-26] VITALS (13 sets, daily range): BP systolic 91–124; BP diastolic 46–60; PULSE 76–95; RESP 16–18; TEMP 36.4–37.1; O2SAT 92–95
[2018-11-26 03:47] LABS: Hematocrit 34.4 % (37-47); Hemoglobin 10.3 g/dl (12.0-15.0); Mean Corp Hgb Conc 29.9 g/gl (32-36); Mean Corpuscular Hgb 21.3 pg (27.0-32.0); Mean Corpuscular Volume 71.2 fL (81-99); Mean Platelet Vol. 11.1 fl (6.2-12.0); Platelet Count 146 K/mm3 (150-450); RBC Distribution Width CV 20.7 % (11.6-14.6); RBC Distribution Width SD 52.3 fl (35.1-43.9); Red Blood Count 4.83 M/mm3 (4.2-5.4); White Blood Count 4.6 K/mm3 (4.4-11.0)
[2018-11-26 03:48] LABS: Scan Indicated on CBC? Y/N YES- FLAGS NOTED
[2018-11-26 04:06] LABS: ALB/GLOB Ratio 0.8 RATIO (0.9-2.4); AST(SGOT) 30 U/L (15-37); Alanine Aminotransfer ALT/SGPT 17 U/L (13-56); Alkaline Phosphatase 206 U/L (45-117); Anion Gap 12 (5-15); BUN 54 mg/dL (7-18); Calcium,Total 8.1 mg/dL (8.5-10.1); Chloride 99 mmol/L (98-107); Cholesterol 53 mg/dL (200); Creatinine, Serum 1.42 mg/dL (0.55-1.02); EST Glomerular Filtration Rate 40 mL/min (>60); Est Glom Filt Rate - Afr Amer 48 mL/min (>60); Estimated Creatinine Clearance 38.45 ml/min; Globulin 3.7 g/dL (2.2-4.2); Glucose 87 mg/dL (74-106); High Density Lipoprotein 14 mg/dL; Potassium 3.4 mmol/L (3.5-5.1); Protein, Total 6.7 g/dL (6.4-8.2); Sodium Level 137 mmol/L (136-145); Thyroid Stim Hormone (TSH) 1.01 uIU/mL (0.358-3.74); Triglycerides 97 mg/dL; Very Low Density Lipoprotein 19 mg/dL (5-40)
[2018-11-26 04:36] LABS: Differential Comment SCAN
[2018-11-26] MEDS: Levothyroxine 100 MCG Tablet 200 MCG PO (05:14)
--- NOTE | 2018-11-26 05:55 | EKG12_ITS ---
Test Reason : MORNING EKG Blood Pressure : / mmHG Vent. Rate : 077 BPM Atrial Rate : 077 BPM P-R Int : 180 ms QRS Dur : 092 ms QT Int : 484 ms P-R-T Axes : 077 -83 103 degrees QTc Int : 547 ms Sinus rhythm with Premature supraventricular complexes Left axis deviation Low voltage QRS Incomplete right bundle branch block Cannot rule out Anteroseptal infarct , age undetermined Abnormal ECG Confirmed by SCOTTIE ROSE, LOLIS ([id number]), offline editor JESS OCAMPO ([id number]) on 11/28/2018 9:19:07 AM Referred By: Angelina Calabrese Confirmed By:LOLIS RUBIN MD
[2018-11-26] MEDS: Ipratropium/Albuterol Sulfate 3 ML AMPUL.NEB INHALATION ×3 (06:59→19:46)
[2018-11-26 07:01] LABS: Bedside Glucose 98 mg/dL (70-110)
[2018-11-26 09:01] LABS: Magnesium 1.6 mg/dL (1.6-2.6); Phosphorus 4.2 mg/dL (2.5-4.9)
[2018-11-26] MEDS: APIXABAN 2.5 MG TABLET PO ×2 (09:22→21:44)
[2018-11-26] MEDS: Pantoprazole Sodium 40 MG Tablet PO (09:22)
[2018-11-26] MEDS: Clopidogrel Bisulfate 75 MG Tablet PO (09:22)
[2018-11-26] MEDS: Oseltamivir Phosphate 30 MG Capsule PO ×2 (11:00→21:44)
[2018-11-26] MEDS: 0.9% Normal Saline 1,000 ML 100 ML IV ×2 (11:00→20:44)
[2018-11-26 12:56] LABS: Bedside Glucose 88 mg/dL (70-110)
--- NOTE | 2018-11-26 14:47 | PN_ITS ---
<Mohit Magallanes - Last Filed: 11/26/18 14:40> Subjective: Pt with mild SOB, off O2, nonproductive cough, diarrhea, body aches, generalized malaise and fatigue. Hx COPD. No longer smokes. - Physical Exam General: Alert, Oriented x3, Cooperative HEENT: Atraumatic, PERRLA, EOMI, Normocephalic Neck: Supple, No JVD, Negative Carotid Bruits Lungs: Diminished Cardiovascular: Regular rate, No murmurs Abdomen: Bowel Sounds Present, Soft, Non Tender Extremities: No edema, Capillary Refill Less than 3 Seconds Skin: No rashes, No breakdown Musculoskeletal: No Tenderness to Palpation of Joints or Extremities Neurological: Cranial nerves II-XII grossly intact Psych/Mental Status: Normal Affect, Appropriate, Alert and oriented to time, place, person, mood and affect Vital Signs Temp Pulse Resp BP Pulse Ox 98.1 F 84 16 100/60 94 11/26/18 11:00 11/26/18 13:11 11/26/18 13:11 11/26/18 11:00 11/26/18 11:00 Oxygen Flow Rate (L/min) 2 Oxygen Delivery Method Room Air Weight: 186 lb 8.177 oz Body Mass Index (BMI) 30.1 Intake and Output for Last 24 Hours 11/24/18 11/25/18 11/26/18 23:59 23:59 23:59 Intake Total 197 / 197 546 / 546 Balance 197 / 197 546 / 546 Microbiology Past 72 Hours 11/25/18 20:15 Respiratory Panel (PCR) - Final Mucosa - Nasopharyngeal Influenza A (Subtype H1) Adenovirus Parainfluenza 2 Laboratory Tests Past 24 Hrs 11/25/18 11/25/18 11/25/18 17:35 17:35 18:00 WBC 6.2 RBC 5.75 H Hgb 12.2 Hct 40.4 MCV 70.3 L MCH 21.2 L MCHC 30.2 L RDW 20.1 H RDW Differential 50.3 H Plt Count 163 MPV TNP Immature Gran % (Auto) 0.500 Neut % (Auto) 72.3 H Lymph % (Auto) 12.3 L [place] % (Auto) 14.7 H Eos % (Auto) 0.0 Baso % (Auto) 0.2 Absolute Neuts (auto) 4.5 Absolute Lymphs (auto) 0.76 L Total Counted Not Reportable Differential Comment Platelet Estimate ADEQUATE Polychromasia RARE Hypochromasia 1+ Anisocytosis 1+ Microcytosis 1+ Ovalocytes RARE Sodium 131 L Potassium 3.2 L Chloride 94 L Carbon Dioxide 29.0 Anion Gap 8 BUN 52 H Creatinine 1.57 H Estim Creat Clear Calc 34.78 Est GFR (MDRD) Af Amer 43 L Est GFR (MDRD) Non-Af 35 L BUN/Creatinine Ratio 33.1 H Glucose 114 H Calcium 8.7 Phosphorus Magnesium Total Bilirubin AST ALT Alkaline Phosphatase Troponin I 0.077 H Total Protein Albumin Globulin Albumin/Globulin Ratio Triglycerides Cholesterol LDL Cholesterol VLDL Cholesterol HDL Cholesterol TSH Urine Color Yellow Urine Clarity Cloudy Urine pH 5.0 Ur Specific [place] 1.015 Urine Protein 30 H Urine Glucose (UA) Normal Urine Ketones Negative Urine Occult Blood 250 H Urine Nitrite Negative Urine Bilirubin Negative Urine Urobilinogen 1 H Ur Leukocyte Esterase 100 H Urine RBC 0-5 SEEN Urine WBC 0-5 SEEN Ur Squamous Epith Cells 10-25 SEEN Urine Bacteria RARE Urine Mucus 0 SEEN 11/25/18 11/26/18 11/26/18 22:12 00:53 03:30 WBC 4.6 RBC 4.83 Hgb 10.3 L Hct 34.4 L MCV 71.2 L MCH 21.3 L MCHC 29.9 L RDW 20.7 H RDW Differential 52.3 H Plt Count 146 L MPV 11.1 Immature Gran % (Auto) Neut % (Auto) Lymph % (Auto) [place] % (Auto) Eos % (Auto) Baso % (Auto) Absolute Neuts (auto) Absolute Lymphs (auto) Total Counted Differential Comment SCAN Platelet Estimate Polychromasia Hypochromasia Anisocytosis Microcytosis Ovalocytes Sodium Potassium Chloride Carbon Dioxide Anion Gap BUN Creatinine Estim Creat Clear Calc Est GFR (MDRD) Af Amer Est GFR (MDRD) Non-Af BUN/Creatinine Ratio Glucose Calcium Phosphorus Magnesium 1.5 L Total Bilirubin AST ALT Alkaline Phosphatase Troponin I 0.080 H 0.072 H Total Protein Albumin Globulin Albumin/Globulin Ratio Triglycerides Cholesterol LDL Cholesterol VLDL Cholesterol HDL Cholesterol TSH Urine Color Urine Clarity Urine pH Ur Specific [place] Urine Protein Urine Glucose (UA) Urine Ketones Urine Occult Blood Urine Nitrite Urine Bilirubin Urine Urobilinogen Ur Leukocyte Esterase Urine RBC Urine WBC Ur Squamous Epith Cells Urine Bacteria Urine Mucus 0211/26/18 11/26/18 03:30 03:30 03:30 WBC RBC Hgb Hct MCV MCH MCHC RDW RDW Differential Plt Count MPV Immature Gran % (Auto) Neut % (Auto) Lymph % (Auto) [place] % (Auto) Eos % (Auto) Baso % (Auto) Absolute Neuts (auto) Absolute Lymphs (auto) Total Counted Differential Comment Platelet Estimate Polychromasia Hypochromasia Anisocytosis Microcytosis Ovalocytes Sodium 137 Potassium 3.4 L Chloride 99 Carbon Dioxide 26.0 Anion Gap 12 BUN 54 H Creatinine 1.42 H Estim Creat Clear Calc 38.45 Est GFR (MDRD) Af Amer 48 L Est GFR (MDRD) Non-Af 40 L BUN/Creatinine Ratio 38.0 H Glucose 87 Calcium 8.1 L Phosphorus 4.2 Magnesium 1.6 Total Bilirubin 1.70 H AST 30 ALT 17 Alkaline Phosphatase 206 H Troponin I 0.108 H Total Protein 6.7 Albumin 3.0 L Globulin 3.7 Albumin/Globulin Ratio 0.8 L Triglycerides 97 Cholesterol 53 LDL Cholesterol 20 VLDL Cholesterol 19 HDL Cholesterol 14 L TSH 1.01 Urine Color Urine Clarity Urine pH Ur Specific [place] Urine Protein Urine Glucose (UA) Urine Ketones Urine Occult Blood Urine Nitrite Urine Bilirubin Urine Urobilinogen Ur Leukocyte Esterase Urine RBC Urine WBC Ur Squamous Epith Cells Urine Bacteria Urine Mucus POC Glucose 11/26/18 11/26/18 11/25/18 12:45 06:55 22:32 POC Glucose 88 98 116 H Medical Necessity - Tobacco Use Smoking Status: Former smoker Tobacco Use: Non-smoker Assessment/Plan All Active Problems Dehydration (Acute) Diarrhea (Acute) RAFFAELE (acute kidney injury) (Acute) Atrial fibrillation (Acute) Hx of tonsillectomy (Resolved) Hx of cholecystectomy (Resolved) CHF (congestive heart failure) (Acute) NSTEMI, initial episode of care (Acute) Acute non-ST elevation myocardial infarction (NSTEMI) (Acute) 1. acute viral syndrome secondary to influenza A, adenovirus, parainfluenza 2- supportive care, Tamiflu, aerosols, steroids. 2. COPD with no acute exacerbation-continue care as above 3. Hypokalemia-replete, mag low - replete. Phos nl. 4. Hyponatremia - resolved. 5. Left labial abscess-noted at admission no marked drainage or [id number] as outpatient. 6. Recent scabies-already treated prior. 7. CKD stage III-improved. 8. Chronic systolic congestive heart failure with EF of 30% with ischemic cardiomyopathy-stable. No edema. 9. History of LV apical thrombus-on Eliquis 10. CAD with prior non-STEMI last year, PCI x5. On aspirin, Plavix, statin. Indeterminate troponin likely demand ischemia. 11. Hypertension-hypertension meds are held for hypotension 12. Hyperlipidemia-statin 13. Obesity-nutrition consult 14. Former tobacco user 15. Type 2 diabetes-continue home insulin plus sliding scale 16 hypothyroidism-Synthroid 17 anxiety-home diazepam 18 history of GERD-on PPI DVT ppx: Eliquis DC planning: PTOT, walking pulse ox prior to dc. This patient was seen by Mohit Magallanes PA-C under the supervision of Doctor Isidro. <Vish Felix - Last Filed: 11/26/18 15:38> - Physical Exam Vital Signs Temp Pulse Resp BP Pulse Ox 98.3 F 89 18 103/46 L 93 11/26/18 14:52 11/26/18 14:59 11/26/18 14:52 11/26/18 14:52 11/26/18 14:52 Oxygen Flow Rate (L/min) 2 Oxygen Delivery Method Room Air Weight: 84.6 kg Body Mass Index (BMI) 30.1 Intake and Output for Last 24 Hours 11/24/18 11/25/18 11/26/18 23:59 23:59 23:59 Intake Total 197 / 197 1861 / 1861 Output Total 200 / 200 Balance 197 / 197 1661 / 1661 Microbiology Past 72 Hours 11/25/18 20:15 Respiratory Panel (PCR) - Final Mucosa - Nasopharyngeal Influenza A (Subtype H1) Adenovirus Parainfluenza 2 Laboratory Tests Past 24 Hrs 11/25/18 11/25/18 11/25/18 17:35 17:35 18:00 WBC 6.2 RBC 5.75 H Hgb 12.2 Hct 40.4 MCV 70.3 L MCH 21.2 L MCHC 30.2 L RDW 20.1 H RDW Differential 50.3 H Plt Count 163 MPV TNP Immature Gran % (Auto) 0.500 Neut % (Auto) 72.3 H Lymph % (Auto) 12.3 L [place] % (Auto) 14.7 H Eos % (Auto) 0.0 Baso % (Auto) 0.2 Absolute Neuts (auto) 4.5 Absolute Lymphs (auto) 0.76 L Total Counted Not Reportable Differential Comment Platelet Estimate ADEQUATE Polychromasia RARE Hypochromasia 1+ Anisocytosis 1+ Microcytosis 1+ Ovalocytes RARE Sodium 131 L Potassium 3.2 L Chloride 94 L Carbon Dioxide 29.0 Anion Gap 8 BUN 52 H Creatinine 1.57 H Estim Creat Clear Calc 34.78 Est GFR (MDRD) Af Amer 43 L Est GFR (MDRD) Non-Af 35 L BUN/Creatinine Ratio 33.1 H Glucose 114 H Calcium 8.7 Phosphorus Magnesium Total Bilirubin AST ALT Alkaline Phosphatase Troponin I 0.077 H Total Protein Albumin Globulin Albumin/Globulin Ratio Triglycerides Cholesterol LDL Cholesterol VLDL Cholesterol HDL Cholesterol TSH Urine Color Yellow Urine Clarity Cloudy Urine pH 5.0 Ur Specific [place] 1.015 Urine Protein 30 H Urine Glucose (UA) Normal Urine Ketones Negative Urine Occult Blood 250 H Urine Nitrite Negative Urine Bilirubin Negative Urine Urobilinogen 1 H Ur Leukocyte Esterase 100 H Urine RBC 0-5 SEEN Urine WBC 0-5 SEEN Ur Squamous Epith Cells 10-25 SEEN Urine Bacteria RARE Urine Mucus 0 SEEN 11/25/18 11/26/18 11/26/18 22:12 00:53 03:30 WBC 4.6 RBC 4.83 Hgb 10.3 L Hct 34.4 L MCV 71.2 L MCH 21.3 L MCHC 29.9 L RDW 20.7 H RDW Differential 52.3 H Plt Count 146 L MPV 11.1 Immature Gran % (Auto) Neut % (Auto) Lymph % (Auto) [place] % (Auto) Eos % (Auto) Baso % (Auto) Absolute Neuts (auto) Absolute Lymphs (auto) Total Counted Differential Comment SCAN Platelet Estimate Polychromasia Hypochromasia Anisocytosis Microcytosis Ovalocytes Sodium Potassium Chloride Carbon Dioxide Anion Gap BUN Creatinine Estim Creat Clear Calc Est GFR (MDRD) Af Amer Est GFR (MDRD) Non-Af BUN/Creatinine Ratio Glucose Calcium Phosphorus Magnesium 1.5 L Total Bilirubin AST ALT Alkaline Phosphatase Troponin I 0.080 H 0.072 H Total Protein Albumin Globulin Albumin/Globulin Ratio Triglycerides Cholesterol LDL Cholesterol VLDL Cholesterol HDL Cholesterol TSH Urine Color Urine Clarity Urine pH Ur Specific [place] Urine Protein Urine Glucose (UA) Urine Ketones Urine Occult Blood Urine Nitrite Urine Bilirubin Urine Urobilinogen Ur Leukocyte Esterase Urine RBC Urine WBC Ur Squamous Epith Cells Urine Bacteria Urine Mucus 11/26/18 11/26/18 11/26/18 03:30 03:30 03:30 WBC RBC Hgb Hct MCV MCH MCHC RDW RDW Differential Plt Count MPV Immature Gran % (Auto) Neut % (Auto) Lymph % (Auto) [place] % (Auto) Eos % (Auto) Baso % (Auto) Absolute Neuts (auto) Absolute Lymphs (auto) Total Counted Differential Comment Platelet Estimate Polychromasia Hypochromasia Anisocytosis Microcytosis Ovalocytes Sodium 137 Potassium 3.4 L Chloride 99 Carbon Dioxide 26.0 Anion Gap 12 BUN 54 H Creatinine 1.42 H Estim Creat Clear Calc 38.45 Est GFR (MDRD) Af Amer 48 L Est GFR (MDRD) Non-Af 40 L BUN/Creatinine Ratio 38.0 H Glucose 87 Calcium 8.1 L Phosphorus 4.2 Magnesium 1.6 Total Bilirubin 1.70 H AST 30 ALT 17 Alkaline Phosphatase 206 H Troponin I 0.108 H Total Protein 6.7 Albumin 3.0 L Globulin 3.7 Albumin/Globulin Ratio 0.8 L Triglycerides 97 Cholesterol 53 LDL Cholesterol 20 VLDL Cholesterol 19 HDL Cholesterol 14 L TSH 1.01 Urine Color Urine Clarity Urine pH Ur Specific [place] Urine Protein Urine Glucose (UA) Urine Ketones Urine Occult Blood Urine Nitrite Urine Bilirubin Urine Urobilinogen Ur Leukocyte Esterase Urine RBC Urine WBC Ur Squamous Epith Cells Urine Bacteria Urine Mucus POC Glucose 11/26/18 11/26/18 11/25/18 12:45 06:55 22:32 POC Glucose 88 98 116 H Assessment/Plan This patient was seen in conjunction with Mohit Magallanes PA-C . I have independently interviewed and examined the patient and reviewed pertinent historical, laboratory, and other data. Please refer to Mohit Magallanes PA-C note for details of this patient's presentation, findings, and recommendations. I have reviewed Mohit Magallanes PA-C note and concur with documented findings. In brief, patient is a 63-year-old lady with multiple comorbidities admitted with progressive generalized weakness and assessment of acute viral syndrome was made subsequent acute respiratory panel obtained came back positive for Influenza A (Subtype H1), Adenovirus Parainfluenza 2 Physical Examination: GENERAL: Ill-looking HEENT: Atraumatic; EYES; Anicteric, NECK; supple, normal thyroid, RESPIRATORY: Diminished to auscultation bilaterally, CARDIOVASCULAR: Regular S1 S2, GI: soft, non-tender, normoactive bowel sounds, : No Renal angle tenderness; PSYCH; Flat affect Assessment: 1. Acute Viral syndrome with Influenza A (Subtype H1), Adenovirus Parainfluenza 2: Admitted to monitored bed Tamiflu initiated 2. Elevated troponin attributed to demand ischemia from above infection monitoring 3. Significant electrolyte abnormalities including hypokalemia as well as hypomagnesemia corrected per protocol 4. Hyponatremia secondary to hypovolemic hyponatremia on fluids with monitoring of electrolyte 5. Left labial abscess-treated as outpatient with an I&D 6. COPD without acute exacerbation 7. Chronic systolic congestive heart failure with EF of 30% 8. 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 CAD with prior non-STEMI with previous PCI x5 is currently on dual antiplatelet therapy in addition to statin therapy as stated above patient presented with elevated troponin following trends 10. Ischemic cardiomyopathy 11. Hypertension patient blood pressure on admission was low antihypertensive subsequently held 12. Dyslipidemia-patient is on statin therapy, continued at home dose 13. Hypothyroidism-patient is on levothyroxine home dose continued 14. Diabetes mellitus type II: patient's oral hypoglycemics held. Placed on Accu-Cheks a.c. and at bedtime and covered with sliding scale insulin 15. Chronic kidney disease stage III secondary to diabetic nephropathy 16. Depression with anxiety 17. GERD on PPI 18. Recent treatment for scabies 19. DVT prophylaxis on Eliquis no need for additional measures Recommendations: 1. I have discussed the results of my overview and impressions with the patient 2. Options for management were reviewed Microbiology 11/25/18 20:15 Mucosa - Nasopharyngeal Respiratory Panel (PCR) - Final Influenza A (Subtype H1) Adenovirus Parainfluenza 2 Code Visit OBSV E&M: 15687 Subsequent observation care L3
[2018-11-26 17:30] LABS: Bedside Glucose 146 mg/dL (70-110)
--- NOTE | 2018-11-26 21:35 | CPS ---
Pt. refused IS instruction
[2018-11-26] MEDS: Montelukast 10 MG Tablet PO (21:44)
[2018-11-26] MEDS: Atorvastatin Calcium 40 MG Tablet PO (21:44)
[2018-11-26 23:01] LABS: Bedside Glucose 118 mg/dL (70-110)
[2018-11-27] VITALS (14 sets, daily range): BP systolic 99–125; BP diastolic 55–78; PULSE 76–90; RESP 16–20; TEMP 36.6–36.9; O2SAT 92–97
[2018-11-27] MEDS: Ipratropium/Albuterol Sulfate 3 ML AMPUL.NEB INHALATION ×4 (02:47→20:46)
[2018-11-27] MEDS: 0.9% Normal Saline 1,000 ML 100 ML IV (06:37)
[2018-11-27] MEDS: Levothyroxine 100 MCG Tablet 200 MCG PO (06:39)
[2018-11-27 06:54] LABS: Anion Gap 10 (5-15); BUN 54 mg/dL (7-18); BUN/Creat Ratio 35.1 RATIO (10-20); Calcium,Total 7.7 mg/dL (8.5-10.1); Chloride 100 mmol/L (98-107); Creatinine, Serum 1.54 mg/dL (0.55-1.02); EST Glomerular Filtration Rate 36 mL/min (>60); Est Glom Filt Rate - Afr Amer 44 mL/min (>60); Estimated Creatinine Clearance 35.46 ml/min; Glucose 97 mg/dL (74-106); Hematocrit 37.7 % (37-47); Hemoglobin 11.2 g/dl (12.0-15.0); Magnesium 1.9 mg/dL (1.6-2.6); Mean Corp Hgb Conc 29.7 g/gl (32-36); Mean Corpuscular Hgb 21.1 pg (27.0-32.0); Mean Corpuscular Volume 71.1 fL (81-99); Mean Platelet Vol. 10.6 fl (6.2-12.0); Platelet Count 129 K/mm3 (150-450); Potassium 3.4 mmol/L (3.5-5.1); RBC Distribution Width CV 20.1 % (11.6-14.6); RBC Distribution Width SD 51.5 fl (35.1-43.9); Sodium Level 135 mmol/L (136-145); White Blood Count 4.7 K/mm3 (4.4-11.0)
[2018-11-27 06:56] LABS: Bedside Glucose 94 mg/dL (70-110)
[2018-11-27 07:06] LABS: Scan Indicated on CBC? Y/N YES- FLAGS NOTED
[2018-11-27 07:22] LABS: Differential Comment SCAN
[2018-11-27] MEDS: Clopidogrel Bisulfate 75 MG Tablet PO (09:29)
[2018-11-27] MEDS: Oseltamivir Phosphate 30 MG Capsule PO ×2 (09:29→21:39)
[2018-11-27] MEDS: Pantoprazole Sodium 40 MG Tablet PO (09:29)
[2018-11-27] MEDS: APIXABAN 2.5 MG TABLET PO ×2 (09:29→21:39)
--- NOTE | 2018-11-27 10:07 | PCM.PN.HOSP ---
Subjective: In brief, patient is a 63-year-old lady with multiple comorbidities admitted with progressive generalized weakness and assessment of acute viral syndrome was made subsequent acute respiratory panel obtained came back positive for Influenza A (Subtype H1), Adenovirus Parainfluenza 2 11/27/2018: Patient seen still complains of feeling weak has a persistent cough. Patient potassium level remains at 3.4 oral potassium dose adjusted Objective: GENERAL: Appears ill looking HEENT: Atraumatic; moist oral mucosa EYES; Anicteric, Normal Conjunctiva NECK; supple, normal thyroid, no distended JVD. RESPIRATORY: Diminished to auscultation bilaterally, CARDIOVASCULAR: Regular S1 S2, no audible murmurs GI: soft, non-tender, normoactive bowel sounds, : No Renal angle tenderness; EXTREMITIES: No edema, no clubbing, no cyanosis. MUSCULOSKELETAL: No Joint Tenderness; no muscle waisting NEURO: Awake; no lateralizing signs. SKIN: No Rash PSYCH; Normal affect Vitals/I&O's: Vital Signs Temp Pulse Resp BP Pulse Ox 98.4 F 77 18 125/65 H 97 11/27/18 09:08 11/27/18 09:08 11/27/18 09:08 11/27/18 09:08 11/27/18 09:08 Oxygen Flow Rate (L/min) 2 Oxygen Delivery Method Room Air Weight: 84.6 kg Body Mass Index (BMI) 30.1 Intake and Output for Last 24 Hours 11/25/18 11/26/18 11/27/18 23:59 23:59 23:59 Intake Total 197 / 197 2807 / 2807 759 / 759 Output Total 475 / 475 300 / 300 Balance 197 / 197 2332 / 2332 459 / 459 Microbiology Past 72 Hours 11/25/18 20:15 Mucosa - Nasopharyngeal Respiratory Panel (PCR) - Final Influenza A (Subtype H1) Adenovirus Parainfluenza 2 Laboratory Results 11/26/18 12:45: POC Glucose 88 11/26/18 17:25: POC Glucose 146 H 11/26/18 21:43: POC Glucose 118 H 11/27/18 06:05: WBC 4.7, RBC 5.30, Hgb 11.2 L, Hct 37.7, MCV 71.1 L, MCH 21.1 L, MCHC 29.7 L, RDW 20.1 H, RDW Differential 51.5 H, Plt Count 129 L, MPV 10.6, Differential Comment SCAN 11/27/18 06:05: Sodium 135 L, Potassium 3.4 L, Chloride 100, Carbon Dioxide 25.0, Anion Gap 10, BUN 54 H, Creatinine 1.54 H, Estim Creat Clear Calc 35.46, Est GFR (MDRD) Af Amer 44 L, Est GFR (MDRD) Non-Af 36 L, BUN/Creatinine Ratio 35.1 H, Glucose 97, Calcium 7.7 L, Magnesium 1.9 11/27/18 06:42: POC Glucose 94 Current Medications Acetaminophen (Tylenol) 650 mg PO Q6H PRN PRN PRN Reason: Non-cardiac pain (mod-severe) Hydrocodone Bitart/Acetaminophen ([place] 5mg-325mg) 1 - 2 tablet PO Q6H PRN PRN PRN Reason: Moderate-severe pain Al Hydroxide/Mg Hydroxide (Mylanta Ii) 30 ml PO Q6H PRN PRN PRN Reason: Gastric burning Albuterol Sulfate (Ventolin Aerosols) 2.5 mg INHALATION Q2H PRN PRN PRN Reason: dyspnea, wheezing Albuterol/Ipratropium (Duoneb) 3 ml INHALATION Q6HWA.RT [facility] Last Admin: 11/27/18 07:19 Dose: 3 ml Apixaban (Eliquis) 2.5 mg PO BID [facility] Last Admin: 11/27/18 09:29 Dose: 2.5 mg Atorvastatin Calcium (Lipitor) 40 mg PO QHS [facility] Last Admin: 11/26/18 21:44 Dose: 40 mg Clopidogrel Bisulfate (Plavix) 75 mg PO DAILY [facility] Last Admin: 11/27/18 09:29 Dose: 75 mg Diazepam (Valium) 5 mg PO BID PRN PRN PRN Reason: ANXIETY Sodium Chloride () 1,000 mls @ 100 mls/hr IV .Q10H [facility] Last Admin: 11/27/18 06:37 Dose: 100 mls/hr Insulin Glargine (Lantus (Bkc)) 20 units SC BID [facility] Last Admin: 11/26/18 21:45 Dose: 20 u Insulin Human Lispro (Humalog Kwikpen (Bkc)) 0 unit SC [facility]; Protocol Last Admin: 11/27/18 07:45 Dose: Not Given Lactobacillus Acidophilus (Acidophilus) 1 tablet PO DAILY [facility] Last Admin: 11/27/18 09:29 Dose: 1 tablet Levothyroxine Sodium (Synthroid) 200 mcg PO DAILY@0600 [facility] Last Admin: 11/27/18 06:39 Dose: 200 mcg Magnesium Hydroxide (Milk Of Magnesia) 30 ml PO DAILY PRN PRN Reason: Constipation Montelukast Sodium (Singulair) 10 mg PO QHS [facility] Last Admin: 11/26/18 21:44 Dose: 10 mg Morphine Sulfate () 1 - 2 mg IV Q4H PRN PRN PRN Reason: PAIN Nitroglycerin (Nitrostat) 0.4 mg SUBLINGUAL Q5M PRN PRN Reason: Angina pain Nutritional Formula (Lactose Free) (Glucerna Shake) 120 ml PO TIDCM [facility] Last Admin: 11/27/18 09:27 Dose: Not Given Ondansetron HCl (Zofran) 4 mg IV Q8H PRN PRN PRN Reason: NAUSEA Last Admin: 11/25/18 22:33 Dose: 4 mg Oseltamivir Phosphate (Tamiflu) 30 mg PO BID [facility] Last Admin: 11/27/18 09:29 Dose: 30 mg Pantoprazole Sodium (Protonix) 40 mg PO DAILY [facility] Last Admin: 11/27/18 09:29 Dose: 40 mg Potassium Chloride (K-Dur) [facility] Last Admin: 11/27/18 09:29 Dose: 20 meq Sodium Chloride () 5 - 15 ml IV UD PRN PRN Reason: SALINE FLUSH Last Admin: 11/25/18 22:33 Dose: 10 ml Medical Necessity - Tobacco Use Smoking Status: Former smoker Tobacco Use: Non-smoker Assessment/Plan All Active Problems Dehydration (Acute) Diarrhea (Acute) RAFFAELE (acute kidney injury) (Acute) Atrial fibrillation (Acute) Hx of tonsillectomy (Resolved) Hx of cholecystectomy (Resolved) CHF (congestive heart failure) (Acute) NSTEMI, initial episode of care (Acute) Acute non-ST elevation myocardial infarction (NSTEMI) (Acute) In brief, patient is a 63-year-old lady with multiple comorbidities admitted with progressive generalized weakness and assessment of acute viral syndrome was made subsequent acute respiratory panel obtained came back positive for Influenza A (Subtype H1), Adenovirus Parainfluenza 2 1. Acute Viral syndrome with Influenza A (Subtype H1), Adenovirus Parainfluenza 2: Admitted to monitored bed Tamiflu initiated in addition to symptomatic management 2. Elevated troponin attributed to demand ischemia from above infection monitoring 3. Significant electrolyte abnormalities including hypokalemia as well as hypomagnesemia corrected per protocol 4. Hyponatremia secondary to hypovolemic hyponatremia on fluids with monitoring of electrolyte 5. Left labial abscess-treated as outpatient with an I&D 6. COPD without acute exacerbation 7. Chronic systolic congestive heart failure with EF of 30% 8. 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 CAD with prior non-STEMI with previous PCI x5 is currently on dual antiplatelet therapy in addition to statin therapy as stated above patient presented with elevated troponin following trends 10. Ischemic cardiomyopathy 11. Hypertension patient blood pressure on admission was low antihypertensive subsequently held 12. Dyslipidemia-patient is on statin therapy, continued at home dose 13. Hypothyroidism-patient is on levothyroxine home dose continued 14. Diabetes mellitus type II: patient's oral hypoglycemics held. Placed on Accu-Cheks a.c. and at bedtime and covered with sliding scale insulin 15. Chronic kidney disease stage III secondary to diabetic nephropathy 16. Depression with anxiety 17. GERD on PPI 18. Recent treatment for scabies 19. DVT prophylaxis on Eliquis no need for additional measures 20. Physical deconditioning requested for PT OT eval and social media campaign manager to assist with discharge Code Visit OBSV E&M: 28110 Observ/hosp same date L3
--- NOTE | 2018-11-27 10:10 | PN_ITS ---
Subjective: In brief, patient is a 63-year-old lady with multiple comorbidities admitted with progressive generalized weakness and assessment of acute viral syndrome was made subsequent acute respiratory panel obtained came back positive for Influenza A (Subtype H1), Adenovirus Parainfluenza 2 11/27/2018: Patient seen still complains of feeling weak has a persistent cough. Patient potassium level remains at 3.4 oral potassium dose adjusted Objective: GENERAL: Appears ill looking HEENT: Atraumatic; moist oral mucosa EYES; Anicteric, Normal Conjunctiva NECK; supple, normal thyroid, no distended JVD. RESPIRATORY: Diminished to auscultation bilaterally, CARDIOVASCULAR: Regular S1 S2, no audible murmurs GI: soft, non-tender, normoactive bowel sounds, : No Renal angle tenderness; EXTREMITIES: No edema, no clubbing, no cyanosis. MUSCULOSKELETAL: No Joint Tenderness; no muscle waisting NEURO: Awake; no lateralizing signs. SKIN: No Rash PSYCH; Normal affect Vitals/I&O's: Vital Signs Temp Pulse Resp BP Pulse Ox 98.4 F 77 18 125/65 H 97 11/27/18 09:08 11/27/18 09:08 11/27/18 09:08 11/27/18 09:08 11/27/18 09:08 Oxygen Flow Rate (L/min) 2 Oxygen Delivery Method Room Air Weight: 84.6 kg Body Mass Index (BMI) 30.1 Intake and Output for Last 24 Hours 11/25/18 11/26/18 11/27/18 23:59 23:59 23:59 Intake Total 197 / 197 2807 / 2807 759 / 759 Output Total 475 / 475 300 / 300 Balance 197 / 197 2332 / 2332 459 / 459 Microbiology Past 72 Hours 11/25/18 20:15 Mucosa - Nasopharyngeal Respiratory Panel (PCR) - Final Influenza A (Subtype H1) Adenovirus Parainfluenza 2 Laboratory Results 11/26/18 12:45: POC Glucose 88 11/26/18 17:25: POC Glucose 146 H 11/26/18 21:43: POC Glucose 118 H 11/27/18 06:05: WBC 4.7, RBC 5.30, Hgb 11.2 L, Hct 37.7, MCV 71.1 L, MCH 21.1 L, MCHC 29.7 L, RDW 20.1 H, RDW Differential 51.5 H, Plt Count 129 L, MPV 10.6, Differential Comment SCAN 11/27/18 06:05: Sodium 135 L, Potassium 3.4 L, Chloride 100, Carbon Dioxide 25.0, Anion Gap 10, BUN 54 H, Creatinine 1.54 H, Estim Creat Clear Calc 35.46, Est GFR (MDRD) Af Amer 44 L, Est GFR (MDRD) Non-Af 36 L, BUN/Creatinine Ratio 35.1 H, Glucose 97, Calcium 7.7 L, Magnesium 1.9 11/27/18 06:42: POC Glucose 94 Current Medications Acetaminophen (Tylenol) 650 mg PO Q6H PRN PRN PRN Reason: Non-cardiac pain (mod-severe) Hydrocodone Bitart/Acetaminophen ([place] 5mg-325mg) 1 - 2 tablet PO Q6H PRN PRN PRN Reason: Moderate-severe pain Al Hydroxide/Mg Hydroxide (Mylanta Ii) 30 ml PO Q6H PRN PRN PRN Reason: Gastric burning Albuterol Sulfate (Ventolin Aerosols) 2.5 mg INHALATION Q2H PRN PRN PRN Reason: dyspnea, wheezing Albuterol/Ipratropium (Duoneb) 3 ml INHALATION Q6HWA.RT [facility] Last Admin: 11/27/18 07:19 Dose: 3 ml Apixaban (Eliquis) 2.5 mg PO BID [facility] Last Admin: 11/27/18 09:29 Dose: 2.5 mg Atorvastatin Calcium (Lipitor) 40 mg PO QHS [facility] Last Admin: 11/26/18 21:44 Dose: 40 mg Clopidogrel Bisulfate (Plavix) 75 mg PO DAILY [facility] Last Admin: 11/27/18 09:29 Dose: 75 mg Diazepam (Valium) 5 mg PO BID PRN PRN PRN Reason: ANXIETY Sodium Chloride () 1,000 mls @ 100 mls/hr IV .Q10H [facility] Last Admin: 11/27/18 06:37 Dose: 100 mls/hr Insulin Glargine (Lantus (Bkc)) 20 units SC BID [facility] Last Admin: 11/26/18 21:45 Dose: 20 u Insulin Human Lispro (Humalog Kwikpen (Bkc)) 0 unit SC [facility]; Protocol Last Admin: 11/27/18 07:45 Dose: Not Given Lactobacillus Acidophilus (Acidophilus) 1 tablet PO DAILY [facility] Last Admin: 11/27/18 09:29 Dose: 1 tablet Levothyroxine Sodium (Synthroid) 200 mcg PO DAILY@0600 [facility] Last Admin: 11/27/18 06:39 Dose: 200 mcg Magnesium Hydroxide (Milk Of Magnesia) 30 ml PO DAILY PRN PRN Reason: Constipation Montelukast Sodium (Singulair) 10 mg PO QHS [facility] Last Admin: 11/26/18 21:44 Dose: 10 mg Morphine Sulfate () 1 - 2 mg IV Q4H PRN PRN PRN Reason: PAIN Nitroglycerin (Nitrostat) 0.4 mg SUBLINGUAL Q5M PRN PRN Reason: Angina pain Nutritional Formula (Lactose Free) (Glucerna Shake) 120 ml PO TIDCM [facility] Last Admin: 11/27/18 09:27 Dose: Not Given Ondansetron HCl (Zofran) 4 mg IV Q8H PRN PRN PRN Reason: NAUSEA Last Admin: 11/25/18 22:33 Dose: 4 mg Oseltamivir Phosphate (Tamiflu) 30 mg PO BID [facility] Last Admin: 11/27/18 09:29 Dose: 30 mg Pantoprazole Sodium (Protonix) 40 mg PO DAILY [facility] Last Admin: 11/27/18 09:29 Dose: 40 mg [facility] Admin: 11/27/18 09:29 Dose: 20 meq Sodium Chloride () 5 - 15 ml IV UD PRN PRN Reason: SALINE FLUSH Last Admin: 11/25/18 22:33 Dose: 10 ml Medical Necessity - Tobacco Use Smoking Status: Former smoker Tobacco Use: Non-smoker Assessment/Plan All Active Problems Dehydration (Acute) Diarrhea (Acute) RAFFAELE (acute kidney injury) (Acute) Atrial fibrillation (Acute) Hx of tonsillectomy (Resolved) Hx of cholecystectomy (Resolved) CHF (congestive heart failure) (Acute) NSTEMI, initial episode of care (Acute) Acute non-ST elevation myocardial infarction (NSTEMI) (Acute) In brief, patient is a 63-year-old lady with multiple comorbidities admitted with progressive generalized weakness and assessment of acute viral syndrome was made subsequent acute respiratory panel obtained came back positive for Influenza A (Subtype H1), Adenovirus Parainfluenza 2 1. Acute Viral syndrome with Influenza A (Subtype H1), Adenovirus Parainfluenza 2: Admitted to monitored bed Tamiflu initiated in addition to symptomatic management 2. Elevated troponin attributed to demand ischemia from above infection monitoring 3. Significant electrolyte abnormalities including hypokalemia as well as hypomagnesemia corrected per protocol 4. Hyponatremia secondary to hypovolemic hyponatremia on fluids with monitoring of electrolyte 5. Left labial abscess-treated as outpatient with an I&D 6. COPD without acute exacerbation 7. Chronic systolic congestive heart failure with EF of 30% 8. 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 CAD with prior non-STEMI with previous PCI x5 is currently on dual antiplatelet therapy in addition to statin therapy as stated above patient presented with elevated troponin following trends 10. Ischemic cardiomyopathy 11. Hypertension patient blood pressure on admission was low antihypertensive subsequently held 12. Dyslipidemia-patient is on statin therapy, continued at home dose 13. Hypothyroidism-patient is on levothyroxine home dose continued 14. Diabetes mellitus type II: patient's oral hypoglycemics held. Placed on Accu-Cheks a.c. and at bedtime and covered with sliding scale insulin 15. Chronic kidney disease stage III secondary to diabetic nephropathy 16. Depression with anxiety 17. GERD on PPI 18. Recent treatment for scabies 19. DVT prophylaxis on Eliquis no need for additional measures 20. Physical deconditioning requested for PT OT eval and administrative services specialist to assist with discharge Code Visit OBSV E&M: 09696 Observ/hosp same date L3
[2018-11-27 11:26] LABS: Bedside Glucose 145 mg/dL (70-110)
[2018-11-27] MEDS: BENZOCAINE/MENTHOL 1 LOZENGE 2 LOZENGE MUCOUS MEM (17:34)
[2018-11-27 17:41] LABS: Bedside Glucose 120 mg/dL (70-110)
[2018-11-27] MEDS: Montelukast 10 MG Tablet PO (21:39)
[2018-11-27] MEDS: Atorvastatin Calcium 40 MG Tablet PO (21:39)
--- NOTE | 2018-11-27 21:40 | NURSING ---
Patient refused bedtime BGT and evening insulin/Lantus. Nursing provided patient educated
[2018-11-28] VITALS (12 sets, daily range): BP systolic 100–129; BP diastolic 68–85; PULSE 85–96; RESP 16–20; TEMP 36.4–36.6; O2SAT 94–96
[2018-11-28] MEDS: Levothyroxine 100 MCG Tablet 200 MCG PO (05:39)
[2018-11-28 06:26] LABS: Anion Gap 12 (5-15); BUN 48 mg/dL (7-18); BUN/Creat Ratio 36.1 RATIO (10-20); Calcium,Total 8.1 mg/dL (8.5-10.1); Chloride 99 mmol/L (98-107); Creatinine, Serum 1.33 mg/dL (0.55-1.02); EST Glomerular Filtration Rate 43 mL/min (>60); Est Glom Filt Rate - Afr Amer 52 mL/min (>60); Estimated Creatinine Clearance 41.06 ml/min; Glucose 101 mg/dL (74-106); Potassium 3.6 mmol/L (3.5-5.1); Sodium Level 134 mmol/L (136-145)
[2018-11-28 06:52] LABS: Hematocrit 38.8 % (37-47); Hemoglobin 11.5 g/dl (12.0-15.0); Mean Corp Hgb Conc 29.6 g/gl (32-36); Mean Corpuscular Hgb 21.1 pg (27.0-32.0); Mean Corpuscular Volume 71.2 fL (81-99); Platelet Count 138 K/mm3 (150-450); RBC Distribution Width CV 20.5 % (11.6-14.6); RBC Distribution Width SD 51.4 fl (35.1-43.9); Red Blood Count 5.45 M/mm3 (4.2-5.4); White Blood Count 4.7 K/mm3 (4.4-11.0)
[2018-11-28 06:56] LABS: Scan Indicated on CBC? Y/N YES- FLAGS NOTED
[2018-11-28] MEDS: Ipratropium/Albuterol Sulfate 3 ML AMPUL.NEB INHALATION ×3 (07:10→20:10)
[2018-11-28 07:11] LABS: Bedside Glucose 91 mg/dL (70-110)
[2018-11-28 07:32] LABS: Differential Comment SCAN
--- NOTE | 2018-11-28 10:37 | PN_ITS ---
Subjective: Patient seen complains of persistent cough and feeling ill. She apparently refused to work with therapy. She did agree to stay 1 more day to work with therapy. Also mentioned the possibility about going to a [facility] facility she is not interested at this point Objective: GENERAL: Appears ill looking HEENT: Atraumatic; moist oral mucosa EYES; Anicteric, Normal Conjunctiva NECK; supple, normal thyroid, no distended JVD. RESPIRATORY: Diminished to auscultation bilaterally, CARDIOVASCULAR: Regular S1 S2, no audible murmurs GI: soft, non-tender, normoactive bowel sounds, : No Renal angle tenderness; EXTREMITIES: No edema, no clubbing, no cyanosis. MUSCULOSKELETAL: No Joint Tenderness; no muscle waisting NEURO: Awake; no lateralizing signs. SKIN: No Rash PSYCH; Normal affect Vitals/I&O's: Vital Signs Temp Pulse Resp BP Pulse Ox 98 F 86 16 129/68 H 94 11/28/18 09:45 11/28/18 09:45 11/28/18 09:45 11/28/18 09:45 11/28/18 09:45 Oxygen Flow Rate (L/min) 2 Oxygen Delivery Method Room Air Weight: 84.6 kg Body Mass Index (BMI) 30.1 Intake and Output for Last 24 Hours 11/26/18 11/27/18 11/28/18 23:59 23:59 23:59 Intake Total 2807 / 2807 2058 / 2058 240 / 240 Output Total 475 / 475 300 / 300 Balance 2332 / 2332 1758 / 1758 240 / 240 Microbiology Past 72 Hours 11/25/18 20:15 Mucosa - Nasopharyngeal Respiratory Panel (PCR) - Final Influenza A (Subtype H1) Adenovirus Parainfluenza 2 Laboratory Results 11/27/18 11:11: POC Glucose 145 H 11/27/18 17:31: POC Glucose 120 H 11/28/18 05:30: WBC 4.7, RBC 5.45 H, Hgb 11.5 L, Hct 38.8, MCV 71.2 L, MCH 21.1 L, MCHC 29.6 L, RDW 20.5 H, RDW Differential 51.4 H, Plt Count 138 L, Differential Comment SCAN 11/28/18 05:30: Sodium 134 L, Potassium 3.6, Chloride 99, Carbon Dioxide 23.0, Anion Gap 12, BUN 48 H, Creatinine 1.33 H, Estim Creat Clear Calc 41.06, Est GFR (MDRD) Af Amer 52 L, Est GFR (MDRD) Non-Af 43 L, BUN/Creatinine Ratio 36.1 H, Glucose 101, Calcium 8.1 L 11/28/18 07:03: POC Glucose 91 Current Medications Acetaminophen (Tylenol) 650 mg PO Q6H PRN PRN PRN Reason: Non-cardiac pain (mod-severe) Hydrocodone Bitart/Acetaminophen ([place] 5mg-325mg) 1 - 2 tablet PO Q6H PRN PRN PRN Reason: Moderate-severe pain Al Hydroxide/Mg Hydroxide (Mylanta Ii) 30 ml PO Q6H PRN PRN PRN Reason: Gastric burning Albuterol Sulfate (Ventolin Aerosols) 2.5 mg INHALATION Q2H PRN PRN PRN Reason: dyspnea, wheezing Albuterol/Ipratropium (Duoneb) 3 ml INHALATION Q6HWA.RT [facility] Last Admin: 11/28/18 07:16 Dose: 3 ml Apixaban (Eliquis) 2.5 mg PO BID [facility] Last Admin: 11/27/18 21:39 Dose: 2.5 mg Atorvastatin Calcium (Lipitor) 40 mg PO QHS [facility] Last Admin: 11/27/18 21:39 Dose: 40 mg Clopidogrel Bisulfate (Plavix) 75 mg PO DAILY [facility] Last Admin: 11/27/18 09:29 Dose: 75 mg Diazepam (Valium) 5 mg PO BID PRN PRN PRN Reason: ANXIETY Insulin Glargine (Lantus (Bkc)) 20 units SC BID [facility] Last Admin: 11/27/18 21:39 Dose: Not Given Insulin Human Lispro (Humalog Kwikpen (Bkc)) 0 unit [facility]; Protocol Last Admin: 11/28/18 08:06 Dose: Not Given Lactobacillus Acidophilus (Acidophilus) 1 tablet PO DAILY [facility] Last Admin: 11/27/18 09:29 Dose: 1 tablet Levothyroxine Sodium (Synthroid) 200 mcg PO DAILY@0600 [facility] Last Admin: 11/28/18 05:39 Dose: 200 mcg Magnesium Hydroxide (Milk Of Magnesia) 30 ml PO DAILY PRN PRN Reason: Constipation Montelukast Sodium (Singulair) 10 mg PO QHS [facility] Last Admin: 02/14/19 21:39 Dose: 10 mg Morphine Sulfate () 1 - 2 mg IV Q4H PRN PRN PRN Reason: PAIN Nitroglycerin (Nitrostat) 0.4 mg SUBLINGUAL Q5M PRN PRN Reason: Angina pain Nutritional Formula (Lactose Free) (Glucerna Shake) 120 ml PO TIDCM [facility] Last Admin: 11/28/18 10:21 Dose: Not Given Ondansetron HCl (Zofran) 4 mg IV Q8H PRN PRN PRN Reason: NAUSEA Last Admin: 11/25/18 22:33 Dose: 4 mg Ondansetron HCl (Zofran) 8 mg PO Q8H PRN PRN PRN Reason: nausea,emesis Oseltamivir Phosphate (Tamiflu) 30 mg PO BID [facility] Last Admin: 11/27/18 21:39 Dose: 30 mg Pantoprazole Sodium (Protonix) 40 mg PO DAILY [facility] Last Admin: 11/27/18 09:29 Dose: 40 mg Potassium Chloride (K-Dur) 20 meq PO BIDCM [facility] Last Admin: 11/27/18 17:34 Dose: 20 meq Sodium Chloride () 5 - 15 ml IV UD PRN PRN Reason: SALINE FLUSH Last Admin: 11/25/18 22:33 Dose: 10 ml Throat Lozenges (Cepacol Sore Throat Lozenge) 2 lozenge MUCOUS MEM Q2H PRN PRN PRN Reason: COUGH Last Admin: 11/27/18 17:34 Dose: 2 lozenge Medical Necessity - Tobacco Use Smoking Status: Former smoker Tobacco Use: Non-smoker Assessment/Plan All Active Problems Dehydration (Acute) Diarrhea (Acute) RAFFAELE (acute kidney injury) (Acute) Atrial fibrillation (Acute) Hx of tonsillectomy (Resolved) Hx of cholecystectomy (Resolved) CHF (congestive heart failure) (Acute) NSTEMI, initial episode of care (Acute) Acute non-ST elevation myocardial infarction (NSTEMI) (Acute) In brief, patient is a 63-year-old lady with multiple comorbidities admitted with progressive generalized weakness and assessment of acute viral syndrome was made subsequent acute respiratory panel obtained came back positive for Influenza A (Subtype H1), Adenovirus Parainfluenza 2 1. Acute Viral syndrome with Influenza A (Subtype H1), Adenovirus Parainfluenza 2: Admitted to monitored bed Tamiflu initiated in addition to symptomatic management patient improving clinically. 2. Elevated troponin attributed to demand ischemia from above infection mo nitoring 3. Significant electrolyte abnormalities including hypokalemia as well as hypomagnesemia corrected per protocol 4. Hyponatremia secondary to hypovolemic hyponatremia on fluids with monitoring of electrolyte 5. Left labial abscess-treated as outpatient with an I&D 6. COPD without acute exacerbation 7. Chronic systolic congestive heart failure with EF of 30% 8. 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 CAD with prior non-STEMI with previous PCI x5 is currently on dual antiplatelet therapy in addition to statin therapy as stated above patient presented with elevated troponin following trends 10. Ischemic cardiomyopathy 11. Hypertension patient blood pressure on admission was low antihypertensive subsequently held 12. Dyslipidemia-patient is on statin therapy, continued at home dose 13. Hypothyroidism-patient is on levothyroxine home dose continued 14. Diabetes mellitus type II: patient's oral hypoglycemics held. Placed on Accu-Cheks a.c. and at bedtime and covered with sliding scale insulin 15. Chronic kidney disease stage III secondary to diabetic nephropathy 16. Depression with anxiety 17. GERD on PPI 18. Recent treatment for scabies 19. DVT prophylaxis on Eliquis no need for additional measures 20. Physical deconditioning requested for PT OT eval and social work assistant to assist with discharge Code Visit Inpatient E&M: 00675 Subs Hosp L2
[2018-11-28] MEDS: Oseltamivir Phosphate 30 MG Capsule PO ×2 (10:41→22:44)
[2018-11-28] MEDS: APIXABAN 2.5 MG TABLET PO ×2 (10:41→22:44)
[2018-11-28] MEDS: Pantoprazole Sodium 40 MG Tablet PO (10:41)
[2018-11-28] MEDS: Clopidogrel Bisulfate 75 MG Tablet PO (10:41)
--- NOTE | 2018-11-28 13:06 | NURSING ---
Patient refusing blood sugar check. Attempted x3 without success. Maybe before dinner.
--- NOTE | 2018-11-28 17:50 | NURSING ---
Refused supper blood sugar check
--- NOTE | 2018-11-28 22:37 | NURSING ---
Patient refusing bedtime BGT. Nursing educated patient on the importance of monitoring blood sugars. Bedtime Lantus and sliding scale not given.
[2018-11-28] MEDS: Atorvastatin Calcium 40 MG Tablet PO (22:44)
[2018-11-28] MEDS: Montelukast 10 MG Tablet PO (22:44)
[2018-11-29 02:00] VITALS: BP 109/58; PULSE 89; RESP 16; TEMP 36.4; O2SAT 95
[2018-11-29 03:00] VITALS: PULSE 84
[2018-11-29 03:10] VITALS: PULSE 83; RESP 18
[2018-11-29] MEDS: Albuterol 2.5 MG/3 ML VIAL.NEB. INHALATION (03:10)
[2018-11-29] MEDS: Levothyroxine 100 MCG Tablet 200 MCG PO (05:21)
--- NOTE | 2018-11-29 05:50 | NURSING ---
Patient refusing AM labs.
[2018-11-29 06:40] VITALS: BP 104/71; PULSE 85; RESP 18; TEMP 36.4; O2SAT 97
--- NOTE | 2018-11-29 06:54 | NURSING ---
Patient refusing AM BGT.
[2018-11-29 07:00] VITALS: PULSE 88; RESP 21
[2018-11-29] MEDS: Ipratropium/Albuterol Sulfate 3 ML AMPUL.NEB INHALATION (07:00)
[2018-11-29 07:56] VITALS: O2SAT 95
[2018-11-29] MEDS: Pantoprazole Sodium 40 MG Tablet PO (08:30)
[2018-11-29] MEDS: Clopidogrel Bisulfate 75 MG Tablet PO (08:30)
[2018-11-29] MEDS: APIXABAN 2.5 MG TABLET PO (08:31)
[2018-11-29] MEDS: Oseltamivir Phosphate 30 MG Capsule PO (08:31)
--- NOTE | 2018-11-29 09:26 | DCINST_ITS ---
You will use the following diet at home:: Cardiac Discharge Activity: Return to Normal Activity, May not drive while taking narcotic pain medications. Allergies/Adverse Reactions: Allergies ampicillin Allergy (Verified 11/25/18 16:34) Hives doxycycline Allergy (Verified 11/25/18 16:34) Unknown hydrochlorothiazide Allergy (Verified 11/25/18 16:34) Unknown iodine Allergy (Verified 11/25/18 16:34) Unknown Penicillins [PCN] Allergy (Verified 11/25/18 16:34) Unknown shellfish derived Allergy (Verified 11/25/18 16:34) Hives venom-honey bee [bee venom (honey bee)] Allergy (Verified 11/25/18 16:34) Hives diphenhydramine [From Benadryl] Adverse Reaction (Verified 11/25/18 16:34) Hives Medications to take at Discharge Diazepam 5 mg PO BID PRN PRN 10/20/16 Levothyroxine [Synthroid] 200 mcg PO DAILY 10/20/16 Montelukast [Singulair] 10 mg PO QHS 10/20/16 Atorvastatin Calcium [Lipitor] 40 mg PO QHS 04/11/18 Ergocalciferol [Vitamin D] 50,000 unit PO SA 04/11/18 Pantoprazole Sodium [Protonix] 40 mg PO DAILY 04/11/18 Albuterol Inhaler [Ventolin Hfa] 2 puff INHALATION Q4H PRN PRN 04/12/18 Folic Acid 1 mg PO DAILY@0800 04/12/18 Apixaban [Eliquis] 2.5 mg PO BID tablet 04/16/18 Furosemide [Lasix] 40 mg PO BID@1000,1800 tablet 04/16/18 Lisinopril [Zestril] 2.5 mg PO DAILY tablet 04/16/18 Metoprolol Tartrate [Lopressor (beta jackie)] 25 mg PO BID tablet 04/16/18 Potassium Chloride [K-Dur] 20 meq PO DAILYCM tablet 04/16/18 Insulin Glargine,Hum.rec.anlog [Basaglar Kwikpen U-100] 22 unit SQ DAILY 05/18/18 Lactobacillus Rhamnosus GG [Culturelle] 1 each PO DAILY 05/18/18 Clopidogrel Bisulfate [Clopidogrel] 75 mg PO DAILY 11/25/18 Azithromycin [Zithromax Z-Hong] 250 mg PO UD #1 box 11/29/18 Ondansetron [Zofran Odt] 4 mg PO Q8H PRN PRN #14 tablet 11/29/18 Oseltamivir Phosphate [Tamiflu] 30 mg PO BID #4 capsule 11/29/18 The following prescriptions were given: Azithromycin [Zithromax Z-Hong] 250 mg PO UD #1 box Ondansetron [Zofran Odt] 4 mg PO Q8H PRN PRN #14 tablet PRN Reason: Nausea/Vomiting Oseltamivir Phosphate [Tamiflu] 30 mg PO BID #4 capsule Primary Care Physician: Anastasiia Cordoba MD [Primary Care Provider] - Test Results: Test results from this visit will be discussed in further detail at your follow- up appointment, if applicable. Proposed Discharge Date: 11/29/18
--- NOTE | 2018-11-29 09:30 | DS.PCM_ITS ---
Discharge Date and Diagnosis - Problem List Patient Problems: Active and Suspected Problems Adenoviral infection (Acute) Parainfluenza (Acute) Influenza A (Acute) Date of Admission: 11/25/18 Date of Discharge: 11/29/18 - Primary Discharge Diagnosis Active and Suspected Problems Adenoviral infection (Acute) Parainfluenza (Acute) Influenza A (Acute) - Secondary Discharge Diagnosis Chronic Problems Left ventricular apical thrombus (Chronic) Ischemic cardiomyopathy (Chronic) History of coronary artery stent placement (Chronic) CHARY to LAD @ [facility] in March 2018 CHF (congestive heart failure) (Chronic) NSTEMI (non-ST elevated myocardial infarction) (Chronic) Acute exacerbation of COPD with asthma (Chronic) Pneumococcal pneumonia (Chronic) Acute respiratory failure with hypoxia and hypercapnia (Chronic) Diabetes mellitus (Chronic) HLD (hyperlipidemia) (Chronic) S/P PTCA (percutaneous transluminal coronary angioplasty) (Chronic) SVT (supraventricular tachycardia) (Chronic) CAD (coronary artery disease) (Chronic) S/P PTCA/CHARY to LAD @ [facility] in March 2018; Essential hypertension (Chronic) Hospital Course and Treatment Operations: None Summary of Care Provided: In brief, patient is a 63-year-old lady with multiple comorbidities admitted with progressive generalized weakness and assessment of acute viral syndrome was made subsequent acute respiratory panel obtained came back positive for Influenza A (Subtype H1), Adenovirus Parainfluenza 2 1. Acute Viral syndrome with Influenza A (Subtype H1), Adenovirus Parainfluenza 2: Admitted to monitored bed Tamiflu initiated in addition to symptomatic management patient improving clinically. 2. Elevated troponin attributed to demand ischemia from above infection managed medically. 3. Significant electrolyte abnormalities including hypokalemia as well as hypomagnesemia corrected per protocol 4. Hyponatremia secondary to hypovolemic hyponatremia on fluids with monitoring of electrolyte 5. Left labial abscess-treated as outpatient with an I&D 6. COPD without acute exacerbation 7. Chronic systolic congestive heart failure with EF of 30% 8. 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 CAD with prior non-STEMI with previous PCI x5 is currently on dual antiplatelet therapy in addition to statin therapy as stated above patient presented with elevated troponin following trends 10. Ischemic cardiomyopathy 11. Hypertension patient blood pressure on admission was low antihypertensive subsequently held 12. Dyslipidemia-patient is on statin therapy, continued at home dose 13. Hypothyroidism-patient is on levothyroxine home dose continued 14. Diabetes mellitus type II: patient's oral hypoglycemics held. Placed on Accu-Cheks a.c. and at bedtime and covered with sliding scale insulin 15. Chronic kidney disease stage III secondary to diabetic nephropathy 16. Depression with anxiety 17. GERD on PPI 18. Recent treatment for scabies 19. DVT prophylaxis on Eliquis no need for additional measures 20. Physical deconditioning requested for PT OT eval and older adult social work specialist to assist with discharge Patient Problems: Active and Suspected Problems Adenoviral infection (Acute) Parainfluenza (Acute) Influenza A (Acute) Objective: GENERAL:cooperative HEENT: Atraumatic; moist oral mucosa EYES; Anicteric, Normal Conjunctiva NECK; supple, normal thyroid, no distended JVD. RESPIRATORY: Diminished to auscultation bilaterally, CARDIOVASCULAR: Regular S1 S2, no audible murmurs GI: soft, non-tender, normoactive bowel sounds, : No Renal angle tenderness; EXTREMITIES: No edema, no clubbing, no cyanosis. MUSCULOSKELETAL: No Joint Tenderness; no muscle waisting NEURO: Awake; no lateralizing signs. SKIN: No Rash PSYCH; Normal affect - Physical Exam Vital Signs Temp Pulse Resp BP Pulse Ox 97.6 F L 88 21 H 104/71 95 11/29/18 06:40 11/29/18 07:00 11/29/18 07:00 11/29/18 06:40 11/29/18 07:56 Oxygen Flow Rate (L/min) 2 Oxygen Delivery Method Room Air Weight: 84.6 kg Body Mass Index (BMI) 30.1 Intake and Output for Last 24 Hours 11/27/18 11/28/18 11/29/18 23:59 23:59 23:59 Intake Total 2057 / 2057 960 / 960 240 / 240 Output Total 300 / 300 Balance 1758 / 1758 960 / 960 240 / 240 Microbiology Past 72 Hours 11/25/18 20:15 Respiratory Panel (PCR) - Final Mucosa - Nasopharyngeal Influenza A (Subtype H1) Adenovirus Parainfluenza 2 Discharge Activity: Return to Normal Activity, May not drive while taking narcotic pain medications. Home Medications: Medications to take at Discharge Diazepam 5 mg PO BID PRN PRN 10/20/16 Levothyroxine [Synthroid] 200 mcg PO DAILY 10/20/16 Montelukast [Singulair] 10 mg PO QHS 10/20/16 Atorvastatin Calcium [Lipitor] 40 mg PO QHS 04/11/18 Ergocalciferol [Vitamin D] 50,000 unit PO SA 04/11/18 Pantoprazole Sodium [Protonix] 40 mg PO DAILY 04/11/18 Albuterol Inhaler [Ventolin Hfa] 2 puff INHALATION Q4H PRN PRN 04/12/18 Folic Acid 1 mg PO DAILY@0800 04/12/18 Apixaban [Eliquis] 2.5 mg PO BID tablet 04/16/18 Furosemide [Lasix] 40 mg PO BID@1000,1800 tablet 04/16/18 Lisinopril [Zestril] 2.5 mg PO DAILY tablet 04/16/18 Metoprolol Tartrate [Lopressor (beta jackie)] 25 mg PO BID tablet 04/16/18 Potassium Chloride [K-Dur] 20 meq PO DAILYCM tablet 04/16/18 Insulin Glargine,Hum.rec.anlog [Basaglar Kwikpen U-100] 22 unit SQ DAILY 05/18/18 Lactobacillus Rhamnosus GG [Culturelle] 1 each PO DAILY 05/18/18 Clopidogrel Bisulfate [Clopidogrel] 75 mg PO DAILY 11/25/18 Azithromycin [Zithromax Z-Hong] 250 mg PO UD #1 box 11/29/18 Ondansetron [Zofran Odt] 4 mg PO Q8H PRN PRN #14 tablet 11/29/18 Oseltamivir Phosphate [Tamiflu] 30 mg PO BID #4 capsule 11/29/18 Following Prescrptions Were Given to Patient: Azithromycin [Zithromax Z-Hong] 250 mg PO UD #1 box Ondansetron [Zofran Odt] 4 mg PO Q8H PRN PRN #14 tablet PRN Reason: Nausea/Vomiting Oseltamivir Phosphate [Tamiflu] 30 mg PO BID #4 capsule Primary Care Physician: Anastasiia Cordoba MD [Primary Care Provider] - Disposition: Home Minutes spent on discharge:: 35 Patient Condition:: Stable Medical Necessity - Tobacco Use Smoking Status: Former smoker Tobacco Use: Non-smoker Meaningful Use Info Meaningful Use Diagnoses (Choose all that apply): None applicable Code Visit OBSV E&M: 45840 Observation care discharge
== END 2018-11-29 10:52 | disposition home or self-care (01) ==
LOC: ED 17:12 → PCU 20:58
PROVIDERS: Physician Assistant; Admitting Provider Family Medicine; Emergency Provider Emergency Medicine; Family Provider Internal Medicine; PCP Internal Medicine; Referring Provider Family Medicine; Visit Provider Internal Medicine
DX: J10.1 Influenza due to other identified influenza virus with other respiratory manifestations (principal); B97.0 Adenovirus as the cause of diseases classified elsewhere; B34.8 Other viral infections of unspecified site; I25.10 Atherosclerotic heart disease of native coronary artery without angina pectoris; E78.5 Hyperlipidemia, unspecified; I50.22 Chronic systolic (congestive) heart failure; I25.2 Old myocardial infarction; E66.9 Obesity, unspecified; K21.9 Gastro-esophageal reflux disease without esophagitis; E03.9 Hypothyroidism, unspecified; J44.9 Chronic obstructive pulmonary disease, unspecified; E87.6 Hypokalemia; E87.1 Hypo-osmolality and hyponatremia; I13.0 Hypertensive heart and chronic kidney disease with heart failure and stage 1 through stage 4 chronic kidney disease, or unspecified chronic kidney disease; E11.22 Type 2 diabetes mellitus with diabetic chronic kidney disease; N18.3 Chronic kidney disease, stage 3 (moderate); I25.5 Ischemic cardiomyopathy; Z79.899 Other long term (current) drug therapy; Z68.30 Body mass index [BMI] 30.0-30.9, adult; Z71.3 Dietary counseling and surveillance; Z79.01 Long term (current) use of anticoagulants; Z79.02 Long term (current) use of antithrombotics/antiplatelets; Z79.4 Long term (current) use of insulin; Z87.891 Personal history of nicotine dependence; Z95.5 Presence of coronary angioplasty implant and graft; E86.0 Dehydration; N76.4 Abscess of vulva; F41.8 Other specified anxiety disorders
CPT/HCPCS: 36415; 71045; 80048; 80053; 80061; 81001; 82962; 83735; 84100; 84443; 84484; 85025; 85027; 87633; 93005; 94640; 96361; 96374; 96376; 97161; 97165; 97802; 99218; 99285; J7030; A4216; G0378; J2405